=== PATIENT | female | born 1945 | race Caucasian/White ===

== ENCOUNTER 2018-03-30 03:17 | Inpatient (IN) ==
[2018-03-30] MEDS ORDERED: *HR* FentaNYL (PF) 100 MCG/2 ML VIAL IVP PRN (06:41)
[2018-03-30] MEDS ORDERED: 0.9 % Sodium Chloride 1,000 ML IVC SCH ×2 (06:45→08:45)
[2018-03-30 07:27] LABS: Basophils % 0.2 %; Eosinophils % 0.2 %; Hematocrit 30.7 % (35.3-44.9); Hemoglobin 9.6 g/dL (11.5-15.4); Immature Granulocytes % 0.5 % (0-4); Lymphocytes # 1.1 K/mcL (0.6-4.6); Lymphocytes % 10.4 %; Mean Corpuscular HGB Conc 31.3 g/dL (31.6-35.5); Mean Corpuscular Hemoglobin 30.6 pg (28.0-33.3); Mean Corpuscular Volume 97.8 fL (83.0-100.0); Mean Platelet Volume 8.8 fL (9.4-12.4); Monocytes # 0.6 K/mcL (0.0-1.3); Monocytes % 6.3 %; Neutrophils # 8.4 K/mcL (1.6-8.9); Platelet Count 192 K/mcL (140-400); Red Blood Count 3.14 M/mcL (3.82-4.97); Red Cell Distribution Width 20.1 % (11.5-14.5); Segmented Neutrophils % 82.4 %
[2018-03-30 07:36] LABS: INR 1.7; Prothrombin Time 19.6 Seconds (9.4-12.1)
[2018-03-30 07:38] LABS: Activated Partial Thrombo Time 33.5 Seconds (26.0-36.0)
[2018-03-30] MEDS ORDERED: OXYCODONE Oral CONC 10 MG/0.5 ML ORAL.SYG SL PRN (07:39)
[2018-03-30] MEDS ORDERED: Ketorolac 15 MG/ML VIAL IVP PRN (07:39)
[2018-03-30] MEDS ORDERED: Naloxone 0.4 MG/ML INJ IVP PRN (07:39)
[2018-03-30 07:47] LABS: Alanine Aminotransferase 10 Units/L (7-52); Albumin 3.4 g/dL (3.5-5.7); Alkaline Phosphatase 75 Units/L (34-104); Aspartate Amino Transferase 15 Units/L (13-39); BUN/Creatinine Ratio 44 (6-26); Bilirubin,Total 0.4 mg/dL (0.3-1.0); Blood Urea Nitrogen 48 mg/dL (8-23); Carbon Dioxide 27 mEq/L (23-29); Chloride 101 mEq/L (98-107); Globulin 3.4 g/dL (2.4-3.5); Glucose 145 mg/dL (70-105); Osmolality,Calculated 299 (280-300); Potassium 4.1 mEq/L (3.5-5.1); Sodium 137 mEq/L (136-145); Total Protein 6.8 g/dL (6.4-8.9); eGFR For Non-African Americans 50 (> 60)
--- NOTE | 2018-03-30 08:23 | Internal Med History&Physical ---
Date of Encounter: 03/30/18 Time of Encounter: 08:20 Internal Medicine - H&P: HPI Chief complaint: Fall with right hip pain Admitted From: Emergency Dept ([facility]) History of present illness: Ms. Bermudez is a 72 year old female patient with history of coronary artery disease status post coronary artery bypass grafting, stents, hypertension, anxiety, depression, recent DVT presented to the ER with complaints of right hip pain after she sustained a fall while she was sitting on side of the bed. She reports that she may have gotten up to use the restroom when she sat on side of bed and slid down and could not stop herself. She then developed pain in her right hip. She was taken to the ER and was found to have right proximal femur neck fracture and transferred here for orthopedic evaluation. Patient reports severe pain in the right hip region. She also complains of exertional dyspnea with minimal exertion. She is also having bilateral lower extremity swelling which is worse and has noticed erythema worsening on her left lower extremity. She denies any fevers or chills. No cough or wheezing. She has been residing at a retirement facility since her coronary artery bypass surgery earlier this year. She currently denies any chest pain or palpitations. She was also recently diagnosed with a DVT in her left leg and has been placed on Coumadin. Past Med Surg Social Fam HX - Past Medical History Attestation: Yes The following information was validated with the patient. Source: patient, old records reviewed Medical history: arthritis, COPD, DVT, GERD, hyperlipidemia, myocardial infarction Psychiatric history: anxiety, depression - Past Surgical History Surgical History: angioplasty/stent, appendectomy, hysterectomy, knee replacement Additional surgical history: CLUB FEET SX. STOMACH SX - Social History Smoking Status: Former smoker Smokeless Tobacco Status: No Alcohol use: none Drug use: none - Family History Mother Living Status: Hx Family Cardiac Disorders: Yes Father Living Status: Hx Family Cardiac Disorders: Yes Hx Family Endocrine Disorder: No Internal Medicine - H&P: Meds Acetaminophen [Tylenol] 500 mg PO Q6HR PRN 03/12/15 [History] Allopurinol [Zyloprim] 200 mg PO QAM 03/12/15 [History] Aspirin 81 mg PO QAM 03/12/15 [History] Calcium Carbonate 2.5 tab PO QAM 03/12/15 [History] Cholecalciferol (Vitamin D3) [Vitamin D3] 800 unit PO QAM 03/12/15 [History] Citalopram [CeleXA] 20 mg PO QAM 03/12/15 [History] Clopidogrel [Plavix] 75 mg PO DAILY 03/12/15 [History] Clotrimazole 1% CRM [Lotrimin] 1 appl TP BID 03/12/15 [History] Docusate Sodium [Doc-Q-Lace] 100 mg PO TID 03/12/15 [History] Fentanyl [Duragesic] 12 mcg TD Q72H 03/12/15 [History] Fluticasone Propionate Nasal [Flonase] 1 spray NS DAILY 03/12/15 [History] Folic Acid 1 mg PO QAM 03/12/15 [History] Furosemide [Lasix] 20 mg PO QAM 03/12/15 [History] Isosorbide MONOnitrate [Isosorbide Mononitrate ER] 30 mg PO QAM 03/12/15 [ History] Melatonin 3 mg PO HS 03/12/15 [History] Methotrexate Sodium [Methotrexate] 8 tab PO QWEEK 03/12/15 [History] Metolazone [Zaroxolyn] 5 mg PO QAM 03/12/15 [History] Nitroglycerin [Nitrostat] 0.4 mg SL Q3-5MIN PRN 03/12/15 [History] Nystatin POWDER [Nystop] 1 appl TP BID 03/12/15 [History] Oxybutynin [Ditropan] 5 mg PO HS 03/12/15 [History] Oxycodone HCl [Roxicodone] 5 mg PO Q6H PRN 03/12/15 [History] Potassium Chloride 20 meq PO QAM 03/12/15 [History] Pravastatin Sodium [Pravachol] 40 mg PO QPM 03/12/15 [History] Ropinerole [Requip] 2 mg PO HS 03/12/15 [History] raNITIdine HCl [Ranitidine HCl] 150 mg PO BID 03/12/15 [History] Alendronate Sodium 70 mg PO QWEEK 05/14/15 [History] Metoprolol [Lopressor] 100 mg PO QAM 05/14/15 [History] Acetaminophen [Tylenol] 500 mg PO Q6HR #60 tablet 05/16/15 [Rx] Ascorbic Acid [Vitamin C] 500 mg PO BID #60 tablet 05/16/15 [Rx] Docusate [Colace] 100 mg PO DAILY #60 capsule 05/16/15 [Rx] Enoxaparin [Lovenox] 40 mg SQ 0600 #29 syringe 05/16/15 [Rx] Ferrous Sulfate 325 mg PO BIDWM #60 tablet 05/16/15 [Rx] OxyCODONE Immed Rel [Roxicodone 5 MG] 5 - 10 mg PO Q4HR PRN #90 tablet 05/16/15 [Rx] 3 Allergy/AdvReac Type Severity Reaction Status Date / Time lorazepam [From Ativan] AdvReac See Verified 05/14/15 07:06 Comments NSAIDS (Non-Steroidal AdvReac Gastrointestinal Verified 05/14/15 07:06 Anti-Inflamma Upset All Systems PM: A 10-system review of systems was performed and is negative for pertinent findings except as documented above in the HPI. - Constitutional Constitutional: no chills, no fever(s), no night sweats - EENT Eyes: no change in vision, no discharge, no pain, no photophobia Ears: no ear discharge, no ear pain, no tinnitus Nose, mouth and throat: no dysphagia, no nasal discharge, no neck pain, no sore throat - Cardiovascular Cardiovascular ROS IM: dyspnea, dyspnea on exertion, edema, no chest pain, no diaphoresis, no lightheadedness, no palpitations, no syncope - Respiratory Respiratory: no cough, no dyspnea, no wheezing, no excessive phlegm production - Gastrointestinal Gastrointestinal: no abdominal pain, no diarrhea, no hematemesis, no hematochezia, no melena, no nausea, no vomiting - Genitourinary Genitourinary: no change in urinary stream, no dysuria, no flank pain, no hematuria - Musculoskeletal Musculoskeletal ROS IM: other (Right knee pain), no numbness, no tingling - Integumentary Integumentary IM: erythema - Neurological Neurological ROS: no confusion, no convulsions, no focal weakness, no numbness, no tingling, no tremor(s) - Hematologic/Lymphatic Hematologic/Lymphatic: no easy bruising - Constitutional Vitals: Temp Pulse Resp BP Pulse Ox 98.0 F 92 18 92/60 95 03/30/18 06:36 03/30/18 06:36 03/30/18 06:36 03/30/18 06:36 03/30/18 06:36 General appearance: Present: cooperative, A&O X 3, obese, answers questions appropriately Exam: Moderate distress - Neck Neck exam general surgery: Present: supple, trachea midline. Absent: lymphadenopathy - Respiratory Respiratory exam: Present: decreased breath sounds, CTAB. Absent: accessory muscle use, rales, rhonchi, wheezes - Cardiovascular Cardiovascular exam: Present: RRR, +S1, +S2. Absent: diastolic murmur, gallop, rubs, systolic murmur - GI/Abdominal GI/Abdominal exam: Present: normal bowel sounds, soft, no peritoneal signs. Absent: distended, tenderness - Extremities Exam Extremities exam: Present: pedal edema (Bilateral pitting pedal edema), tenderness (Right hip), warm, radial pulses palpable and symmetrical. Absent: calf tenderness, cyanotic - Neurological Exam Neurological exam: Present: alert, oriented X3, no focal deficits. Absent: facial droop, speech deficit - Skin Skin exam: Present: dry, erythema (Erythema with warmth and tenderness over the anterior part of the left lower leg), intact Internal Med - H&P Results - Labs CBC & Chem 7: 03/30/18 07:09 03/30/18 07:09 Labs: Short CBC 03/30/18 Range/Units 07:09 WBC 10.2 (4.3-11.1) K/mcL Hgb 9.6 L (11.5-15.4) g/dL Hct 30.7 L (35.3-44.9) % Plt Count 192 (140-400) K/mcL Neutrophils # 8.4 (1.6-8.9) K/mcL BMP 03/30/18 07:09 Sodium 137 Potassium 4.1 Chloride 101 Carbon Dioxide 27 BUN 48 H Creatinine 1.08 Glucose 145 H Calcium 9.0 Liver Function 03/30/18 Range/Units 07:09 Total Bilirubin 0.4 (0.3-1.0) mg/dL AST 15 (13-39) Units/L ALT 10 (7-52) Units/L Alkaline Phosphatase 75 (34-104) Units/L Albumin 3.4 L (3.5-5.7) g/dL - Assessment and plan (1) Closed right femoral fracture Current Visit: Yes Status: Acute Assessment and plan: Patient with closed right femur neck fracture. Orthopedics consultation. Pain control. We will follow the recommendations. Physical therapy after surgery. Qualifiers: Encounter type: initial encounter Femur location: neck Qualified Code(s) : S72.001A - Fracture of unspecified part of neck of right femur, initial encounter for closed fracture (2) Essential hypertension Current Visit: Yes Status: Chronic Assessment and plan: Monitor blood pressure. Continue home medications. (3) DVT (deep venous thrombosis) Current Visit: Yes Status: Chronic Assessment and plan: Patient with reported history of DVT in the left lower extremity. On Coumadin. INR is subtherapeutic. Will place patient on IV heparin and hold Coumadin in anticipation for surgery. Qualifiers: DVT location: lower extremity Affected thrombotic vein of extremity: unspecified vein of extremity Chronicity: chronic Laterality: left Qualified Code(s): I82.502 - Chronic embolism and thrombosis of unspecified deep veins of left lower extremity (4) Cellulitis of left leg Current Visit: Yes Status: Acute Assessment and plan: Patient has cellulitis involving 10 x 10 cm area on the anterior lower espinal of the left lower extremity. We will place her on vancomycin as she is a senior living resident. (5) Anemia Current Visit: Yes Status: Chronic Assessment and plan: Patient with history of chronic anemia. Hemoglobin 9.6 here. Appears to be at her baseline. We will monitor. We will also check iron, folic acid and B12 levels Qualifiers: Anemia type: other cause Other causes of anemia: other cause, not classified Qualified Code(s): D64.89 - Other specified anemias (6) Coronary artery disease Current Visit: Yes Status: Chronic Assessment and plan: Patient with history of coronary artery disease status post CABG done earlier this year. Currently not having chest pain. However she does report exertional dyspnea. Will consult cardiology and also get 2-D echocardiogram. Qualifiers: Coronary Disease-Associated Artery/Lesion type: unspecified vessel or lesion type [place] vs. transplanted heart: [place] heart Associated angina: without angina Qualified Code(s): I25.10 - Atherosclerotic heart disease of [place] coronary artery without angina pectoris (7) Congestive heart failure (CHF) Current Visit: Yes Status: Suspected Assessment and plan: Patient reports exertional dyspnea and pedal edema. Did have coronary artery bypass grafting done earlier this year. May have underlying CHF. Will get 2-D echocardiogram. Her blood pressure is soft at this time. Will avoid IV Lasix for now. Once her blood pressure improves, we can give IV Lasix and monitor her urine output closely. Follow cardiology recommendations. Qualifiers: Heart failure type: combined systolic and diastolic Heart failure chronicity: acute on chronic Qualified Code(s): I50.43 - Acute on chronic combined systolic (congestive) and diastolic (congestive) heart failure - Time Spent With Patient Total time spent is greater than 50% in coordination of care (as documented) at patient's floor/unit and/or counseling patient:
[2018-03-30] MEDS ORDERED: *HR* Heparin 5,000 UNIT/ML VIAL IVP ONE (08:39)
[2018-03-30] MEDS ORDERED: *HR* Heparin 5,000 UNIT/ML VIAL IVP PRN ×2 (08:39)
[2018-03-30] MEDS: Heparin 25,000 UNIT/500 ML D5W 25,000 UNIT/500 ML BAG IVC SCH (09:56)
[2018-03-30] MEDS ORDERED: 0.9 % Sodium Chloride 250 ML IVC SCH (10:15)
--- NOTE | 2018-03-30 11:03 | Cardiology Consult Note ---
<DomínguezHollis S - Last Filed: 03/30/18 10:58> Date of Encounter: 03/30/18 Time of Encounter: 10:45 Assessment and Plan (1) Pre-operative cardiovascular examination Current Visit: Yes Status: Acute Pt has an extensive hx of cardiac dz including CAD, HTN, recent double bypass, OH x 3 (1998,1999,2000) and stents x 3 According to the revised cardiac risk index calculator, the pt is a class III risk with 2 points significant for hx of ischemic heart dz and hx of CHF. According to this risk calculation, the pt has a 6.6% risk of major cardiac event Last ECHO was done 05/2015 -LVEF 70% -normal LV size with hyperdynamic systolic fxn -mild diastolic dysfxn of the LV -moderately enlarged LA size, normla RA size -RV borderline dilated with hyperfynamic fxn -no pHTN -RVSP was 32mmHg LOIS done at [facility] in September showed -LVEF 55% -no MR, trace TR -LV improved wall motion -mid and apical anteroir wall improved to hypokinetic from akinetic -anterpseptal from hypokinetic to normal -inferoseptal mildly hypokinetic EKG in the ER showed sinus rhythm, LAD, old anterior Q waves Plan: -the benefits outweigh the risks of the fixation of the right femur -based on cardiac risk assessment, the pt is a candidate for intervention -benefits and risks explained to the pt -continue cardiac diet until midnight before surgery -ECHO pending (2) Closed right femoral fracture Current Visit: Yes Status: Acute Pt has right proximal femur neck fracture -cardiac risk assessment as per above -continue to control pain as per primary with [place] -continue heparin drip Qualifiers: Encounter type: initial encounter Femur location: neck Qualified Code(s) : S72.001A - Fracture of unspecified part of neck of right femur, initial encounter for closed fracture (3) Coronary artery disease Current Visit: No Status: Chronic Hx of CAD -s/p CABG earlier this year -no active chest pain -(+) for exertional dyspnea Plan: -continue Pravachol 40mg PO at night, Lopressor 100mg PO, Isosorbid Mononitrate 30mg, Lasix 20mg, ASA 81mg Qualifiers: Coronary Disease-Associated Artery/Lesion type: unspecified vessel or lesion type [place] vs. transplanted heart: [place] heart Associated angina: without angina Qualified Code(s): I25.10 - Atherosclerotic heart disease of [place] coronary artery without angina pectoris (4) Essential hypertension Current Visit: No Status: Chronic BP 92/60 -adequate control Plan: -continue home meds -Lopressor 100mg PO, Isosorbid Mononitrate 30mg, Lasix 20mg (5) DVT (deep venous thrombosis) Current Visit: No Status: Chronic Pt recently tx for DVT in the LLE -she is on Coumadin -PT 19.6, INR 1.7 (subtheraputic) Plan: -coumadin held -continue heparin drip -check PT/INR in the morning as per primary Qualifiers: DVT location: lower extremity Affected thrombotic vein of extremity: unspecified vein of extremity Chronicity: chronic Laterality: left Qualified Code(s): I82.502 - Chronic embolism and thrombosis of unspecified deep veins of left lower extremity Discussion w patient/family: The assessment and plan as outlined above was discussed with the patient and/or family members who expressed understanding and agreement. All questions were answered. Thank you for involving us in the care of your patient. Please call with any questions. History of Present Illness Consult date: 03/30/18 Requesting physician: Alonso Glaser Consult reason: Preop clearance for right femur fx Chief complaint: "i fell" History of present illness: Ms. Bermudez is a 72 year old female with PMH of CAD, HTN, anxiety, and is s/ p CABG at [facility] in september. She is consulted for pre-op clearance for right femur fx. She states that she fell last night trying to get out of bed. She was sitting on the side trying to go to the bathroom and doesn't remember much else. She states that she has excruciating hip pain since the fall and was taken to the ER. In the ER she was found to have a right proximal femur fracture. She has B/ L LE swelling and erythema. The pt also has exertional SOB, which worsens when she tries to walk too much. She has an extensive cardiac hx including 3 OH (1998, 1999, 2000) and has had stents placed with each OH. The pt is not a smoker, has been quit since her first heart attack in 1998. She had CABG at [facility] (double bypass) earlier this year in September and has been in a long term since. The pt was recently admitted for a DVT in the left leg and has been on Coumadin since. Currently the pt denies any chest pain, palpitations, SOB, abd pain, N/V/D. She does have pain in the right hip and does endorse having some anxiety. Fluids - 0.9% NS 75cc/hr Electrolytes - all WNL Nutriton - cardiac diet DVT prophylaxis - on heparin drip GI prophylaxis - not indicated Past Med Surg Social Fam HX - Past Medical History Medical history: arthritis, COPD, DVT, GERD, hyperlipidemia, myocardial infarction Psychiatric history: anxiety, depression - Past Surgical History Surgical History: angioplasty/stent, appendectomy, hysterectomy, knee replacement Additional surgical history: CLUB FEET SX. STOMACH SX - Social History Smoking Status: Former smoker Smokeless Tobacco Status: No Alcohol use: none Drug use: none - Family History Mother Living Status: Hx Family Cardiac Disorders: Yes Father Living Status: Hx Family Cardiac Disorders: Yes Hx Family Endocrine Disorder: No Medications and Allergies Alendronate Sodium [Fosamax] 70 mg PO VERDE 03/30/18 [History] Allopurinol [Zyloprim 100 MG] 100 mg PO BID 03/30/18 [History] Aspirin [Lo-Dose Aspirin EC] 81 mg PO DAILY 03/30/18 [History] Atorvastatin [Lipitor] 40 mg PO HS 03/30/18 [History] Calcium Carbonate/Vitamin D3 [[place] Calcium-Vit D Tab] 1 tab PO TID 03/30 [History] Citalopram Hydrobromide [Citalopram HBr] 20 mg PO DAILY 03/30/18 [History] Clopidogrel [Plavix] 75 mg PO DAILY 03/30/18 [History] Ergocalciferol (VITAMIN D2) [Vitamin D] 400 unit PO DAILY 03/30/18 [History] FentaNYL PATCH [Duragesic] 25 mcg TD Q72H 03/30/18 [History] Folic Acid 1 mg PO DAILY 03/30/18 [History] Furosemide [Lasix] 40 mg PO BID 03/30/18 [History] Lidocaine Patch [Lidoderm 5% patch] 1 appl TP DAILY 03/30/18 [History] Mag Hydrox/Aluminum Hyd/Simeth [Cvs Antacid Plus Anti-Gas Liq] 30 ml PO AD PRN 03/30/18 [History] Magnesium Oxide [Magnesium] 400 mg PO BID 03/30/18 [History] Methotrexate [Otrexup] 15 mg PO TH 03/30/18 [History] Metoprolol [Lopressor] 25 mg PO BID 03/30/18 [History] Multivitamin [One Daily Multivitamin] 1 tab PO DAILY 03/30/18 [History] Nitroglycerin [Nitrostat] 0.4 mg SL Q5M PRN MDD [id number] 03/30/18 [History] OxyCODONE/APAP 5/325 [Percocet 5/325 MG] 1 tab PO Q4HR PRN 03/30/18 [History] Oxybutynin [Ditropan] 5 mg PO HS 03/30/18 [History] Potassium Chloride [Klor-Con 10] 10 meq PO BID 03/30/18 [History] Ropinirole HCl [Requip] 2 mg PO HS 03/30/18 [History] Warfarin [Coumadin] 5 mg PO 1800 03/30/18 [History] Zolpidem [Ambien] 5 mg PO HS 03/30/18 [History] raNITIdine HCl [Zantac] 150 mg PO BID 03/30/18 [History] 3 Allergy/AdvReac Type Severity Reaction Status Date / Time lorazepam [From Ativan] AdvReac See Verified 05/14/15 07:06 Comments NSAIDS (Non-Steroidal AdvReac Gastrointestinal Verified 05/14/15 07:06 Anti-Inflamma Upset All Systems Review: The remainder of the systems were reviewed and are negative - Constitutional Constitutional: frequent falls, no chills, no fatigue - Cardiovascular Cardiovascular: dyspnea on exertion, leg edema, no chest pain at rest, no chest pain with exertion, no dyspnea at rest, no palpitations, no paroxysmal nocturnal dyspnea - Respiratory Respiratory: no cough, no dyspnea - Gastrointestinal Gastrointestinal: no abdominal pain, no diarrhea - Musculoskeletal Musculoskeletal: arthralgias - Neurological Neurological: no dizziness, no numbness, no tingling - Psychiatric Psychiatric: anxiety Physical Examination Vital Signs, Last 4 Hours Pulse Ox 03/30/18 08:36 95 General: Conversant HEENT: Atraumatic, Normocephaly Cardiac: Other (systolic murmur over the LUSB, regular rhythm, tacycardia most likely 2/2 pain) Lungs: No Wheeze, Rales, Rhonchi Neuro: Alert and responsive, No focal deficits noted Abdomen: Soft Skin: No rashes noted on visualized skin Extremities: Other (minimal B/L edema, erythema over B/L shins) Results 03/30/18 07:09 03/30/18 07:09 Lab Results 03/30/18 03/30/18 03/30/18 07:09 07:09 07:09 WBC 10.2 Hgb 9.6 L Hct 30.7 L Plt Count 192 INR 1.7 APTT 33.5 Sodium 137 Potassium 4.1 Chloride 101 Carbon Dioxide 27 BUN 48 H Creatinine 1.08 Glucose 145 H Calcium 9.0 Total Bilirubin 0.4 AST 15 ALT 10 Alkaline Phosphatase 75 Consult Discharge Plan - Plan Referrals: Santos Robbins Jr, PAC [Primary Care Provider] - <Yandy Pizano - Last Filed: 03/30/18 18:54> Date of Encounter: 03/30/18 - Attending Attestation I examined this patient and my medical decision-making was reviewed with the Resident Physician. I agree with the documented findings, disposition and treatment plan. Ms. Bermudez is a 72 year old female presenting with acute right hip fracture due to what appears to be a mechanical fall. Patient reports falling out of her bed which she has done before. She denies history of syncope. We've been asked to evaluate the patient preoperatively. Known history of CAD and prior OH with bypass earlier this year follows with Dr. Tolliver in [place]. At the bedside the patient is alert, conversant and oriented x3. Vital signs stable. No concerning cardiac exam findings. Does have sternal wound. No acute ECG findings. Echo with normal LV systolic function. No prior history of significant valve dysfunction. Impression/Plan: Known history of CAD and recent bypass earlier this year. Denies cardiac symptoms prior to her mechanical fall out of bed. No active cardiac conditions to treat preoperatively. ECG without concerning findings. Cardiac testing is not warranted at this time and would ultimately delay her necessary surgery that if not done could lead to immobility and deterioration. Recommend proceeding with surgery with known CAD and knowledge of risk that does not appear to be high at this time. Of note, please consider Wound Care consult for sternal wound. Patient would like to follow up with her Jack Winder, Dr. Tolliver in [place]. Will sign off. Please call with questions. Assessment and Plan Discussion w patient/family: The assessment and plan as outlined above was discussed with the patient and/or family members who expressed understanding and agreement. All questions were answered. Thank you for involving us in the care of your patient. Please call with any questions. History of Present Illness History of present illness: Ms. Bermudez is a 72 year old female All Systems Review: The remainder of the systems were reviewed and are negative Physical Examination Vital Signs, Last 4 Hours Temp Pulse Resp BP Pulse Ox 03/30/18 16:29 85 104/67 03/30/18 15:06 98.7 F 70 19 90/52 98 Results 03/30/18 07:09 03/30/18 07:09 Lab Results 03/30/18 03/30/18 03/30/18 07:09 07:09 07:09 WBC 10.2 Hgb 9.6 L Hct 30.7 L Plt Count 192 INR 1.7 APTT 33.5 Sodium 137 Potassium 4.1 Chloride 101 Carbon Dioxide 27 BUN 48 H Creatinine 1.08 Glucose 145 H Calcium 9.0 Total Bilirubin 0.4 AST 15 ALT 10 Alkaline Phosphatase 75
[2018-03-30] MEDS ORDERED: Perflutren Lipid Microsphere 1.3 ML in 0.9 % Sodium Chloride 8.7 ML IVP ONE (13:11)
[2018-03-30] MEDS: Acetaminophen 325 MG TABLET PO PRN (13:35)
--- NOTE | 2018-03-30 21:56 | Orthopedic Consult Note ---
Date of Encounter: 03/30/18 Time of Encounter: 21:36 History of Present Illness Chief complaint: Right thigh pain HPI: Ms. Bermudez is a 72 year old female who sustained an injury to her right thigh and hip area when she had an unwitnessed fall at a nursing facility where she is a resident. This happened in the late evening of 2217. She was seen at [facility] and reportedly had a right femur fracture. She was transferred to [facility] for further evaluation and management of the fracture. The patient arrived approximately 0630 hrs. this morning. I attempted to see the patient at that time though no information was available. I started seeing the patient at approximately 7:30 PM tonight, no imaging studies were available and new x-rays had to be ordered to verify the fracture. He was initially reported that the patient had a femoral neck fracture, this was incorrect as the patient in fact has a periprosthetic fracture of nearly the midshaft of her femur. Patient has a very significant current medical history. The patient underwent cardiac bypass surgery in September of this year [facility]. She reportedly was being cleared by her coding and reimbursement specialist to resume care with her regular coding and reimbursement specialist when she was noted to have some swelling in the left leg. She had a Doppler done at [facility] on March 07 of this year (report is being faxed to [place] at this time) reportedly revealed the presence of a venous thrombosis in the left lower extremity. She was started on Lovenox and Coumadin and ultimately was maintained on Coumadin daily. The patient's case is further complicated by the revision type prosthesis in her right leg. This stem extends up to the mid thigh region. I have reviewed the patient's completed history and physical form as well as the cardiology consultation and the completed medical record. Pertinent orthopedic examination this time revealed a 72-year-old woman in moderate distress. The right thigh was in a knee immobilizer which was removed. There was marked fullness in the mid thigh suspicious for a femur fracture. The patient has a well-healed midline incision over the right knee. The patient also has some cellulitic changes in the right lower leg. This is associated with swelling and changes in the right foot. The patient does have a history of having had clubfoot surgery and the right total knee arthroplasty as previously mentioned. I reviewed x-rays of the right knee from , these revealed the presence of a cemented revision type total knee arthroplasty with a large femoral post. There is also significant calcification in the arterial system. I obtained x-rays of the right hip/femur. This revealed the presence of a oblique spiral type fracture of the right femur. The fracture ends just above the level of the femoral stem of the knee component. Laboratory data includes a hemoglobin of 9.6 with a platelet count of 19.2. The patient's pro time was 19.6 with an INR of 1.7. Be UN was 48 with a creatinine of 1.08. GFR was approximately 50. Left sugars were approximately 140. Impression: Periprosthetic fracture mid shaft right femur Recommendation: The patient is going to require surgical intervention in regards to this fracture. This removed require an extensile exposure with a combination plate utilizing screw fixation proximal and cable fixation distally due to the presence of her knee prosthesis. The patient is at high risk from a cardiac point of view as per the cardiology consultation and recommendations. I discussed the patient's case with the hospitalist in regards to [place] concerns for continued bleeding in the fracture hematoma due to the heparin use. We discussed the risks and benefits of stopping the heparin or continuing to heparin in regards to continued hemorrhage versus treatment of her left lower extremity DVT. We will obtain the venous Doppler studies from [facility] and define the level of the clot. A more proximal clot would be much more concerning and require a shorter interval before stopping the heparin prior to surgery. We will repeat labs including coags and hemoglobin in a.m. Anticipate surgery tomorrow. Had a long discussion with the patient in regards to all these findings and she signed informed consent for the surgery after we discussed the potential risks and complications including but not limited to bleeding infection blood clots nerve injury stiffness malunion nonunion and her high risk for surgery from both a cardiac an and anesthesia point of view. Thank you very much for allowing me to be involved in the care for Mrs. Bermudez. This is certainly a very complex case there will require critical care. Sincerely, Nikhil Rivas,DO Past Med Surg Social Fam HX - Past Medical History Medical history: arthritis, COPD, DVT, GERD, hyperlipidemia, myocardial infarction Psychiatric history: anxiety, depression - Past Surgical History Surgical History: angioplasty/stent, appendectomy, hysterectomy, knee replacement Additional surgical history: CLUB FEET SX. STOMACH SX - Social History Smoking Status: Former smoker Smokeless Tobacco Status: No Alcohol use: none Drug use: none - Family History Mother Living Status: Hx Family Cardiac Disorders: Yes Father Living Status: Hx Family Cardiac Disorders: Yes Hx Family Endocrine Disorder: No Medications and Allergies Alendronate Sodium [Fosamax] 70 mg PO VERDE 03/30/18 [History] Allopurinol [Zyloprim 100 MG] 100 mg PO BID 03/30/18 [History] Aspirin [Lo-Dose Aspirin EC] 81 mg PO DAILY 03/30/18 [History] Atorvastatin [Lipitor] 40 mg PO HS 03/30/18 [History] Calcium Carbonate/Vitamin D3 [Oyster Shell Calcium-Vit D Tab] 1 tab PO TID 03/30 [History] Citalopram Hydrobromide [Citalopram HBr] 20 mg PO DAILY 03/30/18 [History] Clopidogrel [Plavix] 75 mg PO DAILY 03/30/18 [History] Ergocalciferol (VITAMIN D2) [Vitamin D] 400 unit PO DAILY 03/30/18 [History] FentaNYL PATCH [Duragesic] 25 mcg TD Q72H 03/30/18 [History] Folic Acid 1 mg PO DAILY 03/30/18 [History] Furosemide [Lasix] 40 mg PO BID 03/30/18 [History] Lidocaine Patch [Lidoderm 5% patch] 1 appl TP DAILY 03/30/18 [History] Mag Hydrox/Aluminum Hyd/Simeth [Cvs Antacid Plus Anti-Gas Liq] 30 ml PO AD PRN 03/30/18 [History] Magnesium Oxide [Magnesium] 400 mg PO BID 03/30/18 [History] Methotrexate [Otrexup] 15 mg PO TH 03/30/18 [History] Metoprolol [Lopressor] 25 mg PO BID 03/30/18 [History] Multivitamin [One Daily Multivitamin] 1 tab PO DAILY 03/30/18 [History] Nitroglycerin [Nitrostat] 0.4 mg SL Q5M PRN MDD [id number] 03/30/18 [History] OxyCODONE/APAP 5/325 [Percocet 5/325 MG] 1 tab PO Q4HR PRN 03/30/18 [History] Oxybutynin [Ditropan] 5 mg PO HS 03/30/18 [History] Potassium Chloride [Klor-Con 10] 10 meq PO BID 03/30/18 [History] Ropinirole HCl [Requip] 2 mg PO HS 03/30/18 [History] Warfarin [Coumadin] 5 mg PO 1800 03/30/18 [History] Zolpidem [Ambien] 5 mg PO HS 03/30/18 [History] raNITIdine HCl [Zantac] 150 mg PO BID 03/30/18 [History] 3 Allergy/AdvReac Type Severity Reaction Status Date / Time lorazepam [From Ativan] AdvReac See Verified 05/14/15 07:06 Comments NSAIDS (Non-Steroidal AdvReac Gastrointestinal Verified 05/14/15 07:06 Anti-Inflamma Upset All Systems Reviewed: The remainder of the systems were reviewed and are negative Physical Exam - Constitutional Vitals: Temp Pulse Resp BP Pulse Ox 98.7 F 83 20 135/68 98 03/30/18 19:13 03/30/18 19:13 03/30/18 19:13 03/30/18 19:13 03/30/18 19:40 Results - Labs Result Diagrams: 03/30/18 07:09 03/30/18 07:09 Labs: Abnormal lab results RBC 3.14 M/mcL (3.82-4.97) L 03/30/18 07:09 Hgb 9.6 g/dL (11.5-15.4) L 03/30/18 07:09 Hct 30.7 % (35.3-44.9) L 03/30/18 07:09 MCHC 31.3 g/dL (31.6-35.5) L 03/30/18 07:09 RDW 20.1 % (11.5-14.5) H 03/30/18 07:09 MPV 8.8 fL (9.4-12.4) L 03/30/18 07:09 PT 19.6 Seconds (9.4-12.1) H 03/30/18 07:09 BUN 48 mg/dL (8-23) H 03/30/18 07:09 Est GFR (Non-Af Amer) 50 (> 60) L 03/30/18 07:09 BUN/Creatinine Ratio 44 (6-26) H 03/30/18 07:09 Glucose 145 mg/dL (70-105) H 03/30/18 07:09 POC Glucose 141 mg/dL (70-99) H 03/30/18 08:25 Albumin 3.4 g/dL (3.5-5.7) L 03/30/18 07:09 Albumin/Globulin Ratio 1.0 (1.1-2.2) L 03/30/18 07:09 H & H 03/30/18 Range/Units 07:09 Hgb 9.6 L (11.5-15.4) g/dL Hct 30.7 L (35.3-44.9) % All other labs normal. - Diagnostic results Hip AP/Lateral x-ray: image reviewed Hip CT: report reviewed Consult Discharge Plan - Plan Referrals: Santos Robbins Jr, PAC [Primary Care Provider] -
[2018-03-30] MEDS: *HR* HYDROcodone/Acet 5/325 mg TABLET PO PRN (22:55)
[2018-03-31] MEDS: *HR* FentaNYL (PF) 100 MCG/2 ML VIAL IVP PRN ×5 (00:07→13:50)
[2018-03-31 01:58] LABS: Basophils % 0.2 %; Eosinophils # 0.3 K/mcL (0.0-0.6); Eosinophils % 5.1 %; Hemoglobin 8.1 g/dL (11.5-15.4); Immature Granulocytes % 0.5 % (0-4); Lymphocytes # 1.6 K/mcL (0.6-4.6); Lymphocytes % 27.7 %; Mean Corpuscular HGB Conc 31.2 g/dL (31.6-35.5); Mean Corpuscular Hemoglobin 30.7 pg (28.0-33.3); Mean Corpuscular Volume 98.5 fL (83.0-100.0); Mean Platelet Volume 9.4 fL (9.4-12.4); Monocytes # 0.6 K/mcL (0.0-1.3); Monocytes % 10.5 %; Neutrophils # 3.3 K/mcL (1.6-8.9); Platelet Count 168 K/mcL (140-400); Red Blood Count 2.64 M/mcL (3.82-4.97); Red Cell Distribution Width 20.4 % (11.5-14.5)
[2018-03-31] MEDS: Acetaminophen 325 MG TABLET PO PRN ×2 (02:04→08:49)
[2018-03-31 02:06] LABS: INR 2.2; Prothrombin Time 24.5 Seconds (9.4-12.1)
[2018-03-31 02:17] LABS: Calcium 8.6 mg/dL (8.6-10.3); Potassium 4.3 mEq/L (3.5-5.1)
[2018-03-31] MEDS: *HR* HYDROcodone/Acet 5/325 mg TABLET PO PRN (05:27)
[2018-03-31] MEDS ORDERED: 0.9 % Sodium Chloride 1,000 ML IVC SCH (07:00)
--- NOTE | 2018-03-31 09:27 | Internal Med Progress Note ---
Hospitalist Progress Note - Encounter Date of Encounter: 03/31/18 Time of Encounter: 09:25 - Subjective Interval History: No acute events overnight. She is anxious. She states she is no longer short of breath. She states she was short of breath from anxiety. She denies CP, SOB , N/V, diaphoresis, palpitations. Hip pain is currently 7/10 and pain medication helping. - Exam Vitals: Temp Pulse Resp BP Pulse Ox 98.0 F 78 18 102/65 100 03/31/18 07:11 03/31/18 07:11 03/31/18 07:11 03/31/18 07:11 03/31/18 07:11 Exam: Gen: NAD, AAO x3 CVS: RRR Lungs: limited exam, patient unable to sit up. Upper lobes are clear to auscultation with no wheezing, rales, or rhonchi. Abd: Soft, NT/ND Ext: 2+ bipedal, non-pitting edema. Lower extremities with faint erythema bilaterally at level of shins, and area is non-tender. - Assessment and Plan (1) Closed right femoral fracture Current Visit: Yes Status: Acute Assessment and Plan: Patient with closed right femur neck fracture. Plan is for surgery today. Cardiology cleared patient for Surgery. Patient is aware of risk with her history of DVT and holding coumadin for surgery and benefits of surgery outweigh the risks. She would like to proceed. Heparin drip held prior to surgery and then resumed post-op. (2) Anemia Current Visit: Yes Status: Chronic Assessment and Plan: Patient with history of chronic anemia. Hemoglobin 9.6 on admission now 8.1 today. Patient has CAD with history of CABG and recent stent. Goal hemoglobin >8.0. Most likely she will need transfusion of PRBC post-op. Follow-up B12, Folate, iron studies (3) Coronary artery disease Current Visit: No Status: Chronic Assessment and Plan: Patient with history of coronary artery disease status post CABG done earlier this year. Currently not having chest pain. She reported exertional dyspnea on admission and now states that was anxiety-related and she does not have any SOB at this moment. Cardiology was consulted and gave clearance for surgery. She has hemoglobin 8.1 and she may need transfusion post op given history, prefer to have hemoglobin > 8.0. (4) Essential hypertension Current Visit: No Status: Chronic Assessment and Plan: Monitor blood pressure. Continue home medications. (5) DVT (deep venous thrombosis) Current Visit: No Status: Chronic Assessment and Plan: Patient with reported history of DVT in the left lower extremity on coumadin. Coumadin being held. INR this am is 2.2 (6) Congestive heart failure (CHF) Current Visit: No Status: Chronic Assessment and Plan: Patient reports exertional dyspnea but states is from anxiety. She does have pedal edema bilaterally. Did have coronary artery bypass grafting done earlier this year. May have underlying CHF. Her blood pressure is soft at this time. Will avoid IV Lasix for now. Once her blood pressure improves, we can give IV Lasix and monitor her urine output closely. Follow cardiology recommendations. (7) Erythema of lower extremity Current Visit: Yes Status: Acute Assessment and Plan: Thought to be cellulitis. However, this could be venous stasis changes. Patient states this erythema of both extremities get more red and then get faint without antibiotics. Erythema at this point appears to be equal on both sides. On admission however, erythema was noted to be more prominent on left lower extremity. She is afebrile, no leukocytosis. The extremities are non- tender. Will monitor off of antibiotics for now since this does not appear to be infection. If she does develop signs of infection, will start emperic antbiotic therapy. (8) DVT prophylaxis Current Visit: Yes Status: Acute Assessment and Plan: On coumadin at home for DVT. Heparin drip here will be held for surgery and then resumed. - Time Spent with Patient Total time spent is greater than 50% in coordination of care (as documented) at patient's floor/unit and/or counseling patient: Internal Medicine: Result - Labs CBC & Chem 7: 03/31/18 01:08 03/31/18 01:08 Labs: Short CBC 03/31/18 Range/Units 01:08 WBC 5.9 (4.3-11.1) K/mcL Hgb 8.1 L D (11.5-15.4) g/dL Hct 26.0 L (35.3-44.9) % Plt Count 168 (140-400) K/mcL Neutrophils # 3.3 (1.6-8.9) K/mcL BMP 03/31/18 01:08 Sodium 137 Potassium 4.3 Chloride 103 Carbon Dioxide 28 BUN 42 H Creatinine 1.15 Glucose 127 H Calcium 8.6 - ABG Interpretation ABG results: PT/INR, D-dimer PT 24.5 Seconds (9.4-12.1) H 03/31/18 01:08 - Impressions Impressions Echocardiogram 03/30/18 07:39 Impressions: Technically sub-optimal due to poor echocardiographic windows due to patient's limited body positions. Normal left ventricular size and systolic and diastolic function. LVEF 60%. RV Not well visualized, size and function appear normal Normal left and right atrial size. No significant valvular dysfunction. Low CVP, no pulmonary hypertension. Left Ventricular Wall Motion: Rest Echo Findings All wall segments showed normal motion. Findings: Study Quality * Technically sub-optimal due to poor echocardiographic windows due to patient's limited body positions. ECG Findings * Normal sinus rhythm. Left Ventricle * LVEF 60%. * Normal LV chamber size, wall thickness. * Normal left ventricular diastolic function. Left Atrium * Normal left atrial size. Right Ventricle * Not well visulized, size and function appear normal Interatrial Septum * Interatrial septum not well evaluated. Aortic Valve * Aortic valve not well visualized. * Mildly sclerotic aortic valve leaflets. Mitral Valve * No mitral regurgitation. Tricuspid Valve * Mild tricuspid regurgitation. * Estimated RVSP is 25 mmHg. * No pulmonary hypertension. Pulmonic Valve * Pulmonic valve is not well visualized. Aorta * Normally sized aortic root. Pericardium * The pericardium appears normal. IVC * Normal IVC dimensions and inspiratory collapse. * CVP 5 Hip X-Ray 03/30/18 20:15 IMPRESSION: Angulated mid femoral fracture just above the tip of a knee arthroplasty device. D/ / Satnam Knox MD / Satnam Knox MD Interpreting Provider: Satnam Knox MD Consult Discharge Plan - Plan Referrals: aSntos Robbins Jr, PAC [Primary Care Provider] - (1) Closed right femoral fracture Qualifiers: Encounter type: initial encounter Femur location: neck Qualified Code(s): S72.001A - Fracture of unspecified part of neck of right femur, initial encounter for closed fracture (2) Anemia Qualifiers: Anemia type: other cause Other causes of anemia: other cause, not classified Qualified Code(s): D64.89 - Other specified anemias (3) Coronary artery disease Qualifiers: Coronary Disease-Associated Artery/Lesion type: unspecified vessel or lesion type [place] vs. transplanted heart: [place] heart Associated angina: without angina Qualified Code(s): I25.10 - Atherosclerotic heart disease of [place] coronary artery without angina pectoris (5) DVT (deep venous thrombosis) Qualifiers: DVT location: lower extremity Affected thrombotic vein of extremity: unspecified vein of extremity Chronicity: chronic Laterality: left Qualified Code(s): I82.502 - Chronic embolism and thrombosis of unspecified deep veins of left lower extremity (6) Congestive heart failure (CHF) Qualifiers: Heart failure type: combined systolic and diastolic Heart failure chronicity : acute on chronic Qualified Code(s): I50.43 - Acute on chronic combined systolic (congestive) and diastolic (congestive) heart failure
[2018-03-31] MEDS: Heparin 25,000 UNIT/500 ML D5W 25,000 UNIT/500 ML BAG IVC SCH (11:13)
[2018-03-31] MEDS ORDERED: *HR* FentaNYL (PF) 100 MCG/2 ML VIAL IVP PRN (17:18)
--- NOTE | 2018-03-31 17:51 | Anesthesia Evaluation PreOp ---
Date of Encounter: 03/31/18 Time of Encounter: 18:49 - Past History Planned Operation: ORIF RIGHT FEMUR Cardiac History: CHF, HTN, Hyperlipidemia, Cardiac Surgery (09/2017 CABG), Other (RECENT RLE DVT ON COUMADIN. PLACED ON HEPARIN GTT ON ADMISSION.) Pulmonary History: Denies Any Significant HX DIRECTOR OF SPORTS PERFORMANCE History: Denies Any Significant HX Other Medical History: Bleeding (ACUTE ON CHRONIC ANEMIA), GERD, Other ( ARTHRITIS) Anesthesia History: Past Anesthesia, Problems (VOCAL CORD SWELLING POST CABG, RESIDUAL MILD HOARSENESS) Alcohol Use: none Drug use: none Medications and Allergies Alendronate Sodium [Fosamax] 70 mg PO VERDE 03/30/18 [History] Allopurinol [Zyloprim 100 MG] 100 mg PO BID 03/30/18 [History] Aspirin [Lo-Dose Aspirin EC] 81 mg PO DAILY 03/30/18 [History] Atorvastatin [Lipitor] 40 mg PO HS 03/30/18 [History] Calcium Carbonate/Vitamin D3 [Oyster Shell Calcium-Vit D Tab] 1 tab PO TID 03/30 [History] Citalopram Hydrobromide [Citalopram HBr] 20 mg PO DAILY 03/30/18 [History] Clopidogrel [Plavix] 75 mg PO DAILY 03/30/18 [History] Ergocalciferol (VITAMIN D2) [Vitamin D] 400 unit PO DAILY 03/30/18 [History] FentaNYL PATCH [Duragesic] 25 mcg TD Q72H 03/30/18 [History] Folic Acid 1 mg PO DAILY 03/30/18 [History] Furosemide [Lasix] 40 mg PO BID 03/30/18 [History] Lidocaine Patch [Lidoderm 5% patch] 1 appl TP DAILY 03/30/18 [History] Mag Hydrox/Aluminum Hyd/Simeth [Cvs Antacid Plus Anti-Gas Liq] 30 ml PO AD PRN 03/30/18 [History] Magnesium Oxide [Magnesium] 400 mg PO BID 03/30/18 [History] Methotrexate [Otrexup] 15 mg PO TH 03/30/18 [History] Metoprolol [Lopressor] 25 mg PO BID 03/30/18 [History] Multivitamin [One Daily Multivitamin] 1 tab PO DAILY 03/30/18 [History] Nitroglycerin [Nitrostat] 0.4 mg SL Q5M PRN MDD [id number] 08/23/18 [History] OxyCODONE/APAP 5/325 [Percocet 5/325 MG] 1 tab PO Q4HR PRN 03/30/18 [History] Oxybutynin [Ditropan] 5 mg PO HS 03/30/18 [History] Potassium Chloride [Klor-Con 10] 10 meq PO BID 03/30/18 [History] Ropinirole HCl [Requip] 2 mg PO HS 03/30/18 [History] Warfarin [Coumadin] 5 mg PO 1800 03/30/18 [History] Zolpidem [Ambien] 5 mg PO HS 03/30/18 [History] raNITIdine HCl [Zantac] 150 mg PO BID 03/30/18 [History] 3 Allergy/AdvReac Type Severity Reaction Status Date / Time lorazepam [From Ativan] AdvReac See Verified 05/14/15 07:06 Comments NSAIDS (Non-Steroidal AdvReac Gastrointestinal Verified 05/14/15 07:06 Anti-Inflamma Upset - Meds/Allergy Pre-op Review Medications Reviewed: Yes Allergies Reviewed: Yes Beta Blockers on Current Med List: Yes If Beta Blockers taken, Date/Time (Last Dose taken): 1551 Anesthesia Results - Labs 03/31/18 18:04 03/31/18 01:08 Laboratory Last Values Plt Count 168 K/mcL (140-400) 03/31/18 01:08 PT 24.5 Seconds (9.4-12.1) H 03/31/18 01:08 INR 2.2 03/31/18 01:08 APTT 33.5 Seconds (26.0-36.0) 03/30/18 07:09 Heparin Anti-Xa, Unfract 0.60 IU/mL (0.30-0.70) 03/30/18 23:01 Est GFR ( Amer) 56 (> 60) L 03/31/18 01:08 Est GFR (Non-Af Amer) 46 (> 60) L 03/31/18 01:08 BUN/Creatinine Ratio 37 (6-26) H 03/31/18 01:08 Calculated Osmolality 296 (280-300) 03/31/18 01:08 Calcium 8.6 mg/dL (8.6-10.3) 03/31/18 01:08 Total Bilirubin 0.4 mg/dL (0.3-1.0) 03/30/18 07:09 AST 15 Units/L (13-39) 03/30/18 07:09 ALT 10 Units/L (7-52) 03/30/18 07:09 Alkaline Phosphatase 75 Units/L (34-104) 03/30/18 07:09 Serum Total Protein 6.8 g/dL (6.4-8.9) 03/30/18 07:09 Albumin 3.4 g/dL (3.5-5.7) L 03/30/18 07:09 Globulin 3.4 g/dL (2.4-3.5) 03/30/18 07:09 Albumin/Globulin Ratio 1.0 (1.1-2.2) L 03/30/18 07:09 - Imaging Additional studies: TTE 03/31/2018: Technically sub-optimal due to poor echocardiographic windows due to patient's limited body positions. Normal left ventricular size and systolic and diastolic function. LVEF 60%. RV Not well visualized, size and function appear normal Normal left and right atrial size. No significant valvular dysfunction. Low CVP, no pulmonary hypertension. Anesthesia Exam Vital Signs/O2 Sat, Most Current Temp Pulse Resp BP Pulse Ox 98.5 F 70 18 99/50 100 03/31/18 12:16 03/31/18 12:16 03/31/18 12:16 03/31/18 12:16 03/31/18 12:16 Height: 1.52 Weight: 85 KG NPO (# of Hours): 8 - HEENT Pupil (Motor): Pupils equal Mallampati: II Teeth: Edentulous Oral Opening: Greater than 3 - DIRECTOR OF SPORTS PERFORMANCE LOC: Oriented (AWAKE, ALERT) - Cardiac Rhythm: Regular - Pulmonary Breath Sounds: bilateral Clear Respiratory Effort: Symmetrical Anesthesia Assess/Plan ASA Score: 4 Modified Alexandro Scale for Level of Consciousness: Cooperative, oriented, and tranquil Anesthetic Plan: General Autologous Blood: Yes Monitoring Plan: Standard Monitors Recovery Plan: PACU Anes Supervising Prov Stmt: HEPARIN GTT STOPPED AT 1500 STAT H+H ORDERED STAT X-MATCH FOR 2 PRBC
[2018-03-31] MEDS ORDERED: *HR* Propofol 200 MG/20 ML VIAL IVP ONE (18:07)
[2018-03-31] MEDS ORDERED: Lidocaine -MPF 2% 2 ML VIAL ONE ×2 (18:08→18:52)
[2018-03-31 18:17] LABS: Hematocrit 25.7 % (35.3-44.9)
[2018-03-31] MEDS ORDERED: *HR* Succinylcholine 200 MG/10 ML VIAL IVP ONE (18:36)
--- NOTE | 2018-03-31 19:00 | Electrocardiograph Report ---
[address] [address] Test Date: 2018-03-30 Pat Name: Nuria Bermudez Department: 114 Room: [facility] Gender: F Life Skills Instructor: : 1945 Requested By: Senthil Villalba Order Number: [id number] Reading MD: Rico Garcia Measurements Intervals [place] Rate: 84 P: 17 MD: 155 QRS: -39 QRSD: 101 T: 11 QT: 365 QTc: 406 Interpretive Statements SINUS RHYTHM MARKED LEFT AXIS DEVIATION Low QRS voltage in precordial leads Poor R-wave progression Electronically Signed On 03-31-2018 18:58:44 EDT by Rico Garcia
[2018-03-31] MEDS ORDERED: Acetaminophen IV 1,000 MG/100 ML INFUS..BTL ONE (20:05)
[2018-03-31] MEDS ORDERED: *HR* PHENYLEPHRINE 1,000 MCG/10 ML SYRINGE IVP ONE (20:59)
[2018-03-31] MEDS ORDERED: *HR* FentaNYL (PF) 100 MCG/2 ML VIAL ONE (21:29)
[2018-03-31] MEDS ORDERED: *HR* Magnesium Sulfate 1 GM/2 ML VIAL ONE (21:44)
[2018-03-31] MEDS ORDERED: KETAMINE HCL 50 MG/ML SYRINGE IV ONE (21:54)
[2018-03-31] MEDS ORDERED: *HR* HYDROmorphone (PF) 1 MG/ML SYRINGE ONE (21:55)
[2018-03-31] MEDS ORDERED: Dexamethasone 4 MG/ML VIAL ONE (22:17)
[2018-03-31] MEDS ORDERED: Ondansetron 4 MG/2 ML VIAL ONE (22:17)
--- NOTE | 2018-04-01 00:12 | Operative Note ---
Date of procedure: 03/31/18 Pre-op diagnosis: Displaced periprosthetic fracture right femur Post-op diagnosis: same Procedure: 1. Open reduction internal fixation right periprosthetic femur fracture 2. Fluoroscopic guidance for ORIF right femur fracture Implants: Synthes 16 hole curved broad 4.5 mm LCP with screws and 2 1.7 mm cables, 20,000 units of thrombin spray Complications: None Anesthesia: GETA Surgeon: Nikhil Rivas Was there an project assistant present: No Estimated blood loss (cc): 500 Specimen: None Condition: stable Disposition: PACU Procedure in Detail: Gross findings: Preoperative x-rays revealed a displaced fracture of the right mid shaft above the level of a stem in the femoral component of a total knee arthroplasty. 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 The fracture was a long spiral. Minor comminution was noted. Intraoperative findings revealed tremendous amount of hemorrhage into the thigh muscle. When the lateral fascia was opened the muscle protruded significantly. The fracture was noted to be a long spiral fracture is identified via x-ray and on surgical treatment was able to be reduced into anatomic position and then stabilized with a long lateral placed curved plate. Screws were placed proximal and to some extent distal. The distal most portion of the plate was secured to the femur with 2 cerclage cables. Excellent approximation of the fracture and stable fracture construct was noted both clinically and with multiplane are fluoroscopy. The fascia was not closed though the soft tissue and skin were able to be closed without complication. Procedure: Patient was taken the operating room and while in the hospital bed was administered a general anesthesia. Once adequate level anesthesia had been obtained the patient was transferred to the fracture table. All pressure points were well-padded. The right lower extremity was placed in longitudinal traction and left lower extremity was positioned out of harm's way and the well leg harkins. At this time fluoroscopy was introduced and utilized to guide the preliminary reduction which was predominantly based upon traction and minimal rotation. Once fracture was lined up better the right thigh and hip and knee area were then prepped and draped in normal standard fashion. Incision was made over the right thigh laterally. Dissection was carried through the subcutaneous tissues. Hemostasis was maintained electrocautery as necessary. At this time the fascia was split length the incision. Muscle protruded tremendously through the opening. At this time the distal portion of the vastus lateralis was bluntly dissected off the posterior septum. It was carried proximally and the lateral thigh muscle was retracted anteriorly exposing the fracture. Fracture site was cleaned of clot and debris. At this time the fracture was reduced utilizing direct manipulation and then stabilization with multiple bone-holding clamps. Alignment was verified with fluoroscopy. At this time the appropriate plate length was selected by patient in the plate on the side of the femur. 16 hole plate was selected to allow for placement of multiple fixation devices both proximal and distal. The plate was positioned and held in place with bone-holding clamps. Several screws were placed. Ultimately all nonlocking screws were utilized. The screws were placed and verified to be well positioned with fluoroscopy. The majority of the screw holes proximally were filled with 4.5 mm cortical screws. Laterally screws were placed just above the stem. This is followed by placing 2 cables about the distal portion of the femur around the area of the femoral stem. The cables were tightened and secured. Final fluoroscopic views are taken verifying excellent position of the fracture and the implants. Wounds now irrigated. The wound had been sprayed with 20,000 units of thrombin during the surgery. Limited suture of the fascia korina was performed distally. Decision was made to not attempt any further closure due to the massive amount of edema in the muscle. The subcutaneous tissue was then closed with multiple 0 undyed Vicryl placed in the deep subtendinous tissue followed by immediate septated tissue approximation with multiple inverted 2-0 undyed Vicryl followed by skin approximation was stainless steel clips. Sterile dressings consisting of bacitracin Adaptic ABDs and Rigoberto wraps and now proximally tape were applied and secured. Patient was then transferred from the operative table hospital bed where she was then awakened from anesthesia, extubated and then transported to the postanesthesia care unit in stable and satisfactory condition. All sponge needle and instrument counts are correct. No specimens are sent for pathology.
[2018-04-01] MEDS ORDERED: *HR* Heparin 5,000 UNIT/ML VIAL IVP PRN ×2 (00:40)
[2018-04-01] MEDS ORDERED: Naloxone 0.4 MG/ML INJ IVP PRN (00:40)
--- NOTE | 2018-04-01 00:41 | Anesthesia Evaluation Post Op ---
Date of Encounter: 04/01/18 Time of Encounter: 00:40 - Vital Signs Vital Signs: Vital Signs/O2 Sat/Glucose, Most Current Temp Pulse Resp BP Pulse Ox 04/01/18 00:20 97.6 F 71 14 124/56 97 04/01/18 00:10 97.6 F 73 11 122/65 97 04/01/18 00:01 77 20 124/67 97 03/31/18 23:50 79 12 115/56 97 03/31/18 23:40 97.1 F L 85 20 113/64 98 - Lungs Lungs: Clear Ascult./Percussion - Airway Airway: Non-obstructed - Cardiovascular Regular Rate, Baseline Rhythm - Mental Status Mental Status: Alert & Oriented, Answers Appropriately - Pain Pain Scale: 2 Pain Scale used: Numeric (1 - 10) - Nausea Vomiting Nausea Vomiting: Not Present - Hydration Hydration: Ice chips, Mireles catheter - Discharge PostOp Status: Transfer Patient to floor Anes Supervising Prov Stmt: PT seen/evalutaed, VSS And has met criteria for discharge to floor. Ute Mcguire MD
[2018-04-01 01:10] LABS: Basophils % 0.1 %; Eosinophils # 0.1 K/mcL (0.0-0.6); Eosinophils % 0.5 %; Hematocrit 31.3 % (35.3-44.9); Immature Granulocytes % 0.6 % (0-4); Lymphocytes # 0.8 K/mcL (0.6-4.6); Lymphocytes % 5.4 %; Mean Corpuscular HGB Conc 31.9 g/dL (31.6-35.5); Mean Corpuscular Volume 96.9 fL (83.0-100.0); Mean Platelet Volume 9.3 fL (9.4-12.4); Monocytes # 0.7 K/mcL (0.0-1.3); Neutrophils # 12.6 K/mcL (1.6-8.9); Platelet Count 194 K/mcL (140-400); Red Blood Count 3.23 M/mcL (3.82-4.97); Red Cell Distribution Width 18.8 % (11.5-14.5); Segmented Neutrophils % 88.4 %
[2018-04-01 01:27] LABS: BUN/Creatinine Ratio 27 (6-26); Blood Urea Nitrogen 28 mg/dL (8-23); Calcium 9.2 mg/dL (8.6-10.3); Carbon Dioxide 26 mEq/L (23-29); Chloride 104 mEq/L (98-107); Glucose 170 mg/dL (70-105); Osmolality,Calculated 289 (280-300); Potassium 4.5 mEq/L (3.5-5.1); Sodium 135 mEq/L (136-145); eGFR For Non-African Americans 52 (> 60)
[2018-04-01] MEDS: Heparin 25,000 UNIT/500 ML D5W 25,000 UNIT/500 ML BAG IVC SCH (01:44)
[2018-04-01 09:02] LABS: % Iron Saturation 7 % (15-50); Iron 19 mcg/dL (50-170); Transferrin 202 mg/dL (203-362)
[2018-04-01] MEDS: Acetaminophen 325 MG TABLET PO PRN ×2 (09:11→16:51)
[2018-04-01 09:20] LABS: Ferritin 62 ng/mL (10-120)
[2018-04-01 09:26] LABS: Folate 19.4 ng/mL (3.0-16.0)
--- NOTE | 2018-04-01 12:41 | Internal Med Progress Note ---
Hospitalist Progress Note - Encounter Date of Encounter: 04/01/18 Time of Encounter: 09:16 - Subjective Interval History: Patient seen and examined this morning. No acute events overnight. Denies any shortness of breath. Denies CP, N/V, diaphoresis, palpitations. Hip pain is controlled. - Exam Vitals: Temp Pulse Resp BP Pulse Ox 99.0 F 80 16 102/55 98 04/01/18 12:02 04/01/18 12:02 04/01/18 12:02 04/01/18 12:02 04/01/18 12:02 Exam: Gen: NAD, AAO x3 CVS: RRR, Lungs: CTA.no wheezing, rales, or rhonchi. Abd: Soft, NT/ND. Ext: 1+ bipedal, non-pitting edema. Lower extremities with faint erythema bilaterally at level of shins, and area is non-tender. Rt leg covered with bandage. - Assessment and Plan (1) Closed right femoral fracture Current Visit: Yes Status: Acute (2) Anemia Current Visit: Yes Status: Chronic (3) Coronary artery disease Current Visit: No Status: Chronic (4) Essential hypertension Current Visit: No Status: Chronic (5) DVT (deep venous thrombosis) Current Visit: No Status: Chronic (6) Congestive heart failure (CHF) Current Visit: No Status: Chronic (7) DVT prophylaxis Current Visit: Yes Status: Acute (8) Erythema of lower extremity Current Visit: Yes Status: Acute - Summary of Assessment and Plan Summary of Assessment and Plan: Displaced periprosthetic fracture right femur - s/p day 1 ORIF. - Pain controlled with acetaminophen, fentanyl patch and Hydrocodone/ Acetaminophen prn. Monitor for sedation. - PT/OT. DVT - Patient with reported history of DVT in the LLE. - DVT positive on Doppler on 03/31 in Rt distal iliac, Rt superfial femoral, left distal get and left common femoral, left greater saphenous - Coumadin was held for surgery. We will resume Coumadin. INR yesterday 2.2 Anemia - Patient with history of chronic anemia. - s/p 2 PRBC with good response. Hb 10 today. Goal hemoglobin >8.0. - B12 and folate normal. Iron studies shows iron deficiency. Will start Iron supplementation. Leukocytosis - Afebrile. Non-toxic - Likely reactive. Will monitor. Received preopt antibiotics. Coronary artery disease - CAD with recent double bypass, [place] x 3 and stents x 3. - Currently symptom-free. . - Given history of CAD hemoglobin > 8.0. Congestive heart failure (CHF) - Patient with pedal edema bilaterally. Did have coronary artery bypass grafting done earlier this year. May have underlying CHF. - Last ECHO [id number] with EF of 70. LOIS with EF of 55 in 09/2017. f/u ECHO result - BP on lower end. Will avoid IV Lasix for now. Follow cardiology recommendations. Essential hypertension - BP on lower end. - Metoprolol on hold.. Start per cardio. Erythema of lower extremity -Thought to be cellulitis. However, this could be venous stasis changes. Patient states this erythema of both extremities get more red and then get faint without antibiotics. Erythema at this point appears to be equal on both sides. On admission however, erythema was noted to be more prominent on left lower extremity. She is afebrile, no leukocytosis. The extremities are non- tender. Will monitor off of antibiotics for now since this does not appear to be infection. If she does develop signs of infection, will start emperic antbiotic therapy. DVT prophylaxis - On coumadin at home for DVT. Currently on Heparin drip. Diet: Cardiac Activity: As tolerated per PT Would be discharged to [place] when ready. - Time Spent with Patient Total time spent is greater than 50% in coordination of care (as documented) at patient's floor/unit and/or counseling patient: Internal Medicine: Result - Labs CBC & Chem 7: 04/01/18 00:53 04/01/18 00:53 Labs: Short CBC 03/31/18 04/01/18 Range/Units 18:04 00:53 WBC 14.2 H D (4.3-11.1) K/mcL Hgb 8.0 L 10.0 L D (11.5-15.4) g/dL Hct 25.7 L 31.3 L (35.3-44.9) % Plt Count 194 (140-400) K/mcL Neutrophils # 12.6 H (1.6-8.9) K/mcL BMP 04/01/18 00:53 Sodium 135 L Potassium 4.5 Chloride 104 Carbon Dioxide 26 BUN 28 H Creatinine 1.04 Glucose 170 H Calcium 9.2 - ABG Interpretation ABG results: PT/INR, D-dimer PT 24.5 Seconds (9.4-12.1) H 03/31/18 01:08 - Impressions Impressions Fluoroscopy 03/31/18 20:55 IMPRESSION: Intraprocedural fluoroscopic spot images as above. See separate procedure report for more information. D/ / Elias Brown / Elias Brown Interpreting Provider: Elias Brown - VTE Documentation of Mechanical Device: Intermittent pneumatic compression device Consult Discharge Plan - Plan Referrals: Santos Robbins Jr, PAC [Primary Care Provider] - (1) Closed right femoral fracture Qualifiers: Encounter type: initial encounter Femur location: neck Qualified Code(s): S72.001A - Fracture of unspecified part of neck of right femur, initial encounter for closed fracture (2) Anemia Qualifiers: Anemia type: other cause Other causes of anemia: other cause, not classified Qualified Code(s): D64.89 - Other specified anemias (3) Coronary artery disease Qualifiers: Coronary Disease-Associated Artery/Lesion type: unspecified vessel or lesion type [place] vs. transplanted heart: [place] heart Associated angina: without angina Qualified Code(s): I25.10 - Atherosclerotic heart disease of [place] coronary artery without angina pectoris (5) DVT (deep venous thrombosis) Qualifiers: DVT location: lower extremity Affected thrombotic vein of extremity: unspecified vein of extremity Chronicity: chronic Laterality: left Qualified Code(s): I82.502 - Chronic embolism and thrombosis of unspecified deep veins of left lower extremity (6) Congestive heart failure (CHF) Qualifiers: Heart failure type: combined systolic and diastolic Heart failure chronicity : acute on chronic Qualified Code(s): I50.43 - Acute on chronic combined systolic (congestive) and diastolic (congestive) heart failure
[2018-04-01] MEDS: *HR* HYDROcodone/Acet 5/325 mg TABLET PO PRN ×2 (13:33→22:21)
[2018-04-01 13:56] LABS: INR 1.8; Prothrombin Time 19.8 Seconds (9.4-12.1)
--- NOTE | 2018-04-01 14:41 | Orthopedics Progress Note ---
Date of Encounter: 04/01/18 Time of Encounter: 14:38 Subjective Principal diagnosis: Periprosthetic fracture right femur Interval history: 04/01/2018. Patient is postop day #1 from ORIF of a midshaft periprosthetic fracture of the right femur. Patient is doing remarkably well. Pain is minimal and well controlled. Vital signs are stable. Patient is afebrile. Dressings are clean dry and intact. Hemoglobin is 10.0. Patient had a hemoglobin of 8 prior to surgery and did receive 2 units of pack red blood cells intraoperatively. White blood cell count is elevated at 14.2. Platelet count is normal at 194. Pro time is 19.8. INR 1.8 kidney function is improved from preop. Impression: POD #1 ORIF periprosthetic fracture right femur Recommendation: Orthopedic status is excellent. Discussed with the patient that she can ambulate with full on limited motion of her hip knee and ankle. Her only limitation is to be strictly nonweightbearing on the right lower extremity. Patient can resume home medications including Coumadin at the discretion of the internal medicine physicians. We will probably perform dressing change tomorrow. Discussed with the patient that I did not closer fascia in the lateral thigh through the tremendous amount of swelling in the muscle. Objective Vital signs: Vital Signs Temp Pulse Resp BP Pulse Ox 04/01/18 13:34 112/51 04/01/18 12:02 99.0 F 80 16 102/55 98 04/01/18 09:21 94 04/01/18 07:07 97.9 F 64 16 103/59 94 04/01/18 03:40 98.4 F 65 17 92/54 95 04/01/18 02:40 98.4 F 64 19 99/56 96 04/01/18 01:40 98.1 F 66 16 116/54 96 04/01/18 01:10 98.0 F 67 15 96/62 96 04/01/18 00:40 98.0 F 65 14 115/62 95 04/01/18 00:20 97.6 F 71 14 124/56 97 04/01/18 00:10 97.6 F 73 11 122/65 97 04/01/18 00:01 77 20 124/67 97 03/31/18 23:50 79 12 115/56 97 03/31/18 23:40 97.1 F L 85 20 113/64 98 Intake and Output 03/31/18 04/01/18 04/01/18 23:59 07:59 15:59 Intake Total 360 / 360 Output Total 500 / 500 550 / 550 Balance -500 / -500 -550 / -550 360 / 360 Intake: IV Fluids 360 / 360 Heparin 25,000 UNIT/500 ML D5W 260 / 260 25,000 unit In 500 ml @ 12 UNIT /KG/HR 20.472 mls/hr IVC .Q24H GIOVANNY Rx#:[id number] Ancef 2,000 MG In 0.9 % Sodium 100 / 100 Chloride 100 ML @ 200 mls/hr IVPB Q8HR GIOVANNY Rx#:[id number] Output: Estimated Blood Loss 500 / 500 Urine Amount (Catheter) 200 / 200 Catheter 350 / 350 Other: Blood Glucose* 99 - Labs CBC & BMP: 04/01/18 00:53 04/01/18 00:53 Labs: Abnormal lab results WBC 14.2 K/mcL (4.3-11.1) H D 04/01/18 00:53 RBC 3.23 M/mcL (3.82-4.97) L 04/01/18 00:53 Hgb 10.0 g/dL (11.5-15.4) L D 04/01/18 00:53 Hct 31.3 % (35.3-44.9) L 04/01/18 00:53 RDW 18.8 % (11.5-14.5) H 04/01/18 00:53 MPV 9.3 fL (9.4-12.4) L 04/01/18 00:53 Neutrophils # 12.6 K/mcL (1.6-8.9) H 04/01/18 00:53 PT 19.8 Seconds (9.4-12.1) H 04/01/18 13:36 Heparin Anti-Xa, Unfract 0.19 IU/mL (0.30-0.70) L 04/01/18 13:36 Sodium 135 mEq/L (136-145) L 04/01/18 00:53 BUN 28 mg/dL (8-23) H 04/01/18 00:53 Est GFR (Non-Af Amer) 52 (> 60) L 04/01/18 00:53 BUN/Creatinine Ratio 27 (6-26) H 04/01/18 00:53 Glucose 170 mg/dL (70-105) H 04/01/18 00:53 Iron 19 mcg/dL (50-170) L 04/01/18 08:12 % Saturation 7 % (15-50) L 04/01/18 08:12 Transferrin 202 mg/dL (203-362) L 04/01/18 08:12 Albumin 3.4 g/dL (3.5-5.7) L 03/30/18 07:09 Albumin/Globulin Ratio 1.0 (1.1-2.2) L 03/30/18 07:09 Folate 19.4 ng/mL (3.0-16.0) H 04/01/18 08:12 - VTE Documentation of Mechanical Device: Intermittent pneumatic compression device Consult Discharge Plan - Plan Referrals: Santos Robbins Jr, PAC [Primary Care Provider] -
[2018-04-01] MEDS: Furosemide 40 MG TABLET PO SCH (16:51)
[2018-04-01] MEDS ORDERED: *HR* Warfarin 5 MG TABLET PO ONE (18:00)
[2018-04-01] MEDS ORDERED: Warfarin perPT PO PRN (18:00)
[2018-04-01] MEDS: *HR* FentaNYL (PF) 100 MCG/2 ML VIAL IVP PRN (21:21)
[2018-04-01] MEDS: Magnesium Oxide 400 MG TABLET PO SCH (21:24)
[2018-04-01] MEDS: Famotidine 20 MG TABLET PO SCH (21:24)
[2018-04-01] MEDS: rOPINIRole 1 MG TABLET PO SCH (21:24)
[2018-04-02 02:09] LABS: Heparin anti-factor XA UFH 0.48 IU/mL (0.30-0.70); INR 1.7; Prothrombin Time 19.3 Seconds (9.4-12.1)
[2018-04-02] MEDS: *HR* FentaNYL (PF) 100 MCG/2 ML VIAL IVP PRN ×3 (02:11→09:55)
[2018-04-02] MEDS: Heparin 25,000 UNIT/500 ML D5W 25,000 UNIT/500 ML BAG IVC SCH (03:05)
[2018-04-02] MEDS: *HR* HYDROcodone/Acet 5/325 mg TABLET PO PRN ×3 (04:41→20:18)
[2018-04-02] MEDS: Cholecalciferol (D-3) 1,000 UNIT TABLET PO SCH (07:48)
[2018-04-02] MEDS: Famotidine 20 MG TABLET PO SCH ×2 (07:48→20:50)
[2018-04-02] MEDS: Folic Acid 1 MG TABLET PO SCH (07:48)
[2018-04-02] MEDS: Aspirin Enteric Coated 81 MG Tablet PO SCH (07:48)
[2018-04-02] MEDS: Furosemide 40 MG TABLET PO SCH ×2 (07:48→16:27)
[2018-04-02] MEDS: Magnesium Oxide 400 MG TABLET PO SCH ×2 (07:48→20:51)
[2018-04-02] MEDS: Multivit/Ca/Min/Fe/FA 1 TAB TABLET PO SCH (07:48)
[2018-04-02] MEDS: Acetaminophen 325 MG TABLET PO SCH ×2 (11:10→18:14)
--- NOTE | 2018-04-02 12:58 | Internal Med Progress Note ---
Hospitalist Progress Note - Encounter Date of Encounter: 04/02/18 Time of Encounter: 07:50 - Subjective Interval History: Patient seen and examined this morning. No acute events overnight. Denies any shortness of breath. Denies CP, N/V, diaphoresis, palpitations. Some pain overnight. - Exam Vitals: Temp Pulse Resp BP Pulse Ox 98.1 F 63 16 95/53 97 04/02/18 11:43 04/02/18 11:43 04/02/18 11:43 04/02/18 11:43 04/02/18 11:43 Exam: Gen: NAD, AAO x3 CVS: RRR, S1, S2 normal Lungs: CTA.no wheezing, rales, or rhonchi. Abd: Soft, NT/ND. Ext: 1+ bipedal, non-pitting edema. Lower extremities with faint erythema bilaterally at level of shins, and area is non-tender. Rt leg covered with zaid wrap Skin: wound on center of chest with dressing. - Assessment and Plan (1) Closed right femoral fracture Current Visit: Yes Status: Acute (2) Anemia Current Visit: Yes Status: Chronic (3) Coronary artery disease Current Visit: No Status: Chronic (4) Essential hypertension Current Visit: No Status: Chronic (5) DVT (deep venous thrombosis) Current Visit: No Status: Chronic (6) Congestive heart failure (CHF) Current Visit: No Status: Chronic (7) DVT prophylaxis Current Visit: Yes Status: Acute (8) Erythema of lower extremity Current Visit: Yes Status: Acute - Summary of Assessment and Plan Summary of Assessment and Plan: Displaced periprosthetic fracture right femur - s/p day 1 ORIF. - Pain controlled with acetaminophen, fentanyl patch and Hydrocodone/ Acetaminophen prn. Monitor for sedation. - c/w PT/OT. DVT - Patient with reported history of DVT in the LLE. - DVT positive on Doppler on 03/31 in Rt distal iliac, Rt superfial femoral, left distal get and left common femoral, left greater saphenous - Coumadin was held for surgery. Coumadin resumed.. INR yesterday 2.2 - Will need to bridge with lovenox on Discharge. Will stop heparin and start lovenox at 6 pm today. Discussed with nurse. Post surgical CABG wound - Has been present and is progressing towards healing - c/w wound dressing. Anemia - Patient with history of chronic anemia. - s/p 2 PRBC with good response. Hb 10 today. Goal hemoglobin >8.0. - B12 and folate normal. Iron studies shows iron deficiency. Will start Iron supplementation. Leukocytosis - Afebrile. Non-toxic - Likely reactive. Will monitor. Received preopt antibiotics. Coronary artery disease - CAD with recent double bypass, [place] x 3 and stents x 3. - Currently symptom-free. . - Given history of CAD hemoglobin > 8.0. Congestive heart failure (CHF) - Patient with pedal edema bilaterally. Did have coronary artery bypass grafting done earlier this year. May have underlying CHF. - Last ECHO [id number] with EF of 70. LOIS with EF of 55 in 09/2017. f/u ECHO result - BP on lower end. Will avoid IV Lasix for now. Essential hypertension - BP on lower end. - Metoprolol on hold. Start per cardio. Erythema of Lt lower extremity - Related to trauma per patient - Less likely infectious cause. - Monitor for now. DVT prophylaxis - On coumadin at home for DVT. Currently on Heparin drip. Being bridge. Diet: Cardiac Activity: As tolerated per PT Would be discharged to [place] when placement available. Likely tommorrow - Time Spent with Patient Total time spent is greater than 50% in coordination of care (as documented) at patient's floor/unit and/or counseling patient: Internal Medicine: Result - Labs CBC & Chem 7: 04/01/18 00:53 04/01/18 00:53 - ABG Interpretation ABG results: PT/INR, D-dimer PT 19.3 Seconds (9.4-12.1) H 04/02/18 01:27 - VTE Documentation of Mechanical Device: Intermittent pneumatic compression device Consult Discharge Plan - Plan Referrals: Santos Robbins Jr, PAC [Primary Care Provider] - (1) Closed right femoral fracture Qualifiers: Encounter type: initial encounter Femur location: neck Qualified Code(s): S72.001A - Fracture of unspecified part of neck of right femur, initial encounter for closed fracture (2) Anemia Qualifiers: Anemia type: other cause Other causes of anemia: other cause, not classified Qualified Code(s): D64.89 - Other specified anemias (3) Coronary artery disease Qualifiers: Coronary Disease-Associated Artery/Lesion type: unspecified vessel or lesion type [place] vs. transplanted heart: [place] heart Associated angina: without angina Qualified Code(s): I25.10 - Atherosclerotic heart disease of [place] coronary artery without angina pectoris (5) DVT (deep venous thrombosis) Qualifiers: DVT location: lower extremity Affected thrombotic vein of extremity: unspecified vein of extremity Chronicity: chronic Laterality: left Qualified Code(s): I82.502 - Chronic embolism and thrombosis of unspecified deep veins of left lower extremity (6) Congestive heart failure (CHF) Qualifiers: Heart failure type: combined systolic and diastolic Heart failure chronicity : acute on chronic Qualified Code(s): I50.43 - Acute on chronic combined systolic (congestive) and diastolic (congestive) heart failure
--- NOTE | 2018-04-02 14:36 | Orthopedics Progress Note ---
Date of Encounter: 04/02/18 Time of Encounter: 14:33 Subjective Principal diagnosis: Periprosthetic fracture right femur Interval history: 04/01/2018. Patient is postop day #1 from ORIF of a midshaft periprosthetic fracture of the right femur. Patient is doing remarkably well. Pain is minimal and well controlled. Vital signs are stable. Patient is afebrile. Dressings are clean dry and intact. Hemoglobin is 10.0. Patient had a hemoglobin of 8 prior to surgery and did receive 2 units of pack red blood cells intraoperatively. White blood cell count is elevated at 14.2. Platelet count is normal at 194. Pro time is 19.8. INR 1.8 kidney function is improved from preop. Impression: POD #1 ORIF periprosthetic fracture right femur Recommendation: Orthopedic status is excellent. Discussed with the patient that she can ambulate with full on limited motion of her hip knee and ankle. Her only limitation is to be strictly nonweightbearing on the right lower extremity. Patient can resume home medications including Coumadin at the discretion of the internal medicine physicians. We will probably perform dressing change tomorrow. Discussed with the patient that I did not closer fascia in the lateral thigh through the tremendous amount of swelling in the muscle. 04/02/2018. Patient POD #2 ORIF right periprosthetic femur fracture. Having pain as anticipated. Vital signs reveal blood pressure of about 90/50. She is afebrile. Dressings were taken down. Incision is clean dry and intact. Hemoglobin not obtained today. Impression: POD #2 ORIF periprosthetic right femur fracture Recommendation: Orthopedic status remains stable. Patient can be ambulatory with nonweightbearing on the right lower extremity. Pain management as able, caution with somewhat low blood pressure. To be bridged with Lovenox until her pro time and INR are therapeutic in regards to her DVT treatment. Anticipate patient need for rehabilitation stay. Objective Vital signs: Vital Signs Temp Pulse Resp BP Pulse Ox 04/02/18 14:32 78 91/51 04/02/18 11:43 98.1 F 63 16 95/53 97 04/02/18 11:11 97.9 F 75 17 85/55 95 04/02/18 09:49 113/52 04/02/18 09:19 93/58 04/02/18 07:54 100 04/02/18 07:04 98.2 F 64 16 80/40 100 04/02/18 04:27 97.7 F 68 14 93/63 99 04/01/18 23:23 98.4 F 77 16 96/61 100 04/01/18 18:40 98.1 F 82 16 99/55 100 04/01/18 15:59 98.2 F 78 16 103/56 100 Intake and Output 04/01/18 04/02/18 04/02/18 23:59 07:59 15:59 Intake Total 340 / 340 100 / 100 120 / 120 Output Total 150 / 150 1350 / 1350 200 / 200 Balance 190 / 190 -1250 / -1250 -80 / -80 Intake: IV Fluids 240 / 240 100 / 100 Heparin 25,000 UNIT/500 ML D5W 140 / 140 100 / 100 25,000 unit In 500 ml @ 12 UNIT /KG/HR 20.472 mls/hr IVC .Q24H [facility] Rx#:[id number] Ancef 2,000 MG In 0.9 % Sodium 100 / 100 Chloride 100 ML @ 200 mls/hr IVPB Q8HR [facility] Rx#:[id number] Oral 100 / 100 120 / 120 Output: Urine 150 / 150 1350 / 1350 200 / 200 Other: Meal Breakfast Percent of Meal Consumed 75% - Labs CBC & BMP: 04/01/18 00:53 04/01/18 00:53 Labs: Abnormal lab results WBC 14.2 K/mcL (4.3-11.1) H D 04/01/18 00:53 RBC 3.23 M/mcL (3.82-4.97) L 04/01/18 00:53 Hgb 10.0 g/dL (11.5-15.4) L D 04/01/18 00:53 Hct 31.3 % (35.3-44.9) L 04/01/18 00:53 RDW 18.8 % (11.5-14.5) H 04/01/18 00:53 MPV 9.3 fL (9.4-12.4) L 04/01/18 00:53 Neutrophils # 12.6 K/mcL (1.6-8.9) H 04/01/18 00:53 PT 19.3 Seconds (9.4-12.1) H 04/02/18 01:27 Sodium 135 mEq/L (136-145) L 04/01/18 00:53 BUN 28 mg/dL (8-23) H 04/01/18 00:53 Est GFR (Non-Af Amer) 52 (> 60) L 04/01/18 00:53 BUN/Creatinine Ratio 27 (6-26) H 04/01/18 00:53 Glucose 170 mg/dL (70-105) H 04/01/18 00:53 Iron 19 mcg/dL (50-170) L 04/01/18 08:12 % Saturation 7 % (15-50) L 04/01/18 08:12 Transferrin 202 mg/dL (203-362) L 04/01/18 08:12 Albumin 3.4 g/dL (3.5-5.7) L 03/30/18 07:09 Albumin/Globulin Ratio 1.0 (1.1-2.2) L 03/30/18 07:09 Folate 19.4 ng/mL (3.0-16.0) H 04/01/18 08:12 - VTE Documentation of Mechanical Device: Intermittent pneumatic compression device Consult Discharge Plan - Plan Referrals: Santos Robbins Jr, PAC [Primary Care Provider] -
[2018-04-02] MEDS ORDERED: (Alendronate Sodium [Fosamax] 70 MG) PO SCH (16:10)
[2018-04-02] MEDS ORDERED: *HR* Warfarin 5 MG TABLET PO ONE (18:00)
[2018-04-02] MEDS: *HR* Enoxaparin 100 MG/ML SYRINGE SQ SCH (18:15)
[2018-04-02] MEDS: rOPINIRole 1 MG TABLET PO SCH (20:50)
[2018-04-03 01:36] LABS: Nucleated Red Blood Cells 0.2 /100 WBC (0); Red Cell Distribution Width 18.4 % (11.5-14.5)
[2018-04-03 01:37] LABS: Basophils % 0.2 %; Eosinophils # 0.2 K/mcL (0.0-0.6); Eosinophils % 1.1 %; Hematocrit 16.8 % (35.3-44.9); Immature Granulocytes % 1.2 % (0-4); Lymphocytes % 19.5 %; Mean Corpuscular HGB Conc 32.1 g/dL (31.6-35.5); Mean Corpuscular Volume 93.3 fL (83.0-100.0); Mean Platelet Volume 9.5 fL (9.4-12.4); Monocytes # 1.9 K/mcL (0.0-1.3); Monocytes % 12.1 %; Neutrophils # 10.2 K/mcL (1.6-8.9); Platelet Count 286 K/mcL (140-400); Segmented Neutrophils % 65.9 %
[2018-04-03 01:40] LABS: Hemoglobin 5.4 g/dL (11.5-15.4)
[2018-04-03 01:43] LABS: Heparin anti-factor XA UFH 0.74 IU/mL (0.30-0.70)
[2018-04-03 01:44] LABS: INR 2.4; Prothrombin Time 27.2 Seconds (9.4-12.1)
[2018-04-03 01:55] LABS: Calcium 9.2 mg/dL (8.6-10.3); Potassium 3.9 mEq/L (3.5-5.1)
[2018-04-03] MEDS ORDERED: 0.9 % Sodium Chloride 250 ML ONE ×2 (02:16→07:00)
--- NOTE | 2018-04-03 02:18 | Event Note ---
Date of Encounter: 04/03/18 Time of Encounter: 02:00 Called by patient's nurse regarding critical lab value result hemoglobin of 5.4. Assess patient at bedside. States that she has some pain in her right leg, status post right femur fracture repair. Wound is intact, no signs of bleeding, but bruising noted on inner thigh. She has already been transfused 2 units of blood previously. No hemoglobin checked yesterday. Ordered stat 2 units PRBCs. Blood pressure 80s/50s with good oxygen saturation. Patient awake alert and oriented. Will monitor closely.
[2018-04-03] MEDS: Acetaminophen 325 MG TABLET PO SCH ×5 (02:41→23:37)
[2018-04-03] MEDS: *HR* Enoxaparin 100 MG/ML SYRINGE SQ SCH (06:10)
[2018-04-03] MEDS: *HR* HYDROcodone/Acet 5/325 mg TABLET PO PRN ×3 (07:21→21:09)
[2018-04-03] MEDS ORDERED: Furosemide 20 MG/2 ML VIAL IVP ONE ×2 (08:57→13:30)
[2018-04-03] MEDS: Furosemide 40 MG TABLET PO SCH (09:45)
[2018-04-03] MEDS: Aspirin Enteric Coated 81 MG Tablet PO SCH (09:45)
[2018-04-03] MEDS: Multivit/Ca/Min/Fe/FA 1 TAB TABLET PO SCH (09:55)
[2018-04-03] MEDS: Folic Acid 1 MG TABLET PO SCH (09:55)
[2018-04-03] MEDS: Famotidine 20 MG TABLET PO SCH ×2 (09:55→21:10)
[2018-04-03] MEDS: Magnesium Oxide 400 MG TABLET PO SCH ×2 (09:56→21:10)
[2018-04-03] MEDS: Cholecalciferol (D-3) 1,000 UNIT TABLET PO SCH (09:56)
--- NOTE | 2018-04-03 09:58 | Pulmonology Consult Note ---
<DenizivetteVincenzo beltran M - Last Filed: 04/03/18 13:55> Date of Encounter: 04/03/18 Medications and Allergies Alendronate Sodium [Fosamax] 70 mg PO VERDE 03/30/18 [History] Allopurinol [Zyloprim 100 MG] 100 mg PO BID 03/30/18 [History] Aspirin [Lo-Dose Aspirin EC] 81 mg PO DAILY 03/30/18 [History] Atorvastatin [Lipitor] 40 mg PO HS 03/30/18 [History] Calcium Carbonate/Vitamin D3 [Oyster Shell Calcium-Vit D Tab] 1 tab PO TID 03/30 [History] Citalopram Hydrobromide [Citalopram HBr] 20 mg PO DAILY 03/30/18 [History] Clopidogrel [Plavix] 75 mg PO DAILY 03/30/18 [History] Ergocalciferol (VITAMIN D2) [Vitamin D] 400 unit PO DAILY 03/30/18 [History] FentaNYL PATCH [Duragesic] 25 mcg TD Q72H 03/30/18 [History] Folic Acid 1 mg PO DAILY 03/30/18 [History] Furosemide [Lasix] 40 mg PO BID 03/30/18 [History] Lidocaine Patch [Lidoderm 5% patch] 1 appl TP DAILY 03/30/18 [History] Mag Hydrox/Aluminum Hyd/Simeth [Cvs Antacid Plus Anti-Gas Liq] 30 ml PO AD PRN 03/30/18 [History] Magnesium Oxide [Magnesium] 400 mg PO BID 03/30/18 [History] Methotrexate [Otrexup] 15 mg PO TH 03/30/18 [History] Metoprolol [Lopressor] 25 mg PO BID 03/30/18 [History] Multivitamin [One Daily Multivitamin] 1 tab PO DAILY 03/30/18 [History] Nitroglycerin [Nitrostat] 0.4 mg SL Q5M PRN MDD [id number] 03/30/18 [History] OxyCODONE/APAP 5/325 [Percocet 5/325 MG] 1 tab PO Q4HR PRN 03/30/18 [History] Oxybutynin [Ditropan] 5 mg PO HS 03/30/18 [History] Potassium Chloride [Klor-Con 10] 10 meq PO BID 03/30/18 [History] Ropinirole HCl [Requip] 2 mg PO HS 03/30/18 [History] Warfarin [Coumadin] 5 mg PO 1800 03/30/18 [History] Zolpidem [Ambien] 5 mg PO HS 03/30/18 [History] raNITIdine HCl [Zantac] 150 mg PO BID 03/30/18 [History] 3 Allergy/AdvReac Type Severity Reaction Status Date / Time lorazepam [From Ativan] AdvReac See Verified 05/14/15 07:06 Comments NSAIDS (Non-Steroidal AdvReac Gastrointestinal Verified 05/14/15 07:06 Anti-Inflamma Upset All Systems: The remainder of the systems were reviewed and are negative Physical Examination Vital Signs: Vital Signs, Last 4 Hours Temp Pulse Resp BP Pulse Ox 04/03/18 11:15 98.1 F 83 17 128/65 97 Results - Laboratory Findings CBC and BMP: 04/03/18 01:19 04/03/18 01:19 PT/INR, D-dimer PT 27.2 Seconds (9.4-12.1) H 04/03/18 01:19 Abnormal lab findings: Abnormal lab results WBC 15.5 K/mcL (4.3-11.1) H 04/03/18 01:19 RBC 1.80 M/mcL (3.82-4.97) L 04/03/18 01:19 Hgb 5.4 g/dL (11.5-15.4) L* D 04/03/18 01:19 Hct 16.8 % (35.3-44.9) L 04/03/18 01:19 RDW 18.4 % (11.5-14.5) H 04/03/18 01:19 Neutrophils # 10.2 K/mcL (1.6-8.9) H 04/03/18 01:19 Monocytes # 1.9 K/mcL (0.0-1.3) H 04/03/18 01:19 Nucleated RBCs/100 WBC 0.2 /100 WBC (0) H 04/03/18 01:19 PT 27.2 Seconds (9.4-12.1) H 04/03/18 01:19 Heparin Anti-Xa, Unfract 0.74 IU/mL (0.30-0.70) H 04/03/18 01:19 Sodium 133 mEq/L (136-145) L 04/03/18 01:19 BUN 30 mg/dL (8-23) H 04/03/18 01:19 Creatinine 1.25 mg/dL (0.60-1.20) H 04/03/18 01:19 Est GFR ( Amer) 51 (> 60) L 04/03/18 01:19 Est GFR (Non-Af Amer) 42 (> 60) L 04/03/18 01:19 Glucose 139 mg/dL (70-105) H 04/03/18 01:19 Iron 19 mcg/dL (50-170) L 04/01/18 08:12 % Saturation 7 % (15-50) L 04/01/18 08:12 Transferrin 202 mg/dL (203-362) L 04/01/18 08:12 Albumin 3.4 g/dL (3.5-5.7) L 03/30/18 07:09 Albumin/Globulin Ratio 1.0 (1.1-2.2) L 03/30/18 07:09 Folate 19.4 ng/mL (3.0-16.0) H 04/01/18 08:12 - Clinical Findings Intake & Output: Intake & Output 04/02/18 04/03/18 04/03/18 23:59 07:59 15:59 Intake Total 492.9 / 492.9 400 / 400 450 / 450 Output Total 400 / 400 Balance 492.9 / 492.9 400 / 400 50 / 50 Weight 88 kg Consult Discharge Plan - Plan Referrals: Santos Robbins Jr, PAC [Primary Care Provider] - - Attending Attestation I examined this patient and my medical decision-making was reviewed with the Resident Physician. I agree with the documented findings, disposition and treatment plan as described except to the extent set forth below. Patient seen and examined. Labs, radiology, chart personally reviewed. Agree with resident's history and physical, assessment, plan with following comments: MANAGER LOCAL: Patient follows commands, Pulmonary: Acceptable oxygenation and ventilation Cardiovascular: stable. At this time patient is hemodynamically stable after blood transfusion for acute blood loss anemia secondary to right femoral fracture and patient seen by orthopedic. and no need to transfer patient to ICU , however if her condition deteriorated then we can certainly look into this again. Thank you for the consultation and please do not hesitate to call should you have any questions. <Santos Macario - Last Filed: 04/03/18 18:05> Date of Encounter: 04/03/18 Time of Encounter: 09:58 Assessment and Plan (1) Hypotension due to blood loss Current Visit: Yes Status: Acute Patient with acute episode of hypotension due to blood loss in the right thigh status closed right femur fracture and recent right femur ORIF 03/31/18 Appreciate critical care consult. Patient's blood pressure has improved after fluid resuscitation and PRBCs. Will hold off on transfer to ICU at this time, however please re-consult if her condition continues to decline despite current therapy. (2) Acute blood loss anemia Current Visit: Yes Status: Acute Patient's postoperative course was complicated by an acute drop in blood pressure and hemoglobin of 5.4 today, which was down from 10.0 two days ago. Patient noted to have evidence of bleeding within right hip according to operative report. Received 2 units PRBCs on 03/31/18. Currently receiving 3 units packed red blood cells and 2 units of FFP. Continue serial H&H and transfuse prn hemoglobin less than 7 (3) Closed right femoral fracture Current Visit: Yes Status: Acute Patient had a right hip ORIF on 03/31/18 Patient's postoperative course was complicated by an acute drop in blood pressure and hemoglobin of 5.4 today, which was down from 10.0 two days ago. Ortho following Qualifiers: Encounter type: initial encounter Femur location: neck Qualified Code(s) : S72.001A - Fracture of unspecified part of neck of right femur, initial encounter for closed fracture (4) DVT (deep venous thrombosis) Current Visit: No Status: Acute Lower extremity duplex revealed acute DVT bilaterally, results are consistent with previous results in February 2018 status post CABG surgery. On admission, INR was subtherapeutic on Coumadin. INR was 2.4 this morning. She was transitioned to Lovenox bridging to warfarin after recent right hip surgery 3 days ago Vascular surgery placed IVC filter on 04/03/18 Qualifiers: DVT location: lower extremity Affected thrombotic vein of extremity: unspecified vein of extremity Chronicity: acute Laterality: bilateral Qualified Code(s): I82.403 - Acute embolism and thrombosis of unspecified deep veins of lower extremity, bilateral (5) DVT prophylaxis Current Visit: Yes Status: Acute IVC filter placed 04/03/18 History of Present Illness Consult date: 04/03/18 Requesting physician: Justin Kulkarni Reason for consult: other (Hypotension, acute blood loss anemia) Chief complaint: Hip Pain History of present illness: Mrs. 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 Patient's postoperative course was complicated by an acute drop in blood pressure and hemoglobin of 5.4 today, which was down from 10.0 two days ago. Critical care was consulted for hypotension and acute plus loss anemia. Patient reports significant pain in her right hip with increased swelling and warmth. She denies hemoptysis, hematemesis, melena, hematochezia, hematuria, or any history of abnormal bleeding on Coumadin in the past. On admission, her INR was subtherapeutic and she was started on heparin. Patient did receive 2 units of packed red blood cells during right hip surgery and 3 additional units of PRBCs and 2 units of FFP were ordered today in the setting of significant anemia and hypotension. Past Med Surg Social Fam HX - Past Medical History Medical history: arthritis, COPD, DVT, GERD, hyperlipidemia, myocardial infarction Psychiatric history: anxiety, depression - Past Surgical History Surgical History: angioplasty/stent, appendectomy, hysterectomy, knee replacement Additional surgical history: CLUB FEET SX. STOMACH SX - Social History Smoking Status: Former smoker Smokeless Tobacco Status: No Alcohol use: none Drug use: none - Family History Mother Living Status: Hx Family Cardiac Disorders: Yes Father Living Status: Hx Family Cardiac Disorders: Yes Hx Family Endocrine Disorder: No All Systems: The remainder of the systems were reviewed and are negative - Constitutional Constitutional: anorexia, fatigue, frequent falls, weakness, no chills, no fever (s) - EENT Nose, mouth and throat: no nasal congestion, no sore throat - Cardiovascular Cardiovascular: edema, no chest pain, no palpitations - Respiratory Respiratory: no cough, no chest congestion - Gastrointestinal Gastrointestinal: no abdominal pain, no diarrhea, no hematemesis, no hematochezia, no melena, no nausea, no vomiting - Genitourinary Genitourinary: no dysuria, no flank pain, no urinary frequency - Musculoskeletal Musculoskeletal: joint pain, weakness, arthralgias, joint swelling, limited range of motion, myalgias, radiating pain into limb - Integumentary Integumentary: erythema - Neurological Neurological: frequent falls, weakness, no numbness, no tingling - Psychiatric Psychiatric: anxiety, no depression - Endocrine Endocrine: no palpitations, no polydipsia, no polyphagia - Hematologic/Lymphatic Hematologic/Lymphatic: easy bleeding, easy bruising Physical Examination Vital Signs: Vital Signs, Last 4 Hours Temp Pulse Resp BP Pulse Ox 04/03/18 07:28 97.9 F 87 15 107/70 100 04/03/18 07:08 98.0 F 81 18 101/41 96 04/03/18 07:00 98.0 F 86 18 101/46 99 General appearance: appears uncomfortable, other (Pleasant, conversant, obese) Eyes: nonicteric ENT: oropharynx moist, oropharynx pale Neck: supple, no lymphadenopathy Effort: normal Inspection: normal Auscultation: bilateral: clear Cardiovascular: regular rate and rhythm, other (edema right leg) Gastrointestinal: normoactive bowel sounds, soft, non-tender Integumentary: erythema (Surgical incision intact right hip, ecchymosis noted, positive tenderness to palpation, right thigh increased in size compared to left ) Extremities: pulses normal, edema Musculoskeletal: joint tenderness (Right hip) normal mental status, CN II-XII normal mood appropriate, affect normal Results - Laboratory Findings CBC and BMP: 04/03/18 12:15 04/03/18 01:19 PT/INR, D-dimer PT 27.2 Seconds (9.4-12.1) H 04/03/18 01:19 Abnormal lab findings: Abnormal lab results WBC 15.5 K/mcL (4.3-11.1) H 04/03/18 01:19 RBC 1.80 M/mcL (3.82-4.97) L 04/03/18 01:19 Hgb 5.4 g/dL (11.5-15.4) L* D 04/03/18 01:19 Hct 16.8 % (35.3-44.9) L 04/03/18 01:19 RDW 18.4 % (11.5-14.5) H 04/03/18 01:19 Neutrophils # 10.2 K/mcL (1.6-8.9) H 04/03/18 01:19 Monocytes # 1.9 K/mcL (0.0-1.3) H 04/03/18 01:19 Nucleated RBCs/100 WBC 0.2 /100 WBC (0) H 04/03/18 01:19 PT 27.2 Seconds (9.4-12.1) H 04/03/18 01:19 Heparin Anti-Xa, Unfract 0.74 IU/mL (0.30-0.70) H 04/03/18 01:19 Sodium 133 mEq/L (136-145) L 04/03/18 01:19 BUN 30 mg/dL (8-23) H 04/03/18 01:19 Creatinine 1.25 mg/dL (0.60-1.20) H 04/03/18 01:19 Est GFR ( Amer) 51 (> 60) L 04/03/18 01:19 Est GFR (Non-Af Amer) 42 (> 60) L 04/03/18 01:19 Glucose 139 mg/dL (70-105) H 04/03/18 01:19 Iron 19 mcg/dL (50-170) L 04/01/18 08:12 % Saturation 7 % (15-50) L 04/01/18 08:12 Transferrin 202 mg/dL (203-362) L 04/01/18 08:12 Albumin 3.4 g/dL (3.5-5.7) L 03/30/18 07:09 Albumin/Globulin Ratio 1.0 (1.1-2.2) L 03/30/18 07:09 Folate 19.4 ng/mL (3.0-16.0) H 04/01/18 08:12 - Clinical Findings Intake & Output: Intake & Output 04/02/18 04/03/18 04/03/18 23:59 07:59 15:59 Intake Total 492.9 / 492.9 400 / 400 Balance 492.9 / 492.9 400 / 400 Weight 88 kg
--- NOTE | 2018-04-03 11:18 | Oncology Inp Consult Note ---
<Camilo Sky - Last Filed: 04/03/18 16:40> Date of Encounter: 04/03/18 Time of Encounter: 11:13 Assessment and Plan (1) Anemia Status: Acute Assessment and plan: Acute on chronic anemia multifactorial nature with the patient appearing to have a anemia of chronic disease with an acute drop her hemoglobin likely related to acute blood loss in the setting of recent right hip surgery and on anticoagulation. Patient was on chronic anticoagulation with Coumadin as an outpatient which was held prior to surgery and restarted last night. INR was 2.4 this morning. Patient was noted to have acute drop in her hemoglobin down to 5.4 with source of bleeding likely the right hip, as patient is having pain, swelling, ecchymosis, and warmth to the right hip. No other sources of bleeding identified. Patient did have some hypotension that responded well to fluids. Agree with blood transfusions to keep a goal hemoglobin greater than 5.4. Continue iron supplementation. Qualifiers: Anemia type: other cause Other causes of anemia: other cause, not classified Qualified Code(s): D64.89 - Other specified anemias (2) DVT (deep venous thrombosis) Status: Acute Assessment and plan: Bilateral lower extremity duplex reveals acute DVT bilaterally. Patient reports that she was diagnosed with a blood clot in February. Had been on warfarin as an outpatient. INR was subtherapeutic on admission. Warfarin was held and the patient was placed on heparin in preparation for surgery. Postoperatively she was transitioned to Lovenox bridging to warfarin. Patient did receive a dose of warfarin last night. INR was 2.4 this morning. Patient noted to have evidence of bleeding within that recently surgically repaired right hip. Currently receiving 2 units packed red blood cells as well as 2 units of FFP. Vascular surgery has been consulted by the primary team for evaluation of filter given her current bleeding on anticoagulation with known acute clot. Qualifiers: DVT location: lower extremity Affected thrombotic vein of extremity: unspecified vein of extremity Chronicity: acute Laterality: left Qualified Code(s): I82.402 - Acute embolism and thrombosis of unspecified deep veins of left lower extremity - Data of Consult Patient: new to practice Consult date: 04/03/18 Requesting Physician: Justin Kulkarni MD Primary Care Provider: CODY Rodas - Consult Narrative Reason for consult: Anemia History of present illness: Ms. Bermudez is a 72 year old female with history of coronary artery disease, DVT, chronic anemia who presented from [facility] after a fall. Patient reports that she was extremely tired to [facility] and went to bed and the next thing she knew she woke up on the floor after falling out of bed. She reported severe right hip pain. She was transported to the hospital and found to have a right femur fracture. This was surgically repaired on the night of March 31. Patient's postoperative course had been uncomplicated until early this morning when the patient was noted to have a drop in blood pressure and a CBC revealed a hemoglobin of 5.4, which was down from 10.0 approximately 48 hours prior. Today the patient reports significant pain in the area of her right hip with increased swelling and warmth. She denies any other pain or source of bleeding including denying hemoptysis, hematemesis, melena, hematochezia, hematuria. Patient reports that she underwent coronary artery bypass grafting at [facility] in September 2017 and has been in an extended care facility since the surgery. She reports that in February 2018 she was diagnosed with a lower extremity blood clot and started on Coumadin at this time. She denies any history of abnormal bleeding on Coumadin. Upon admission to the hospital for this hospitalization the patient was found to be subtherapeutic on her INR and was started on heparin in the Coumadin was held in preparation for surgery. Estimated blood loss during surgery was noted to be 500 mL. Patient did receive 2 units of packed red blood cells during surgery. Per the intraoperative report, there is noted to be a large amount of hemorrhage into the thigh muscle. Past Med Surg Social Fam HX - Past Medical History Medical history: arthritis, COPD, DVT, GERD, hyperlipidemia, myocardial infarction Psychiatric history: anxiety, depression - Past Surgical History Surgical History: angioplasty/stent, appendectomy, hysterectomy, knee replacement Additional surgical history: CLUB FEET SX. STOMACH SX - Social History Smoking Status: Former smoker Smokeless Tobacco Status: No Alcohol use: none Drug use: none - Family History Mother Living Status: Hx Family Cardiac Disorders: Yes Father Living Status: Hx Family Cardiac Disorders: Yes Hx Family Endocrine Disorder: No Medications and Allergies Alendronate Sodium [Fosamax] 70 mg PO VERDE 03/30/18 [History] Allopurinol [Zyloprim 100 MG] 100 mg PO BID 03/30/18 [History] Aspirin [Lo-Dose Aspirin EC] 81 mg PO DAILY 03/30/18 [History] Atorvastatin [Lipitor] 40 mg PO HS 03/30/18 [History] Calcium Carbonate/Vitamin D3 [Oyster Shell Calcium-Vit D Tab] 1 tab PO TID 03/30 [History] Citalopram Hydrobromide [Citalopram HBr] 20 mg PO DAILY 03/30/18 [History] Clopidogrel [Plavix] 75 mg PO DAILY 03/30/18 [History] Ergocalciferol (VITAMIN D2) [Vitamin D] 400 unit PO DAILY 03/30/18 [History] FentaNYL PATCH [Duragesic] 25 mcg TD Q72H 03/30/18 [History] Folic Acid 1 mg PO DAILY 03/30/18 [History] Furosemide [Lasix] 40 mg PO BID 03/30/18 [History] Lidocaine Patch [Lidoderm 5% patch] 1 appl TP DAILY 03/30/18 [History] Mag Hydrox/Aluminum Hyd/Simeth [Cvs Antacid Plus Anti-Gas Liq] 30 ml PO AD PRN 03/30/18 [History] Magnesium Oxide [Magnesium] 400 mg PO BID 03/30/18 [History] Methotrexate [Otrexup] 15 mg PO TH 03/30/18 [History] Metoprolol [Lopressor] 25 mg PO BID 03/30/18 [History] Multivitamin [One Daily Multivitamin] 1 tab PO DAILY 03/30/18 [History] Nitroglycerin [Nitrostat] 0.4 mg SL Q5M PRN MDD [id number] 03/30/18 [History] OxyCODONE/APAP 5/325 [Percocet 5/325 MG] 1 tab PO Q4HR PRN 03/30/18 [History] Oxybutynin [Ditropan] 5 mg PO HS 03/30/18 [History] Potassium Chloride [Klor-Con 10] 10 meq PO BID 03/30/18 [History] Ropinirole HCl [Requip] 2 mg PO HS 03/30/18 [History] Warfarin [Coumadin] 5 mg PO 1800 03/30/18 [History] Zolpidem [Ambien] 5 mg PO HS 03/30/18 [History] raNITIdine HCl [Zantac] 150 mg PO BID 08/23/18 [History] 3 Allergy/AdvReac Type Severity Reaction Status Date / Time lorazepam [From Ativan] AdvReac See Verified 05/14/15 07:06 Comments NSAIDS (Non-Steroidal AdvReac Gastrointestinal Verified 05/14/15 07:06 Anti-Inflamma Upset Constitutional: Absent: chills, fever(s) Eyes: Absent: change in vision Nose, mouth and throat: Absent: epistaxis, sore throat Cardiovascular: Absent: chest pain, dyspnea, edema, irregular heart rhythm, leg edema Respiratory: Absent: cough, dyspnea, hemoptysis Gastrointestinal: Absent: abdominal pain, change in bowel habits, coffee ground emesis, hematemesis, hematochezia, melena Genitourinary: Absent: hematuria Musculoskeletal: Present: abnormal gait, radiating pain into limb Integumentary: Present: bleeding lesions Neurological: Absent: confusion, numbness, tingling Hematologic/Lymphatic: Present: easy bruising, lymphadenopathy. Absent: easy bleeding Oncology - Exam - Constitutional Vitals: Temp Pulse Resp BP Pulse Ox 97.9 F 87 15 107/70 100 04/03/18 07:28 04/03/18 07:28 04/03/18 07:28 04/03/18 07:28 04/03/18 07:28 General appearance: no acute distress Exam: Patient would fall asleep during the interview but was easily arousable. - Head Head exam: Present: atraumatic, normal inspection - Eye Eye exam: Present: PERRL. Absent: scleral icterus - ENT ENT exam: Present: mucous membranes dry - Respiratory Respiratory exam: Present: CTAB. Absent: rales, rhonchi, wheezes - Cardiovascular Cardiovascular exam: Present: RRR. Absent: diastolic murmur, systolic murmur, tachycardia - GI/Abdominal GI/Abdominal exam: Present: hypoactive bowel sounds, soft. Absent: tenderness - Extremities Exam Additional comments: Surgical scar to right lateral hip with josé present. Dry blood surrounding the incision. Significant swelling, ecchymosis, warmth and tenderness around the incision site - Neurological Exam Neurological exam: Present: alert, oriented X3, no focal deficits Oncology - Results Labs: 3 04/03/18 04/03/18 04/03/18 01:19 01:19 01:19 WBC 15.5 H RBC 1.80 L Hgb 5.4 L* D Hct 16.8 L MCV 93.3 MCH 30.0 MCHC 32.1 RDW 18.4 H Plt Count 286 MPV 9.5 Immature Gran % 1.2 Seg Neutrophils % 65.9 Lymphocytes % 19.5 Monocytes % 12.1 Eosinophils % 1.1 Basophils % 0.2 Neutrophils # 10.2 H Lymphocytes # 3.0 Monocytes # 1.9 H Eosinophils # 0.2 Basophils # 0.0 Nucleated RBCs/100 WBC 0.2 H PT 27.2 H INR 2.4 APTT Heparin Anti-Xa, Unfract 0.74 H Sodium 133 L Potassium 3.9 Chloride 99 Carbon Dioxide 28 BUN 30 H Creatinine 1.25 H Est GFR ( Amer) 51 L Est GFR (Non-Af Amer) 42 L BUN/Creatinine Ratio 24 Glucose 139 H POC Glucose Calculated Osmolality 284 Calcium 9.2 Iron % Saturation Transferrin Ferritin Total Bilirubin AST ALT Alkaline Phosphatase Serum Total Protein Albumin Globulin Albumin/Globulin Ratio Vitamin B12 Folate Blood Type Antibody Screen Crossmatch 3 04/02/18 04/01/18 04/01/18 01:27 20:42 13:36 WBC RBC Hgb Hct MCV MCH MCHC RDW Plt Count MPV Immature Gran % Seg Neutrophils % Lymphocytes % Monocytes % Eosinophils % Basophils % Neutrophils # Lymphocytes # Monocytes # Eosinophils # Basophils # Nucleated RBCs/100 WBC PT 19.3 H 19.8 H INR 1.7 1.8 APTT Heparin Anti-Xa, Unfract 0.48 0.34 Sodium Potassium Chloride Carbon Dioxide BUN Creatinine Est GFR ( Amer) Est GFR (Non-Af Amer) BUN/Creatinine Ratio Glucose POC Glucose Calculated Osmolality Calcium Iron % Saturation Transferrin Ferritin Total Bilirubin AST ALT Alkaline Phosphatase Serum Total Protein Albumin Globulin Albumin/Globulin Ratio Vitamin B12 Folate Blood Type Antibody Screen Crossmatch 3 04/01/18 04/01/18 04/01/18 13:36 08:12 08:12 WBC RBC Hgb Hct MCV MCH MCHC RDW Plt Count MPV Immature Gran % Seg Neutrophils % Lymphocytes % Monocytes % Eosinophils % Basophils % Neutrophils # Lymphocytes # Monocytes # Eosinophils # Basophils # Nucleated RBCs/100 WBC PT INR APTT Heparin Anti-Xa, Unfract 0.19 L 0.40 Sodium Potassium Chloride Carbon Dioxide BUN Creatinine Est GFR ( Amer) Est GFR (Non-Af Amer) BUN/Creatinine Ratio Glucose POC Glucose Calculated Osmolality Calcium Iron 19 L % Saturation 7 L Transferrin 202 L Ferritin 62 Total Bilirubin AST ALT Alkaline Phosphatase Serum Total Protein Albumin Globulin Albumin/Globulin Ratio Vitamin B12 Folate Blood Type Antibody Screen Crossmatch 3 04/01/18 04/01/18 04/01/18 08:12 00:53 00:53 WBC 14.2 H D RBC 3.23 L Hgb 10.0 L D Hct 31.3 L MCV 96.9 MCH 31.0 MCHC 31.9 RDW 18.8 H Plt Count 194 MPV 9.3 L Immature Gran % 0.6 Seg Neutrophils % 88.4 Lymphocytes % 5.4 Monocytes % 5.0 Eosinophils % 0.5 Basophils % 0.1 Neutrophils # 12.6 H Lymphocytes # 0.8 Monocytes # 0.7 Eosinophils # 0.1 Basophils # 0.0 Nucleated RBCs/100 WBC PT INR APTT Heparin Anti-Xa, Unfract Sodium 135 L Potassium 4.5 Chloride 104 Carbon Dioxide 26 BUN 28 H Creatinine 1.04 Est GFR ( Amer) > 60 Est GFR (Non-Af Amer) 52 L BUN/Creatinine Ratio 27 H Glucose 170 H POC Glucose Calculated Osmolality 289 Calcium 9.2 Iron % Saturation Transferrin Ferritin Total Bilirubin AST ALT Alkaline Phosphatase Serum Total Protein Albumin Globulin Albumin/Globulin Ratio Vitamin B12 291 Folate 19.4 H Blood Type Antibody Screen Crossmatch 3 04/01/18 03/31/18 03/31/18 00:53 18:04 18:04 WBC RBC Hgb 8.0 L Hct 25.7 L MCV MCH MCHC RDW Plt Count MPV Immature Gran % Seg Neutrophils % Lymphocytes % Monocytes % Eosinophils % Basophils % Neutrophils # Lymphocytes # Monocytes # Eosinophils # Basophils # Nucleated RBCs/100 WBC PT INR APTT Heparin Anti-Xa, Unfract 0.02 L Sodium Potassium Chloride Carbon Dioxide BUN Creatinine Est GFR ( Amer) Est GFR (Non-Af Amer) BUN/Creatinine Ratio Glucose POC Glucose Calculated Osmolality Calcium Iron % Saturation Transferrin Ferritin Total Bilirubin AST ALT Alkaline Phosphatase Serum Total Protein Albumin Globulin Albumin/Globulin Ratio Vitamin B12 Folate Blood Type A POSITIVE Antibody Screen NEGATIVE Crossmatch See Detail 3 03/31/18 03/31/18 03/31/18 17:54 12:14 01:08 WBC RBC Hgb Hct MCV MCH MCHC RDW Plt Count MPV Immature Gran % Seg Neutrophils % Lymphocytes % Monocytes % Eosinophils % Basophils % Neutrophils # Lymphocytes # Monocytes # Eosinophils # Basophils # Nucleated RBCs/100 WBC PT 24.5 H INR 2.2 APTT Heparin Anti-Xa, Unfract Sodium Potassium Chloride Carbon Dioxide BUN Creatinine Est GFR ( Amer) Est GFR (Non-Af Amer) BUN/Creatinine Ratio Glucose POC Glucose 99 110 H Calculated Osmolality Calcium Iron % Saturation Transferrin Ferritin Total Bilirubin AST ALT Alkaline Phosphatase Serum Total Protein Albumin Globulin Albumin/Globulin Ratio Vitamin B12 Folate Blood Type Antibody Screen Crossmatch 3 03/31/18 03/31/18 03/30/18 01:08 01:08 23:01 WBC 5.9 RBC 2.64 L Hgb 8.1 L D Hct 26.0 L MCV 98.5 MCH 30.7 MCHC 31.2 L RDW 20.4 H Plt Count 168 MPV 9.4 Immature Gran % 0.5 Seg Neutrophils % 56.0 Lymphocytes % 27.7 Monocytes % 10.5 Eosinophils % 5.1 Basophils % 0.2 Neutrophils # 3.3 Lymphocytes # 1.6 Monocytes # 0.6 Eosinophils # 0.3 Basophils # 0.0 Nucleated RBCs/100 WBC PT INR APTT Heparin Anti-Xa, Unfract 0.60 Sodium 137 Potassium 4.3 Chloride 103 Carbon Dioxide 28 BUN 42 H Creatinine 1.15 Est GFR ( Amer) 56 L Est GFR (Non-Af Amer) 46 L BUN/Creatinine Ratio 37 H Glucose 127 H POC Glucose Calculated Osmolality 296 Calcium 8.6 Iron % Saturation Transferrin Ferritin Total Bilirubin AST ALT Alkaline Phosphatase Serum Total Protein Albumin Globulin Albumin/Globulin Ratio Vitamin B12 Folate Blood Type Antibody Screen Crossmatch 3 03/30/18 03/30/18 03/30/18 17:08 09:00 08:25 WBC RBC Hgb Hct MCV MCH MCHC RDW Plt Count MPV Immature Gran % Seg Neutrophils % Lymphocytes % Monocytes % Eosinophils % Basophils % Neutrophils # Lymphocytes # Monocytes # Eosinophils # Basophils # Nucleated RBCs/100 WBC PT INR APTT Heparin Anti-Xa, Unfract 0.68 0.02 L Sodium Potassium Chloride Carbon Dioxide BUN Creatinine Est GFR ( Amer) Est GFR (Non-Af Amer) BUN/Creatinine Ratio Glucose POC Glucose 141 H Calculated Osmolality Calcium Iron % Saturation Transferrin Ferritin Total Bilirubin AST ALT Alkaline Phosphatase Serum Total Protein Albumin Globulin Albumin/Globulin Ratio Vitamin B12 Folate Blood Type Antibody Screen Crossmatch 3 03/30/18 03/30/18 03/30/18 07:09 07:09 07:09 WBC 10.2 RBC 3.14 L Hgb 9.6 L Hct 30.7 L MCV 97.8 MCH 30.6 MCHC 31.3 L RDW 20.1 H Plt Count 192 MPV 8.8 L Immature Gran % 0.5 Seg Neutrophils % 82.4 Lymphocytes % 10.4 Monocytes % 6.3 Eosinophils % 0.2 Basophils % 0.2 Neutrophils # 8.4 Lymphocytes # 1.1 Monocytes # 0.6 Eosinophils # 0.0 Basophils # 0.0 Nucleated RBCs/100 WBC PT 19.6 H INR 1.7 APTT 33.5 Heparin Anti-Xa, Unfract Sodium 137 Potassium 4.1 Chloride 101 Carbon Dioxide 27 BUN 48 H Creatinine 1.08 Est GFR ( Amer) > 60 Est GFR (Non-Af Amer) 50 L BUN/Creatinine Ratio 44 H Glucose 145 H POC Glucose Calculated Osmolality 299 Calcium 9.0 Iron % Saturation Transferrin Ferritin Total Bilirubin 0.4 AST 15 ALT 10 Alkaline Phosphatase 75 Serum Total Protein 6.8 Albumin 3.4 L Globulin 3.4 Albumin/Globulin Ratio 1.0 L Vitamin B12 Folate Blood Type Antibody Screen Crossmatch Consult Discharge Plan - Plan Referrals: Santos Robbins Jr, PAC [Primary Care Provider] - <Sabine Cuadra - Last Filed: 04/04/18 17:06> Date of Encounter: 04/04/18 - Data of Consult Requesting Physician: Abby Garcia Primary Care Provider: Santos Robbins PAC - Consult Narrative History of present illness: Medical history, hospitalization records lab data reviewed. Anemia acute in onset likely secondary to blood loss and coagulopathy secondary to medications. She is status post multiple PRBCs and FFP transfusion. Pain in the right hip , swelling noted. She is status post IVC filter due to acute bilateral extensive DVT of recent onset. Bleeding site to be determined. Continue supportive transfusions. Plan of care discussed with patient. I examined this patient and my medical decision-making was reviewed with Dr. Camilo Sky, resident physician. I agree with the documented findings, disposition and treatment plan as described except to the extent set forth below. Oncology - Exam - Constitutional Vitals: Temp Pulse Resp BP Pulse Ox 98.6 F 96 20 144/80 96 04/04/18 13:48 04/04/18 14:36 04/04/18 14:36 04/04/18 14:36 04/04/18 14:36 Oncology - Results Labs: 3 04/04/18 04/04/18 04/04/18 15:10 01:45 01:45 WBC RBC Hgb 7.6 L D Hct 22.9 L MCV MCH MCHC RDW Plt Count MPV Immature Gran % Seg Neutrophils % Lymphocytes % Monocytes % Eosinophils % Basophils % Neutrophils # Lymphocytes # Monocytes # Eosinophils # Basophils # Nucleated RBCs/100 WBC PT INR APTT Heparin Anti-Xa, Unfract Sodium 135 L Potassium 3.8 Chloride 102 Carbon Dioxide 29 BUN 29 H Creatinine 1.01 Est GFR ( Amer) > 60 Est GFR (Non-Af Amer) 54 L BUN/Creatinine Ratio 29 H Glucose 152 H POC Glucose Calculated Osmolality 289 Calcium 9.3 Iron % Saturation Transferrin Ferritin Total Bilirubin AST ALT Alkaline Phosphatase Serum Total Protein Albumin Globulin Albumin/Globulin Ratio Vitamin B12 Folate Blood Type A POSITIVE Antibody Screen NEGATIVE Crossmatch See Detail 3 04/04/18 04/04/18 04/03/18 01:45 01:45 12:15 WBC 11.4 H RBC 1.83 L Hgb 5.3 L* D 7.5 L D Hct 15.7 L 22.1 L MCV 85.8 D MCH 29.0 MCHC 33.8 RDW 17.9 H Plt Count 248 MPV 9.4 Immature Gran % 0.8 Seg Neutrophils % 71.2 Lymphocytes % 13.4 Monocytes % 13.9 Eosinophils % 0.5 Basophils % 0.2 Neutrophils # 8.1 Lymphocytes # 1.5 Monocytes # 1.6 H Eosinophils # 0.1 Basophils # 0.0 Nucleated RBCs/100 WBC 0.4 H PT 21.6 H INR 1.9 APTT Heparin Anti-Xa, Unfract Sodium Potassium Chloride Carbon Dioxide BUN Creatinine Est GFR ( Amer) Est GFR (Non-Af Amer) BUN/Creatinine Ratio Glucose POC Glucose Calculated Osmolality Calcium Iron % Saturation Transferrin Ferritin Total Bilirubin AST ALT Alkaline Phosphatase Serum Total Protein Albumin Globulin Albumin/Globulin Ratio Vitamin B12 Folate Blood Type Antibody Screen Crossmatch 3 04/03/18 04/03/18 04/03/18 01:19 01:19 01:19 WBC 15.5 H RBC 1.80 L Hgb 5.4 L* D Hct 16.8 L MCV 93.3 MCH 30.0 MCHC 32.1 RDW 18.4 H Plt Count 286 MPV 9.5 Immature Gran % 1.2 Seg Neutrophils % 65.9 Lymphocytes % 19.5 Monocytes % 12.1 Eosinophils % 1.1 Basophils % 0.2 Neutrophils # 10.2 H Lymphocytes # 3.0 Monocytes # 1.9 H Eosinophils # 0.2 Basophils # 0.0 Nucleated RBCs/100 WBC 0.2 H PT 27.2 H INR 2.4 APTT Heparin Anti-Xa, Unfract 0.74 H Sodium 133 L Potassium 3.9 Chloride 99 Carbon Dioxide 28 BUN 30 H Creatinine 1.25 H Est GFR ( Amer) 51 L Est GFR (Non-Af Amer) 42 L BUN/Creatinine Ratio 24 Glucose 139 H POC Glucose Calculated Osmolality 284 Calcium 9.2 Iron % Saturation Transferrin Ferritin Total Bilirubin AST ALT Alkaline Phosphatase Serum Total Protein Albumin Globulin Albumin/Globulin Ratio Vitamin B12 Folate Blood Type Antibody Screen Crossmatch 3 04/02/18 04/01/18 04/01/18 01:27 20:42 13:36 WBC RBC Hgb Hct MCV MCH MCHC RDW Plt Count MPV Immature Gran % Seg Neutrophils % Lymphocytes % Monocytes % Eosinophils % Basophils % Neutrophils # Lymphocytes # Monocytes # Eosinophils # Basophils # Nucleated RBCs/100 WBC PT 19.3 H 19.8 H INR 1.7 1.8 APTT Heparin Anti-Xa, Unfract 0.48 0.34 Sodium Potassium Chloride Carbon Dioxide BUN Creatinine Est GFR ( Amer) Est GFR (Non-Af Amer) BUN/Creatinine Ratio Glucose POC Glucose Calculated Osmolality Calcium Iron % Saturation Transferrin Ferritin Total Bilirubin AST ALT Alkaline Phosphatase Serum Total Protein Albumin Globulin Albumin/Globulin Ratio Vitamin B12 Folate Blood Type Antibody Screen Crossmatch 3 04/01/18 04/01/18 04/01/18 13:36 08:12 08:12 WBC RBC Hgb Hct MCV MCH MCHC RDW Plt Count MPV Immature Gran % Seg Neutrophils % Lymphocytes % Monocytes % Eosinophils % Basophils % Neutrophils # Lymphocytes # Monocytes # Eosinophils # Basophils # Nucleated RBCs/100 WBC PT INR APTT Heparin Anti-Xa, Unfract 0.19 L 0.40 Sodium Potassium Chloride Carbon Dioxide BUN Creatinine Est GFR ( Amer) Est GFR (Non-Af Amer) BUN/Creatinine Ratio Glucose POC Glucose Calculated Osmolality Calcium Iron 19 L % Saturation 7 L Transferrin 202 L Ferritin 62 Total Bilirubin AST ALT Alkaline Phosphatase Serum Total Protein Albumin Globulin Albumin/Globulin Ratio Vitamin B12 Folate Blood Type Antibody Screen Crossmatch 3 04/01/18 04/01/18 04/01/18 08:12 00:53 00:53 WBC 14.2 H D RBC 3.23 L Hgb 10.0 L D Hct 31.3 L MCV 96.9 MCH 31.0 MCHC 31.9 RDW 18.8 H Plt Count 194 MPV 9.3 L Immature Gran % 0.6 Seg Neutrophils % 88.4 Lymphocytes % 5.4 Monocytes % 5.0 Eosinophils % 0.5 Basophils % 0.1 Neutrophils # 12.6 H Lymphocytes # 0.8 Monocytes # 0.7 Eosinophils # 0.1 Basophils # 0.0 Nucleated RBCs/100 WBC PT INR APTT Heparin Anti-Xa, Unfract Sodium 135 L Potassium 4.5 Chloride 104 Carbon Dioxide 26 BUN 28 H Creatinine 1.04 Est GFR ( Amer) > 60 Est GFR (Non-Af Amer) 52 L BUN/Creatinine Ratio 27 H Glucose 170 H POC Glucose Calculated Osmolality 289 Calcium 9.2 Iron % Saturation Transferrin Ferritin Total Bilirubin AST ALT Alkaline Phosphatase Serum Total Protein Albumin Globulin Albumin/Globulin Ratio Vitamin B12 291 Folate 19.4 H Blood Type Antibody Screen Crossmatch 3 04/01/18 03/31/18 03/31/18 00:53 18:04 18:04 WBC RBC Hgb 8.0 L Hct 25.7 L MCV MCH MCHC RDW Plt Count MPV Immature Gran % Seg Neutrophils % Lymphocytes % Monocytes % Eosinophils % Basophils % Neutrophils # Lymphocytes # Monocytes # Eosinophils # Basophils # Nucleated RBCs/100 WBC PT INR APTT Heparin Anti-Xa, Unfract 0.02 L Sodium Potassium Chloride Carbon Dioxide BUN Creatinine Est GFR ( Amer) Est GFR (Non-Af Amer) BUN/Creatinine Ratio Glucose POC Glucose Calculated Osmolality Calcium Iron % Saturation Transferrin Ferritin Total Bilirubin AST ALT Alkaline Phosphatase Serum Total Protein Albumin Globulin Albumin/Globulin Ratio Vitamin B12 Folate Blood Type A POSITIVE Antibody Screen NEGATIVE Crossmatch See Detail 3 03/31/18 03/31/18 03/31/18 17:54 12:14 01:08 WBC RBC Hgb Hct MCV MCH MCHC RDW Plt Count MPV Immature Gran % Seg Neutrophils % Lymphocytes % Monocytes % Eosinophils % Basophils % Neutrophils # Lymphocytes # Monocytes # Eosinophils # Basophils # Nucleated RBCs/100 WBC PT 24.5 H INR 2.2 APTT Heparin Anti-Xa, Unfract Sodium Potassium Chloride Carbon Dioxide BUN Creatinine Est GFR ( Amer) Est GFR (Non-Af Amer) BUN/Creatinine Ratio Glucose POC Glucose 99 110 H Calculated Osmolality Calcium Iron % Saturation Transferrin Ferritin Total Bilirubin AST ALT Alkaline Phosphatase Serum Total Protein Albumin Globulin Albumin/Globulin Ratio Vitamin B12 Folate Blood Type Antibody Screen Crossmatch 3 03/31/18 03/31/18 03/30/18 01:08 01:08 23:01 WBC 5.9 RBC 2.64 L Hgb 8.1 L D Hct 26.0 L MCV 98.5 MCH 30.7 MCHC 31.2 L RDW 20.4 H Plt Count 168 MPV 9.4 Immature Gran % 0.5 Seg Neutrophils % 56.0 Lymphocytes % 27.7 Monocytes % 10.5 Eosinophils % 5.1 Basophils % 0.2 Neutrophils # 3.3 Lymphocytes # 1.6 Monocytes # 0.6 Eosinophils # 0.3 Basophils # 0.0 Nucleated RBCs/100 WBC PT INR APTT Heparin Anti-Xa, Unfract 0.60 Sodium 137 Potassium 4.3 Chloride 103 Carbon Dioxide 28 BUN 42 H Creatinine 1.15 Est GFR ( Amer) 56 L Est GFR (Non-Af Amer) 46 L BUN/Creatinine Ratio 37 H Glucose 127 H POC Glucose Calculated Osmolality 296 Calcium 8.6 Iron % Saturation Transferrin Ferritin Total Bilirubin AST ALT Alkaline Phosphatase Serum Total Protein Albumin Globulin Albumin/Globulin Ratio Vitamin B12 Folate Blood Type Antibody Screen Crossmatch 3 03/30/18 03/30/18 03/30/18 17:08 09:00 08:25 WBC RBC Hgb Hct MCV MCH MCHC RDW Plt Count MPV Immature Gran % Seg Neutrophils % Lymphocytes % Monocytes % Eosinophils % Basophils % Neutrophils # Lymphocytes # Monocytes # Eosinophils # Basophils # Nucleated RBCs/100 WBC PT INR APTT Heparin Anti-Xa, Unfract 0.68 0.02 L Sodium Potassium Chloride Carbon Dioxide BUN Creatinine Est GFR ( Amer) Est GFR (Non-Af Amer) BUN/Creatinine Ratio Glucose POC Glucose 141 H Calculated Osmolality Calcium Iron % Saturation Transferrin Ferritin Total Bilirubin AST ALT Alkaline Phosphatase Serum Total Protein Albumin Globulin Albumin/Globulin Ratio Vitamin B12 Folate Blood Type Antibody Screen Crossmatch 3 03/30/18 03/30/18 03/30/18 07:09 07:09 07:09 WBC 10.2 RBC 3.14 L Hgb 9.6 L Hct 30.7 L MCV 97.8 MCH 30.6 MCHC 31.3 L RDW 20.1 H Plt Count 192 MPV 8.8 L Immature Gran % 0.5 Seg Neutrophils % 82.4 Lymphocytes % 10.4 Monocytes % 6.3 Eosinophils % 0.2 Basophils % 0.2 Neutrophils # 8.4 Lymphocytes # 1.1 Monocytes # 0.6 Eosinophils # 0.0 Basophils # 0.0 Nucleated RBCs/100 WBC PT 19.6 H INR 1.7 APTT 33.5 Heparin Anti-Xa, Unfract Sodium 137 Potassium 4.1 Chloride 101 Carbon Dioxide 27 BUN 48 H Creatinine 1.08 Est GFR ( Amer) > 60 Est GFR (Non-Af Amer) 50 L BUN/Creatinine Ratio 44 H Glucose 145 H POC Glucose Calculated Osmolality 299 Calcium 9.0 Iron % Saturation Transferrin Ferritin Total Bilirubin 0.4 AST 15 ALT 10 Alkaline Phosphatase 75 Serum Total Protein 6.8 Albumin 3.4 L Globulin 3.4 Albumin/Globulin Ratio 1.0 L Vitamin B12 Folate Blood Type Antibody Screen Crossmatch
--- NOTE | 2018-04-03 12:45 | Vascular/Endovasc Consult Note ---
Date of Encounter: 04/03/18 Time of Encounter: 12:10 Assessment and Plan (1) DVT (deep venous thrombosis) Current Visit: No Status: Acute The pathophysiology and natural history of venous thromboembolism was discussed with the patient and all questions were answered. The patient has bilateral distal iliac and superficial femoral deep venous thrombosis. She also has left lower extremity superficial thrombophlebitis. She was anticoagulated but due to acute anemia and developed a hematoma she was no longer be a candidate for anticoagulation. Given these findings, an inferior vena cava filters recommended to reduce her risk of pulmonary embolus. The risks, benefits and alternatives were discussed and all questions were answered. She is present percent was to proceed. Qualifiers: DVT location: lower extremity Affected thrombotic vein of extremity: unspecified vein of extremity Chronicity: acute Laterality: left Qualified Code(s): I82.402 - Acute embolism and thrombosis of unspecified deep veins of left lower extremity (2) Essential hypertension Current Visit: No Status: Chronic (3) Coronary artery disease Current Visit: No Status: Chronic Qualifiers: Coronary Disease-Associated Artery/Lesion type: unspecified vessel or lesion type [place] vs. transplanted heart: [place] heart Associated angina: without angina Qualified Code(s): I25.10 - Atherosclerotic heart disease of [place] coronary artery without angina pectoris (4) Closed right femoral fracture Current Visit: Yes Status: Acute Qualifiers: Encounter type: initial encounter Femur location: neck Qualified Code(s) : S72.001A - Fracture of unspecified part of neck of right femur, initial encounter for closed fracture - History of Present Illness Consult date: 04/03/18 Requesting physician: Justin Kulkarni Consult reason: Deep vein thrombosis with acute anemia Chief complaint: Leg pain and swelling History of present illness: Ms. Bermudez is a 72 year old female with a history of hyperlipidemia, COPD, coronary artery disease who sustained a right hip fracture after a fall. The patient required a right hip pinning. She developed a deep vein thrombosis and was anticoagulated initially with heparin, then Lovenox and Lasix Coumadin. The patient developed a right thigh hematoma. Due to her bleeding her anticoagulation has been stopped. Vascular surgery was counseled for further evaluation possible inferior vena cava filter placement. At the time of her exam the patient is alert and comfortable. She denies any chest pain or shortness breath. Past Med Surg Social Fam HX - Past Medical History Medical history: arthritis, COPD, DVT, GERD, hyperlipidemia, myocardial infarction Psychiatric history: anxiety, depression - Past Surgical History Surgical History: angioplasty/stent, appendectomy, hysterectomy, knee replacement Additional surgical history: CLUB FEET SX. STOMACH SX - Social History Smoking Status: Former smoker Smokeless Tobacco Status: No Alcohol use: none Drug use: none - Family History Mother Living Status: Hx Family Cardiac Disorders: Yes Father Living Status: Hx Family Cardiac Disorders: Yes Hx Family Endocrine Disorder: No Medications and Allergies Alendronate Sodium [Fosamax] 70 mg PO VERDE 03/30/18 [History] Allopurinol [Zyloprim 100 MG] 100 mg PO BID 03/30/18 [History] Aspirin [Lo-Dose Aspirin EC] 81 mg PO DAILY 03/30/18 [History] Atorvastatin [Lipitor] 40 mg PO HS 03/30/18 [History] Calcium Carbonate/Vitamin D3 [Oyster Shell Calcium-Vit D Tab] 1 tab PO TID 03/30 [History] Citalopram Hydrobromide [Citalopram HBr] 20 mg PO DAILY 03/30/18 [History] Clopidogrel [Plavix] 75 mg PO DAILY 03/30/18 [History] Ergocalciferol (VITAMIN D2) [Vitamin D] 400 unit PO DAILY 03/30/18 [History] FentaNYL PATCH [Duragesic] 25 mcg TD Q72H 03/30/18 [History] Folic Acid 1 mg PO DAILY 03/30/18 [History] Furosemide [Lasix] 40 mg PO BID 03/30/18 [History] Lidocaine Patch [Lidoderm 5% patch] 1 appl TP DAILY 03/30/18 [History] Mag Hydrox/Aluminum Hyd/Simeth [Cvs Antacid Plus Anti-Gas Liq] 30 ml PO AD PRN 03/30/18 [History] Magnesium Oxide [Magnesium] 400 mg PO BID 03/30/18 [History] Methotrexate [Otrexup] 15 mg PO TH 03/30/18 [History] Metoprolol [Lopressor] 25 mg PO BID 03/30/18 [History] Multivitamin [One Daily Multivitamin] 1 tab PO DAILY 03/30/18 [History] Nitroglycerin [Nitrostat] 0.4 mg SL Q5M PRN MDD [id number] 03/30/18 [History] OxyCODONE/APAP 5/325 [Percocet 5/325 MG] 1 tab PO Q4HR PRN 03/30/18 [History] Oxybutynin [Ditropan] 5 mg PO HS 03/30/18 [History] Potassium Chloride [Klor-Con 10] 10 meq PO BID 03/30/18 [History] Ropinirole HCl [Requip] 2 mg PO HS 03/30/18 [History] Warfarin [Coumadin] 5 mg PO 1800 03/30/18 [History] Zolpidem [Ambien] 5 mg PO HS 03/30/18 [History] raNITIdine HCl [Zantac] 150 mg PO BID 03/30/18 [History] 3 Allergy/AdvReac Type Severity Reaction Status Date / Time lorazepam [From Ativan] AdvReac See Verified 05/14/15 07:06 Comments NSAIDS (Non-Steroidal AdvReac Gastrointestinal Verified 05/14/15 07:06 Anti-Inflamma Upset All Systems Review: The remainder of the systems were reviewed and are negative Exam Vital Signs, Last 4 Hours Temp Pulse Resp BP Pulse Ox 04/03/18 11:15 98.1 F 83 17 128/65 97 General: Present: Conversant, No Apparent Distress HEENT: Present: Pupils equal Neck: Absent: JVD, Lymphadenopathy Cardiac: Present: Reg Rate and Rhythm Lungs: Present: Normal Breath Sounds Neuro: Present: Alert and responsive, Motor nerves grossly intact, Sensory nerves grossly intact Abdomen: Present: Soft, Non-tender. Absent: Masses Vascular: Present: Normal capillary refill, Edema (Bilateral lower extremity edema noted). Absent: Clubbing, Cyanosis Skin: Present: No rashes noted on visualized skin Musculoskeletal: Present: No Chest Wall Tenderness Consult Discharge Plan - Plan Referrals: Santos Robbins Jr, PAC [Primary Care Provider] -
--- NOTE | 2018-04-03 12:54 | Internal Med Progress Note ---
Hospitalist Progress Note - Encounter Date of Encounter: 04/03/18 Time of Encounter: 07:55 - Subjective Interval History: Patient seen and examined this morning. Had drop in Hb overnight with Hypotension. Patient feels cold and is drowsy and in pain. Denies chest pain. Started on 2 PRBC transfusion. - Exam Vitals: Temp Pulse Resp BP Pulse Ox 98.1 F 83 17 128/65 97 04/03/18 11:15 04/03/18 11:15 04/03/18 11:15 04/03/18 11:15 04/03/18 11:15 Exam: Gen: NAD, AAO x3, In distress due to pain CVS: RRR, S1, S2 normal Lungs: CTA.no wheezing, rales, or rhonchi. Abd: Soft, NT/ND. Ext: 1+ bipedal, non-pitting edema. Rigoberto wrap removed. Swelling of Rt thigh with some bruising. Very tender. Skin: wound on center of chest with dressing. central scar noted. - Assessment and Plan (1) Closed right femoral fracture Current Visit: Yes Status: Acute (2) Anemia Current Visit: Yes Status: Acute (3) Coronary artery disease Current Visit: No Status: Chronic (4) Essential hypertension Current Visit: No Status: Chronic (5) DVT (deep venous thrombosis) Current Visit: No Status: Acute (6) Congestive heart failure (CHF) Current Visit: No Status: Chronic (7) DVT prophylaxis Current Visit: Yes Status: Acute (8) Erythema of lower extremity Current Visit: Yes Status: Acute - Summary of Assessment and Plan Summary of Assessment and Plan: Displaced periprosthetic fracture right femur - s/p day 3 ORIF. - In pain. Could not get pain medication overnight due to low BP. c/w acetaminophen. Opiates as tolerated with holding parameters. - Possible bleeding at the surgical site. - Orthopedic following and aware of bleeding. Low risk of compartment as fascia was left open. DVT - Patient with reported history of DVT in the LLE. - DVT positive on Doppler on 03/31 in Rt distal iliac, Rt superfial femoral, left distal get and left common femoral, left greater saphenous - Was being bridged with lovenox and coumadin. Dropped Hb to 5.4 from 10, with hypotension and altered mental status. Now stopped given the bleed. Vascular consulted for IVC filter. - Hematology also consulted due need to reverse anticoagulation given bleeding. Will give FFP per hematology. Anemia and hypotensioin - Patient with history of chronic anemia. - s/p 2 PRBC with good response during surgery during surgery. As mentioned above event now Hb of 5.4 from 10. Acute bleed likely at surgical site. Another 2 PRBC being transfused. Will repeat H&H and transfuse to keep Hb>8. One dose of lasix after Transfusion due to h/o CHF. - ICU has been consulted given acute bleed, hypotension and h/o CAD. Post surgical CABG wound - Has been present and is progressing towards healing - c/w wound dressing. Leukocytosis - Afebrile. Non-toxic - Likely reactive. Will monitor. Received preopt antibiotics. Coronary artery disease - CAD with recent double bypass, MS x 3 and stents x 3. - Currently symptom-free. . - Given history of CAD hemoglobin > 8.0. Congestive heart failure (CHF) - Patient with pedal edema bilaterally. Did have coronary artery bypass grafting done earlier this year. May have underlying CHF. - Last ECHO 138333 with EF of 70. LOIS with EF of 55 in 09/2017. f/u ECHO result - BP on lower end. Essential hypertension - BP on lower end. - Metoprolol on hold. Erythema of Lt lower extremity - Related to trauma per patient - Less likely infectious cause. - Monitor for now. DVT prophylaxis - High risk of bleeding. AC on hold - Time Spent with Patient Total time spent is greater than 50% in coordination of care (as documented) at patient's floor/unit and/or counseling patient: Internal Medicine: Result - Labs CBC & Chem 7: 04/03/18 12:15 04/03/18 01:19 Labs: Short CBC 04/03/18 Range/Units 01:19 WBC 15.5 H (4.3-11.1) K/mcL Hgb 5.4 L* D (11.5-15.4) g/dL Hct 16.8 L (35.3-44.9) % Plt Count 286 (140-400) K/mcL Neutrophils # 10.2 H (1.6-8.9) K/mcL BMP 04/03/18 01:19 Sodium 133 L Potassium 3.9 Chloride 99 Carbon Dioxide 28 BUN 30 H Creatinine 1.25 H Glucose 139 H Calcium 9.2 - ABG Interpretation ABG results: PT/INR, D-dimer PT 27.2 Seconds (9.4-12.1) H 04/03/18 01:19 - VTE Documentation of Mechanical Device: Venous foot pump, device Consult Discharge Plan - Plan Referrals: Santos Robbins Jr, PAC [Primary Care Provider] - (1) Closed right femoral fracture Qualifiers: Encounter type: initial encounter Femur location: neck Qualified Code(s): S72.001A - Fracture of unspecified part of neck of right femur, initial encounter for closed fracture (2) Anemia Qualifiers: Anemia type: other cause Other causes of anemia: other cause, not classified Qualified Code(s): D64.89 - Other specified anemias (3) Coronary artery disease Qualifiers: Coronary Disease-Associated Artery/Lesion type: unspecified vessel or lesion type [place] vs. transplanted heart: [place] heart Associated angina: without angina Qualified Code(s): I25.10 - Atherosclerotic heart disease of [place] coronary artery without angina pectoris (5) DVT (deep venous thrombosis) Qualifiers: DVT location: lower extremity Affected thrombotic vein of extremity: unspecified vein of extremity Chronicity: acute Laterality: left Qualified Code(s): I82.402 - Acute embolism and thrombosis of unspecified deep veins of left lower extremity (6) Congestive heart failure (CHF) Qualifiers: Heart failure type: combined systolic and diastolic Heart failure chronicity : acute on chronic Qualified Code(s): I50.43 - Acute on chronic combined systolic (congestive) and diastolic (congestive) heart failure
[2018-04-03] MEDS: 0.9 % Sodium Chloride 250 ML IVC SCH ×2 (13:31→18:10)
[2018-04-03 14:05] LABS: Hematocrit 22.1 % (35.3-44.9)
[2018-04-03 14:08] LABS: Hemoglobin 7.5 g/dL (11.5-15.4)
[2018-04-03] MEDS ORDERED: *HR* Heparin 10,000 UNIT/10 ML VIAL ONE (15:19)
[2018-04-03] MEDS ORDERED: Heparin 1,000 UNITS/500 mL 500 ML ONE (15:19)
[2018-04-03] MEDS ORDERED: 0.9 % Sodium Chloride 1,000 ML ONE (15:20)
[2018-04-03] MEDS ORDERED: ISOVUE-370 200 ML INFUS..BTL IV ONE (15:20)
[2018-04-03] MEDS ORDERED: Isovue-300 200 mL Infus..BTL IV ONE (15:22)
[2018-04-03] MEDS ORDERED: 0.9 % Sodium Chloride 500 ML ONE (15:50)
--- NOTE | 2018-04-03 15:53 | Pre-Sedation Evaluation ---
Pre-sedation evaluation - Pre-sedation checklist Date of procedure: 04/03/18 Procedure: IVC filter placement Recent Vitals: Last Vital Signs Temp 98.1 F 04/03/18 11:15 Pulse 83 04/03/18 11:15 Resp 17 04/03/18 11:15 BP 128/65 04/03/18 11:15 Pulse Ox 97 04/03/18 11:15 H&P (including ROS) documented in medical record: Yes Previous reaction to sedatives/anesthetics: No Dietary Status: No solid food in preceding 4 hrs and no liquid in preceding 2 hrs Dentition: dentures removed ASA Classification *see protocol: CLASS III-Severe systemic disease Plan of Care: Pt appropriate candidate for procedure/moderate/conscious sedation , Risks/benefits of procedure/sedation discussed w/ patient/family Cardiac Registry (Cardio Only) - Functional Capacity - Clincal Frailty Scale
[2018-04-03] MEDS ORDERED: *HR* FentaNYL (PF) 100 MCG/2 ML VIAL ONE (15:55)
[2018-04-03] MEDS ORDERED: *HR* Midazolam HCl 2 MG/2 ML VIAL ONE (16:14)
--- NOTE | 2018-04-03 16:29 | Procedure Note ---
Date of procedure: 04/03/18 Pre-op diagnosis: DVT/complication from anticoagulation Post-op diagnosis: same Procedure: Inferior venacavogram Placement of IVC filter Anesthesia: MAC Surgeon: Fernando Flood Was there an corporate administrative assistant present: No Estimated blood loss (cc): 0 Specimen: 0 Condition: stable Disposition: floor
--- NOTE | 2018-04-03 16:43 | Invasive Diagnostic Lab Proc ---
Name: Nuria Bermudez Date of Study: 04/03/2018 Date: 1945 Ht: 152.0 in Medical Record#: [id number] Age: 72 Wt: 88 lb Gender: Female BSA: 1.84 Order #: [id number] BMI: 38.09 Physicians Performing MD: Fernando Flood MD, FACS Referring MD: Dr Robbins Referring MD: Nikhil Rivas DO Staff Name Position Time In Billie Silva RT Monitor Franny Ngo RN Government Documents Librarian Billie Silva RT Scrub Indications DVT, Bilateral Complication of Anticoagulation Therapy Procedures Performed IVC FILTER PLACEMENT Pre-Procedure Checklist Informed consent is complete signed and on chart. H&P is on chart. ID band is on and ID verified with patient. Patient NPO for procedure The procedure was described for the patient and questions were answered. Blood Pressure: 125/85 ECG is on chart. Rhythm: NSR Plan of Care Patient will tolerate the procedure without complications. Adequate level of comfort will be maintained. Hemodynamics will remain stable Patient will recover from procedure without complications. Respiratory function will be maintained. Cardiac rhythm will remain stable. Patient temperature will be maintained. Patient and/or family have verbalized understanding of the procedure. Patient Education Chief Complaint/Reason for Test: IVC filter Developmental Category: Geriatric (65+ years) Learning Barriers: None Education Needs: Procedure Education Method: Verbal Information Taught: IVC filter Educational Evaluation: Able to repeat information Intravenous Access Time IV Size Location DC'd Fluid/Drip Rate Units RN 20g 1 1/4" Patent On Arrival Lt Arm 0.9NaCl 25 ml/hr 20g 1 1/4" Patent On Arrival Rt Arm Allergies NSAIDS (Non-Steroidal Anti-Inflamma lorazepam Vital Signs Time BP Systolic BP Diastolic HR O2 Sats ASA 03:53 PM 125 85 101 99 04:00 PM 04:00 PM 03:50 PM 125 85 103 97 03:56 PM 136 83 98 98 04:01 PM 139 72 96 100 04:06 PM 113 75 99 100 04:10 PM 126 84 100 100 04:16 PM 136 77 97 100 04:21 PM 137 77 98 99 04:26 PM 121 78 98 99 04:15 PM Procedure Medications Time Medication Dose Units Method Route 03:57 PM Fentanyl 25 mcg Intravenous 03:58 PM Oxygen 2 L/min nasal cannula 04:06 PM Lidocaine 2% 10 ml Subcutaneous 04:11 PM Fentanyl 25 mcg Intravenous 04:15 PM Versed 0.5 mg Intravenous 04:19 PM Fentanyl 50 mcg Intravenous ASA Classification: CLASS III- Severe systemic disease (i.e. prior AMI, diabetes with vascular complications, morbid obesity) Izabel Score Preprocedure Postprocedure Activity 2- Moves 4 extremities sustained head lift Activity 2- Moves 4 extremities sustained head lift Circulation 2- SBP +/= 20 points of pre-anesthetic level Circulation 2- SBP +/= 20 points of pre-anesthetic level Consciousness 2- Awake and alert oriented x 3 Consciousness 2- Awake and alert oriented x 3 O2 Saturation 2- Able to maintain O2 satruation of 92% on room air O2 Saturation 2- Able to maintain O2 satruation of 92% on room air Respiratory 2- Able to deep breathe and cough well Respiratory 2- Able to deep breathe and cough well Total Score 10 Total Score 10 Contrast: Isovue 300- 150ml Contrast Amount: 12 ml Fluoro Dose: 173 mGy Procedure Log Time Note Entered By 03:54 PM Pt arrived to research laboratory technician 1 at 15:54 [facility] 03:54 PM Diana Adam RT (R) Position: Monitor [facility]: [facility]:54 [facility] Franny Ngo RN Position: Government Documents Librarian [facility]: 15:54 [facility] Billie Silva Position: Scrub Time in: 15:54 [facility] 03:54 PM [email or web address] PM Hair removed from procedure site in holding area using clippers. Bilateral groin prepped with Chloraprep by Diana Adam RT (R), then patient was draped. Skin intact. [facility] 03:54 PM Physician arrived 15:54 [facility] PM Meet and greet completed [facility] 03[facility]55 PM Sign in performed according to hospital policy. [facility] 03:55 PM Procedure start 15:55 [email or web address] 03:55 PM ASA Class CLASS III- Severe systemic disease (i.e. prior AMI, diabetes with vascular complications, morbid obesity) [email or web address] 03:57 PM 15:57 Fentanyl 25 mcg Intravenous Given by Franny Ngo RN [email or web address] 03:58 PM 15:58 Oxygen at 2 L/min per nasal cannula by Franny Ngo [email or web address] 03:59 PM Time out perfomed [email or web address] 03:59 PM Time: 15:59 Is patient comfortable and pain free?: Yes [email or web address] 04:00 PM Time: 16:00LOC: 4 = Oriented but drowsy [email or web address] 04:01 PM Ultrasound, Sonosite, utilized to obtain vascular access [email or web address] 04:06 PM Smart Needle utilized for vascular access at this time [email or web address] 04:06 PM 16:06 10 ml Lidocaine 2% to right groin Subcutaneous Given By Fernando Flood MD, FACS [email or web address] 04:08 PM Unsuccessful access attempt # 1 into the right Femoral artery. Manual pressure applied to achieve hemostasis.. [email or web address] 04:10 PM Patient Charges- [employer] IVC Filter SN/LOT# [id number] ,Tray Pack and Pulse Oximetry. [email or web address] 04:11 PM Access obtained in the rt femoral vein by percutaneous puncture. 8 Fr. 10 cm [place] [place] sheath placed in right femoral vein [email or web address] 04:11 PM 16:11 Fentanyl 25 mcg Intravenous Given by Franny Ngo RN [email or web address] 04:13 PM Access obtain and IVC Filter sheath inserted Rt Femoral vein. [email or web address] 04:13 PM Inferiorvenacavagram performed 5 mls contrast. [email or web address] 04:15 PM Time: 16:00LOC: 4 = Oriented but drowsy [email or web address] 04:15 PM Time: 15:59 Is patient comfortable and pain free?: Yes [email or web address] 04:15 PM 16:15 Versed 0.5 mg Intravenous Given by Franny Ngo RN [email or web address] 04:15 PM 4 mls contrast injected into IVC. [email or web address] 04:17 PM IVC Filter inserted into the inferior vena cava [email or web address] 04:18 PM IVC Filter deployed into the inferior vena cava [email or web address] 04:18 PM Inferiorvenacavagram performed 4 mls contrast [email or web address] 04:19 PM 16:19 Fentanyl 50 mcg Intravenous Given by Murray Kulkarni MD [email or web address] 04:22 PM Procedure completed at 16:22 [email or web address] 04:23 PM Sign Out completed: Radiation Dose 172.84 mGy Fluoro Time: 1.7 minutes. Isovue 300- 150ml contrast 12 ml given by Fernando Flood MD, FACS. Complications: None. Confirmed administered medications:Yes [email or web address] 04:23 PM Isovue 300- 150ml,1 bottle(s) used. [email or web address] 04:23 PM Arterial sheath pulled using manual compression and V+Pad for 8 minutes by Billie Silva RT [email or web address] 04:23 PM Estimated Blood Loss: minimal [email or web address] 04:23 PM Post EKG: NSR [email or web address] 04:24 PM Information taught: IVC filter [email or web address] 04:24 PM Education needs: Procedure and Plan of Care [email or web address] 04:24 PM Learning barriers: None [email or web address] 04:24 PM Education methods: Verbal [email or web address] 04:24 PM Education evaluation: Able to repeat information [email or web address] 04:24 PM Patient pain level 0/10 [email or web address] 04:24 PM Delay to floor: No [email or web address] 04:24 PM Pt taken to [facility] Room# 31 [email or web address] 04:24 PM Family placed in Not available. [email or web address] 04:24 PM Complications: None [email or web address] 04:24 PM Fluoro Time: 1.7 minutes [email or web address] 04:24 PM Isovue 300- 150ml contrast 12 ml given by Fernando Flood MD, FACS [email or web address] 04:25 PM Radiation Dose 172.84 mGy [email or web address] 03:40 PM PVIStat 03:50 PM Vitals capture started with the following parameters, Patient=Adult, Interval=5 min, Initial Paznevsx=910 mmHg, Deflation Rate=3 mmHg, Cuff placed on Right Arm 03:50 PM KB=633 bpm, KUHI=358/85 mmhg, SpO2=97.0 %, Resp=21 B/min, Comment=NSR 03:56 PM HR=98 bpm, PPZQ=248/83 mmhg, SpO2=98.0 %, Resp=12 B/min, Comment=NSR 04:01 PM HR=96 bpm, HNUP=963/72 mmhg, UcU2=660.0 %, Resp=19 B/min, Comment=NSR 04:06 PM HR=99 bpm, AKSO=479/75 mmhg, JnX3=778.0 %, Resp=14 B/min, Comment=NSR 04:10 PM AR=812 bpm, DPPN=288/84 mmhg, BtR5=795.0 %, Resp=14 B/min, Comment=NSR 04:13 PM Recorded ECG: BG=812 Condition=Condition 1 04:16 PM HR=97 bpm, UZCE=549/77 mmhg, QkB2=814.0 %, Resp=17 B/min, Comment=NSR 04:21 PM HR=98 bpm, DQQD=804/77 mmhg, SpO2=99.0 %, Resp=25 B/min, Comment=NSR 04:26 PM HR=98 bpm, UYHZ=528/78 mmhg, SpO2=99.0 %, Resp=14 B/min, Comment=NSR 04:30 PM Time: 16:15 Is patient comfortable and pain free?: Yes [email or web address] 04:30 PM Time: 16:15LOC: 4 = Oriented but drowsy [email or web address] 04:33 PM Report given to Deepa BAR. Pt taken to [facility], Room # 31 16:33 [email or web address] 04:33 PM Patient out of room 16:33 [email or web address] Post Procedure Information Rhythm: NSR Post procedure instructions given Report Given To: Martha Singh Time Site Pre Procedure Post Procedure Note Bilateral radial 2+ 2+ 04/03/2018 4:26:00 PM Bilateral DP & PT 1+ 1+ Updated by Diana Adam RT(R) on 04/03/2018 4:33:57 PM electronically signed on 04/03/2018 4:34:31 PM with status of Final
--- NOTE | 2018-04-03 19:31 | Orthopedics Progress Note ---
Date of Encounter: 04/03/18 Time of Encounter: 19:28 Subjective Principal diagnosis: Periprosthetic fracture right femur Interval history: 04/01/2018. Patient is postop day #1 from ORIF of a midshaft periprosthetic fracture of the right femur. Patient is doing remarkably well. Pain is minimal and well controlled. Vital signs are stable. Patient is afebrile. Dressings are clean dry and intact. Hemoglobin is 10.0. Patient had a hemoglobin of 8 prior to surgery and did receive 2 units of pack red blood cells intraoperatively. White blood cell count is elevated at 14.2. Platelet count is normal at 194. Pro time is 19.8. INR 1.8 kidney function is improved from preop. Impression: POD #1 ORIF periprosthetic fracture right femur Recommendation: Orthopedic status is excellent. Discussed with the patient that she can ambulate with full on limited motion of her hip knee and ankle. Her only limitation is to be strictly nonweightbearing on the right lower extremity. Patient can resume home medications including Coumadin at the discretion of the internal medicine physicians. We will probably perform dressing change tomorrow. Discussed with the patient that I did not closer fascia in the lateral thigh through the tremendous amount of swelling in the muscle. 04/02/2018. Patient POD #2 ORIF right periprosthetic femur fracture. Having pain as anticipated. Vital signs reveal blood pressure of about 90/50. She is afebrile. Dressings were taken down. Incision is clean dry and intact. Hemoglobin not obtained today. Impression: POD #2 ORIF periprosthetic right femur fracture Recommendation: Orthopedic status remains stable. Patient can be ambulatory with nonweightbearing on the right lower extremity. Pain management as able, caution with somewhat low blood pressure. To be bridged with Lovenox until her pro time and INR are therapeutic in regards to her DVT treatment. Anticipate patient need for rehabilitation stay. 04/03/2018. Patient POD #3 ORIF right periprosthetic femur fracture. Patient is sleepy from sedation for placement of an IVC filter. Vital signs are stable. Patient is afebrile. Dressings are clean and dry. Thigh is somewhat edematous. As previously noted the patient did not have fascial closure and would anticipate her having prominence or fullness along the lateral side of the thigh underneath her incision. Hemoglobin had dropped to 7.5. Platelet count remained stable at 286. Impression: POD #3 ORIF periprosthetic fracture right femur Plan: Orthopedic status remains stable. Patient can ambulate with nonweightbearing on the right lower extremity. Local wound care for her extensile right lateral thigh incision. manager environmental services for discharge planning , anticipate short-term rehabilitation stay. Objective Vital signs: Vital Signs Temp Pulse Resp BP Pulse Ox 04/03/18 18:47 97.9 F 88 18 132/79 96 04/03/18 18:32 97.9 F 82 18 132/71 97 04/03/18 18:20 97.9 F 93 18 121/79 95 04/03/18 17:50 98.1 F 101 20 125/84 96 04/03/18 17:20 98.4 F 91 18 123/80 98 04/03/18 17:05 98.3 F 93 18 128/78 96 04/03/18 16:50 98.3 F 91 96 113/76 04/03/18 11:15 98.1 F 83 17 128/65 97 04/03/18 10:25 97.9 F 100 18 132/71 96 04/03/18 07:28 97.9 F 87 15 107/70 100 04/03/18 07:15 98.2 F 82 17 112/62 96 04/03/18 07:08 98.0 F 81 18 101/41 96 04/03/18 07:00 98.0 F 86 18 101/46 99 04/03/18 05:56 98.2 F 80 16 102/65 04/03/18 04:27 97.9 F 83 16 106/67 99 04/03/18 02:47 97.9 F 86 16 82/52 96 04/03/18 02:32 98.2 F 84 16 102/52 96 04/03/18 02:29 98.2 F 101 16 90/56 96 04/02/18 23:28 98.1 F 76 14 82/63 94 Intake and Output 04/03/18 04/03/18 04/03/18 07:59 15:59 23:59 Intake Total 400 / 400 450 / 450 0 / 0 Output Total 875 / 875 Balance 400 / 400 -425 / -425 0 / 0 Intake: Oral 50 / 50 100 / 100 Blood Product 350 / 350 350 / 350 0 / 0 Plasma Unit [id number] 0 / 0 Rbcs Leuko Poor As-1 Unit 350 / 350 [id number] Rbcs Leuko Poor As-1 Unit 0 / 0 350 / 350 [id number] Output: Urine 875 / 875 Other: # Bowel Movements 0 - Labs CBC & BMP: 04/03/18 12:15 04/03/18 01:19 Labs: Abnormal lab results WBC 15.5 K/mcL (4.3-11.1) H 04/03/18 01:19 RBC 1.80 M/mcL (3.82-4.97) L 04/03/18 01:19 Hgb 7.5 g/dL (11.5-15.4) L D 04/03/18 12:15 Hct 22.1 % (35.3-44.9) L 04/03/18 12:15 RDW 18.4 % (11.5-14.5) H 04/03/18 01:19 Neutrophils # 10.2 K/mcL (1.6-8.9) H 04/03/18 01:19 Monocytes # 1.9 K/mcL (0.0-1.3) H 04/03/18 01:19 Nucleated RBCs/100 WBC 0.2 /100 WBC (0) H 04/03/18 01:19 PT 27.2 Seconds (9.4-12.1) H 04/03/18 01:19 Heparin Anti-Xa, Unfract 0.74 IU/mL (0.30-0.70) H 04/03/18 01:19 Sodium 133 mEq/L (136-145) L 04/03/18 01:19 BUN 30 mg/dL (8-23) H 04/03/18 01:19 Creatinine 1.25 mg/dL (0.60-1.20) H 04/03/18 01:19 Est GFR ( Amer) 51 (> 60) L 04/03/18 01:19 Est GFR (Non-Af Amer) 42 (> 60) L 04/03/18 01:19 Glucose 139 mg/dL (70-105) H 04/03/18 01:19 Iron 19 mcg/dL (50-170) L 04/01/18 08:12 % Saturation 7 % (15-50) L 04/01/18 08:12 Transferrin 202 mg/dL (203-362) L 04/01/18 08:12 Albumin 3.4 g/dL (3.5-5.7) L 03/30/18 07:09 Albumin/Globulin Ratio 1.0 (1.1-2.2) L 03/30/18 07:09 Folate 19.4 ng/mL (3.0-16.0) H 04/01/18 08:12 - VTE Documentation of Mechanical Device: Venous foot pump, device Consult Discharge Plan - Plan Referrals: Santos Robbins Jr, PAC [Primary Care Provider] -
[2018-04-03] MEDS: rOPINIRole 1 MG TABLET PO SCH (21:09)
[2018-04-04] MEDS ORDERED: Furosemide 20 MG/2 ML VIAL IVP STA (01:13)
[2018-04-04 02:18] LABS: Eosinophils % 0.5 %; Red Cell Distribution Width 17.9 % (11.5-14.5); Segmented Neutrophils % 71.2 %
[2018-04-04 02:20] LABS: Basophils % 0.2 %; Eosinophils # 0.1 K/mcL (0.0-0.6); Hematocrit 15.7 % (35.3-44.9); Immature Granulocytes % 0.8 % (0-4); Lymphocytes # 1.5 K/mcL (0.6-4.6); Lymphocytes % 13.4 %; Mean Corpuscular HGB Conc 33.8 g/dL (31.6-35.5); Mean Corpuscular Volume 85.8 fL (83.0-100.0); Mean Platelet Volume 9.4 fL (9.4-12.4); Monocytes # 1.6 K/mcL (0.0-1.3); Monocytes % 13.9 %; Neutrophils # 8.1 K/mcL (1.6-8.9); Nucleated Red Blood Cells 0.4 /100 WBC (0); Platelet Count 248 K/mcL (140-400); Red Blood Count 1.83 M/mcL (3.82-4.97)
[2018-04-04 02:29] LABS: INR 1.9; Prothrombin Time 21.6 Seconds (9.4-12.1)
[2018-04-04 02:35] LABS: BUN/Creatinine Ratio 29 (6-26); Blood Urea Nitrogen 29 mg/dL (8-23); Calcium 9.3 mg/dL (8.6-10.3); Carbon Dioxide 29 mEq/L (23-29); Chloride 102 mEq/L (98-107); Glucose 152 mg/dL (70-105); Osmolality,Calculated 289 (280-300); Potassium 3.8 mEq/L (3.5-5.1); Sodium 135 mEq/L (136-145); eGFR For Non-African Americans 54 (> 60)
[2018-04-04 02:42] LABS: Hemoglobin 5.3 g/dL (11.5-15.4)
[2018-04-04] MEDS: 0.9 % Sodium Chloride 250 ML IVC SCH ×2 (04:28→17:05)
[2018-04-04] MEDS: Acetaminophen 325 MG TABLET PO SCH ×4 (06:07→23:46)
[2018-04-04] MEDS: Cholecalciferol (D-3) 1,000 UNIT TABLET PO SCH (07:48)
[2018-04-04] MEDS: *HR* HYDROcodone/Acet 5/325 mg TABLET PO PRN ×2 (07:48→18:37)
[2018-04-04] MEDS: Famotidine 20 MG TABLET PO SCH ×2 (07:48→21:02)
[2018-04-04] MEDS: Multivit/Ca/Min/Fe/FA 1 TAB TABLET PO SCH (07:49)
[2018-04-04] MEDS: Folic Acid 1 MG TABLET PO SCH (07:49)
[2018-04-04] MEDS: Magnesium Oxide 400 MG TABLET PO SCH ×2 (07:49→21:02)
--- NOTE | 2018-04-04 09:42 | Pulmonology Progress Note ---
<Santos Macario - Last Filed: 04/04/18 10:49> Date of Encounter: 04/04/18 Time of Encounter: 09:38 Assessment and Plan (1) Acute blood loss anemia Current Visit: Yes Status: Acute CTA of abd/plv/right thigh ordered to ongoing r/o arterial hemorrhage into thigh given increased thigh edema, HGB 5.3 despite 5 units PRBCs and 2 units platelets. 2 additional units of PRBCs were ordered, continue serial H&H q6h Consider IR consult for possible intervention, patient made nothing by mouth this morning after eating breakfast (2) Hypotension due to blood loss Current Visit: Yes Status: Acute Patient with acute episode of hypotension yesterday due to blood loss in the right thigh s/p closed right femur fracture and recent right femur ORIF 03/31/18. Patient's blood pressure has improved after fluid resuscitation and PRBCs. Patient was moved ICU this morning secondary to another drop in hemoglobin to 5.3 early this morning despite 5 units PRBCs and 2 units FFP. Two additional units of PRBCs were ordered. Patient remains hemodynamically stable at this time with most recent blood pressure was 126/80. (3) Closed right femoral fracture Current Visit: Yes Status: Acute Patient had a right hip ORIF on 03/31/18 Patient's postoperative course was complicated by an acute drop in blood pressure and hemoglobin of 5.3 today, which was down from 10.0 on 04/01/18. Ortho following Qualifiers: Encounter type: initial encounter Femur location: neck Qualified Code(s) : S72.001A - Fracture of unspecified part of neck of right femur, initial encounter for closed fracture (4) DVT (deep venous thrombosis) Current Visit: No Status: Acute Lower extremity duplex revealed acute DVT bilaterally, results are consistent with previous results in February 2018 status post CABG surgery. On admission, INR was subtherapeutic on Coumadin. INR was 2.4 this morning. She was transitioned to Lovenox bridging to warfarin after recent right hip surgery 3 days ago. Anticoagulation has been held due to ongoing bleeding. Vascular surgery placed IVC filter on 04/03/18 Qualifiers: DVT location: lower extremity Affected thrombotic vein of extremity: unspecified vein of extremity Chronicity: acute Laterality: bilateral Qualified Code(s): I82.403 - Acute embolism and thrombosis of unspecified deep veins of lower extremity, bilateral (5) DVT prophylaxis Current Visit: Yes Status: Acute IVC filter placed 04/03/18 Subjective Principal diagnosis: Periprosthetic fracture right femur Interval history: Patient seen and examined resting comfortably in bed. Patient had IVC filter placed yesterday. Patient was moved ICU this morning secondary to another drop in hemoglobin to 5.3 early this morning despite 5 units PRBCs and 2 units FFP. Two additional units of PRBCs were ordered. Patient remains hemodynamically stable at this time with most recent blood pressure was 126/80. Patient reports eating breakfast this morning. Objective PUL Vital signs: Last Vital Signs Temp 97.6 F 04/04/18 07:43 Pulse 96 04/04/18 07:43 Resp 21 04/04/18 07:43 BP 126/80 04/04/18 07:43 Pulse Ox 96 04/04/18 07:43 General appearance: no acute distress (Pleasant, conversant) Eyes: nonicteric ENT: oropharynx moist Effort: normal Auscultation: bilateral: clear Cardiovascular: regular rate and rhythm (Tachycardic) Gastrointestinal: normoactive bowel sounds, soft, non-tender Integumentary: erythema (Patient with erythema over right hip region, surgical incision intact, moderate amount ecchymosis overlying lateral thigh extending to the labia majora) Extremities: edema, other (Decreased distal pulses on right lower extremity compared to left) Musculoskeletal: other (Right thigh significantly tender to palpation, edema has worsened since yesterday, positive Doppler pedal pulses) normal mental status, non-focal exam affect normal, anxious Results - Laboratory Findings CBC and BMP: 04/04/18 01:45 04/04/18 01:45 PT/INR, D-dimer PT 21.6 Seconds (9.4-12.1) H 04/04/18 01:45 Abnormal lab findings: Abnormal lab results WBC 11.4 K/mcL (4.3-11.1) H 04/04/18 01:45 RBC 1.83 M/mcL (3.82-4.97) L 04/04/18 01:45 Hgb 5.3 g/dL (11.5-15.4) L* D 04/04/18 01:45 Hct 15.7 % (35.3-44.9) L 04/04/18 01:45 RDW 17.9 % (11.5-14.5) H 04/04/18 01:45 Monocytes # 1.6 K/mcL (0.0-1.3) H 04/04/18 01:45 Nucleated RBCs/100 WBC 0.4 /100 WBC (0) H 04/04/18 01:45 PT 21.6 Seconds (9.4-12.1) H 04/04/18 01:45 Heparin Anti-Xa, Unfract 0.74 IU/mL (0.30-0.70) H 04/03/18 01:19 Sodium 135 mEq/L (136-145) L 04/04/18 01:45 BUN 29 mg/dL (8-23) H 04/04/18 01:45 Est GFR (Non-Af Amer) 54 (> 60) L 04/04/18 01:45 BUN/Creatinine Ratio 29 (6-26) H 04/04/18 01:45 Glucose 152 mg/dL (70-105) H 04/04/18 01:45 Iron 19 mcg/dL (50-170) L 04/01/18 08:12 % Saturation 7 % (15-50) L 04/01/18 08:12 Transferrin 202 mg/dL (203-362) L 04/01/18 08:12 Albumin 3.4 g/dL (3.5-5.7) L 03/30/18 07:09 Albumin/Globulin Ratio 1.0 (1.1-2.2) L 03/30/18 07:09 Folate 19.4 ng/mL (3.0-16.0) H 04/01/18 08:12 - Clinical Findings Intake & Output: Intake & Output 04/03/18 04/04/18 04/04/18 23:59 07:59 15:59 Intake Total 300 / 300 600 / 600 Output Total 800 / 800 Balance 300 / 300 -200 / -200 - VTE Documentation of Mechanical Device: Venous foot pump, device Consult Discharge Plan - Plan Referrals: Santos Robbins Jr, PAC [Primary Care Provider] - <Vincenzo Mcdonald - Last Filed: 04/04/18 15:47> Date of Encounter: 04/04/18 Objective PUL Vital signs: Last Vital Signs Temp 98.6 F 04/04/18 13:48 Pulse 96 04/04/18 14:36 Resp 20 04/04/18 14:36 BP 144/80 04/04/18 14:36 Pulse Ox 96 04/04/18 14:36 Results - Laboratory Findings CBC and BMP: 04/04/18 15:10 04/04/18 01:45 PT/INR, D-dimer PT 21.6 Seconds (9.4-12.1) H 04/04/18 01:45 Abnormal lab findings: Abnormal lab results WBC 11.4 K/mcL (4.3-11.1) H 04/04/18 01:45 RBC 1.83 M/mcL (3.82-4.97) L 04/04/18 01:45 Hgb 7.6 g/dL (11.5-15.4) L D 04/04/18 15:10 Hct 22.9 % (35.3-44.9) L 04/04/18 15:10 RDW 17.9 % (11.5-14.5) H 04/04/18 01:45 Monocytes # 1.6 K/mcL (0.0-1.3) H 04/04/18 01:45 Nucleated RBCs/100 WBC 0.4 /100 WBC (0) H 04/04/18 01:45 PT 21.6 Seconds (9.4-12.1) H 04/04/18 01:45 Heparin Anti-Xa, Unfract 0.74 IU/mL (0.30-0.70) H 04/03/18 01:19 Sodium 135 mEq/L (136-145) L 04/04/18 01:45 BUN 29 mg/dL (8-23) H 04/04/18 01:45 Est GFR (Non-Af Amer) 54 (> 60) L 04/04/18 01:45 BUN/Creatinine Ratio 29 (6-26) H 04/04/18 01:45 Glucose 152 mg/dL (70-105) H 04/04/18 01:45 Iron 19 mcg/dL (50-170) L 04/01/18 08:12 % Saturation 7 % (15-50) L 04/01/18 08:12 Transferrin 202 mg/dL (203-362) L 04/01/18 08:12 Albumin 3.4 g/dL (3.5-5.7) L 03/30/18 07:09 Albumin/Globulin Ratio 1.0 (1.1-2.2) L 03/30/18 07:09 Folate 19.4 ng/mL (3.0-16.0) H 04/01/18 08:12 - Clinical Findings Intake & Output: Intake & Output 04/03/18 04/04/18 04/04/18 23:59 07:59 15:59 Intake Total 300 / 300 600 / 600 350 / 350 Output Total 800 / 800 550 / 550 Balance 300 / 300 -200 / -200 -200 / -200 Weight 84.3 kg - Attending Attestation I examined this patient and my medical decision-making was reviewed with the Resident Physician. I agree with the documented findings, disposition and treatment plan as described except to the extent set forth below. Patient seen and examined. Labs, radiology, chart personally reviewed. Agree with resident's history and physical, assessment, plan with following comments: [employer]: Patient follows commands, Pulmonary: Acceptable oxygenation and ventilation Cardiovascular: stable GI: Nutrition per dietary and GI prophylaxis per routine Heme: DVT prophylaxis per routine. Patient continued to have blood loss secondary to her injury and interventional radiologist has evaluated patient. Patient need stat H&H and most likely will need blood transfusion based on her color she is pale and they suspect she will need more blood and orthopedic surgeon is following. Renal; urine out put and renal funtion reviewed Endorcine: blood glucose is monitored Lines: all lines checked and no evidence of infections Skin: skin care to prevent pressure ulcers per nursing routine care Patient needs close monitoring and frequent H&H, however source of bleeding needs to be controlled
[2018-04-04] MEDS ORDERED: Isovue-370 500 ML INFUS..BTL IV ONE ×2 (10:44→13:07)
--- NOTE | 2018-04-04 12:35 | Internal Med Progress Note ---
Hospitalist Progress Note - Encounter Date of Encounter: 04/04/18 Time of Encounter: 12:00 - Exam Vitals: Temp Pulse Resp BP Pulse Ox 98.0 F 82 19 115/47 98 04/04/18 12:15 04/04/18 10:05 04/04/18 10:05 04/04/18 10:05 04/04/18 10:05 Exam: Gen: NAD, AAO x3, In distress due to pain CVS: RRR, S1, S2 normal Lungs: CTA.no wheezing, rales, or rhonchi. Abd: Soft, NT/ND. Ext: 1+ bipedal, non-pitting edema. Rigoberto wrap removed. Swelling of Rt thigh with some bruising. Very tender. Skin: wound on center of chest with dressing. central scar noted. - Assessment and Plan (1) Acute blood loss anemia Current Visit: Yes Status: Acute Assessment and Plan: Patient has had drops in hemoglobin intermittently post surgery and has received a total of 6 units PRBC total. Hemglobin was 5.3 this am and she had received a total of 4units PRBC prior. Currently on her 6th unit of PRBC total. Likely secondary to acute bleeding post surgery from right hip. Orthopedic surgery following. Patient has tight lower extremity, but sensation is intact. Monitor CBC. CT scan showed a large right anterior compartment hematoma. Follow ortho recs. (2) Hypotension due to blood loss Current Visit: Yes Status: Acute Assessment and Plan: Continue resuscitation with IV fluids and PRBC (3) Closed right femoral fracture Current Visit: Yes Status: Acute Assessment and Plan: Patient had a right hip ORIF on 03/31/18 Patient's postoperative course was complicated by an acute drop in blood pressure and hemoglobin of 5.3 today, which was down from 10.0 on 04/01/18. Ortho following. Transfuse PRBC (4) DVT prophylaxis Current Visit: Yes Status: Acute Assessment and Plan: Has IV C filter. Anticoagulation has been held due to active bleeding. (5) Coronary artery disease Current Visit: No Status: Chronic Assessment and Plan: Patient with history of coronary artery disease status post CABG done earlier this year. CAD with recent double bypass, DE x 3 and stents x 3. - Currently symptom-free. . - Given history of CAD hemoglobin > 8.0. (6) Essential hypertension Current Visit: No Status: Chronic Assessment and Plan: Monitor blood pressure. Continue home medications. (7) DVT (deep venous thrombosis) Current Visit: Yes Status: Acute Assessment and Plan: Lower extremity duplex revealed acute DVT bilaterally, results are consistent with previous results in February 2018 status post CABG surgery. On admission, INR was subtherapeutic on Coumadin. INR was 2.4 this morning. She was transitioned to Lovenox bridging to warfarin after recent right hip surgery 3 days ago. Anticoagulation has been held due to ongoing bleeding. Vascular surgery placed IVC filter on 04/03/18 due to active bleeding on anticoagulation. Follow up hematology recs - Time Spent with Patient Total time spent is greater than 50% in coordination of care (as documented) at patient's floor/unit and/or counseling patient: Internal Medicine: Result - Labs CBC & Chem 7: 04/04/18 01:45 04/04/18 01:45 Labs: Short CBC 04/03/18 04/04/18 Range/Units 12:15 01:45 WBC 11.4 H (4.3-11.1) K/mcL Hgb 7.5 L D 5.3 L* D (11.5-15.4) g/dL Hct 22.1 L 15.7 L (35.3-44.9) % Plt Count 248 (140-400) K/mcL Neutrophils # 8.1 (1.6-8.9) K/mcL BMP 04/04/18 01:45 Sodium 135 L Potassium 3.8 Chloride 102 Carbon Dioxide 29 BUN 29 H Creatinine 1.01 Glucose 152 H Calcium 9.3 - ABG Interpretation ABG results: PT/INR, D-dimer PT 21.6 Seconds (9.4-12.1) H 04/04/18 01:45 - VTE Documentation of Mechanical Device: Venous foot pump, device Consult Discharge Plan - Plan Referrals: Santos Robbins Jr, PAC [Primary Care Provider] - (3) Closed right femoral fracture Qualifiers: Encounter type: initial encounter Femur location: neck Qualified Code(s): S72.001A - Fracture of unspecified part of neck of right femur, initial encounter for closed fracture (5) Coronary artery disease Qualifiers: Coronary Disease-Associated Artery/Lesion type: unspecified vessel or lesion type [place] vs. transplanted heart: [place] heart Associated angina: without angina Qualified Code(s): I25.10 - Atherosclerotic heart disease of [place] coronary artery without angina pectoris (7) DVT (deep venous thrombosis) Qualifiers: DVT location: lower extremity Affected thrombotic vein of extremity: unspecified vein of extremity Chronicity: acute Laterality: bilateral Qualified Code(s): I82.403 - Acute embolism and thrombosis of unspecified deep veins of lower extremity, bilateral
[2018-04-04] MEDS ORDERED: Heparin 1,000 UNITS/500 mL 500 ML ONE (13:17)
[2018-04-04] MEDS ORDERED: 0.9 % Sodium Chloride 500 ML ONE ×3 (13:17→15:17)
--- NOTE | 2018-04-04 14:06 | Vascular/[facility] Progress Note ---
Date of Encounter: 04/04/18 Time of Encounter: 10:15 - Assessment and plan (1) DVT (deep venous thrombosis) Current Visit: Yes Status: Acute Patient is status post one day placement of IVC filter due to contraindication for continued anticoagulation therapy because of right thigh hematoma and anemia. Patient is in further medical workup for the bleeding in the intensive care unit. No complications associated with IVC filter placement. Qualifiers: DVT location: lower extremity Affected thrombotic vein of extremity: unspecified vein of extremity Chronicity: acute Laterality: bilateral Qualified Code(s): I82.403 - Acute embolism and thrombosis of unspecified deep veins of lower extremity, bilateral - Subjective Interval history: Patient has been transferred to the intensive care unit because of persistent anemia. She has received 5 units of blood thus far and is going to receive another 2 units of blood today. The patient has no complaints referable to the right groin puncture site from the IVC filter insertion from yesterday. She does complain of pain in the right thigh and the right knee which is been ongoing for a number of days. Vital Signs, Last 4 Hours Temp Pulse Resp BP Pulse Ox 04/04/18 13:48 98.6 F 98 20 116/67 97 04/04/18 13:00 93 17 127/73 96 04/04/18 12:15 98.0 F 04/04/18 12:00 93 04/04/18 11:00 92 22 116/67 95 04/04/18 10:20 98.1 F 84 18 124/60 97 04/04/18 10:05 98.6 F 82 19 115/47 98 - Physical Examination General: Present: Conversant, No Apparent Distress Vascular: Present: Other (Right groin puncture site is clean and dry. No signs of hematoma or ecchymosis. The dressing is intact. Patient has a distended right thigh which is been ongoing following her femur fracture.) - VTE Documentation of Mechanical Device: Venous foot pump, device Results 04/04/18 01:45 04/04/18 01:45 Lab Results, Last 24 hours 04/03/18 04/04/18 04/04/18 12:15 01:45 01:45 WBC 11.4 H Hgb 7.5 L D 5.3 L* D Hct 22.1 L 15.7 L Plt Count 248 INR 1.9 Sodium Potassium Chloride Carbon Dioxide BUN Creatinine Glucose Calcium 04/04/18 01:45 WBC Hgb Hct Plt Count INR Sodium 135 L Potassium 3.8 Chloride 102 Carbon Dioxide 29 BUN 29 H Creatinine 1.01 Glucose 152 H Calcium 9.3 Consult Discharge Plan - Plan Referrals: Santos Robbins Jr, PAC [Primary Care Provider] -
[2018-04-04] MEDS ORDERED: *HR* FentaNYL (PF) 100 MCG/2 ML VIAL ONE (14:21)
[2018-04-04] MEDS ORDERED: *HR* Midazolam HCl 2 MG/2 ML VIAL ONE (14:21)
[2018-04-04] MEDS ORDERED: 0.9 % Sodium Chloride 1,000 ML ONE (14:24)
[2018-04-04] MEDS ORDERED: *HR* Midazolam HCl 2 MG/2 ML VIAL IVP ONE (14:27)
[2018-04-04] MEDS ORDERED: *HR* FentaNYL (PF) 100 MCG/2 ML VIAL IVP ONE (14:28)
[2018-04-04 15:20] LABS: Hematocrit 22.9 % (35.3-44.9)
[2018-04-04 15:29] LABS: Hemoglobin 7.6 g/dL (11.5-15.4)
[2018-04-04] MEDS ORDERED: *HR* Phytonadione 5 MG TABLET PO ONE (16:58)
--- NOTE | 2018-04-04 17:17 | Orthopedics Progress Note ---
Date of Encounter: 04/04/18 Time of Encounter: 17:14 Subjective Principal diagnosis: Periprosthetic fracture right femur Interval history: 04/01/2018. Patient is postop day #1 from ORIF of a midshaft periprosthetic fracture of the right femur. Patient is doing remarkably well. Pain is minimal and well controlled. Vital signs are stable. Patient is afebrile. Dressings are clean dry and intact. Hemoglobin is 10.0. Patient had a hemoglobin of 8 prior to surgery and did receive 2 units of pack red blood cells intraoperatively. White blood cell count is elevated at 14.2. Platelet count is normal at 194. Pro time is 19.8. INR 1.8 kidney function is improved from preop. Impression: POD #1 ORIF periprosthetic fracture right femur Recommendation: Orthopedic status is excellent. Discussed with the patient that she can ambulate with full on limited motion of her hip knee and ankle. Her only limitation is to be strictly nonweightbearing on the right lower extremity. Patient can resume home medications including Coumadin at the discretion of the internal medicine physicians. We will probably perform dressing change tomorrow. Discussed with the patient that I did not closer fascia in the lateral thigh through the tremendous amount of swelling in the muscle. 04/02/2018. Patient POD #2 ORIF right periprosthetic femur fracture. Having pain as anticipated. Vital signs reveal blood pressure of about 90/50. She is afebrile. Dressings were taken down. Incision is clean dry and intact. Hemoglobin not obtained today. Impression: POD #2 ORIF periprosthetic right femur fracture Recommendation: Orthopedic status remains stable. Patient can be ambulatory with nonweightbearing on the right lower extremity. Pain management as able, caution with somewhat low blood pressure. To be bridged with Lovenox until her pro time and INR are therapeutic in regards to her DVT treatment. Anticipate patient need for rehabilitation stay. 04/03/2018. Patient POD #3 ORIF right periprosthetic femur fracture. Patient is sleepy from sedation for placement of an IVC filter. Vital signs are stable. Patient is afebrile. Dressings are clean and dry. Thigh is somewhat edematous. As previously noted the patient did not have fascial closure and would anticipate her having prominence or fullness along the lateral side of the thigh underneath her incision. Hemoglobin had dropped to 7.5. Platelet count remained stable at 286. Impression: POD #3 ORIF periprosthetic fracture right femur Plan: Orthopedic status remains stable. Patient can ambulate with nonweightbearing on the right lower extremity. Local wound care for her extensile right lateral thigh incision. ancillary services manager therapy for discharge planning , anticipate short-term rehabilitation stay. 04/04/2018. Patient POD number for ORIF right periprosthetic femur fracture. Patient complains of anticipated right thigh pain. Vital signs are stable. Patient is afebrile. Thigh is increased in size. Distal neurosensory exam remains intact. Calf is soft. Posterior thigh is soft. Hemoglobin was 5 after multiple units of pack red blood cells. Patient continues to be coagulopathic with a ProTime of 21.6 though the INR is 1.9. Impression: POD number for ORIF right periprosthetic femur fracture Recommendation: Would recommend treating the coagulopathy as the patient now has a IVC filter. Discussed with ICU staff. Orthopedic status remains stable. Would prefer to not open the wound to evacuate a hematoma, this should resolve spontaneously in time. Ambulate when appropriate with medical service. Objective Vital signs: Vital Signs Temp Pulse Resp BP Pulse Ox 04/04/18 14:36 96 20 144/80 96 04/04/18 14:30 96 22 137/77 95 04/04/18 13:48 98.6 F 98 20 116/67 97 04/04/18 13:00 93 17 127/73 96 04/04/18 12:15 98.0 F 04/04/18 12:00 93 04/04/18 11:00 92 22 116/67 95 04/04/18 10:20 98.1 F 84 18 124/60 97 04/04/18 10:05 98.6 F 82 19 115/47 98 04/04/18 09:00 98.6 F 85 19 119/38 98 04/04/18 07:43 97.6 F 96 21 126/80 96 04/04/18 07:22 97.9 F 102 20 128/71 94 04/04/18 04:53 97.8 F 95 16 93/64 96 04/04/18 04:38 97.8 F 106 16 111/72 98 04/04/18 01:07 97.9 F 106 16 106/77 04/03/18 22:02 98 F 104 16 120/64 95 04/03/18 21:47 97.9 F 106 14 127/83 97 04/03/18 21:25 97.7 F 101 16 04/03/18 20:20 98.5 F 94 15 142/87 95 04/03/18 19:20 98 F 93 16 129/66 96 04/03/18 18:47 97.9 F 88 18 132/79 96 04/03/18 18:32 97.9 F 82 18 132/71 97 04/03/18 18:20 97.9 F 93 18 121/79 95 04/03/18 17:50 98.1 F 101 20 125/84 96 04/03/18 17:20 98.4 F 91 18 123/80 98 Intake and Output 04/04/18 04/04/18 04/04/18 07:59 15:59 23:59 Intake Total 600 / 600 350 / 350 Output Total 800 / 800 550 / 550 350 / 350 Balance -200 / -200 -200 / -200 -350 / -350 Intake: IV Fluids 0 / 0 0.9 % Sodium Chloride 250 ML @ 0 / 0 25 mls/hr IVC .Q10H [facility] Rx#: [id number] Blood Product 600 / 600 350 / 350 Plasma Unit [id number] 300 / 300 Rbcs Leuko Poor As-1 Unit 350 / 350 [id number] Rbcs Leuko Poor As-1 Unit 300 / 300 [id number] Output: Urine 800 / 800 300 / 300 350 / 350 Catheter 250 / 250 Other: Weight 84.3 kg Patient Weight 04/04/18 23:59 Weight 84.3 kg - Labs CBC & BMP: 04/04/18 15:10 04/04/18 01:45 Labs: Abnormal lab results WBC 11.4 K/mcL (4.3-11.1) H 04/04/18 01:45 RBC 1.83 M/mcL (3.82-4.97) L 04/04/18 01:45 Hgb 7.6 g/dL (11.5-15.4) L D 04/04/18 15:10 Hct 22.9 % (35.3-44.9) L 04/04/18 15:10 RDW 17.9 % (11.5-14.5) H 04/04/18 01:45 Monocytes # 1.6 K/mcL (0.0-1.3) H 04/04/18 01:45 Nucleated RBCs/100 WBC 0.4 /100 WBC (0) H 04/04/18 01:45 PT 21.6 Seconds (9.4-12.1) H 04/04/18 01:45 Heparin Anti-Xa, Unfract 0.74 IU/mL (0.30-0.70) H 04/03/18 01:19 Sodium 135 mEq/L (136-145) L 04/04/18 01:45 BUN 29 mg/dL (8-23) H 04/04/18 01:45 Est GFR (Non-Af Amer) 54 (> 60) L 04/04/18 01:45 BUN/Creatinine Ratio 29 (6-26) H 04/04/18 01:45 Glucose 152 mg/dL (70-105) H 04/04/18 01:45 Iron 19 mcg/dL (50-170) L 04/01/18 08:12 % Saturation 7 % (15-50) L 04/01/18 08:12 Transferrin 202 mg/dL (203-362) L 04/01/18 08:12 Albumin 3.4 g/dL (3.5-5.7) L 03/30/18 07:09 Albumin/Globulin Ratio 1.0 (1.1-2.2) L 03/30/18 07:09 Folate 19.4 ng/mL (3.0-16.0) H 04/01/18 08:12 - VTE Documentation of Mechanical Device: Venous foot pump, device Consult Discharge Plan - Plan Referrals: Santos Robbins Jr, PAC [Primary Care Provider] -
[2018-04-04 17:35] LABS: INR 1.9; Prothrombin Time 21.9 Seconds (9.4-12.1)
[2018-04-04] MEDS: *HR* FentaNYL PATCH 25 MCG PATCH TD SCH (20:59)
[2018-04-04] MEDS: rOPINIRole 1 MG TABLET PO SCH (21:02)
[2018-04-04] MEDS: Furosemide 20 MG/2 ML VIAL IVP PRN (21:31)
[2018-04-04 22:08] LABS: Prothrombin Time 22.2 Seconds (9.4-12.1)
[2018-04-05] MEDS: Furosemide 20 MG/2 ML VIAL IVP PRN ×2 (00:29→04:43)
[2018-04-05] MEDS: *HR* HYDROcodone/Acet 5/325 mg TABLET PO PRN ×4 (01:14→20:39)
[2018-04-05] MEDS: 0.9 % Sodium Chloride 250 ML IVC SCH ×2 (01:16→11:46)
[2018-04-05] MEDS: Acetaminophen 325 MG TABLET PO SCH ×3 (04:42→18:07)
[2018-04-05 06:24] LABS: Basophils % 0.3 %; Eosinophils # 0.2 K/mcL (0.0-0.6); Hematocrit 26.3 % (35.3-44.9); Lymphocytes # 1.2 K/mcL (0.6-4.6); Lymphocytes % 12.3 %; Mean Corpuscular HGB Conc 34.2 g/dL (31.6-35.5); Mean Corpuscular Hemoglobin 29.1 pg (28.0-33.3); Mean Corpuscular Volume 85.1 fL (83.0-100.0); Mean Platelet Volume 9.3 fL (9.4-12.4); Monocytes # 1.4 K/mcL (0.0-1.3); Monocytes % 14.4 %; Neutrophils # 6.6 K/mcL (1.6-8.9); Platelet Count 196 K/mcL (140-400); Red Blood Count 3.09 M/mcL (3.82-4.97); Red Cell Distribution Width 15.5 % (11.5-14.5)
[2018-04-05 06:33] LABS: INR 1.5; Prothrombin Time 16.8 Seconds (9.4-12.1)
[2018-04-05 06:50] LABS: BUN/Creatinine Ratio 25 (6-26); Blood Urea Nitrogen 24 mg/dL (8-23); Carbon Dioxide 32 mEq/L (23-29); Chloride 100 mEq/L (98-107); Glucose 105 mg/dL (70-105); Osmolality,Calculated 288 (280-300); Potassium 3.8 mEq/L (3.5-5.1); Sodium 137 mEq/L (136-145); eGFR For Non-African Americans 57 (> 60)
[2018-04-05] MEDS: Magnesium Oxide 400 MG TABLET PO SCH ×2 (08:09→20:40)
[2018-04-05] MEDS: Folic Acid 1 MG TABLET PO SCH (08:11)
[2018-04-05] MEDS: Cholecalciferol (D-3) 1,000 UNIT TABLET PO SCH (08:11)
[2018-04-05] MEDS: Multivit/Ca/Min/Fe/FA 1 TAB TABLET PO SCH (08:11)
[2018-04-05] MEDS: Famotidine 20 MG TABLET PO SCH ×2 (08:13→20:39)
[2018-04-05 08:42] LABS: Hematocrit 30.4 % (35.3-44.9); Hemoglobin 10.4 g/dL (11.5-15.4)
--- NOTE | 2018-04-05 09:17 | Pulmonology Progress Note ---
<Santos Macario - Last Filed: 04/05/18 16:30> Date of Encounter: 04/05/18 Time of Encounter: 09:17 Assessment and Plan (1) Acute blood loss anemia Current Visit: Yes Status: Acute Patient had an angiogram yesterday showing no active extravasation into her right thigh. Patient remains hemodynamically stable and her repeat hemoglobin increased to 10.4 after a total of 9 units PRBCs and 4 units FFP. Case discussed with interventional radiologist today, who does not recommend any further procedures at this time. Ortho following, no indication to evacuate hematoma at this point. Patient reports improved right thigh pain after taking Tylenol this morning. She is awaiting transfer to . Case discussed with Dr. Garcia prior to transfer out of ICU. (2) Hypotension due to blood loss Current Visit: Yes Status: Resolved Patient with acute episode of hypotension due to blood loss in the right thigh s /p closed right femur fracture and recent right femur ORIF 03/31/18. Patient's blood pressure has improved after fluid resuscitation and PRBCs. Patient was monitored ordered in ICU secondary to a drop in hemoglobin to 5.3 despite 5 units PRBCs and 2 units FFP. Patient remains hemodynamically stable at this time and stable to be transferred to [facility]. Continue close monitoring and serial H&H (3) Closed right femoral fracture Current Visit: Yes Status: Acute Patient had a right hip ORIF on 03/31/18 Patient's postoperative course was complicated by an acute drop in blood pressure and hemoglobin down to 5.3, which was 10.0 on 04/01/18. Ortho following, no indication to evacuate hematoma at this point Qualifiers: Encounter type: initial encounter Femur location: neck Qualified Code(s) : S72.001A - Fracture of unspecified part of neck of right femur, initial encounter for closed fracture (4) DVT (deep venous thrombosis) Current Visit: Yes Status: Acute Lower extremity duplex revealed acute DVT bilaterally, results are consistent with previous results in February 2018 status post CABG surgery. On admission, INR was subtherapeutic on Coumadin. INR was 1.5 this morning. She was transitioned to Lovenox bridging to warfarin after recent right hip surgery. Anticoagulation has been held due to ongoing bleeding. Vascular surgery placed IVC filter on 04/03/18 Qualifiers: DVT location: lower extremity Affected thrombotic vein of extremity: unspecified vein of extremity Chronicity: acute Laterality: bilateral Qualified Code(s): I82.403 - Acute embolism and thrombosis of unspecified deep veins of lower extremity, bilateral (5) DVT prophylaxis Current Visit: Yes Status: Acute IVC filter placed 04/03/18 Subjective Principal diagnosis: Periprosthetic fracture right femur Interval history: Patient seen and examined resting comfortably in bed. Patient had an angiogram yesterday showing no active extravasation into her right thigh. Patient remains hemodynamically stable and her repeat hemoglobin increased to 10.4 after a total of 9 units PRBCs and 4 units FFP. Patient was given Lasix overnight due to significant amount of intravascular volume given throughout the day. Case discussed with interventional radiologist today, who does not recommend any further procedures at this time. Patient reports improved right thigh pain after taking Tylenol this morning. She is awaiting transfer to . Objective PUL Vital signs: Last Vital Signs Temp 98.3 F 04/05/18 08:55 Pulse 77 04/05/18 08:00 Resp 20 04/05/18 08:00 BP 126/62 04/05/18 08:00 Pulse Ox 96 04/05/18 08:00 General appearance: no acute distress (Pleasant, conversant) Eyes: nonicteric ENT: oropharynx moist Neck: supple Effort: normal Auscultation: bilateral: clear Cardiovascular: regular rate and rhythm (no M/R/G) Gastrointestinal: normoactive bowel sounds, soft, non-tender Integumentary: erythema (Patient with erythema over right hip region, surgical incision intact, moderate amount ecchymosis overlying lateral thigh extending to the labia majora, sheath in place LLQ) Extremities: edema (Decreased distal pulses on right lower extremity compared to left) Musculoskeletal: joint tenderness (Right thigh significantly tender to palpation , positive Doppler pedal pulses) normal mental status, non-focal exam mood appropriate, affect normal Results - Laboratory Findings CBC and BMP: 04/05/18 15:18 04/05/18 04:00 PT/INR, D-dimer PT 16.8 Seconds (9.4-12.1) H 04/05/18 04:00 Abnormal lab findings: Abnormal lab results RBC 3.09 M/mcL (3.82-4.97) L 04/05/18 04:00 Hgb 10.4 g/dL (11.5-15.4) L 04/05/18 08:43 Hct 30.4 % (35.3-44.9) L 04/05/18 08:43 RDW 15.5 % (11.5-14.5) H 04/05/18 04:00 MPV 9.3 fL (9.4-12.4) L 04/05/18 04:00 Monocytes # 1.4 K/mcL (0.0-1.3) H 04/05/18 04:00 Nucleated RBCs/100 WBC 1.0 /100 WBC (0) H 04/05/18 04:00 PT 16.8 Seconds (9.4-12.1) H 04/05/18 04:00 Heparin Anti-Xa, Unfract 0.74 IU/mL (0.30-0.70) H 04/03/18 01:19 Carbon Dioxide 32 mEq/L (23-29) H 04/05/18 04:00 BUN 24 mg/dL (8-23) H 04/05/18 04:00 Est GFR (Non-Af Amer) 57 (> 60) L 04/05/18 04:00 POC Glucose 173 mg/dL (70-99) H 04/04/18 09:21 Iron 19 mcg/dL (50-170) L 04/01/18 08:12 % Saturation 7 % (15-50) L 04/01/18 08:12 Transferrin 202 mg/dL (203-362) L 04/01/18 08:12 Albumin 3.4 g/dL (3.5-5.7) L 03/30/18 07:09 Albumin/Globulin Ratio 1.0 (1.1-2.2) L 03/30/18 07:09 Folate 19.4 ng/mL (3.0-16.0) H 04/01/18 08:12 - Clinical Findings Intake & Output: Intake & Output 04/04/18 04/05/18 04/05/18 23:59 07:59 15:59 Intake Total 320 / 320 1563 / 1563 Output Total 650 / 650 1800 / 1800 900 / 900 Balance -330 / -330 -237 / -237 -900 / -900 Weight 85.5 kg - VTE Documentation of Mechanical Device: Venous foot pump, device Consult Discharge Plan - Plan Referrals: Santos Robbins Jr, PAC [Primary Care Provider] - <Saadlla,Haval M - Last Filed: 04/05/18 17:30> Date of Encounter: 04/05/18 Objective PUL Vital signs: Last Vital Signs Temp 98.3 F 04/05/18 08:55 Pulse 77 04/05/18 08:00 Resp 20 04/05/18 08:00 BP 126/62 04/05/18 08:00 Pulse Ox 96 04/05/18 08:00 Results - Laboratory Findings CBC and BMP: 04/05/18 15:18 04/05/18 04:00 PT/INR, D-dimer PT 16.8 Seconds (9.4-12.1) H 04/05/18 04:00 Abnormal lab findings: Abnormal lab results RBC 3.09 M/mcL (3.82-4.97) L 04/05/18 04:00 Hgb 10.4 g/dL (11.5-15.4) L 04/05/18 08:43 Hct 30.4 % (35.3-44.9) L 04/05/18 08:43 RDW 15.5 % (11.5-14.5) H 04/05/18 04:00 MPV 9.3 fL (9.4-12.4) L 04/05/18 04:00 Monocytes # 1.4 K/mcL (0.0-1.3) H 04/05/18 04:00 Nucleated RBCs/100 WBC 1.0 /100 WBC (0) H 04/05/18 04:00 PT 16.8 Seconds (9.4-12.1) H 04/05/18 04:00 Heparin Anti-Xa, Unfract 0.74 IU/mL (0.30-0.70) H 04/03/18 01:19 Carbon Dioxide 32 mEq/L (23-29) H 04/05/18 04:00 BUN 24 mg/dL (8-23) H 04/05/18 04:00 Est GFR (Non-Af Amer) 57 (> 60) L 04/05/18 04:00 POC Glucose 173 mg/dL (70-99) H 04/04/18 09:21 Iron 19 mcg/dL (50-170) L 04/01/18 08:12 % Saturation 7 % (15-50) L 04/01/18 08:12 Transferrin 202 mg/dL (203-362) L 04/01/18 08:12 Albumin 3.4 g/dL (3.5-5.7) L 03/30/18 07:09 Albumin/Globulin Ratio 1.0 (1.1-2.2) L 03/30/18 07:09 Folate 19.4 ng/mL (3.0-16.0) H 04/01/18 08:12 - Clinical Findings Intake & Output: Intake & Output 04/04/18 04/05/18 04/05/18 23:59 07:59 15:59 Intake Total 320 / 320 1563 / 1563 Output Total 650 / 650 1800 / 1800 900 / 900 Balance -330 / -330 -237 / -237 -900 / -900 Weight 85.5 kg - Attending Attestation I examined this patient and my medical decision-making was reviewed with the Resident Physician. I agree with the documented findings, disposition and treatment plan as described except to the extent set forth below. Patient seen and examined. Labs, radiology, chart personally reviewed. Agree with resident's history and physical, assessment, plan with following comments: ELECTRICIAN MAINTENANCE: Patient follows commands, Pulmonary: Acceptable oxygenation and ventilation Cardiovascular: stable GI: Nutrition per dietary and GI prophylaxis per routine Heme: DVT prophylaxis per routine. The coagulopathy is better and H&H is stable. I patient was transferred to [facility]. Please call for any questions.
--- NOTE | 2018-04-05 09:21 | Internal Med Progress Note ---
Hospitalist Progress Note - Encounter Date of Encounter: 04/05/18 Time of Encounter: 09:20 - Subjective Interval History: Transferred to the ICU in last 24hrs - Exam Vitals: Temp Pulse Resp BP Pulse Ox 98.3 F 77 20 126/62 96 04/05/18 08:55 04/05/18 08:00 04/05/18 08:00 04/05/18 08:00 04/05/18 08:00 Exam: Gen: NAD, AAO x3, In distress due to pain CVS: RRR, S1, S2 normal Lungs: CTA.no wheezing, rales, or rhonchi. Abd: Soft, NT/ND. Ext: 1+ bipedal, non-pitting edema. Rigoberto wrap removed. Swelling of Rt thigh with some bruising. Very tender. Skin: wound on center of chest with dressing. central scar noted. - Assessment and Plan (1) Acute blood loss anemia Current Visit: Yes Status: Acute Assessment and Plan: Patient has had drops in hemoglobin intermittently post surgery and has received a total of 9 units PRBC total and 4 units FFP. Hemglobin improved to 10.4 this am and she had received a total of 9 units of PRBC total. Likely secondary to acute bleeding post surgery from right hip. Orthopedic surgery following. Patient has edematous lower extremity, and sensation is intact. Monitor CBC. CT scan showed a large right anterior compartment hematoma. Ortho says no indication to evacuate hematoma at this point. INR improved to 1.5 (2) Hematoma following procedure Current Visit: Yes Status: Acute Assessment and Plan: see #1. Orthopedic surgery following (3) Hypotension due to blood loss Current Visit: Yes Status: Acute Assessment and Plan: Continue resuscitation with IV fluids and PRBC (4) Closed right femoral fracture Current Visit: Yes Status: Acute Assessment and Plan: Patient had a right hip ORIF on 03/31/18 Patient's postoperative course was complicated by an acute drop in blood pressure and hemoglobin of 5.3 today, which was down from 10.0 on 04/01/18. Ortho following. Transfuse PRBC 04/05. Hemoglobin is up to 10.4. Stable per orthopedic surgery (5) DVT prophylaxis Current Visit: Yes Status: Acute Assessment and Plan: Has IV C filter. Anticoagulation has been held due to active bleeding. (6) Coronary artery disease Current Visit: No Status: Chronic Assessment and Plan: Patient with history of coronary artery disease status post CABG done earlier this year. CAD with recent double bypass, [place] x 3 and stents x 3. - Currently symptom-free. . - Given history of CAD hemoglobin > 8.0. (7) Essential hypertension Current Visit: No Status: Chronic Assessment and Plan: Monitor blood pressure. Continue home medications. (8) DVT (deep venous thrombosis) Current Visit: Yes Status: Acute Assessment and Plan: Lower extremity duplex revealed acute DVT bilaterally, results are consistent with previous results in February 2018 status post CABG surgery. On admission, INR was subtherapeutic on Coumadin. She was transitioned to Lovenox bridging to warfarin after recent right hip surgery 3 days ago. Anticoagulation has been held due to ongoing bleeding. Vascular surgery placed IVC filter on 04/03/18 due to active bleeding on anticoagulation. Follow up hematology recs. INR was 1.5 today - Time Spent with Patient Total time spent is greater than 50% in coordination of care (as documented) at patient's floor/unit and/or counseling patient: Internal Medicine: Result - Labs CBC & Chem 7: 04/05/18 08:43 04/05/18 04:00 Labs: Short CBC 04/04/18 04/05/18 04/05/18 Range/Units 15:10 04:00 08:43 WBC 9.5 (4.3-11.1) K/mcL Hgb 7.6 L D 9.0 L 10.4 L (11.5-15.4) g/dL Hct 22.9 L 26.3 L 30.4 L (35.3-44.9) % Plt Count 196 (140-400) K/mcL Neutrophils # 6.6 (1.6-8.9) K/mcL BMP 04/05/18 04:00 Sodium 137 Potassium 3.8 Chloride 100 Carbon Dioxide 32 H BUN 24 H Creatinine 0.96 Glucose 105 Calcium 9.0 - ABG Interpretation ABG results: PT/INR, D-dimer PT 16.8 Seconds (9.4-12.1) H 04/05/18 04:00 - Impressions Impressions Aorta w/Runoff CTA 04/04/18 10:44 IMPRESSION: 1. Large intramuscular hematoma in the anterior compartment of the right thigh, measuring approximately 14 x 10 x 19 cm. It may contain a small focus of arterial extravasation centrally (axial image 251), although lack of comparison noncontrast imaging limits evaluation. Scattered associated foci of soft tissue air are presumed postoperative in etiology. 2. Extensive soft tissue fat stranding and dermal thickening in the right lower extremity, which is most likely related to soft tissue edema. A component of ecchymosis or cellulitis cannot be excluded. 3. Postoperative change of internal fixation in the right femur, with the fracture fragments in anatomic alignment. 4. Severe diffuse atherosclerosis, including coronary atherosclerosis. Two vessel runoff to the right foot via the anterior tibial and peroneal arteries. Three-vessel runoff to the left foot. 5. There is a 3.1 cm infrarenal abdominal aortic aneurysm. Follow-up per guidelines below. 6. 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 7. Suprarenal IVC filter in place. RECOMMENDATIONS: Managing Abdominal Aortic Aneurysms 3.0-3.4 cm: Every 3 years. Reference: J Vasc Surg. 2009 May;50(4 Suppl):S2-49 D/ / 04/04/2018 13:09:57 Phillip Weiss MD / bcarter Interpreting Provider: Phillip Weiss MD Lower Extremity CTA 04/04/18 13:07 IMPRESSION: Findings within a large right thigh anterior compartment hematoma are consistent with a small amount of active extravasation. D/ / 04/04/2018 15:17:18 Phillip Weiss MD / [email or web address] Interpreting Provider: Phillip Weiss MD - VTE Documentation of Mechanical Device: Venous foot pump, device Consult Discharge Plan - Plan Referrals: Santos Robbins Jr, PAC [Primary Care Provider] - (4) Closed right femoral fracture Qualifiers: Encounter type: initial encounter Femur location: neck Qualified Code(s): S72.001A - Fracture of unspecified part of neck of right femur, initial encounter for closed fracture (6) Coronary artery disease Qualifiers: Coronary Disease-Associated Artery/Lesion type: unspecified vessel or lesion type [place] vs. transplanted heart: [place] heart Associated angina: without angina Qualified Code(s): I25.10 - Atherosclerotic heart disease of [place] coronary artery without angina pectoris (8) DVT (deep venous thrombosis) Qualifiers: DVT location: lower extremity Affected thrombotic vein of extremity: unspecified vein of extremity Chronicity: acute Laterality: bilateral Qualified Code(s): I82.403 - Acute embolism and thrombosis of unspecified deep veins of lower extremity, bilateral
--- NOTE | 2018-04-05 14:10 | Oncology Inp Progress Note ---
<ShravanCamilo thorne - Last Filed: 04/05/18 18:12> Date of Encounter: 04/05/18 Time of Encounter: 14:06 (1) Anemia Current Visit: Yes Status: Acute Assessment and plan: Likely multifactorial with acute on chronic anemia with anemia of chronic disease along with acute blood loss anemia. Patient appears to be bleeding in the right hip. CT revealed a large hematoma. Patient underwent angiography yesterday and attempt to embolize the source of bleeding however no source was found. Patient has been transfused a total of 9 units during her hospitalization. Hemoglobin appears to be stabilized and up physical exam reveals no change from yesterday. Appears that the acute bleeding has stopped. Qualifiers: Anemia type: other cause Other causes of anemia: other cause, not classified Qualified Code(s): D64.89 - Other specified anemias (2) DVT (deep venous thrombosis) Current Visit: Yes Status: Acute Assessment and plan: Bilateral lower extremity duplex reveals acute DVT bilaterally. Patient was previously being treated as an outpatient on Coumadin. This is been held and patient is currently not on any anticoagulation. Patient had IVC filter placed 2 days ago. Will closely monitor over the next few days and consider possibly challenging patient with heparin Qualifiers: DVT location: lower extremity Affected thrombotic vein of extremity: unspecified vein of extremity Chronicity: acute Laterality: bilateral Qualified Code(s): I82.403 - Acute embolism and thrombosis of unspecified deep veins of lower extremity, bilateral Oncology: Subj Interval history: Patient seen and examined at bedside. Patient states that she feels okay today. She does report some mild pain in her right hip but otherwise evidence of active bleeding including hemoptysis, hematemesis, melena, hematochezia, hematuria. - Constitutional Vitals: Vital Signs Temp Pulse Resp BP Pulse Ox 04/05/18 12:00 74 04/05/18 08:55 98.3 F 04/05/18 08:00 77 20 126/62 96 04/05/18 07:56 80 20 118/65 96 04/05/18 06:00 74 22 93/47 96 04/05/18 05:00 82 22 111/60 93 04/05/18 04:45 99.0 F 80 22 110/57 96 04/05/18 04:00 97.6 F 79 23 116/61 94 04/05/18 03:14 98.6 F 80 20 124/73 95 04/05/18 03:00 98.6 F 82 22 107/48 96 04/05/18 02:59 98.6 F 78 22 107/48 94 04/05/18 02:50 79 20 117/58 96 04/05/18 02:49 98.6 F 80 22 117/58 94 04/05/18 02:00 86 26 114/53 94 04/05/18 01:55 98.2 F 83 22 123/71 96 04/05/18 01:50 98.2 F 84 18 123/71 22 04/05/18 01:00 98.1 F 80 20 114/75 95 04/05/18 00:59 98.1 F 80 18 114/75 95 04/05/18 00:45 98.1 F 83 18 111/60 96 04/05/18 00:44 98.1 F 84 18 111/60 97 04/05/18 00:15 98.1 F 82 26 117/64 95 04/05/18 00:05 98.1 F 04/05/18 00:00 98.1 F 85 24 119/71 96 04/04/18 23:00 82 16 120/75 97 04/04/18 22:15 98.2 F 79 20 90/62 96 04/04/18 22:02 98.7 F 85 22 102/59 96 04/04/18 22:00 98.7 F 85 24 102/59 95 04/04/18 21:30 98.7 F 86 24 101/51 96 04/04/18 20:27 99 F 04/04/18 20:00 98.7 F 86 26 119/45 98 04/04/18 19:00 98.1 F 92 16 114/34 98 04/04/18 18:45 98.0 F 99 14 114/65 98 04/04/18 17:00 93 16 114/65 92 04/04/18 16:00 92 04/04/18 15:00 98 18 124/68 93 04/04/18 14:36 96 20 144/80 96 04/04/18 14:30 96 22 137/77 95 Intake and Output 04/04/18 04/05/18 04/05/18 23:59 07:59 15:59 Intake Total 320 / 320 1563 / 1563 Output Total 650 / 650 1800 / 1800 900 / 900 Balance -330 / -330 -237 / -237 -900 / -900 Intake: Blood Product 320 / 320 1563 / 1563 Plasma Unit [id number] 325 / 325 Plasma Unit [id number] 615 / 615 Rbcs Leuko Poor As-1 Unit 0 / 0 308 / 308 [id number] Rbcs Leuko Poor As-1 Unit 320 / 320 [id number] Rbcs Leuko Poor As-1 Unit 315 / 315 [id number] Output: Urine 350 / 350 Catheter 300 / 300 1800 / 1800 900 / 900 Other: Weight 85.5 kg Patient Weight 04/05/18 23:59 Weight 85.5 kg - Respiratory Respiratory exam: Present: CTAB. Absent: rales, rhonchi - Cardiovascular Cardiovascular exam: Present: RRR - Extremities Exam Additional comments: Swelling, ecchymosis, warmth to the right lateral leg. Dressing in place. Essentially unchanged from yesterday. - Neurological Exam Neurological exam: Present: alert, oriented X3 Oncology: Obj Data - Labs CBC & Chem 7: 04/05/18 15:18 04/05/18 04:00 Labs: Laboratory Results - last 24 hr 04/04/18 04/04/18 04/04/18 01:45 09:21 15:10 WBC RBC Hgb 7.6 L D Hct 22.9 L MCV MCH MCHC RDW Plt Count MPV Immature Gran % Seg Neutrophils % Lymphocytes % Monocytes % Eosinophils % Basophils % Neutrophils # Lymphocytes # Monocytes # Eosinophils # Basophils # Nucleated RBCs/100 WBC PT INR Sodium Potassium Chloride Carbon Dioxide BUN Creatinine Est GFR ( Amer) Est GFR (Non-Af Amer) BUN/Creatinine Ratio Glucose POC Glucose 173 H Calculated Osmolality Calcium Blood Type A POSITIVE Antibody Screen NEGATIVE Crossmatch See Detail 04/04/18 04/04/18 04/05/18 16:20 21:40 04:00 WBC RBC Hgb Hct MCV MCH MCHC RDW Plt Count MPV Immature Gran % Seg Neutrophils % Lymphocytes % Monocytes % Eosinophils % Basophils % Neutrophils # Lymphocytes # Monocytes # Eosinophils # Basophils # Nucleated RBCs/100 WBC PT 21.9 H 22.2 H 16.8 H INR 1.9 2.0 1.5 Sodium Potassium Chloride Carbon Dioxide BUN Creatinine Est GFR ( Amer) Est GFR (Non-Af Amer) BUN/Creatinine Ratio Glucose POC Glucose Calculated Osmolality Calcium Blood Type Antibody Screen Crossmatch 04/05/18 04/05/18 04/05/18 04:00 04:00 08:43 WBC 9.5 RBC 3.09 L Hgb 9.0 L 10.4 L Hct 26.3 L 30.4 L MCV 85.1 MCH 29.1 MCHC 34.2 RDW 15.5 H Plt Count 196 MPV 9.3 L Immature Gran % 1.0 Seg Neutrophils % 70.0 Lymphocytes % 12.3 Monocytes % 14.4 Eosinophils % 2.0 Basophils % 0.3 Neutrophils # 6.6 Lymphocytes # 1.2 Monocytes # 1.4 H Eosinophils # 0.2 Basophils # 0.0 Nucleated RBCs/100 WBC 1.0 H PT INR Sodium 137 Potassium 3.8 Chloride 100 Carbon Dioxide 32 H BUN 24 H Creatinine 0.96 Est GFR ( Amer) > 60 Est GFR (Non-Af Amer) 57 L BUN/Creatinine Ratio 25 Glucose 105 POC Glucose Calculated Osmolality 288 Calcium 9.0 Blood Type Antibody Screen Crossmatch - Impressions Impressions Lower Extremity CTA 04/04/18 13:07 IMPRESSION: Findings within a large right thigh anterior compartment hematoma are consistent with a small amount of active extravasation. D/ / 04/04/2018 15:17:18 Phillip Weiss MD / [email or web address] Interpreting Provider: Phillip Weiss MD - ABG Interpretation ABG results: PT/INR, D-dimer PT 16.8 Seconds (9.4-12.1) H 04/05/18 04:00 Consult Discharge Plan - Plan Referrals: Santos Robbins Jr, PAC [Primary Care Provider] - <Edin Denton - Last Filed: 04/05/18 22:37> Date of Encounter: 04/05/18 - Constitutional Vitals: Vital Signs Temp Pulse Resp BP Pulse Ox 04/05/18 20:15 98.1 F 87 19 111/62 97 04/05/18 16:00 82 04/05/18 15:31 98.4 F 76 18 126/72 97 04/05/18 14:15 98.2 F 74 18 117/68 96 04/05/18 12:00 74 04/05/18 08:55 98.3 F 04/05/18 08:00 77 20 126/62 96 04/05/18 07:56 80 20 118/65 96 04/05/18 06:00 74 22 93/47 96 04/05/18 05:00 82 22 111/60 93 04/05/18 04:45 99.0 F 80 22 110/57 96 04/05/18 04:00 97.6 F 79 23 116/61 94 04/05/18 03:14 98.6 F 80 20 124/73 95 04/05/18 03:00 98.6 F 82 22 107/48 96 04/05/18 02:59 98.6 F 78 22 107/48 94 04/05/18 02:50 79 20 117/58 96 04/05/18 02:49 98.6 F 80 22 117/58 94 04/05/18 02:00 86 26 114/53 94 04/05/18 01:55 98.2 F 83 22 123/71 96 04/05/18 01:50 98.2 F 84 18 123/71 22 04/05/18 01:00 98.1 F 80 20 114/75 95 04/05/18 00:59 98.1 F 80 18 114/75 95 04/05/18 00:45 98.1 F 83 18 111/60 96 04/05/18 00:44 98.1 F 84 18 111/60 97 04/05/18 00:15 98.1 F 82 26 117/64 95 04/05/18 00:05 98.1 F 04/05/18 00:00 98.1 F 85 24 119/71 96 04/04/18 23:00 82 16 120/75 97 Intake and Output 04/05/18 04/05/18 04/06/18 08:59 16:59 00:59 Intake Total 1255 / 1255 240 / 240 Output Total 1900 / 1900 700 / 700 Balance -645 / -645 -460 / -460 Intake: Oral 240 / 240 Blood Product 1255 / 1255 Plasma Unit [id number] 325 / 325 Plasma Unit [id number] 615 / 615 Rbcs Leuko Poor As-1 Unit 315 / 315 [id number] Output: Catheter 1900 / 1900 700 / 700 Other: Weight 85.5 kg Patient Weight 04/06/18 00:59 Weight 85.5 kg Oncology: Obj Data - Labs CBC & Chem 7: 04/05/18 15:18 04/05/18 04:00 Labs: Laboratory Results - last 24 hr 04/04/18 04/04/18 04/05/18 01:45 09:21 04:00 WBC RBC Hgb Hct MCV MCH MCHC RDW Plt Count MPV Immature Gran % Seg Neutrophils % Lymphocytes % Monocytes % Eosinophils % Basophils % Neutrophils # Lymphocytes # Monocytes # Eosinophils # Basophils # Nucleated RBCs/100 WBC PT 16.8 H INR 1.5 Sodium Potassium Chloride Carbon Dioxide BUN Creatinine Est GFR ( Amer) Est GFR (Non-Af Amer) BUN/Creatinine Ratio Glucose POC Glucose 173 H Calculated Osmolality Calcium Blood Type A POSITIVE Antibody Screen NEGATIVE Crossmatch See Detail 04/05/18 04/05/18 04/05/18 04:00 04:00 08:43 WBC 9.5 RBC 3.09 L Hgb 9.0 L 10.4 L Hct 26.3 L 30.4 L MCV 85.1 MCH 29.1 MCHC 34.2 RDW 15.5 H Plt Count 196 MPV 9.3 L Immature Gran % 1.0 Seg Neutrophils % 70.0 Lymphocytes % 12.3 Monocytes % 14.4 Eosinophils % 2.0 Basophils % 0.3 Neutrophils # 6.6 Lymphocytes # 1.2 Monocytes # 1.4 H Eosinophils # 0.2 Basophils # 0.0 Nucleated RBCs/100 WBC 1.0 H PT INR Sodium 137 Potassium 3.8 Chloride 100 Carbon Dioxide 32 H BUN 24 H Creatinine 0.96 Est GFR ( Amer) > 60 Est GFR (Non-Af Amer) 57 L BUN/Creatinine Ratio 25 Glucose 105 POC Glucose Calculated Osmolality 288 Calcium 9.0 Blood Type Antibody Screen Crossmatch 04/05/18 15:18 WBC RBC Hgb 10.4 L Hct 29.0 L MCV MCH MCHC RDW Plt Count MPV Immature Gran % Seg Neutrophils % Lymphocytes % Monocytes % Eosinophils % Basophils % Neutrophils # Lymphocytes # Monocytes # Eosinophils # Basophils # Nucleated RBCs/100 WBC PT INR Sodium Potassium Chloride Carbon Dioxide BUN Creatinine Est GFR ( Amer) Est GFR (Non-Af Amer) BUN/Creatinine Ratio Glucose POC Glucose Calculated Osmolality Calcium Blood Type Antibody Screen Crossmatch - ABG Interpretation ABG results: PT/INR, D-dimer PT 16.8 Seconds (9.4-12.1) H 04/05/18 04:00 Inpatient Charges Provider: Dr. Rohan Denton Follow Up: [id number] - Attending Attestation I examined this patient and my medical decision-making was reviewed with the resident. I agree with the documented findings, disposition and treatment plan as described except to the extent set forth below. She has acute blood loss anemia secondary to right hematoma. H/H stable. Continue to hold heparin for bilateral LE DVT for now. Would like to consider rechallenge in next few days- possibly Tuesday or Tuesday. IVC filter in place. Continue with daily CBC.
[2018-04-05] MEDS: Furosemide 20 MG/2 ML VIAL IVP SCH ×2 (14:39→18:08)
[2018-04-05 15:33] LABS: Hemoglobin 10.4 g/dL (11.5-15.4)
[2018-04-05] MEDS ORDERED: *HR* Atropine Sulfate 1 MG/10 ML SYRINGE ONE (15:38)
[2018-04-05] MEDS: *HR* OxyCODONE Immed Rel 5 MG TABLET PO PRN (18:40)
--- NOTE | 2018-04-05 19:01 | Orthopedics Progress Note ---
Date of Encounter: 04/05/18 Time of Encounter: 18:58 Subjective Principal diagnosis: Periprosthetic fracture right femur Interval history: 04/01/2018. Patient is postop day #1 from ORIF of a midshaft periprosthetic fracture of the right femur. Patient is doing remarkably well. Pain is minimal and well controlled. Vital signs are stable. Patient is afebrile. Dressings are clean dry and intact. Hemoglobin is 10.0. Patient had a hemoglobin of 8 prior to surgery and did receive 2 units of pack red blood cells intraoperatively. White blood cell count is elevated at 14.2. Platelet count is normal at 194. Pro time is 19.8. INR 1.8 kidney function is improved from preop. Impression: POD #1 ORIF periprosthetic fracture right femur Recommendation: Orthopedic status is excellent. Discussed with the patient that she can ambulate with full on limited motion of her hip knee and ankle. Her only limitation is to be strictly nonweightbearing on the right lower extremity. Patient can resume home medications including Coumadin at the discretion of the internal medicine physicians. We will probably perform dressing change tomorrow. Discussed with the patient that I did not closer fascia in the lateral thigh through the tremendous amount of swelling in the muscle. 04/02/2018. Patient POD #2 ORIF right periprosthetic femur fracture. Having pain as anticipated. Vital signs reveal blood pressure of about 90/50. She is afebrile. Dressings were taken down. Incision is clean dry and intact. Hemoglobin not obtained today. Impression: POD #2 ORIF periprosthetic right femur fracture Recommendation: Orthopedic status remains stable. Patient can be ambulatory with nonweightbearing on the right lower extremity. Pain management as able, caution with somewhat low blood pressure. To be bridged with Lovenox until her pro time and INR are therapeutic in regards to her DVT treatment. Anticipate patient need for rehabilitation stay. 04/03/2018. Patient POD #3 ORIF right periprosthetic femur fracture. Patient is sleepy from sedation for placement of an IVC filter. Vital signs are stable. Patient is afebrile. Dressings are clean and dry. Thigh is somewhat edematous. As previously noted the patient did not have fascial closure and would anticipate her having prominence or fullness along the lateral side of the thigh underneath her incision. Hemoglobin had dropped to 7.5. Platelet count remained stable at 286. Impression: POD #3 ORIF periprosthetic fracture right femur Plan: Orthopedic status remains stable. Patient can ambulate with nonweightbearing on the right lower extremity. Local wound care for her extensile right lateral thigh incision. medical services assistant for discharge planning , anticipate short-term rehabilitation stay. 04/04/2018. Patient POD #4 ORIF right periprosthetic femur fracture. Patient complains of anticipated right thigh pain. Vital signs are stable. Patient is afebrile. Thigh is increased in size. Distal neurosensory exam remains intact. Calf is soft. Posterior thigh is soft. Hemoglobin was 5 after multiple units of pack red blood cells. Patient continues to be coagulopathic with a ProTime of 21.6 though the INR is 1.9. Impression: POD number for ORIF right periprosthetic femur fracture Recommendation: Would recommend treating the coagulopathy as the patient now has a IVC filter. Discussed with ICU staff. Orthopedic status remains stable. Would prefer to not open the wound to evacuate a hematoma, this should resolve spontaneously in time. Ambulate when appropriate with medical service. 04/05/2018. Patient now postop day #5 ORIF periprosthetic fracture right femur. Patient is having right thigh pain. Vital signs are stable. Patient is afebrile. The right thigh shows fullness in the anterior and lateral aspect. Incision is intact. She is draining serous fluid. Patient's entire lower extremity is edematous. Left sides likewise shows some edema in the soft tissues. Hemoglobin is now stable at 10.4. Impression: POD #5 ORIF right periprosthetic femur fracture, hemoglobin currently stable. Recommendation: Patient had much more extensive bleeding after her surgery as well as the anticoagulation. Patient is a complex case that required treatment for an acute fracture with index anticipated extensive blood loss as well as chronic anticoagulation for bilateral lower extremity DVT. Patient ultimately had a IVC filter placed anticoagulants. The patient continued to have persistent bleeding due to persistent elevation of her bleeding times. These have more normalized since reversal agents were given. At this time I do not anticipate any additional further bleeding. Done anticipate any need for further surgical intervention. As previously noted the lateral thigh fascia was not closed so the risk of a compartment syndrome is nearly nil. Objective Vital signs: Vital Signs Temp Pulse Resp BP Pulse Ox 04/05/18 16:00 82 04/05/18 15:31 98.4 F 76 18 126/72 97 04/05/18 14:15 98.2 F 74 18 117/68 96 04/05/18 12:00 74 04/05/18 08:55 98.3 F 04/05/18 08:00 77 20 126/62 96 04/05/18 07:56 80 20 118/65 96 04/05/18 06:00 74 22 93/47 96 04/05/18 05:00 82 22 111/60 93 04/05/18 04:45 99.0 F 80 22 110/57 96 04/05/18 04:00 97.6 F 79 23 116/61 94 04/05/18 03:14 98.6 F 80 20 124/73 95 04/05/18 03:00 98.6 F 82 22 107/48 96 04/05/18 02:59 98.6 F 78 22 107/48 94 04/05/18 02:50 79 20 117/58 96 04/05/18 02:49 98.6 F 80 22 117/58 94 04/05/18 02:00 86 26 114/53 94 04/05/18 01:55 98.2 F 83 22 123/71 96 04/05/18 01:50 98.2 F 84 18 123/71 22 04/05/18 01:00 98.1 F 80 20 114/75 95 04/05/18 00:59 98.1 F 80 18 114/75 95 04/05/18 00:45 98.1 F 83 18 111/60 96 04/05/18 00:44 98.1 F 84 18 111/60 97 04/05/18 00:15 98.1 F 82 26 117/64 95 04/05/18 00:05 98.1 F 04/05/18 00:00 98.1 F 85 24 119/71 96 04/04/18 23:00 82 16 120/75 97 04/04/18 22:15 98.2 F 79 20 90/62 96 04/04/18 22:02 98.7 F 85 22 102/59 96 04/04/18 22:00 98.7 F 85 24 102/59 95 04/04/18 21:30 98.7 F 86 24 101/51 96 04/04/18 20:27 99 F 04/04/18 20:00 98.7 F 86 26 119/45 98 04/04/18 19:00 98.1 F 92 16 114/34 98 Intake and Output 04/05/18 04/05/18 04/05/18 07:59 15:59 23:59 Intake Total 1563 / 1563 Output Total 1800 / 1800 900 / 900 Balance -237 / -237 -900 / -900 Intake: Blood Product 1563 / 1563 Plasma Unit [id number] 325 / 325 Plasma Unit [id number] 615 / 615 Rbcs Leuko Poor As-1 Unit 308 / 308 [id number] Rbcs Leuko Poor As-1 Unit 315 / 315 [id number] Output: Catheter 1800 / 1800 900 / 900 Other: Weight 85.5 kg Patient Weight 04/05/18 23:59 Weight 85.5 kg - Labs CBC & BMP: 04/05/18 15:18 04/05/18 04:00 Labs: Abnormal lab results RBC 3.09 M/mcL (3.82-4.97) L 04/05/18 04:00 Hgb 10.4 g/dL (11.5-15.4) L 04/05/18 15:18 Hct 29.0 % (35.3-44.9) L 04/05/18 15:18 RDW 15.5 % (11.5-14.5) H 04/05/18 04:00 MPV 9.3 fL (9.4-12.4) L 04/05/18 04:00 Monocytes # 1.4 K/mcL (0.0-1.3) H 04/05/18 04:00 Nucleated RBCs/100 WBC 1.0 /100 WBC (0) H 04/05/18 04:00 PT 16.8 Seconds (9.4-12.1) H 04/05/18 04:00 Heparin Anti-Xa, Unfract 0.74 IU/mL (0.30-0.70) H 04/03/18 01:19 Carbon Dioxide 32 mEq/L (23-29) H 04/05/18 04:00 BUN 24 mg/dL (8-23) H 04/05/18 04:00 Est GFR (Non-Af Amer) 57 (> 60) L 04/05/18 04:00 POC Glucose 173 mg/dL (70-99) H 04/04/18 09:21 Iron 19 mcg/dL (50-170) L 04/01/18 08:12 % Saturation 7 % (15-50) L 04/01/18 08:12 Transferrin 202 mg/dL (203-362) L 04/01/18 08:12 Albumin 3.4 g/dL (3.5-5.7) L 03/30/18 07:09 Albumin/Globulin Ratio 1.0 (1.1-2.2) L 03/30/18 07:09 Folate 19.4 ng/mL (3.0-16.0) H 04/01/18 08:12 - VTE Documentation of Mechanical Device: Venous foot pump, device Consult Discharge Plan - Plan Referrals: Santos Robbins Jr, PAC [Primary Care Provider] -
[2018-04-05] MEDS: rOPINIRole 1 MG TABLET PO SCH (20:40)
[2018-04-06] MEDS: 0.9 % Sodium Chloride 250 ML IVC SCH ×2 (00:44→10:42)
[2018-04-06] MEDS: *HR* OxyCODONE Immed Rel 5 MG TABLET PO PRN ×3 (00:44→20:19)
[2018-04-06] MEDS: Acetaminophen 325 MG TABLET PO SCH ×5 (00:44→23:40)
[2018-04-06] MEDS: *HR* HYDROcodone/Acet 5/325 mg TABLET PO PRN ×2 (03:37→08:56)
[2018-04-06 04:42] LABS: Hemoglobin 10.1 g/dL (11.5-15.4); Mean Corpuscular HGB Conc 33.7 g/dL (31.6-35.5); Mean Corpuscular Hemoglobin 30.3 pg (28.0-33.3); Mean Corpuscular Volume 90.1 fL (83.0-100.0); Mean Platelet Volume 9.4 fL (9.4-12.4); Platelet Count 249 K/mcL (140-400); Red Blood Count 3.33 M/mcL (3.82-4.97); Red Cell Distribution Width 15.4 % (11.5-14.5)
[2018-04-06 04:45] LABS: INR 1.2; Prothrombin Time 13.4 Seconds (9.4-12.1)
[2018-04-06 05:02] LABS: BUN/Creatinine Ratio 27 (6-26); Blood Urea Nitrogen 26 mg/dL (8-23); Carbon Dioxide 32 mEq/L (23-29); Chloride 99 mEq/L (98-107); Glucose 83 mg/dL (70-105); Osmolality,Calculated 286 (280-300); Potassium 3.7 mEq/L (3.5-5.1); Sodium 136 mEq/L (136-145); eGFR For Non-African Americans 58 (> 60)
[2018-04-06] MEDS: Famotidine 20 MG TABLET PO SCH ×2 (08:58→20:19)
[2018-04-06] MEDS: Magnesium Oxide 400 MG TABLET PO SCH ×2 (08:59→20:19)
[2018-04-06] MEDS: Cholecalciferol (D-3) 1,000 UNIT TABLET PO SCH (08:59)
[2018-04-06] MEDS: Multivit/Ca/Min/Fe/FA 1 TAB TABLET PO SCH (09:00)
[2018-04-06] MEDS: Folic Acid 1 MG TABLET PO SCH (09:00)
[2018-04-06] MEDS: Furosemide 20 MG/2 ML VIAL IVP SCH ×2 (09:02→18:08)
--- NOTE | 2018-04-06 09:30 | Oncology Inp Progress Note ---
<AsyaCamilo Boo - Last Filed: 04/06/18 17:21> Date of Encounter: 04/06/18 Time of Encounter: 09:28 (1) Anemia Current Visit: Yes Status: Acute Assessment and plan: Likely multifactorial with acute on chronic anemia with anemia of chronic disease along with acute blood loss anemia. Patient appears to be bleeding in the right hip. CT revealed a large hematoma. Patient underwent angiography 2 days ago and attempt to embolize the source of bleeding however no source was found. Patient has been transfused a total of 9 units during her hospitalization. Hemoglobin stable today, appears that bleeding has stopped. Qualifiers: Anemia type: other cause Other causes of anemia: other cause, not classified Qualified Code(s): D64.89 - Other specified anemias (2) DVT (deep venous thrombosis) Current Visit: Yes Status: Acute Assessment and plan: Bilateral lower extremity duplex reveals acute DVT bilaterally. Patient was previously being treated as an outpatient on Coumadin. This is been held and patient is currently not on any anticoagulation. Patient had IVC filter placed 04/03. Will closely monitor over the next few days and consider possibly challenging patient with heparin, as long-term the patient would benefit greatly from completing a course of anticoagulation. Qualifiers: DVT location: lower extremity Affected thrombotic vein of extremity: unspecified vein of extremity Chronicity: acute Laterality: bilateral Qualified Code(s): I82.403 - Acute embolism and thrombosis of unspecified deep veins of lower extremity, bilateral Oncology: Subj Interval history: Patient seen and examined at bedside. Patient states that she feels okay this morning, she reports continued pain in her right hip. She denies any source of bleeding including hematemesis, hematochezia, melena, hematuria. - Constitutional Vitals: Vital Signs Temp Pulse Resp BP Pulse Ox 04/06/18 07:02 98.3 F 77 18 122/59 96 04/06/18 04:20 98.2 F 78 19 111/58 95 04/06/18 00:04 98.0 F 79 17 89/55 92 04/05/18 20:30 85 04/05/18 20:15 98.1 F 87 19 111/62 97 04/05/18 16:00 82 04/05/18 15:31 98.4 F 76 18 126/72 97 04/05/18 14:15 98.2 F 74 18 117/68 96 04/05/18 12:00 74 Intake and Output 04/05/18 04/06/18 04/06/18 23:59 07:59 15:59 Intake Total 240 / 240 0 / 0 Output Total 700 / 700 1000 / 1000 Balance -460 / -460 -1000 / -1000 0 / 0 Intake: Oral 240 / 240 0 / 0 Output: Catheter 700 / 700 1000 / 1000 Other: Meal Breakfast Percent of Meal Consumed 0% Weight 86.9 kg Patient Weight 04/06/18 23:59 Weight 86.9 kg General appearance: no acute distress - Respiratory Respiratory exam: Present: CTAB. Absent: rales, wheezes - Cardiovascular Cardiovascular exam: Present: RRR. Absent: diastolic murmur, systolic murmur - GI/Abdominal GI/Abdominal exam: Present: hypoactive bowel sounds, soft. Absent: tenderness - Extremities Exam Additional comments: Right lateral leg has dressing applied which is clean and dry. Swelling, ecchymosis, warmth noted, unchanged from yesterday. - Neurological Exam Neurological exam: Present: alert, oriented X3 Oncology: Obj Data - Labs CBC & Chem 7: 04/06/18 04:15 04/06/18 04:15 Labs: Laboratory Results - last 24 hr 04/05/18 04/06/18 04/06/18 15:18 04:15 04:15 WBC 10.1 RBC 3.33 L Hgb 10.4 L 10.1 L Hct 29.0 L 30.0 L MCV 90.1 MCH 30.3 MCHC 33.7 RDW 15.4 H Plt Count 249 MPV 9.4 PT 13.4 H INR 1.2 Sodium Potassium Chloride Carbon Dioxide BUN Creatinine Est GFR ( Amer) Est GFR (Non-Af Amer) BUN/Creatinine Ratio Glucose Calculated Osmolality Calcium 04/06/18 04:15 WBC RBC Hgb Hct MCV MCH MCHC RDW Plt Count MPV PT INR Sodium 136 Potassium 3.7 Chloride 99 Carbon Dioxide 32 H BUN 26 H Creatinine 0.95 Est GFR ( Amer) > 60 Est GFR (Non-Af Amer) 58 L BUN/Creatinine Ratio 27 H Glucose 83 Calculated Osmolality 286 Calcium 9.0 - ABG Interpretation ABG results: PT/INR, D-dimer PT 13.4 Seconds (9.4-12.1) H 04/06/18 04:15 Consult Discharge Plan - Plan Referrals: Santos Robbins Jr, PAC [Primary Care Provider] - <Edin Denton - Last Filed: 04/06/18 19:05> Date of Encounter: 04/06/18 - Constitutional Vitals: Vital Signs Temp Pulse Resp BP Pulse Ox 04/06/18 18:19 85 18 104/59 96 04/06/18 16:06 98.2 F 82 16 105/64 94 04/06/18 15:09 88 18 107/64 93 04/06/18 14:45 18 107/62 94 04/06/18 14:30 93 18 105/65 94 04/06/18 14:20 92 04/06/18 14:06 91 20 112/56 95 04/06/18 10:43 86 04/06/18 10:27 82 18 92 04/06/18 10:24 98.1 F 85 18 115/44 93 04/06/18 07:02 98.3 F 77 18 122/59 96 04/06/18 04:20 98.2 F 78 19 111/58 95 04/06/18 00:04 98.0 F 79 17 89/55 92 04/05/18 20:30 85 04/05/18 20:15 98.1 F 87 19 111/62 97 Intake and Output 04/06/18 04/06/18 04/07/18 08:59 16:59 00:59 Intake Total 0 / 0 610 / 610 Output Total 1000 / 1000 250 / 250 Balance -1000 / -1000 360 / 360 Intake: IV Fluids 250 / 250 0.9 % Sodium Chloride 250 ML @ 250 / 250 25 mls/hr IVC .Q10H [facility] Rx#: [id number] Oral 0 / 0 360 / 360 Output: Catheter 1000 / 1000 250 / 250 Other: Meal Breakfast Lunch Percent of Meal Consumed 0% 50% Weight 86.9 kg 60 kg Patient Weight 04/07/18 00:59 Weight 60 kg Oncology: Obj Data - Labs CBC & Chem 7: 04/06/18 04:15 04/06/18 04:15 Labs: Laboratory Results - last 24 hr 04/06/18 04/06/18 04/06/18 04:15 04:15 04:15 WBC 10.1 RBC 3.33 L Hgb 10.1 L Hct 30.0 L MCV 90.1 MCH 30.3 MCHC 33.7 RDW 15.4 H Plt Count 249 MPV 9.4 PT 13.4 H INR 1.2 Sodium 136 Potassium 3.7 Chloride 99 Carbon Dioxide 32 H BUN 26 H Creatinine 0.95 Est GFR ( Amer) > 60 Est GFR (Non-Af Amer) 58 L BUN/Creatinine Ratio 27 H Glucose 83 Calculated Osmolality 286 Calcium 9.0 - ABG Interpretation ABG results: PT/INR, D-dimer PT 13.4 Seconds (9.4-12.1) H 04/06/18 04:15 Inpatient Charges Provider: Dr. Rohan Denton Follow Up: [id number] - Attending Attestation I examined this patient and my medical decision-making was reviewed with the resident. I agree with the documented findings, disposition and treatment plan as described except to the extent set forth below. She is recovering from her right hip replacement surgery with associated hemorrhage. Hemoglobin has been stable for 48 hours. We will continue to monitor her for the time being. We will consider re-challenging her anticoagulation on Tuesday or Tuesday this coming week. Continue to monitor daily CBC.
--- NOTE | 2018-04-06 10:24 | Internal Med Progress Note ---
Hospitalist Progress Note - Encounter Date of Encounter: 04/06/18 Time of Encounter: 10:20 - Subjective Interval History: No acute events overnight. Transferred out of the ICU - Exam Vitals: Temp Pulse Resp BP Pulse Ox 98.3 F 77 18 122/59 96 04/06/18 07:02 04/06/18 07:02 04/06/18 07:02 04/06/18 07:02 04/06/18 07:02 Exam: Gen: NAD, AAO x3, In distress due to pain CVS: RRR, S1, S2 normal Lungs: CTA.no wheezing, rales, or rhonchi. Abd: Soft, NT/ND. Ext: 1+ bipedal, non-pitting edema. Rigoberto wrap removed. Swelling of Rt thigh with some bruising. Very tender. Skin: wound on center of chest with dressing. central scar noted. - Assessment and Plan (1) Closed right femoral fracture Current Visit: Yes Status: Acute Assessment and Plan: Patient had a right hip ORIF on 03/31/18 Patient's postoperative course was complicated by an acute drop in blood pressure and hemoglobin of 5.3 today, which was down from 10.0 on 04/01/18. Ortho following. Transfuse PRBC 04/06. Hemoglobin is stable at 10.1. 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 On admission, INR was subtherapeutic on Coumadin. She was transitioned to Lovenox bridging to warfarin after recent right hip surgery 3 days ago. Anticoagulation has been held due to ongoing bleeding. Vascular surgery placed IVC filter on 04/03/18 due to active bleeding on anticoagulation. Follow up hematology recs. 04/06 INR is 1.2 today and hematology following regaridng possible resumption of anticoagulation (3) DVT prophylaxis Current Visit: Yes Status: Acute Assessment and Plan: Has IVC filter. Anticoagulation has been held due to active bleeding. (4) Acute blood loss anemia Current Visit: Yes Status: Acute Assessment and Plan: Patient has had drops in hemoglobin intermittently post surgery and has received a total of 9 units PRBC total and 4 units FFP. Hemglobin improved to 10.4 this am and she had received a total of 9 units of PRBC total. Likely secondary to acute bleeding post surgery from right hip. Orthopedic surgery following. Patient has edematous lower extremity, and sensation is intact. Monitor CBC. CT scan showed a large right anterior compartment hematoma. Ortho says no indication to evacuate hematoma at this point. 04/06 Hemoglobin stable today at 10.1. Hematology following (5) Hypotension due to blood loss Current Visit: Yes Status: Resolved Assessment and Plan: Continue resuscitation with IV fluids and PRBC - Time Spent with Patient Total time spent is greater than 50% in coordination of care (as documented) at patient's floor/unit and/or counseling patient: Internal Medicine: Result - Labs CBC & Chem 7: 04/06/18 04:15 04/06/18 04:15 Labs: Short CBC 04/05/18 04/06/18 Range/Units 15: 04:15 WBC 10.1 (4.3-11.1) K/mcL Hgb 10.4 L 10.1 L (11.5-15.4) g/dL Hct 29.0 L 30.0 L (35.3-44.9) % Plt Count 249 (140-400) K/mcL BMP 04/06/18 04:15 Sodium 136 Potassium 3.7 Chloride 99 Carbon Dioxide 32 H BUN 26 H Creatinine 0.95 Glucose 83 Calcium 9.0 - ABG Interpretation ABG results: PT/INR, D-dimer PT 13.4 Seconds (9.4-12.1) H 04/06/18 04:15 - VTE Documentation of Mechanical Device: Venous foot pump, device Consult Discharge Plan - Plan Referrals: Santos Robbins Jr, PAC [Primary Care Provider] - (1) Closed right femoral fracture Qualifiers: Encounter type: initial encounter Femur location: neck Qualified Code(s): S72.001A - Fracture of unspecified part of neck of right femur, initial encounter for closed fracture (2) DVT (deep venous thrombosis) Qualifiers: DVT location: lower extremity Affected thrombotic vein of extremity: unspecified vein of extremity Chronicity: acute Laterality: bilateral Qualified Code(s): I82.403 - Acute embolism and thrombosis of unspecified deep veins of lower extremity, bilateral
[2018-04-06] MEDS: *HR* Methotrexate 2.5 MG TABLET PO SCH (10:36)
--- NOTE | 2018-04-06 15:38 | Orthopedics Progress Note ---
Date of Encounter: 04/06/18 Time of Encounter: 15:34 Subjective Principal diagnosis: Periprosthetic fracture right femur Interval history: 04/01/2018. Patient is postop day #1 from ORIF of a midshaft periprosthetic fracture of the right femur. Patient is doing remarkably well. Pain is minimal and well controlled. Vital signs are stable. Patient is afebrile. Dressings are clean dry and intact. Hemoglobin is 10.0. Patient had a hemoglobin of 8 prior to surgery and did receive 2 units of pack red blood cells intraoperatively. White blood cell count is elevated at 14.2. Platelet count is normal at 194. Pro time is 19.8. INR 1.8 kidney function is improved from preop. Impression: POD #1 ORIF periprosthetic fracture right femur Recommendation: Orthopedic status is excellent. Discussed with the patient that she can ambulate with full on limited motion of her hip knee and ankle. Her only limitation is to be strictly nonweightbearing on the right lower extremity. Patient can resume home medications including Coumadin at the discretion of the internal medicine physicians. We will probably perform dressing change tomorrow. Discussed with the patient that I did not closer fascia in the lateral thigh through the tremendous amount of swelling in the muscle. 04/02/2018. Patient POD #2 ORIF right periprosthetic femur fracture. Having pain as anticipated. Vital signs reveal blood pressure of about 90/50. She is afebrile. Dressings were taken down. Incision is clean dry and intact. Hemoglobin not obtained today. Impression: POD #2 ORIF periprosthetic right femur fracture Recommendation: Orthopedic status remains stable. Patient can be ambulatory with nonweightbearing on the right lower extremity. Pain management as able, caution with somewhat low blood pressure. To be bridged with Lovenox until her pro time and INR are therapeutic in regards to her DVT treatment. Anticipate patient need for rehabilitation stay. 04/03/2018. Patient POD #3 ORIF right periprosthetic femur fracture. Patient is sleepy from sedation for placement of an IVC filter. Vital signs are stable. Patient is afebrile. Dressings are clean and dry. Thigh is somewhat edematous. As previously noted the patient did not have fascial closure and would anticipate her having prominence or fullness along the lateral side of the thigh underneath her incision. Hemoglobin had dropped to 7.5. Platelet count remained stable at 286. Impression: POD #3 ORIF periprosthetic fracture right femur Plan: Orthopedic status remains stable. Patient can ambulate with nonweightbearing on the right lower extremity. Local wound care for her extensile right lateral thigh incision. senior administrative services officer for discharge planning , anticipate short-term rehabilitation stay. 04/04/2018. Patient POD #4 ORIF right periprosthetic femur fracture. Patient complains of anticipated right thigh pain. Vital signs are stable. Patient is afebrile. Thigh is increased in size. Distal neurosensory exam remains intact. Calf is soft. Posterior thigh is soft. Hemoglobin was 5 after multiple units of pack red blood cells. Patient continues to be coagulopathic with a ProTime of 21.6 though the INR is 1.9. Impression: POD number for ORIF right periprosthetic femur fracture Recommendation: Would recommend treating the coagulopathy as the patient now has a IVC filter. Discussed with ICU staff. Orthopedic status remains stable. Would prefer to not open the wound to evacuate a hematoma, this should resolve spontaneously in time. Ambulate when appropriate with medical service. 04/05/2018. Patient now postop day #5 ORIF periprosthetic fracture right femur. Patient is having right thigh pain. Vital signs are stable. Patient is afebrile. The right thigh shows fullness in the anterior and lateral aspect. Incision is intact. She is draining serous fluid. Patient's entire lower extremity is edematous. Left sides likewise shows some edema in the soft tissues. Hemoglobin is now stable at 10.4. Impression: POD #5 ORIF right periprosthetic femur fracture, hemoglobin currently stable. Recommendation: Patient had much more extensive bleeding after her surgery as well as the anticoagulation. Patient is a complex case that required treatment for an acute fracture with index anticipated extensive blood loss as well as chronic anticoagulation for bilateral lower extremity DVT. Patient ultimately had a IVC filter placed anticoagulants. The patient continued to have persistent bleeding due to persistent elevation of her bleeding times. These have more normalized since reversal agents were given. At this time I do not anticipate any additional further bleeding. Done anticipate any need for further surgical intervention. As previously noted the lateral thigh fascia was not closed so the risk of a compartment syndrome is nearly nil. 04/06/2018. Patient is postop day #6 ORIF of a right periprosthetic femur fracture. Bilateral lower extremity DVT. Patient is doing quite well overall. Having anticipated pain though this is improving. Vital signs are stable. Patient is afebrile. Thigh remained soft though quite edematous. Incision is intact. Draining some serous fluid. Hemoglobin is stable at 10.1. Platelet count is normal. Impression POD #6 ORIF periprosthetic fracture right femur. Recommendations: As noted the patient had extensive hemorrhage postop from a major fracture as well as the anticoagulants. Off the anticoagulants her hemoglobin has remained stable. She is protected with an IVC. Per hematology, a course of treatment with anticoagulations would be best for the patient. I would recommend that we wait at least 48 hours with a stable hemoglobin before attempting anticoagulation. Orthopedic status is stable. Can mobilize when okayed with medical service. Objective Vital signs: Vital Signs Temp Pulse Resp BP Pulse Ox 04/06/18 15:09 88 18 107/64 93 04/06/18 14:45 18 107/62 94 04/06/18 14:30 93 18 105/65 94 04/06/18 14:20 92 04/06/18 14:06 91 20 112/56 95 04/06/18 10:43 86 04/06/18 10:27 82 18 92 04/06/18 10:24 98.1 F 85 18 115/44 93 04/06/18 07:02 98.3 F 77 18 122/59 96 04/06/18 04:20 98.2 F 78 19 111/58 95 04/06/18 00:04 98.0 F 79 17 89/55 92 04/05/18 20:30 85 04/05/18 20:15 98.1 F 87 19 111/62 97 04/05/18 16:00 82 Intake and Output 04/05/18 04/06/18 04/06/18 23:59 07:59 15:59 Intake Total 240 / 240 610 / 610 Output Total 700 / 700 1000 / 1000 250 / 250 Balance -460 / -460 -1000 / -1000 360 / 360 Intake: IV Fluids 250 / 250 0.9 % Sodium Chloride 250 ML @ 250 / 250 25 mls/hr IVC .Q10H [facility] Rx#: [id number] Oral 240 / 240 360 / 360 Output: Catheter 700 / 700 1000 / 1000 250 / 250 Other: Meal Lunch Percent of Meal Consumed 50% Weight 86.9 kg 60 kg Patient Weight 04/06/18 23:59 Weight 60 kg - Labs CBC & BMP: 04/06/18 04:15 04/06/18 04:15 Labs: Abnormal lab results RBC 3.33 M/mcL (3.82-4.97) L 04/06/18 04:15 Hgb 10.1 g/dL (11.5-15.4) L 04/06/18 04:15 Hct 30.0 % (35.3-44.9) L 04/06/18 04:15 RDW 15.4 % (11.5-14.5) H 04/06/18 04:15 Monocytes # 1.4 K/mcL (0.0-1.3) H 04/05/18 04:00 Nucleated RBCs/100 WBC 1.0 /100 WBC (0) H 04/05/18 04:00 PT 13.4 Seconds (9.4-12.1) H 04/06/18 04:15 Heparin Anti-Xa, Unfract 0.74 IU/mL (0.30-0.70) H 04/03/18 01:19 Carbon Dioxide 32 mEq/L (23-29) H 04/06/18 04:15 BUN 26 mg/dL (8-23) H 04/06/18 04:15 Est GFR (Non-Af Amer) 58 (> 60) L 04/06/18 04:15 BUN/Creatinine Ratio 27 (6-26) H 04/06/18 04:15 POC Glucose 173 mg/dL (70-99) H 04/04/18 09:21 Iron 19 mcg/dL (50-170) L 04/01/18 08:12 % Saturation 7 % (15-50) L 04/01/18 08:12 Transferrin 202 mg/dL (203-362) L 04/01/18 08:12 Albumin 3.4 g/dL (3.5-5.7) L 03/30/18 07:09 Albumin/Globulin Ratio 1.0 (1.1-2.2) L 03/30/18 07:09 Folate 19.4 ng/mL (3.0-16.0) H 04/01/18 08:12 - VTE Documentation of Mechanical Device: Venous foot pump, device Consult Discharge Plan - Plan Referrals: Santos Robbins Jr, PAC [Primary Care Provider] -
[2018-04-06] MEDS: rOPINIRole 1 MG TABLET PO SCH (20:18)
[2018-04-07] MEDS: *HR* OxyCODONE Immed Rel 5 MG TABLET PO PRN ×4 (03:03→21:30)
[2018-04-07] MEDS: Acetaminophen 325 MG TABLET PO SCH ×3 (05:03→18:51)
[2018-04-07] MEDS: Folic Acid 1 MG TABLET PO SCH (09:11)
[2018-04-07] MEDS: Multivit/Ca/Min/Fe/FA 1 TAB TABLET PO SCH (09:11)
[2018-04-07] MEDS: Furosemide 20 MG/2 ML VIAL IVP SCH ×2 (09:12→15:39)
[2018-04-07] MEDS: Cholecalciferol (D-3) 1,000 UNIT TABLET PO SCH (09:12)
[2018-04-07] MEDS: Magnesium Oxide 400 MG TABLET PO SCH ×2 (09:12→21:28)
[2018-04-07] MEDS: Famotidine 20 MG TABLET PO SCH ×2 (09:12→21:28)
--- NOTE | 2018-04-07 10:32 | Oncology Inp Progress Note ---
<VashtiCamilo jacobson - Last Filed: 04/07/18 17:41> Date of Encounter: 04/07/18 Time of Encounter: 10:29 (1) Anemia Current Visit: Yes Status: Acute Assessment and plan: Likely multifactorial with acute on chronic anemia with anemia of chronic disease along with acute blood loss anemia. Patient appears to be bleeding in the right hip. CT revealed a large hematoma. Patient underwent angiography earlier in hospitalization and attempt to embolize the source of bleeding however no source was found. Patient has been transfused a total of 9 units during her hospitalization. Hemoglobin stable today, appears that bleeding has stopped. Qualifiers: Anemia type: other cause Other causes of anemia: other cause, not classified Qualified Code(s): D64.89 - Other specified anemias (2) DVT (deep venous thrombosis) Current Visit: Yes Status: Acute Assessment and plan: Bilateral lower extremity duplex reveals acute DVT bilaterally. Patient was previously being treated as an outpatient on Coumadin. This is been held and patient is currently not on any anticoagulation. Patient had IVC filter placed 04/03. Appreciate orthopedic recommendations, we will likely monitor the patient over the weekend and plan to rechallenge her with heparin on Tuesday or Tuesday in an attempt to restart her long-term anticoagulation Qualifiers: DVT location: lower extremity Affected thrombotic vein of extremity: unspecified vein of extremity Chronicity: acute Laterality: bilateral Qualified Code(s): I82.403 - Acute embolism and thrombosis of unspecified deep veins of lower extremity, bilateral Oncology: Subj Interval history: Seen and examined at bedside. Patient states that she feels okay today. She reports pain in her right hip that is tracking down to her right knee. She reports pain medication helps with this pain. She denies any evidence of active bleeding. - Constitutional Vitals: Vital Signs Temp Pulse Resp BP Pulse Ox 04/07/18 06:55 97.9 F 83 18 104/70 93 04/07/18 03:13 98.0 F 85 18 121/62 96 04/07/18 00:43 87 04/06/18 23:38 98.0 F 86 18 113/74 96 04/06/18 22:22 98.5 F 04/06/18 20:27 79 04/06/18 19:47 98.5 F 80 17 100/61 96 04/06/18 18:19 85 18 104/59 96 04/06/18 16:06 98.2 F 82 16 105/64 94 04/06/18 15:09 88 18 107/64 93 04/06/18 14:45 18 107/62 94 04/06/18 14:30 93 18 105/65 94 04/06/18 14:20 92 04/06/18 14:06 91 20 112/56 95 04/06/18 10:43 86 Intake and Output 04/06/18 04/07/18 04/07/18 23:59 07:59 15:59 Intake Total 240 / 240 Output Total 650 / 650 250 / 250 Balance -650 / -650 -250 / -250 240 / 240 Intake: Oral 240 / 240 Output: Catheter 650 / 650 250 / 250 Other: Meal Breakfast Percent of Meal Consumed 45% Weight 62.2 kg Patient Weight 04/07/18 23:59 Weight 62.2 kg General appearance: no acute distress - Respiratory Respiratory exam: Present: CTAB. Absent: rales, wheezes - Cardiovascular Cardiovascular exam: Present: RRR. Absent: diastolic murmur, systolic murmur - GI/Abdominal GI/Abdominal exam: Present: soft. Absent: tenderness - Extremities Exam Additional comments: Dressing applied to right hip, dressing clean dry and intact. Swelling noted to the right hip and upper leg, stable from previous exams - Neurological Exam Neurological exam: Present: alert, oriented X3 Oncology: Obj Data - Labs CBC & Chem 7: 04/07/18 10:43 04/06/18 04:15 - ABG Interpretation ABG results: PT/INR, D-dimer PT 13.4 Seconds (9.4-12.1) H 04/06/18 04:15 Consult Discharge Plan - Plan Referrals: Santos Robbins Jr, PAC [Primary Care Provider] - <Edin Denton - Last Filed: 04/07/18 22:03> Date of Encounter: 04/07/18 - Constitutional Vitals: Vital Signs Temp Pulse Resp BP Pulse Ox 04/07/18 19:35 98.3 F 93 18 120/59 97 04/07/18 15:46 97.9 F 85 18 118/76 98 04/07/18 11:54 98.0 F 86 18 108/63 98 04/07/18 06:55 97.9 F 83 18 104/70 93 04/07/18 03:13 98.0 F 85 18 121/62 96 04/07/18 00:43 87 04/06/18 23:38 98.0 F 86 18 113/74 96 04/06/18 22:22 98.5 F Intake and Output 04/07/18 04/07/18 04/08/18 08:59 16:59 00:59 Intake Total 240 / 240 240 / 240 Output Total 250 / 250 1200 / 1200 400 / 400 Balance -250 / -250 -960 / -960 -160 / -160 Intake: Oral 240 / 240 240 / 240 Output: Catheter 250 / 250 1200 / 1200 400 / 400 Other: Meal Breakfast Dinner Percent of Meal Consumed 45% 0% Weight 62.2 kg Patient Weight 04/08/18 00:59 Weight 62.2 kg Oncology: Obj Data - Labs CBC & Chem 7: 04/07/18 10:43 04/06/18 04:15 Labs: Laboratory Results - last 24 hr 04/07/18 04/07/18 10:43 10:43 WBC 9.6 RBC 3.26 L Hgb 9.6 L Hct 29.6 L MCV 90.8 MCH 29.4 MCHC 32.4 RDW 15.6 H Plt Count 313 MPV 9.3 L Immature Gran % 0.5 Seg Neutrophils % 72.0 Lymphocytes % 13.3 Monocytes % 9.7 Eosinophils % 4.3 Basophils % 0.2 Neutrophils # 6.9 Lymphocytes # 1.3 Monocytes # 0.9 Eosinophils # 0.4 Basophils # 0.0 PT 12.7 H INR 1.1 - Impressions Impressions Fluoroscopy 03/31/18 20:55 IMPRESSION: Intraprocedural fluoroscopic spot images as above. See separate procedure report for more information. D/ / Elias Brown / Elias Brown Interpreting Provider: Elias Brown Abdomen Arteriogram 04/04/18 00:00 IMPRESSION: Successful ultrasound guided non-tunneled catheter placement. D/ / Sg [place] MD / Sg Colorado MD Interpreting Provider: Sg Colorado MD Guidance Ultrasound 04/04/18 00:00 IMPRESSION: Successful ultrasound guided non-tunneled catheter placement. D/ / Sg Colorado MD / Sg Colorado MD Interpreting Provider: Sg Colorado MD - ABG Interpretation ABG results: PT/INR, D-dimer PT 12.7 Seconds (9.4-12.1) H 04/07/18 10:43 Inpatient Charges Provider: Dr. Rohan Denton Follow Up: [id number] - Attending Attestation I examined this patient and my medical decision-making was reviewed with the resident. I agree with the documented findings, disposition and treatment plan as described except to the extent set forth below. She remains very uncomfortable and is having a difficult time controlling her pain. The pain medicine is effective it makes her sleepy. Hemoglobin remains stable. We will continue to watch this peripherally over the course the weekend. On Tuesday, we will plan to reinitiate heparin drip for her bilateral DVT.
--- NOTE | 2018-04-07 10:36 | Internal Med Progress Note ---
Hospitalist Progress Note - Encounter Date of Encounter: 04/07/18 Time of Encounter: 10:30 - Subjective Interval History: No acute events overnight. - Exam Vitals: Temp Pulse Resp BP Pulse Ox 97.9 F 83 18 104/70 93 04/07/18 06:55 04/07/18 06:55 04/07/18 06:55 04/07/18 06:55 04/07/18 06:55 Exam: Gen: NAD, AAO x3, In distress due to pain CVS: RRR, S1, S2 normal Lungs: CTA.no wheezing, rales, or rhonchi. Abd: Soft, NT/ND. Ext: 1+ bipedal, non-pitting edema. Rigoberto wrap removed. Swelling of Rt thigh with some bruising. Very tender. Skin: wound on center of chest with dressing. central scar noted. - Assessment and Plan (1) Closed right femoral fracture Current Visit: Yes Status: Acute Assessment and Plan: Patient had a right hip ORIF on 03/31/18 Patient's postoperative course was complicated by an acute drop in blood pressure and hemoglobin of 5.3 today, which was down from 10.0 on 04/01/18. Ortho following. Transfuse PRBC 04/07. Stable per orthopedic surgery. Will encourage ambulation (2) DVT (deep venous thrombosis) Current Visit: Yes Status: Acute Assessment and Plan: Lower extremity duplex revealed acute DVT bilaterally, results are consistent with previous results in February 2018 status post CABG surgery. On admission, INR was subtherapeutic on Coumadin. She was transitioned to Lovenox bridging to warfarin after recent right hip surgery 3 days ago. Anticoagulation has been held due to ongoing bleeding. Vascular surgery placed IVC filter on 04/03/18 due to active bleeding on anticoagulation. Follow up hematology recs. 04/07Hematology plan to resume anticoagulation. Resume as tolerated (3) DVT prophylaxis Current Visit: Yes Status: Acute Assessment and Plan: Has IVC filter. Anticoagulation has been held due to active bleeding. (4) Acute blood loss anemia Current Visit: Yes Status: Acute Assessment and Plan: Patient has had drops in hemoglobin intermittently post surgery and has received a total of 9 units PRBC total and 4 units FFP. Hemglobin improved to 10.4 this am and she had received a total of 9 units of PRBC total. Likely secondary to acute bleeding post surgery from right hip. Orthopedic surgery following. Patient has edematous lower extremity, and sensation is intact. Monitor CBC. CT scan showed a large right anterior compartment hematoma. Ortho says no indication to evacuate hematoma at this point. 04/07 Hemoglobin stable. Hematology following (5) Hypotension due to blood loss Current Visit: Yes Status: Resolved Assessment and Plan: Continue resuscitation with IV fluids and PRBC - Time Spent with Patient Total time spent is greater than 50% in coordination of care (as documented) at patient's floor/unit and/or counseling patient: Internal Medicine: Result - Labs CBC & Chem 7: 04/07/18 10:43 04/06/18 04:15 - ABG Interpretation ABG results: PT/INR, D-dimer PT 13.4 Seconds (9.4-12.1) H 04/06/18 04:15 - VTE Documentation of Mechanical Device: Venous foot pump, device Consult Discharge Plan - Plan Referrals: Santos Robbins Jr, PAC [Primary Care Provider] - (1) Closed right femoral fracture Qualifiers: Encounter type: initial encounter Femur location: neck Qualified Code(s): S72.001A - Fracture of unspecified part of neck of right femur, initial encounter for closed fracture (2) DVT (deep venous thrombosis) Qualifiers: DVT location: lower extremity Affected thrombotic vein of extremity: unspecified vein of extremity Chronicity: acute Laterality: bilateral Qualified Code(s): I82.403 - Acute embolism and thrombosis of unspecified deep veins of lower extremity, bilateral
[2018-04-07 10:57] LABS: Basophils % 0.2 %; Eosinophils # 0.4 K/mcL (0.0-0.6); Eosinophils % 4.3 %; Hematocrit 29.6 % (35.3-44.9); Hemoglobin 9.6 g/dL (11.5-15.4); Immature Granulocytes % 0.5 % (0-4); Lymphocytes # 1.3 K/mcL (0.6-4.6); Lymphocytes % 13.3 %; Mean Corpuscular HGB Conc 32.4 g/dL (31.6-35.5); Mean Corpuscular Hemoglobin 29.4 pg (28.0-33.3); Mean Corpuscular Volume 90.8 fL (83.0-100.0); Mean Platelet Volume 9.3 fL (9.4-12.4); Monocytes # 0.9 K/mcL (0.0-1.3); Monocytes % 9.7 %; Neutrophils # 6.9 K/mcL (1.6-8.9); Platelet Count 313 K/mcL (140-400); Red Blood Count 3.26 M/mcL (3.82-4.97); Red Cell Distribution Width 15.6 % (11.5-14.5)
[2018-04-07 11:06] LABS: INR 1.1; Prothrombin Time 12.7 Seconds (9.4-12.1)
[2018-04-07] MEDS: *HR* FentaNYL PATCH 25 MCG PATCH TD SCH (18:57)
[2018-04-07] MEDS: rOPINIRole 1 MG TABLET PO SCH (21:29)
[2018-04-08] MEDS: Acetaminophen 325 MG TABLET PO SCH ×5 (00:29→22:58)
[2018-04-08] MEDS: *HR* HYDROcodone/Acet 5/325 mg TABLET PO PRN ×4 (01:17→21:29)
[2018-04-08] MEDS: *HR* OxyCODONE Immed Rel 5 MG TABLET PO PRN ×3 (05:17→19:00)
[2018-04-08 06:05] LABS: Basophils % 0.2 %; Eosinophils # 0.4 K/mcL (0.0-0.6); Eosinophils % 4.7 %; Hematocrit 30.3 % (35.3-44.9); Hemoglobin 9.8 g/dL (11.5-15.4); Immature Granulocytes % 0.5 % (0-4); Lymphocytes # 1.2 K/mcL (0.6-4.6); Mean Corpuscular HGB Conc 32.3 g/dL (31.6-35.5); Mean Corpuscular Hemoglobin 30.1 pg (28.0-33.3); Mean Corpuscular Volume 92.9 fL (83.0-100.0); Mean Platelet Volume 8.8 fL (9.4-12.4); Monocytes # 0.5 K/mcL (0.0-1.3); Monocytes % 6.2 %; Neutrophils # 5.9 K/mcL (1.6-8.9); Platelet Count 304 K/mcL (140-400); Red Blood Count 3.26 M/mcL (3.82-4.97); Red Cell Distribution Width 15.5 % (11.5-14.5); Segmented Neutrophils % 73.4 %
[2018-04-08 06:11] LABS: INR 1.1; Prothrombin Time 12.8 Seconds (9.4-12.1)
--- NOTE | 2018-04-08 08:04 | Internal Med Progress Note ---
Hospitalist Progress Note - Encounter Date of Encounter: 04/08/18 Time of Encounter: 08:00 - Subjective Interval History: No acute events overnight. - Exam Vitals: Temp Pulse Resp BP Pulse Ox 98.1 F 90 18 116/53 97 04/08/18 06:32 04/08/18 06:32 04/08/18 06:32 04/08/18 06:32 04/08/18 06:32 Exam: Gen: NAD, AAO x3, In distress due to pain CVS: RRR, S1, S2 normal Lungs: CTA.no wheezing, rales, or rhonchi. Abd: Soft, NT/ND. Ext: 1+ bipedal, non-pitting edema. Rigoberto wrap removed. Swelling of Rt thigh with some bruising. Skin: wound on center of chest with dressing. central scar noted. - Assessment and Plan (1) Closed right femoral fracture Current Visit: Yes Status: Acute Assessment and Plan: Patient had a right hip ORIF on 03/31/18 Patient's postoperative course was complicated by an acute drop in blood pressure and hemoglobin of 5.3, which was down from 10.0 on 04/01/18. Ortho following. Has been transfused PRBC 04/08. Stable per orthopedic surgery. Will encourage ambulation (2) DVT (deep venous thrombosis) Current Visit: Yes Status: Acute Assessment and Plan: Lower extremity duplex revealed acute DVT bilaterally, results are consistent with previous results in February 2018 status post CABG surgery. On admission, INR was subtherapeutic on Coumadin. She was transitioned to Lovenox bridging to warfarin after recent right hip surgery 3 days ago. Anticoagulation has been held due to ongoing bleeding. Vascular surgery placed IVC filter on 04/03/18 due to active bleeding on anticoagulation. Follow up hematology recs. 04/08 Hematology plan to resume anticoagulation gently and monitor for bleeding. Resume as tolerated (3) DVT prophylaxis Current Visit: Yes Status: Acute Assessment and Plan: Has IVC filter. Anticoagulation has been held due to active bleeding. (4) Acute blood loss anemia Current Visit: Yes Status: Acute Assessment and Plan: Patient has had drops in hemoglobin intermittently post surgery and has received a total of 9 units PRBC total and 4 units FFP. Hemglobin improved to 10.4 and she had received a total of 9 units of PRBC total. Likely secondary to acute bleeding post surgery from right hip. Orthopedic surgery following. Patient has edematous lower extremity, and sensation is intact. Monitor CBC. CT scan showed a large right anterior compartment hematoma. Ortho says no indication to evacuate hematoma at this point. 04/08 Hemoglobin stable. Hematology following (5) Hypotension due to blood loss Current Visit: Yes Status: Resolved Assessment and Plan: Continue resuscitation with IV fluids and PRBC - Time Spent with Patient Total time spent is greater than 50% in coordination of care (as documented) at patient's floor/unit and/or counseling patient: Internal Medicine: Result - Labs CBC & Chem 7: 04/08/18 05:38 04/06/18 04:15 Labs: Short CBC 04/07/18 04/08/18 Range/Units 10:43 05:38 WBC 9.6 8.1 (4.3-11.1) K/mcL Hgb 9.6 L 9.8 L (11.5-15.4) g/dL Hct 29.6 L 30.3 L (35.3-44.9) % Plt Count 313 304 (140-400) K/mcL Neutrophils # 6.9 5.9 (1.6-8.9) K/mcL - ABG Interpretation ABG results: PT/INR, D-dimer PT 12.8 Seconds (9.4-12.1) H 04/08/18 05:38 - Impressions Impressions Fluoroscopy 03/31/18 20:55 IMPRESSION: Intraprocedural fluoroscopic spot images as above. See separate procedure report for more information. D/ / Elias Brown / Elias Brown Interpreting Provider: Elias Brown Abdomen Arteriogram 04/04/18 00:00 IMPRESSION: Successful ultrasound guided non-tunneled catheter placement. D/ / Sg [place] MD / Sg Colorado MD Interpreting Provider: Sg Colorado MD Guidance Ultrasound 04/04/18 00:00 IMPRESSION: Successful ultrasound guided non-tunneled catheter placement. D/ / Sg Colorado MD / Sg [place] MD Interpreting Provider: Sg Colorado MD Aorta w/Runoff CTA 04/04/18 10:44 IMPRESSION: 1. Large intramuscular hematoma in the anterior compartment of the right thigh, measuring approximately 14 x 10 x 19 cm. It may contain a small focus of arterial extravasation centrally (axial image 251), although lack of comparison noncontrast imaging limits evaluation. Scattered associated foci of soft tissue air are presumed postoperative in etiology. 2. Extensive soft tissue fat stranding and dermal thickening in the right lower extremity, which is most likely related to soft tissue edema. A component of ecchymosis or cellulitis cannot be excluded. 3. Postoperative change of internal fixation in the right femur, with the fracture fragments in anatomic alignment. 4. Severe diffuse atherosclerosis, including coronary atherosclerosis. Two vessel runoff to the right foot via the anterior tibial and peroneal arteries. Three-vessel runoff to the left foot. 5. There is a 3.1 cm infrarenal abdominal aortic aneurysm. Follow-up per guidelines below. 6. 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 7. Suprarenal IVC filter in place. Critical results were called by Dr. Phillip Weiss MD to Santos Macario on 04/04/2018 at 12:48 p.m. RECOMMENDATIONS: Managing Abdominal Aortic Aneurysms 3.0-3.4 cm: Every 3 years. Reference: J Vasc Surg. 2009 May;50(4 Suppl):S2-49 D/ / 04/04/2018 13:09:57 Phillip Weiss MD / [email or web address] Interpreting Provider: Phillip Weiss MD Lower Extremity CTA 04/04/18 13:07 IMPRESSION: Findings within a large right thigh anterior compartment hematoma are highly suggestive of a small amount of active extravasation. D/ / 04/04/2018 15:17:18 Phillip Weiss MD / [email or web address] Interpreting Provider: Phillip Weiss MD - VTE Documentation of Mechanical Device: Venous foot pump, device Consult Discharge Plan - Plan Referrals: Santos Robbins Jr, PAC [Primary Care Provider] - (1) Closed right femoral fracture Qualifiers: Encounter type: initial encounter Femur location: neck Qualified Code(s): S72.001A - Fracture of unspecified part of neck of right femur, initial encounter for closed fracture (2) DVT (deep venous thrombosis) Qualifiers: DVT location: lower extremity Affected thrombotic vein of extremity: unspecified vein of extremity Chronicity: acute Laterality: bilateral Qualified Code(s): I82.403 - Acute embolism and thrombosis of unspecified deep veins of lower extremity, bilateral
[2018-04-08] MEDS: Cholecalciferol (D-3) 1,000 UNIT TABLET PO SCH (08:55)
[2018-04-08] MEDS: Magnesium Oxide 400 MG TABLET PO SCH ×2 (08:55→20:08)
[2018-04-08] MEDS: Multivit/Ca/Min/Fe/FA 1 TAB TABLET PO SCH (08:56)
[2018-04-08] MEDS: Furosemide 20 MG/2 ML VIAL IVP SCH ×2 (08:56→15:24)
[2018-04-08] MEDS: Famotidine 20 MG TABLET PO SCH ×2 (08:56→20:08)
[2018-04-08] MEDS: Folic Acid 1 MG TABLET PO SCH (08:56)
--- NOTE | 2018-04-08 12:56 | Orthopedics Progress Note ---
Date of Encounter: 04/08/18 Time of Encounter: 12:50 Subjective Principal diagnosis: Periprosthetic fracture right femur Interval history: 04/01/2018. Patient is postop day #1 from ORIF of a midshaft periprosthetic fracture of the right femur. Patient is doing remarkably well. Pain is minimal and well controlled. Vital signs are stable. Patient is afebrile. Dressings are clean dry and intact. Hemoglobin is 10.0. Patient had a hemoglobin of 8 prior to surgery and did receive 2 units of pack red blood cells intraoperatively. White blood cell count is elevated at 14.2. Platelet count is normal at 194. Pro time is 19.8. INR 1.8 kidney function is improved from preop. Impression: POD #1 ORIF periprosthetic fracture right femur Recommendation: Orthopedic status is excellent. Discussed with the patient that she can ambulate with full on limited motion of her hip knee and ankle. Her only limitation is to be strictly nonweightbearing on the right lower extremity. Patient can resume home medications including Coumadin at the discretion of the internal medicine physicians. We will probably perform dressing change tomorrow. Discussed with the patient that I did not closer fascia in the lateral thigh through the tremendous amount of swelling in the muscle. 04/02/2018. Patient POD #2 ORIF right periprosthetic femur fracture. Having pain as anticipated. Vital signs reveal blood pressure of about 90/50. She is afebrile. Dressings were taken down. Incision is clean dry and intact. Hemoglobin not obtained today. Impression: POD #2 ORIF periprosthetic right femur fracture Recommendation: Orthopedic status remains stable. Patient can be ambulatory with nonweightbearing on the right lower extremity. Pain management as able, caution with somewhat low blood pressure. To be bridged with Lovenox until her pro time and INR are therapeutic in regards to her DVT treatment. Anticipate patient need for rehabilitation stay. 04/03/2018. Patient POD #3 ORIF right periprosthetic femur fracture. Patient is sleepy from sedation for placement of an IVC filter. Vital signs are stable. Patient is afebrile. Dressings are clean and dry. Thigh is somewhat edematous. As previously noted the patient did not have fascial closure and would anticipate her having prominence or fullness along the lateral side of the thigh underneath her incision. Hemoglobin had dropped to 7.5. Platelet count remained stable at 286. Impression: POD #3 ORIF periprosthetic fracture right femur Plan: Orthopedic status remains stable. Patient can ambulate with nonweightbearing on the right lower extremity. Local wound care for her extensile right lateral thigh incision. marketing services rep for discharge planning , anticipate short-term rehabilitation stay. 04/04/2018. Patient POD #4 ORIF right periprosthetic femur fracture. Patient complains of anticipated right thigh pain. Vital signs are stable. Patient is afebrile. Thigh is increased in size. Distal neurosensory exam remains intact. Calf is soft. Posterior thigh is soft. Hemoglobin was 5 after multiple units of pack red blood cells. Patient continues to be coagulopathic with a ProTime of 21.6 though the INR is 1.9. Impression: POD number for ORIF right periprosthetic femur fracture Recommendation: Would recommend treating the coagulopathy as the patient now has a IVC filter. Discussed with ICU staff. Orthopedic status remains stable. Would prefer to not open the wound to evacuate a hematoma, this should resolve spontaneously in time. Ambulate when appropriate with medical service. 04/05/2018. Patient now postop day #5 ORIF periprosthetic fracture right femur. Patient is having right thigh pain. Vital signs are stable. Patient is afebrile. The right thigh shows fullness in the anterior and lateral aspect. Incision is intact. She is draining serous fluid. Patient's entire lower extremity is edematous. Left sides likewise shows some edema in the soft tissues. Hemoglobin is now stable at 10.4. Impression: POD #5 ORIF right periprosthetic femur fracture, hemoglobin currently stable. Recommendation: Patient had much more extensive bleeding after her surgery as well as the anticoagulation. Patient is a complex case that required treatment for an acute fracture with index anticipated extensive blood loss as well as chronic anticoagulation for bilateral lower extremity DVT. Patient ultimately had a IVC filter placed anticoagulants. The patient continued to have persistent bleeding due to persistent elevation of her bleeding times. These have more normalized since reversal agents were given. At this time I do not anticipate any additional further bleeding. Done anticipate any need for further surgical intervention. As previously noted the lateral thigh fascia was not closed so the risk of a compartment syndrome is nearly nil. 04/06/2018. Patient is postop day #6 ORIF of a right periprosthetic femur fracture. Bilateral lower extremity DVT. Patient is doing quite well overall. Having anticipated pain though this is improving. Vital signs are stable. Patient is afebrile. Thigh remained soft though quite edematous. Incision is intact. Draining some serous fluid. Hemoglobin is stable at 10.1. Platelet count is normal. Impression POD #6 ORIF periprosthetic fracture right femur. Recommendations: As noted the patient had extensive hemorrhage postop from a major fracture as well as the anticoagulants. Off the anticoagulants her hemoglobin has remained stable. She is protected with an IVC. Per hematology, a course of treatment with anticoagulations would be best for the patient. I would recommend that we wait at least 48 hours with a stable hemoglobin before attempting anticoagulation. Orthopedic status is stable. Can mobilize when okayed with medical service. 04/08/18. Patient postop day #8 ORIF right periprosthetic femur fracture. Patient doing quite well. Pain is improving daily. Patient states she has been out of bed to chair, no real ambulation thus far. Vital signs are stable. Patient is afebrile. Thigh is soft. Incision shows only minor serosanguineous spotting. Hemoglobin is 9.8. White blood cell count is normal. Platelets normal at 304. Pro time minimally elevated at 12.8. With a INR of 1.1. Impression: POD #8 ORIF periprosthetic fracture right femur, orthopedic status stable with stable hemoglobin and coagulation profile. Recommendation: With a stable hemoglobin and clinical exam I think the patient can be started on gentle, progressive anticoagulation. We will need to increase her ambulation with therapy. I discussed with the patient that my only limitation is that she maintain nonweightbearing on the right lower extremity. She may have some increased drainage with range of motion exercises. I suspect her thigh resolution will take some time but should resolve. We will check on patient intermittently or as needed. Objective Vital signs: Vital Signs Temp Pulse Resp BP Pulse Ox 04/08/18 11:22 98.2 F 83 18 102/69 97 04/08/18 06:32 98.1 F 90 18 116/53 97 04/08/18 03:46 83 04/08/18 03:34 98.7 F 85 19 122/67 95 04/08/18 00:29 86 20 93 04/07/18 23:49 98.6 F 86 20 107/60 92 04/07/18 20:30 18 97 04/07/18 19:35 98.3 F 93 18 120/59 97 04/07/18 19:00 91 18 97 04/07/18 15:46 97.9 F 85 18 118/76 98 Intake and Output 04/07/18 04/08/18 04/08/18 23:59 07:59 15:59 Intake Total 240 / 240 240 / 240 Output Total 400 / 400 1120 / 1120 Balance -160 / -160 -1120 / -1120 240 / 240 Intake: Oral 240 / 240 240 / 240 Output: Catheter 400 / 400 1120 / 1120 Other: Meal Dinner Breakfast Percent of Meal Consumed 0% 50% Stool Size Small Stool Consistency formed Stool Color Brown # Bowel Movements 1 Weight 82 kg Patient Weight 04/08/18 23:59 Weight 82 kg - Labs CBC & BMP: 04/08/18 05:38 04/06/18 04:15 Labs: Abnormal lab results RBC 3.26 M/mcL (3.82-4.97) L 04/08/18 05:38 Hgb 9.8 g/dL (11.5-15.4) L 04/08/18 05:38 Hct 30.3 % (35.3-44.9) L 04/08/18 05:38 RDW 15.5 % (11.5-14.5) H 04/08/18 05:38 MPV 8.8 fL (9.4-12.4) L 04/08/18 05:38 Nucleated RBCs/100 WBC 1.0 /100 WBC (0) H 04/05/18 04:00 PT 12.8 Seconds (9.4-12.1) H 04/08/18 05:38 Heparin Anti-Xa, Unfract 0.74 IU/mL (0.30-0.70) H 04/03/18 01:19 Carbon Dioxide 32 mEq/L (23-29) H 04/06/18 04:15 BUN 26 mg/dL (8-23) H 04/06/18 04:15 Est GFR (Non-Af Amer) 58 (> 60) L 04/06/18 04:15 BUN/Creatinine Ratio 27 (6-26) H 04/06/18 04:15 POC Glucose 173 mg/dL (70-99) H 04/04/18 09:21 Iron 19 mcg/dL (50-170) L 04/01/18 08:12 % Saturation 7 % (15-50) L 04/01/18 08:12 Transferrin 202 mg/dL (203-362) L 04/01/18 08:12 Albumin 3.4 g/dL (3.5-5.7) L 03/30/18 07:09 Albumin/Globulin Ratio 1.0 (1.1-2.2) L 03/30/18 07:09 Folate 19.4 ng/mL (3.0-16.0) H 04/01/18 08:12 - VTE Documentation of Mechanical Device: Venous foot pump, device Consult Discharge Plan - Plan Referrals: Santos Robbins Jr, PAC [Primary Care Provider] -
[2018-04-08] MEDS: rOPINIRole 1 MG TABLET PO SCH (20:07)
[2018-04-09] MEDS: *HR* OxyCODONE Immed Rel 5 MG TABLET PO PRN ×3 (04:05→19:24)
[2018-04-09] MEDS: Acetaminophen 325 MG TABLET PO SCH ×4 (06:14→23:50)
[2018-04-09 06:55] LABS: Basophils % 0.3 %; Eosinophils # 0.3 K/mcL (0.0-0.6); Eosinophils % 3.8 %; Hematocrit 28.1 % (35.3-44.9); Hemoglobin 8.9 g/dL (11.5-15.4); Immature Granulocytes % 0.7 % (0-4); Lymphocytes % 14.2 %; Mean Corpuscular HGB Conc 31.7 g/dL (31.6-35.5); Mean Corpuscular Volume 91.5 fL (83.0-100.0); Mean Platelet Volume 9.2 fL (9.4-12.4); Monocytes # 0.3 K/mcL (0.0-1.3); Monocytes % 3.5 %; Neutrophils # 5.6 K/mcL (1.6-8.9); Platelet Count 331 K/mcL (140-400); Red Blood Count 3.07 M/mcL (3.82-4.97); Red Cell Distribution Width 15.4 % (11.5-14.5); Segmented Neutrophils % 77.5 %
[2018-04-09 07:03] LABS: INR 1.1; Prothrombin Time 12.4 Seconds (9.4-12.1)
[2018-04-09] MEDS: Cholecalciferol (D-3) 1,000 UNIT TABLET PO SCH (07:50)
[2018-04-09] MEDS: Folic Acid 1 MG TABLET PO SCH (07:50)
[2018-04-09] MEDS: Multivit/Ca/Min/Fe/FA 1 TAB TABLET PO SCH (07:50)
[2018-04-09] MEDS: Famotidine 20 MG TABLET PO SCH ×2 (07:50→20:46)
[2018-04-09] MEDS: Magnesium Oxide 400 MG TABLET PO SCH ×2 (07:50→20:46)
[2018-04-09] MEDS: *HR* HYDROcodone/Acet 5/325 mg TABLET PO PRN ×3 (07:50→23:50)
--- NOTE | 2018-04-09 07:50 | Internal Med Progress Note ---
Hospitalist Progress Note - Encounter Date of Encounter: 04/09/18 Time of Encounter: 07:45 - Subjective Interval History: No acute events overnight. - Exam Vitals: Temp Pulse Resp BP Pulse Ox 98.5 F 75 18 113/63 98 04/09/18 07:23 04/09/18 07:23 04/09/18 07:23 04/09/18 07:23 04/09/18 07:23 Exam: Gen: NAD, AAO x3, In distress due to pain CVS: RRR, S1, S2 normal Lungs: CTA.no wheezing, rales, or rhonchi. Abd: Soft, NT/ND. Ext: 1+ bipedal, non-pitting edema. Rigoberto wrap removed. Swelling of Rt thigh with some bruising. Skin: wound on center of chest with dressing. central scar noted. - Assessment and Plan (1) Closed right femoral fracture Current Visit: Yes Status: Acute Assessment and Plan: Patient had a right hip ORIF on 03/31/18 Patient's postoperative course was complicated by an acute drop in blood pressure and hemoglobin of 5.3, which was down from 10.0 on 04/01/18. Ortho following. Has been transfused PRBC ad hemoglobin is now stable 04/09. Stable per orthopedic surgery. Will encourage ambulation (2) DVT (deep venous thrombosis) Current Visit: Yes Status: Acute Assessment and Plan: Lower extremity duplex revealed acute DVT bilaterally, results are consistent with previous results in February 2018 status post CABG surgery. On admission, INR was subtherapeutic on Coumadin. She was transitioned to Lovenox bridging to warfarin after recent right hip surgery 3 days ago. Anticoagulation has been held due to ongoing bleeding. Vascular surgery placed IVC filter on 04/03/18 due to active bleeding on anticoagulation. Follow up hematology recs. 04/09 Hematology plan to resume anticoagulation gently and monitor for bleeding. Resume as tolerated (3) DVT prophylaxis Current Visit: Yes Status: Acute Assessment and Plan: Has IVC filter. Anticoagulation has been held due to active bleeding. (4) Acute blood loss anemia Current Visit: Yes Status: Acute Assessment and Plan: Patient has had drops in hemoglobin intermittently post surgery and has received a total of 9 units PRBC total and 4 units FFP. Hemglobin improved to 10.4 and she received a total of 9 units of PRBC total. Likely secondary to acute bleeding post surgery from right hip. Orthopedic surgery following. Patient has edematous lower extremity, and sensation is intact. Monitor CBC. CT scan showed a large right anterior compartment hematoma. Ortho says no indication to evacuate hematoma at this point. 04/09 Hemoglobin stable. Hematology following (5) Hypotension due to blood loss Current Visit: Yes Status: Resolved Assessment and Plan: Continue resuscitation with IV fluids and PRBC - Time Spent with Patient Total time spent is greater than 50% in coordination of care (as documented) at patient's floor/unit and/or counseling patient: Internal Medicine: Result - Labs CBC & Chem 7: 04/09/18 06:22 04/06/18 04:15 Labs: Short CBC 04/09/18 Range/Units 06:22 WBC 7.2 (4.3-11.1) K/mcL Hgb 8.9 L (11.5-15.4) g/dL Hct 28.1 L (35.3-44.9) % Plt Count 331 (140-400) K/mcL Neutrophils # 5.6 (1.6-8.9) K/mcL - ABG Interpretation ABG results: PT/INR, D-dimer PT 12.4 Seconds (9.4-12.1) H 04/09/18 06:22 - VTE Documentation of Mechanical Device: Venous foot pump, device Consult Discharge Plan - Plan Referrals: Santos Robbins Jr, PAC [Primary Care Provider] - (1) Closed right femoral fracture Qualifiers: Encounter type: initial encounter Femur location: neck Qualified Code(s): S72.001A - Fracture of unspecified part of neck of right femur, initial encounter for closed fracture (2) DVT (deep venous thrombosis) Qualifiers: DVT location: lower extremity Affected thrombotic vein of extremity: unspecified vein of extremity Chronicity: acute Laterality: bilateral Qualified Code(s): I82.403 - Acute embolism and thrombosis of unspecified deep veins of lower extremity, bilateral
[2018-04-09] MEDS: Furosemide 20 MG/2 ML VIAL IVP SCH ×2 (07:51→17:10)
[2018-04-09 09:27] LABS: Calcium 8.9 mg/dL (8.6-10.3); Potassium 3.8 mEq/L (3.5-5.1)
--- NOTE | 2018-04-09 11:21 | Oncology Inp Progress Note ---
Date of Encounter: 04/09/18 Time of Encounter: 11:30 (1) Acute blood loss anemia Current Visit: Yes Status: Acute Assessment and plan: Hemoglobin remained stable. Small decrease today, but clinically she has no evidence of worsening bleeding and she is feeling better. Continue to monitor with CBC twice daily now that we are restarting anticoagulation (2) DVT (deep venous thrombosis) Current Visit: Yes Status: Acute Assessment and plan: Patient has had no evidence of bleeding for the past 4 days. I recommend restarting heparin drip without bolus. Monitor CBC every 12 hours. If H&H stable tomorrow would restart Coumadin. Qualifiers: DVT location: lower extremity Affected thrombotic vein of extremity: unspecified vein of extremity Chronicity: acute Laterality: bilateral Qualified Code(s): I82.403 - Acute embolism and thrombosis of unspecified deep veins of lower extremity, bilateral Oncology: Subj Interval history: Has had a better 24 hours. Her right thigh pain is improving. She is now expressed pain about her buttock from laying in bed. She is hopeful to get up to the chair today with the aid of physical therapy and nursing. Appetite is okay. She is just frustrated by remaining in the hospital. No fever, chill or symptom of infection. No other bleeding symptom of epistaxis, hemoptysis, hematemesis, melena or hematochezia. Orthopedics has evaluated the patient. I think be reasonable to proceed with anticoagulation. - Constitutional Vitals: Vital Signs Temp Pulse Resp BP Pulse Ox 04/09/18 10:49 98.7 F 84 18 119/75 99 04/09/18 09:10 80 04/09/18 07:23 98.5 F 75 18 113/63 98 04/09/18 04:12 98.3 F 77 18 110/69 97 04/09/18 04:07 60 04/09/18 00:35 98.3 F 84 18 110/87 98 04/08/18 23:44 98.3 F 86 18 110/87 98 04/08/18 21:34 98.2 F 86 18 105/61 98 04/08/18 19:39 98.2 F 86 18 105/61 98 04/08/18 16:11 98.2 F 88 18 94/63 96 04/08/18 11:22 98.2 F 83 18 102/69 97 Intake and Output 04/09/18 04/09/18 04/09/18 00:59 08:59 16:59 Intake Total 360 / 360 0 / 0 480 / 480 Output Total 500 / 500 500 / 500 950 / 950 Balance -140 / -140 -500 / -500 -470 / -470 Intake: Oral 360 / 360 0 / 0 480 / 480 Output: Catheter 500 / 500 500 / 500 950 / 950 Other: Meal Dinner Breakfast Percent of Meal Consumed 40% 50% General appearance: cooperative, no acute distress - Head Head exam: Present: atraumatic, normal inspection, normocephalic - Eye Eye exam: Present: normal appearance, conjuntiva pink, sclera anicteric - ENT ENT exam: Present: mucous membranes moist, normal oropharynx - Neck Neck exam: Present: normal inspection, tenderness - Respiratory Respiratory exam: Present: CTAB - Cardiovascular Cardiovascular exam: Present: RRR - GI/Abdominal GI/Abdominal exam: Present: normal bowel sounds, soft - Extremities Exam Extremities exam: Present: calf tenderness, joint swelling, pedal edema, tenderness - Expanded Lower Extremity Exam Upper Leg exam: Present: ecchymosis, swelling, tenderness (On right) Oncology: Obj Data - Labs CBC & Chem 7: 04/09/18 06:22 04/09/18 06:22 Labs: Laboratory Results - last 24 hr 04/09/18 04/09/18 04/09/18 06:22 06:22 06:22 WBC 7.2 RBC 3.07 L Hgb 8.9 L Hct 28.1 L MCV 91.5 MCH 29.0 MCHC 31.7 RDW 15.4 H Plt Count 331 MPV 9.2 L Immature Gran % 0.7 Seg Neutrophils % 77.5 Lymphocytes % 14.2 Monocytes % 3.5 Eosinophils % 3.8 Basophils % 0.3 Neutrophils # 5.6 Lymphocytes # 1.0 Monocytes # 0.3 Eosinophils # 0.3 Basophils # 0.0 PT 12.4 H INR 1.1 Sodium 133 L Potassium 3.8 Chloride 95 L Carbon Dioxide 32 H BUN 37 H Creatinine 1.20 Est GFR ( Amer) 54 L Est GFR (Non-Af Amer) 44 L BUN/Creatinine Ratio 31 H Glucose 110 H Calculated Osmolality 285 Calcium 8.9 - ABG Interpretation ABG results: PT/INR, D-dimer PT 12.4 Seconds (9.4-12.1) H 04/09/18 06:22 Consult Discharge Plan - Plan Referrals: Santos Robbins Jr, PAC [Primary Care Provider] - Inpatient Charges Provider: Dr. Rohan Denton Follow Up: [id number]
[2018-04-09] MEDS ORDERED: *HR* Heparin 5,000 UNIT/ML VIAL IVP PRN ×2 (11:27)
[2018-04-09 12:01] LABS: Basophils % 0.1 %; Eosinophils # 0.3 K/mcL (0.0-0.6); Eosinophils % 3.7 %; Hematocrit 30.4 % (35.3-44.9); Hemoglobin 9.8 g/dL (11.5-15.4); Immature Granulocytes % 0.4 % (0-4); Mean Corpuscular HGB Conc 32.2 g/dL (31.6-35.5); Mean Corpuscular Hemoglobin 29.8 pg (28.0-33.3); Mean Corpuscular Volume 92.4 fL (83.0-100.0); Mean Platelet Volume 8.7 fL (9.4-12.4); Monocytes # 0.3 K/mcL (0.0-1.3); Monocytes % 3.3 %; Platelet Count 340 K/mcL (140-400); Red Blood Count 3.29 M/mcL (3.82-4.97); Red Cell Distribution Width 14.9 % (11.5-14.5); Segmented Neutrophils % 79.5 %
[2018-04-09 12:08] LABS: Heparin anti-factor XA UFH 0.02 IU/mL (0.30-0.70); INR 1.1; Prothrombin Time 12.4 Seconds (9.4-12.1)
[2018-04-09] MEDS: Heparin 25,000 UNIT/500 ML D5W 25,000 UNIT/500 ML BAG IVC SCH (12:11)
[2018-04-09 12:59] LABS: Platelet Estimate Normal (Normal); Toxic Granulation Present (Not Present)
[2018-04-09 18:42] LABS: Basophils % 0.2 %; Eosinophils # 0.2 K/mcL (0.0-0.6); Eosinophils % 2.7 %; Hematocrit 31.5 % (35.3-44.9); Hemoglobin 10.2 g/dL (11.5-15.4); Immature Granulocytes % 0.4 % (0-4); Lymphocytes # 1.1 K/mcL (0.6-4.6); Lymphocytes % 13.5 %; Mean Corpuscular HGB Conc 32.4 g/dL (31.6-35.5); Mean Corpuscular Hemoglobin 29.7 pg (28.0-33.3); Mean Corpuscular Volume 91.8 fL (83.0-100.0); Monocytes # 0.3 K/mcL (0.0-1.3); Monocytes % 3.1 %; Neutrophils # 6.8 K/mcL (1.6-8.9); Platelet Count 379 K/mcL (140-400); Red Blood Count 3.43 M/mcL (3.82-4.97); Segmented Neutrophils % 80.1 %
[2018-04-09] MEDS: rOPINIRole 1 MG TABLET PO SCH (20:45)
[2018-04-10 02:03] LABS: Basophils % 0.1 %; Eosinophils # 0.4 K/mcL (0.0-0.6); Eosinophils % 4.1 %; Hematocrit 30.9 % (35.3-44.9); Hemoglobin 9.9 g/dL (11.5-15.4); Immature Granulocytes % 0.7 % (0-4); Lymphocytes # 1.4 K/mcL (0.6-4.6); Lymphocytes % 15.8 %; Mean Corpuscular Hemoglobin 29.6 pg (28.0-33.3); Mean Corpuscular Volume 92.2 fL (83.0-100.0); Mean Platelet Volume 8.9 fL (9.4-12.4); Monocytes # 0.4 K/mcL (0.0-1.3); Monocytes % 4.3 %; Neutrophils # 6.4 K/mcL (1.6-8.9); Platelet Count 375 K/mcL (140-400); Red Blood Count 3.35 M/mcL (3.82-4.97)
[2018-04-10 02:25] LABS: Calcium 8.8 mg/dL (8.6-10.3); Potassium 3.8 mEq/L (3.5-5.1)
[2018-04-10 02:53] LABS: Heparin anti-factor XA UFH 0.37 IU/mL (0.30-0.70)
[2018-04-10 02:54] LABS: INR 1.1; Prothrombin Time 12.6 Seconds (9.4-12.1)
[2018-04-10] MEDS: *HR* OxyCODONE Immed Rel 5 MG TABLET PO PRN ×3 (05:32→21:19)
[2018-04-10] MEDS: Acetaminophen 325 MG TABLET PO SCH ×3 (05:48→16:56)
--- NOTE | 2018-04-10 08:19 | Internal Med Progress Note ---
Hospitalist Progress Note - Encounter Date of Encounter: 04/10/18 Time of Encounter: 08:15 - Subjective Interval History: No acute events overnight. - Exam Vitals: Temp Pulse Resp BP Pulse Ox 98.2 F 86 18 119/73 96 04/10/18 07:57 04/10/18 07:57 04/10/18 07:57 04/10/18 07:57 04/10/18 07:57 Exam: Gen: NAD, AAO x3, In distress due to pain CVS: RRR, S1, S2 normal Lungs: CTA.no wheezing, rales, or rhonchi. Abd: Soft, NT/ND. Ext: 1+ bipedal, non-pitting edema. Rigoberto wrap removed. Swelling of Rt thigh with some bruising. Skin: wound on center of chest with dressing. central scar noted. - Assessment and Plan (1) Closed right femoral fracture Current Visit: Yes Status: Acute Assessment and Plan: Patient had a right hip ORIF on 03/31/18 Patient's postoperative course was complicated by an acute drop in blood pressure and hemoglobin of 5.3, which was down from 10.0 on 04/01/18. Ortho following. Has been transfused PRBC and hemoglobin is now stable 04/10. Stable per orthopedic surgery. Will encourage ambulation (2) Acute blood loss anemia Current Visit: Yes Status: Acute Assessment and Plan: Patient has had drops in hemoglobin intermittently post surgery and has received a total of 9 units PRBC total and 4 units FFP. Hemglobin improved to 10.4 and she received a total of 9 units of PRBC total. Likely secondary to acute bleeding post surgery from right hip. Orthopedic surgery following. Patient has edematous lower extremity, and sensation is intact. Monitor CBC. CT scan showed a large right anterior compartment hematoma. Ortho says no indication to evacuate hematoma at this point. Hematoma has since improved. 04/10 Hemoglobin stable. Hematology have resumed anticoagulation for bilateral DVT in past 24hrs. Monitor CBC (3) DVT (deep venous thrombosis) Current Visit: Yes Status: Acute Assessment and Plan: Lower extremity duplex revealed acute DVT bilaterally, results are consistent with previous results in February 2018 status post CABG surgery. On admission, INR was subtherapeutic on Coumadin. She was transitioned to Lovenox bridging to warfarin after recent right hip surgery. She had active bleeding post resuming anticoagulation and anticoagulation had to be held Vascular surgery placed IVC filter on 04/03/18 due to active bleeding on anticoagulation. Follow up hematology recs. 04/10 Hemoglobin has been stable and heparin drip was started by hematology on 04/09 to resume anticoagulation for bilateral DVT. Plan to bridge to warfarin. Monitor CBC q 12hrs (4) DVT prophylaxis Current Visit: Yes Status: Acute Assessment and Plan: Has IVC filter. Restarted heparin drip yesterday and plan to bridge to warfarin (5) Hypotension due to blood loss Current Visit: Yes Status: Resolved Assessment and Plan: Continue resuscitation with IV fluids and PRBC (6) Coronary artery disease Current Visit: No Status: Chronic Assessment and Plan: Patient with history of coronary artery disease status post CABG done earlier this year. CAD with recent double bypass, [place] x 3 and stents x 3. - Currently symptom-free. . - Given history of CAD hemoglobin > 8.0. - Continue aspirin, plavix and beta blockers (7) Essential hypertension Current Visit: No Status: Chronic Assessment and Plan: Monitor blood pressure. Continue beta blockers. - Time Spent with Patient Total time spent is greater than 50% in coordination of care (as documented) at patient's floor/unit and/or counseling patient: Internal Medicine: Result - Labs CBC & Chem 7: 04/10/18 11:41 04/10/18 01:47 Labs: Short CBC 04/09/18 04/09/18 04/10/18 Range/Units 11:44 18:32 01:47 WBC 7.5 8.5 8.6 (4.3-11.1) K/mcL Hgb 9.8 L 10.2 L 9.9 L (11.5-15.4) g/dL Hct 30.4 L 31.5 L 30.9 L (35.3-44.9) % Plt Count 340 379 375 (140-400) K/mcL Neutrophils # 6.0 6.8 6.4 (1.6-8.9) K/mcL BMP 04/09/18 04/10/18 06:22 01:47 Sodium 133 L 133 L Potassium 3.8 3.8 Chloride 95 L 93 L Carbon Dioxide 32 H 32 H BUN 37 H 40 H Creatinine 1.20 1.21 H Glucose 110 H 128 H Calcium 8.9 8.8 - ABG Interpretation ABG results: PT/INR, D-dimer PT 12.6 Seconds (9.4-12.1) H 04/10/18 01:47 - VTE Documentation of Mechanical Device: Venous foot pump, device Consult Discharge Plan - Plan Referrals: Santos Robbins Jr, PAC [Primary Care Provider] - (1) Closed right femoral fracture Qualifiers: Encounter type: initial encounter Femur location: neck Qualified Code(s): S72.001A - Fracture of unspecified part of neck of right femur, initial encounter for closed fracture (3) DVT (deep venous thrombosis) Qualifiers: DVT location: lower extremity Affected thrombotic vein of extremity: unspecified vein of extremity Chronicity: acute Laterality: bilateral Qualified Code(s): I82.403 - Acute embolism and thrombosis of unspecified deep veins of lower extremity, bilateral (6) Coronary artery disease Qualifiers: Coronary Disease-Associated Artery/Lesion type: unspecified vessel or lesion type [place] vs. transplanted heart: [place] heart Associated angina: without angina Qualified Code(s): I25.10 - Atherosclerotic heart disease of [place] coronary artery without angina pectoris
[2018-04-10] MEDS: Magnesium Oxide 400 MG TABLET PO SCH ×2 (09:38→21:20)
[2018-04-10] MEDS: *HR* HYDROcodone/Acet 5/325 mg TABLET PO PRN ×2 (09:38→15:54)
[2018-04-10] MEDS: Cholecalciferol (D-3) 1,000 UNIT TABLET PO SCH (09:38)
[2018-04-10] MEDS: Famotidine 20 MG TABLET PO SCH ×2 (09:38→21:20)
[2018-04-10] MEDS: Folic Acid 1 MG TABLET PO SCH (09:38)
[2018-04-10] MEDS: Multivit/Ca/Min/Fe/FA 1 TAB TABLET PO SCH (09:39)
[2018-04-10] MEDS: Heparin 25,000 UNIT/500 ML D5W 25,000 UNIT/500 ML BAG IVC SCH (10:03)
[2018-04-10 12:11] LABS: Basophils % 0.3 %; Eosinophils # 0.2 K/mcL (0.0-0.6); Eosinophils % 2.5 %; Hematocrit 27.6 % (35.3-44.9); Hemoglobin 8.7 g/dL (11.5-15.4); Immature Granulocytes % 0.7 % (0-4); Lymphocytes % 13.1 %; Mean Corpuscular HGB Conc 31.5 g/dL (31.6-35.5); Mean Platelet Volume 8.9 fL (9.4-12.4); Monocytes # 0.3 K/mcL (0.0-1.3); Monocytes % 3.7 %; Platelet Count 357 K/mcL (140-400); Segmented Neutrophils % 79.7 %
[2018-04-10] MEDS: *HR* FentaNYL PATCH 25 MCG PATCH TD SCH (17:25)
[2018-04-10] MEDS ORDERED: *HR* Warfarin 5 MG TABLET PO ONE (18:00)
[2018-04-10 20:23] LABS: Basophils % 0.1 %; Eosinophils # 0.2 K/mcL (0.0-0.6); Eosinophils % 2.6 %; Hematocrit 30.7 % (35.3-44.9); Immature Granulocytes % 0.9 % (0-4); Lymphocytes # 1.3 K/mcL (0.6-4.6); Lymphocytes % 16.7 %; Mean Corpuscular HGB Conc 32.6 g/dL (31.6-35.5); Mean Corpuscular Volume 92.2 fL (83.0-100.0); Mean Platelet Volume 8.8 fL (9.4-12.4); Monocytes # 0.4 K/mcL (0.0-1.3); Monocytes % 5.5 %; Neutrophils # 5.6 K/mcL (1.6-8.9); Platelet Count 348 K/mcL (140-400); Red Blood Count 3.33 M/mcL (3.82-4.97); Segmented Neutrophils % 74.2 %
[2018-04-10] MEDS: rOPINIRole 1 MG TABLET PO SCH (21:19)
[2018-04-11] MEDS: Acetaminophen 325 MG TABLET PO SCH ×4 (00:30→18:05)
[2018-04-11] MEDS: *HR* HYDROcodone/Acet 5/325 mg TABLET PO PRN ×3 (00:37→18:04)
[2018-04-11 04:27] LABS: Basophils % 0.1 %; Eosinophils # 0.2 K/mcL (0.0-0.6); Hematocrit 27.5 % (35.3-44.9); Immature Granulocytes % 1.2 % (0-4); Lymphocytes # 1.6 K/mcL (0.6-4.6); Lymphocytes % 21.1 %; Mean Corpuscular HGB Conc 32.7 g/dL (31.6-35.5); Mean Corpuscular Hemoglobin 29.7 pg (28.0-33.3); Mean Corpuscular Volume 90.8 fL (83.0-100.0); Mean Platelet Volume 8.3 fL (9.4-12.4); Monocytes # 0.5 K/mcL (0.0-1.3); Monocytes % 6.9 %; Neutrophils # 5.1 K/mcL (1.6-8.9); Platelet Count 307 K/mcL (140-400); Red Blood Count 3.03 M/mcL (3.82-4.97); Red Cell Distribution Width 14.8 % (11.5-14.5); Segmented Neutrophils % 67.7 %
[2018-04-11 04:31] LABS: Heparin anti-factor XA UFH 0.44 IU/mL (0.30-0.70)
[2018-04-11 04:32] LABS: INR 1.2; Prothrombin Time 13.4 Seconds (9.4-12.1)
[2018-04-11 04:45] LABS: BUN/Creatinine Ratio 37 (6-26); Blood Urea Nitrogen 38 mg/dL (8-23); Calcium 8.8 mg/dL (8.6-10.3); Carbon Dioxide 31 mEq/L (23-29); Chloride 94 mEq/L (98-107); Glucose 120 mg/dL (70-105); Osmolality,Calculated 286 (280-300); Potassium 3.9 mEq/L (3.5-5.1); Sodium 133 mEq/L (136-145); eGFR For Non-African Americans 53 (> 60)
[2018-04-11] MEDS: Heparin 25,000 UNIT/500 ML D5W 25,000 UNIT/500 ML BAG IVC SCH (05:40)
[2018-04-11] MEDS: *HR* OxyCODONE Immed Rel 5 MG TABLET PO PRN ×3 (06:19→21:47)
[2018-04-11] MEDS: Multivit/Ca/Min/Fe/FA 1 TAB TABLET PO SCH (09:09)
[2018-04-11] MEDS: Folic Acid 1 MG TABLET PO SCH (09:10)
[2018-04-11] MEDS: Magnesium Oxide 400 MG TABLET PO SCH ×2 (09:10→21:45)
[2018-04-11] MEDS: Famotidine 20 MG TABLET PO SCH ×2 (09:10→21:46)
[2018-04-11] MEDS: Cholecalciferol (D-3) 1,000 UNIT TABLET PO SCH (09:10)
--- NOTE | 2018-04-11 10:43 | Oncology Inp Progress Note ---
<Camilo Sky - Last Filed: 04/11/18 18:12> Date of Encounter: 04/11/18 Time of Encounter: 10:33 (1) Anemia Current Visit: Yes Status: Acute Assessment and plan: Hgb slightly decreased today but overall stable. Small amount of blood present on right hip dressing but otherwise no evidence of active bleeding. Recheck CBC this afternoon pending, if decreased will stop anticoagulation. Qualifiers: Anemia type: other cause Other causes of anemia: other cause, not classified Qualified Code(s): D64.89 - Other specified anemias (2) DVT (deep venous thrombosis) Current Visit: Yes Status: Acute Assessment and plan: Bilateral lower extremity duplex reveals acute DVT bilaterally. Patient was previously being treated as an outpatient on Coumadin. After episode of acute bleeding, heparin has been restarted. Hemoglobin relatively stable, dropped to 9 today from 10 yesterday but otherwise no evidence of active bleeding. Recheck CBC this afternoon pending. Continue Coumadin with heparin bridge, Goal INR 2-3, for now however if CBC is decreased will stop heparin drip. Qualifiers: DVT location: lower extremity Affected thrombotic vein of extremity: unspecified vein of extremity Chronicity: acute Laterality: bilateral Qualified Code(s): I82.403 - Acute embolism and thrombosis of unspecified deep veins of lower extremity, bilateral Oncology: Subj Interval history: Patient seen and examined at bedside. Patient states that she feels better today. She reports that her hip pain is improved. She denies any active source of bleeding. - Constitutional Vitals: Vital Signs Temp Pulse Resp BP Pulse Ox 04/11/18 07:31 98.1 F 83 17 107/71 98 04/11/18 03:11 99.0 F 86 18 129/73 98 04/10/18 23:26 99.2 F 93 20 121/70 97 04/10/18 19:21 99.0 F 90 18 113/76 95 04/10/18 16:21 98.4 F 87 18 113/71 92 04/10/18 11:46 98.1 F 94 18 107/72 97 Intake and Output 04/10/18 04/11/18 04/11/18 23:59 07:59 15:59 Intake Total 500 / 500 Output Total 1200 / 1200 Balance -700 / -700 Intake: IV Fluids 500 / 500 Heparin 25,000 UNIT/500 ML D5W 500 / 500 25,000 unit In 500 ml @ 14 UNIT /KG/HR 22.96 mls/hr IVC . [id number] [facility] Rx#:[id number] Output: Catheter 1200 / 1200 General appearance: no acute distress, obese - Respiratory Respiratory exam: Present: CTAB. Absent: rales, rhonchi - Cardiovascular Cardiovascular exam: Present: RRR. Absent: irregular rhythm, systolic murmur - GI/Abdominal GI/Abdominal exam: Present: normal bowel sounds, soft. Absent: tenderness - Extremities Exam Extremities exam: Present: pedal edema (trace), tenderness Additional comments: mild swelling to R hip, improved. Dressing with small amount of dried blood present - Neurological Exam Neurological exam: Present: alert, oriented X3 Oncology: Obj Data - Labs CBC & Chem 7: 04/11/18 04:12 04/11/18 04:12 Labs: Laboratory Results - last 24 hr 04/10/18 04/10/18 04/11/18 11:41 19:51 04:12 WBC 7.5 7.6 7.6 RBC 3.00 L 3.33 L 3.03 L Hgb 8.7 L 10.0 L 9.0 L Hct 27.6 L 30.7 L 27.5 L MCV 92.0 92.2 90.8 MCH 29.0 30.0 29.7 MCHC 31.5 L 32.6 32.7 RDW 15.0 H 15.0 H 14.8 H Plt Count 357 348 307 MPV 8.9 L 8.8 L 8.3 L Immature Gran % 0.7 0.9 1.2 Seg Neutrophils % 79.7 74.2 67.7 Lymphocytes % 13.1 16.7 21.1 Monocytes % 3.7 5.5 6.9 Eosinophils % 2.5 2.6 3.0 Basophils % 0.3 0.1 0.1 Neutrophils # 6.0 5.6 5.1 Lymphocytes # 1.0 1.3 1.6 Monocytes # 0.3 0.4 0.5 Eosinophils # 0.2 0.2 0.2 Basophils # 0.0 0.0 0.0 PT INR Heparin Anti-Xa, Unfract Sodium Potassium Chloride Carbon Dioxide BUN Creatinine Est GFR ( Amer) Est GFR (Non-Af Amer) BUN/Creatinine Ratio Glucose Calculated Osmolality Calcium 04/11/18 04/11/18 04:12 04:12 WBC RBC Hgb Hct MCV MCH MCHC RDW Plt Count MPV Immature Gran % Seg Neutrophils % Lymphocytes % Monocytes % Eosinophils % Basophils % Neutrophils # Lymphocytes # Monocytes # Eosinophils # Basophils # PT 13.4 H INR 1.2 Heparin Anti-Xa, Unfract 0.44 Sodium 133 L Potassium 3.9 Chloride 94 L Carbon Dioxide 31 H BUN 38 H Creatinine 1.02 Est GFR ( Amer) > 60 Est GFR (Non-Af Amer) 53 L BUN/Creatinine Ratio 37 H Glucose 120 H Calculated Osmolality 286 Calcium 8.8 - ABG Interpretation ABG results: PT/INR, D-dimer PT 13.4 Seconds (9.4-12.1) H 04/11/18 04:12 Consult Discharge Plan - Plan Referrals: Santos Robbins Jr, PAC [Primary Care Provider] - (Patient is from [facility]. no PCP appointment needed) <Edin Denton - Last Filed: 04/11/18 22:08> Date of Encounter: 04/11/18 (1) Acute blood loss anemia Current Visit: Yes Status: Acute (2) DVT (deep venous thrombosis) Current Visit: Yes Status: Acute Qualifiers: DVT location: lower extremity Affected thrombotic vein of extremity: unspecified vein of extremity Chronicity: acute Laterality: bilateral Qualified Code(s): I82.403 - Acute embolism and thrombosis of unspecified deep veins of lower extremity, bilateral - Constitutional Vitals: Vital Signs Temp Pulse Resp BP Pulse Ox 04/11/18 20:06 98.0 F 91 18 110/70 98 04/11/18 15:58 98.1 F 86 16 109/80 95 04/11/18 11:44 98.2 F 81 18 132/90 94 04/11/18 07:31 98.1 F 83 17 107/71 98 04/11/18 03:11 99.0 F 86 18 129/73 98 04/10/18 23:26 99.2 F 93 20 121/70 97 Intake and Output 04/11/18 04/11/18 04/12/18 08:59 16:59 00:59 Intake Total 500 / 500 600 / 600 Output Total 1200 / 1200 350 / 350 550 / 550 Balance -700 / -700 250 / 250 -550 / -550 Intake: IV Fluids 500 / 500 Heparin 25,000 UNIT/500 ML D5W 500 / 500 25,000 unit In 500 ml @ 14 UNIT /KG/HR 22.96 mls/hr IVC . [id number] [facility] Rx#:[id number] Oral 600 / 600 Output: Catheter 1200 / 1200 350 / 350 550 / 550 Other: Meal Lunch Percent of Meal Consumed 50% Stool Size Large Stool Consistency soft formed Stool Color Brown Oncology: Obj Data - Labs CBC & Chem 7: 04/11/18 15:00 04/11/18 04:12 Labs: Laboratory Results - last 24 hr 04/11/18 04/11/18 04/11/18 04:12 04:12 04:12 WBC 7.6 RBC 3.03 L Hgb 9.0 L Hct 27.5 L MCV 90.8 MCH 29.7 MCHC 32.7 RDW 14.8 H Plt Count 307 MPV 8.3 L Immature Gran % 1.2 Seg Neutrophils % 67.7 Lymphocytes % 21.1 Monocytes % 6.9 Eosinophils % 3.0 Basophils % 0.1 Neutrophils # 5.1 Lymphocytes # 1.6 Monocytes # 0.5 Eosinophils # 0.2 Basophils # 0.0 PT 13.4 H INR 1.2 Heparin Anti-Xa, Unfract 0.44 Sodium 133 L Potassium 3.9 Chloride 94 L Carbon Dioxide 31 H BUN 38 H Creatinine 1.02 Est GFR ( Amer) > 60 Est GFR (Non-Af Amer) 53 L BUN/Creatinine Ratio 37 H Glucose 120 H Calculated Osmolality 286 Calcium 8.8 04/11/18 15:00 WBC 7.7 RBC 3.01 L Hgb 8.7 L Hct 27.7 L MCV 92.0 MCH 28.9 MCHC 31.4 L RDW 15.3 H Plt Count 330 MPV 9.2 L Immature Gran % Seg Neutrophils % Lymphocytes % Monocytes % Eosinophils % Basophils % Neutrophils # Lymphocytes # Monocytes # Eosinophils # Basophils # PT INR Heparin Anti-Xa, Unfract Sodium Potassium Chloride Carbon Dioxide BUN Creatinine Est GFR ( Amer) Est GFR (Non-Af Amer) BUN/Creatinine Ratio Glucose Calculated Osmolality Calcium - ABG Interpretation ABG results: PT/INR, D-dimer PT 13.4 Seconds (9.4-12.1) H 04/11/18 04:12 Inpatient Charges Provider: Dr. Rohan Dentno Follow Up: [id number] - Attending Attestation I examined this patient and my medical decision-making was reviewed with the resident. I agree with the documented findings, disposition and treatment plan as described except to the extent set forth below. Heparin initiated, which appears well tolerated. However, this morning, she was found to have blood about the bandage. It may be old blood/serosanguinous drainage. I did not appreciate fressh blood. H/H decreased to 9. Repeating tonight and asked nurse to contact me directly if there is active bleeding. Will reassess in AM.
[2018-04-11] MEDS: Sennosides/Docusate Sodium TABLET PO SCH ×2 (13:12→21:46)
--- NOTE | 2018-04-11 16:40 | Internal Med Progress Note ---
Hospitalist Progress Note - Encounter Date of Encounter: 04/11/18 Time of Encounter: 16:36 - Subjective Interval History: 67-year-old female admitted for right femoral fracture. Complicated with right- sided hematoma and hypotension due to acute blood loss requiring multiple blood transfusion. Patient seen and evaluated at denies lightheadedness, shortness of breath, chest pain, or dizziness. Reports right lower extremity pain at the level of the heat on the knee. But she thinks that the pain was aggravated by the physical therapy. Reports that the swelling in the right lower extremity has improved, although it is still swollen. - Exam Vitals: Temp Pulse Resp BP Pulse Ox 98.1 F 86 16 109/80 95 04/11/18 15:58 04/11/18 15:58 04/11/18 15:58 04/11/18 15:58 04/11/18 15:58 Exam: General: Alert and oriented 3. Mild distress due to right lower extremity pain Cardiovascular: Normal S1 & S2, no rubs, murmurs or gallops. No JVD. Pulse regular. Lungs: Clear to auscultation laterally, no wheezes or crackles. Abdomen: Obese, Soft, non-tender, no rigidity. NABS Extremities: Edema up to the hip area in the right lower extremity, no erythema , mild tenderness to palpation in the right lower extremity. Neurological: Normal cognition and motor skills. Rest of the physical exam is non contributory - Assessment and Plan (1) Acute blood loss anemia Current Visit: Yes Status: Acute Assessment and Plan: H&H has been stable around 10.0 and 9.0 over the past 48 hours. Plan: - Continue to monitor - Will transfuse if Hb <7 or Hct <23 or patient become hemodynamically unstable (2) Closed right femoral fracture Current Visit: Yes Status: Acute Assessment and Plan: Status post open reduction internal fixation. Plan: - Plan of care as per Ortho team. Will follow their recommendations - Continue PT/OT (3) Essential hypertension Current Visit: No Status: Chronic (4) Coronary artery disease Current Visit: No Status: Chronic Assessment and Plan: Patient with extensive history of coronary artery disease. On September underwent coronary artery bypass. Plan: - Continue dual antiplatelet therapy - On statin (5) DVT (deep venous thrombosis) Current Visit: Yes Status: Acute Assessment and Plan: Hx of recent DVT Plan: - Oncology recommended to restart warfarin if H&H is stable. - Patient is started on heparin drip and warfarin. As H&H is stable for the past 48 hours. - Follow up INR in the morning (6) Hematoma following procedure Current Visit: Yes Status: Resolved Assessment and Plan: Stable. Edema in the right lower extremity has been decreasing. Plan: - Close monitoring of H&H and vital sings for signs of hypotension, as patient has been started on heparin drip as a bridge. - Follow up CBC in the morning. DVT Prophylaxis: Patient On the dose anticoagulation due to a recent history of DVT. - Summary of Assessment and Plan Summary of Assessment and Plan: Patient high risk of bleeding, the heparin drip. As a bridge until a therapeutic INR is obtain due to patient recent Hx of DVT. Patient needs to be in the hospital for close monitoring. High risk of bleeding. - Time Spent with Patient Total time spent is greater than 50% in coordination of care (as documented) at patient's floor/unit and/or counseling patient: Greater than 35 minutes Plan of Care Discussed with: patient Internal Medicine: Result - Labs CBC & Chem 7: 04/11/18 04:12 04/11/18 04:12 Labs: Short CBC 04/10/18 04/11/18 Range/Units 19:51 04:12 WBC 7.6 7.6 (4.3-11.1) K/mcL Hgb 10.0 L 9.0 L (11.5-15.4) g/dL Hct 30.7 L 27.5 L (35.3-44.9) % Plt Count 348 307 (140-400) K/mcL Neutrophils # 5.6 5.1 (1.6-8.9) K/mcL BMP 04/11/18 04:12 Sodium 133 L Potassium 3.9 Chloride 94 L Carbon Dioxide 31 H BUN 38 H Creatinine 1.02 Glucose 120 H Calcium 8.8 - ABG Interpretation ABG results: PT/INR, D-dimer PT 13.4 Seconds (9.4-12.1) H 04/11/18 04:12 - VTE Documentation of Mechanical Device: Venous foot pump, device Consult Discharge Plan - Plan Referrals: Santos Robbins Jr, PAC [Primary Care Provider] - (Patient is from [facility]. no PCP appointment needed) (2) Closed right femoral fracture Qualifiers: Encounter type: initial encounter Femur location: neck Qualified Code(s): S72.001A - Fracture of unspecified part of neck of right femur, initial encounter for closed fracture (4) Coronary artery disease Qualifiers: Coronary Disease-Associated Artery/Lesion type: unspecified vessel or lesion type [place] vs. transplanted heart: [place] heart Associated angina: without angina Qualified Code(s): I25.10 - Atherosclerotic heart disease of [place] coronary artery without angina pectoris (5) DVT (deep venous thrombosis) Qualifiers: DVT location: lower extremity Affected thrombotic vein of extremity: unspecified vein of extremity Chronicity: acute Laterality: bilateral Qualified Code(s): I82.403 - Acute embolism and thrombosis of unspecified deep veins of lower extremity, bilateral
[2018-04-11] MEDS ORDERED: Warfarin perPT PO PRN (18:00)
[2018-04-11] MEDS ORDERED: *HR* Warfarin 2 MG TABLET PO ONE (18:00)
[2018-04-11 18:45] LABS: Hematocrit 27.7 % (35.3-44.9); Hemoglobin 8.7 g/dL (11.5-15.4); Mean Corpuscular HGB Conc 31.4 g/dL (31.6-35.5); Mean Corpuscular Hemoglobin 28.9 pg (28.0-33.3); Mean Platelet Volume 9.2 fL (9.4-12.4); Platelet Count 330 K/mcL (140-400); Red Blood Count 3.01 M/mcL (3.82-4.97); Red Cell Distribution Width 15.3 % (11.5-14.5)
[2018-04-11] MEDS: rOPINIRole 1 MG TABLET PO SCH (21:46)
[2018-04-12] MEDS: Acetaminophen 325 MG TABLET PO SCH ×4 (00:15→16:51)
[2018-04-12] MEDS: Heparin 25,000 UNIT/500 ML D5W 25,000 UNIT/500 ML BAG IVC SCH (01:30)
[2018-04-12 05:47] LABS: Heparin anti-factor XA UFH 0.48 IU/mL (0.30-0.70)
[2018-04-12 05:48] LABS: INR 1.1; Prothrombin Time 12.9 Seconds (9.4-12.1)
[2018-04-12 05:52] LABS: Basophils % 0.3 %; Eosinophils # 0.4 K/mcL (0.0-0.6); Eosinophils % 6.1 %; Hematocrit 25.5 % (35.3-44.9); Hemoglobin 8.2 g/dL (11.5-15.4); Immature Granulocytes % 1.5 % (0-4); Lymphocytes # 1.1 K/mcL (0.6-4.6); Lymphocytes % 18.8 %; Mean Corpuscular HGB Conc 32.2 g/dL (31.6-35.5); Mean Corpuscular Hemoglobin 29.4 pg (28.0-33.3); Mean Corpuscular Volume 91.4 fL (83.0-100.0); Mean Platelet Volume 9.1 fL (9.4-12.4); Monocytes # 0.6 K/mcL (0.0-1.3); Monocytes % 9.2 %; Neutrophils # 3.9 K/mcL (1.6-8.9); Platelet Count 315 K/mcL (140-400); Red Blood Count 2.79 M/mcL (3.82-4.97); Red Cell Distribution Width 15.2 % (11.5-14.5); Segmented Neutrophils % 64.1 %
[2018-04-12 06:12] LABS: BUN/Creatinine Ratio 37 (6-26); Blood Urea Nitrogen 36 mg/dL (8-23); Calcium 8.9 mg/dL (8.6-10.3); Carbon Dioxide 34 mEq/L (23-29); Chloride 95 mEq/L (98-107); Glucose 109 mg/dL (70-105); Osmolality,Calculated 287 (280-300); Potassium 3.6 mEq/L (3.5-5.1); Sodium 134 mEq/L (136-145); eGFR For Non-African Americans 56 (> 60)
[2018-04-12] MEDS: Sennosides/Docusate Sodium TABLET PO SCH ×2 (08:26→20:18)
[2018-04-12] MEDS: Cholecalciferol (D-3) 1,000 UNIT TABLET PO SCH (08:26)
[2018-04-12] MEDS: Famotidine 20 MG TABLET PO SCH ×2 (08:27→20:17)
[2018-04-12] MEDS: Magnesium Oxide 400 MG TABLET PO SCH ×2 (08:27→20:18)
[2018-04-12] MEDS: Folic Acid 1 MG TABLET PO SCH (08:27)
[2018-04-12] MEDS: Multivit/Ca/Min/Fe/FA 1 TAB TABLET PO SCH (08:27)
--- NOTE | 2018-04-12 08:39 | Oncology Inp Progress Note ---
<Camilo Sky - Last Filed: 04/12/18 17:04> Date of Encounter: 04/12/18 Time of Encounter: 08:36 (1) Anemia Current Visit: Yes Status: Acute Assessment and plan: Hgb trending down, was 9 yesterday morning, down to 8.2 this morning. Moderate amount of blood present on right hip. Given drop in hemoglobin and blood on the dressing while on anticoagulation will stop heparin drip and Coumadin and forego anticoagulation for the time being. Would recommend outpatient follow- up in 3-4 weeks at which time anticoagulation can be reevaluated. Qualifiers: Anemia type: other cause Other causes of anemia: other cause, not classified Qualified Code(s): D64.89 - Other specified anemias (2) DVT (deep venous thrombosis) Current Visit: Yes Status: Acute Assessment and plan: Bilateral lower extremity duplex reveals acute DVT bilaterally. Patient was previously being treated as an outpatient on Coumadin. After episode of acute bleeding, heparin had been restarted, however after heparin challenge patient does have evidence of bleeding. Discontinue heparin and Coumadin. Recommend outpatient follow-up for further discussions regarding anticoagulation. Patient has IVC filter in place. Qualifiers: DVT location: lower extremity Affected thrombotic vein of extremity: unspecified vein of extremity Chronicity: acute Laterality: bilateral Qualified Code(s): I82.403 - Acute embolism and thrombosis of unspecified deep veins of lower extremity, bilateral Oncology: Subj Interval history: Patient seen and examined at bedside. Patient states she feels pretty good this morning. She reports minimal pain in her right hip and knee. She denies any bleeding that she can see. - Constitutional Vitals: Vital Signs Temp Pulse Resp BP Pulse Ox 04/12/18 07:25 98.2 F 119 18 113/74 96 04/12/18 03:31 97.9 F 81 20 123/89 96 04/11/18 23:58 97.8 F 76 19 106/65 96 04/11/18 20:06 98.0 F 91 18 110/70 98 04/11/18 15:58 98.1 F 86 16 109/80 95 04/11/18 11:44 98.2 F 81 18 132/90 94 Intake and Output 04/11/18 04/12/18 04/12/18 23:59 07:59 15:59 Intake Total 500 / 500 Output Total 550 / 550 795 / 795 Balance -550 / -550 -295 / -295 Intake: IV Fluids 500 / 500 Heparin 25,000 UNIT/500 ML D5W 500 / 500 25,000 unit In 500 ml @ 14 UNIT /KG/HR 22.96 mls/hr IVC . [id number] [facility] Rx#:[id number] Output: Catheter 550 / 550 795 / 795 Urethral ([place]) 375 / 375 General appearance: no acute distress - Respiratory Respiratory exam: Present: CTAB. Absent: rales, rhonchi - Cardiovascular Cardiovascular exam: Present: RRR. Absent: systolic murmur - GI/Abdominal GI/Abdominal exam: Present: normal bowel sounds, soft. Absent: tenderness - Extremities Exam Additional comments: Mild tenderness to right lateral hip and knee. Dressing in place with moderate amount of dark red blood present on the dressing. - Neurological Exam Neurological exam: Present: alert, oriented X3 Oncology: Obj Data - Labs CBC & Chem 7: 04/12/18 15:05 04/12/18 05:26 Labs: Laboratory Results - last 24 hr 04/11/18 04/12/18 04/12/18 15:00 05:26 05:26 WBC 7.7 6.1 RBC 3.01 L 2.79 L Hgb 8.7 L 8.2 L Hct 27.7 L 25.5 L MCV 92.0 91.4 MCH 28.9 29.4 MCHC 31.4 L 32.2 RDW 15.3 H 15.2 H Plt Count 330 315 MPV 9.2 L 9.1 L Immature Gran % 1.5 Seg Neutrophils % 64.1 Lymphocytes % 18.8 Monocytes % 9.2 Eosinophils % 6.1 Basophils % 0.3 Neutrophils # 3.9 Lymphocytes # 1.1 Monocytes # 0.6 Eosinophils # 0.4 Basophils # 0.0 PT 12.9 H INR 1.1 Heparin Anti-Xa, Unfract 0.48 Sodium Potassium Chloride Carbon Dioxide BUN Creatinine Est GFR ( Amer) Est GFR (Non-Af Amer) BUN/Creatinine Ratio Glucose Calculated Osmolality Calcium 04/12/18 05:26 WBC RBC Hgb Hct MCV MCH MCHC RDW Plt Count MPV Immature Gran % Seg Neutrophils % Lymphocytes % Monocytes % Eosinophils % Basophils % Neutrophils # Lymphocytes # Monocytes # Eosinophils # Basophils # PT INR Heparin Anti-Xa, Unfract Sodium 134 L Potassium 3.6 Chloride 95 L Carbon Dioxide 34 H BUN 36 H Creatinine 0.97 Est GFR ( Amer) > 60 Est GFR (Non-Af Amer) 56 L BUN/Creatinine Ratio 37 H Glucose 109 H Calculated Osmolality 287 Calcium 8.9 - ABG Interpretation ABG results: PT/INR, D-dimer PT 12.9 Seconds (9.4-12.1) H 04/12/18 05:26 Consult Discharge Plan - Plan Referrals: Santos Robbins Jr, PAC [Primary Care Provider] - (Patient is from [facility]. no PCP appointment needed) <Edin Denton - Last Filed: 04/12/18 22:21> Date of Encounter: 04/12/18 (1) Acute blood loss anemia Current Visit: Yes Status: Acute (2) DVT (deep venous thrombosis) Current Visit: Yes Status: Acute Qualifiers: DVT location: lower extremity Affected thrombotic vein of extremity: unspecified vein of extremity Chronicity: acute Laterality: bilateral Qualified Code(s): I82.403 - Acute embolism and thrombosis of unspecified deep veins of lower extremity, bilateral - Constitutional Vitals: Vital Signs Temp Pulse Resp BP Pulse Ox 04/12/18 20:28 82 04/12/18 19:19 98.0 F 83 17 114/60 100 04/12/18 16:22 98.2 F 79 18 126/66 100 04/12/18 10:57 97.9 F 78 18 115/63 96 04/12/18 07:25 98.2 F 119 18 113/74 96 04/12/18 03:31 97.9 F 81 20 123/89 96 04/11/18 23:58 97.8 F 76 19 106/65 96 Intake and Output 04/12/18 04/12/18 04/13/18 08:59 16:59 00:59 Intake Total 500 / 500 600 / 600 240 / 240 Output Total 420 / 420 950 / 950 300 / 300 Balance 80 / 80 -350 / -350 -60 / -60 Intake: IV Fluids 500 / 500 Heparin 25,000 UNIT/500 ML D5W 500 / 500 25,000 unit In 500 ml @ 14 UNIT /KG/HR 22.96 mls/hr IVC . [id number] [facility] Rx#:[id number] Oral 600 / 600 240 / 240 Output: Catheter 420 / 420 950 / 950 300 / 300 Other: Meal Lunch Dinner Percent of Meal Consumed 25% 80% Stool Size Small Stool Consistency formed Stool Color Brown # Bowel Movements 1 Oncology: Obj Data - Labs CBC & Chem 7: 04/12/18 15:05 04/12/18 05:26 Labs: Laboratory Results - last 24 hr 04/12/18 04/12/18 04/12/18 05:26 05:26 05:26 WBC 6.1 RBC 2.79 L Hgb 8.2 L Hct 25.5 L MCV 91.4 MCH 29.4 MCHC 32.2 RDW 15.2 H Plt Count 315 MPV 9.1 L Immature Gran % 1.5 Seg Neutrophils % 64.1 Lymphocytes % 18.8 Monocytes % 9.2 Eosinophils % 6.1 Basophils % 0.3 Neutrophils # 3.9 Lymphocytes # 1.1 Monocytes # 0.6 Eosinophils # 0.4 Basophils # 0.0 PT 12.9 H INR 1.1 Heparin Anti-Xa, Unfract 0.48 Sodium 134 L Potassium 3.6 Chloride 95 L Carbon Dioxide 34 H BUN 36 H Creatinine 0.97 Est GFR ( Amer) > 60 Est GFR (Non-Af Amer) 56 L BUN/Creatinine Ratio 37 H Glucose 109 H Calculated Osmolality 287 Calcium 8.9 04/12/18 15:05 WBC 8.0 RBC 3.20 L Hgb 9.6 L Hct 30.0 L MCV 93.8 MCH 30.0 MCHC 32.0 RDW 15.2 H Plt Count 294 MPV 8.9 L Immature Gran % 1.3 Seg Neutrophils % 71.6 Lymphocytes % 13.8 Monocytes % 9.1 Eosinophils % 3.9 Basophils % 0.3 Neutrophils # 5.7 Lymphocytes # 1.1 Monocytes # 0.7 Eosinophils # 0.3 Basophils # 0.0 PT INR Heparin Anti-Xa, Unfract Sodium Potassium Chloride Carbon Dioxide BUN Creatinine Est GFR ( Amer) Est GFR (Non-Af Amer) BUN/Creatinine Ratio Glucose Calculated Osmolality Calcium - ABG Interpretation ABG results: PT/INR, D-dimer PT 12.9 Seconds (9.4-12.1) H 04/12/18 05:26 Inpatient Charges Provider: Dr. Rohan Denton Follow Up: [id number] - Attending Attestation I examined this patient and my medical decision-making was reviewed with the resident. I agree with the documented findings, disposition and treatment plan as described except to the extent set forth below. She has recurrent bleeding. Fresh blood on bandages and decrease in H/H. Heparin and coumadin discontinued. Heparin effect will be nil in about one hour after cessation. No need for reversal. Repeat H/H in AM and transfuse if hgb <7. Will consider reinitiation of anticoagulation in 3-4 weeks.
[2018-04-12] MEDS: *HR* OxyCODONE Immed Rel 5 MG TABLET PO PRN ×2 (13:54→21:53)
[2018-04-12 15:19] LABS: Basophils % 0.3 %; Eosinophils # 0.3 K/mcL (0.0-0.6); Eosinophils % 3.9 %; Hemoglobin 9.6 g/dL (11.5-15.4); Immature Granulocytes % 1.3 % (0-4); Lymphocytes # 1.1 K/mcL (0.6-4.6); Lymphocytes % 13.8 %; Mean Corpuscular Volume 93.8 fL (83.0-100.0); Mean Platelet Volume 8.9 fL (9.4-12.4); Monocytes # 0.7 K/mcL (0.0-1.3); Monocytes % 9.1 %; Neutrophils # 5.7 K/mcL (1.6-8.9); Platelet Count 294 K/mcL (140-400); Red Cell Distribution Width 15.2 % (11.5-14.5); Segmented Neutrophils % 71.6 %
--- NOTE | 2018-04-12 16:41 | Internal Med Progress Note ---
Hospitalist Progress Note - Encounter Date of Encounter: 04/12/18 Time of Encounter: 16:39 - Subjective Interval History: Patient evaluated at bedside, reports right lower extremity pain, 5 out of 10. Denies chest pain, shortness of breath, lightheadedness. todya afternoon while the dressing was being changed there was small amount of blood oozing through the wound. - Exam Vitals: Temp Pulse Resp BP Pulse Ox 98.2 F 79 18 126/66 100 04/12/18 16:22 04/12/18 16:22 04/12/18 16:22 04/12/18 16:22 04/12/18 16:22 Exam: General: Alert and oriented 3. Mild distress due to right lower extremity pain Cardiovascular: Normal S1 & S2, no rubs, murmurs or gallops. No JVD. Lungs: Clear to auscultation laterally, no wheezes or crackles. Abdomen: Obese, Soft, non-tender, no rigidity. NABS Extremities: Edema up to the hip area in the right lower extremity, improved when compared with yesterday, no erythema, mild tenderness to palpation in the right lower extremity. Neurological: Normal cognition, CN II-XII intact Rest of the physical exam is non contributory - Assessment and Plan (1) Acute blood loss anemia Current Visit: Yes Status: Acute Assessment and Plan: There was a drop of H&H from 8.7 and 8.2. Plan: - Continue monitoring - CBC in the morning - Discussed with oncology regarding anticoagulation, they advised against continuing anticoagulation - continue ferrous sulfate (2) Closed right femoral fracture Current Visit: Yes Status: Acute Assessment and Plan: Status post open reduction internal fixation. Plan: - Plan of care as per Ortho team. - Continue PT/OT - Pain controlled with [place] 5-325 every 6 hours and oxycodone 10 mg Q8HR by mouth daily for rescue pain - If H&H remains stable, patient is a potential transfer tomorrow to rehabilitation - On a stool softener senna/docusate (3) Essential hypertension Current Visit: No Status: Chronic Assessment and Plan: Blood pressure well controlled. Plan: - Continue with the beta alvarez, we will restart Lasix 40 mg daily (4) Coronary artery disease Current Visit: No Status: Chronic Assessment and Plan: Patient with extensive history of coronary artery disease. On September underwent coronary artery bypass. Plan: - Continue dual antiplatelet therapy and statin (5) DVT (deep venous thrombosis) Current Visit: Yes Status: Acute Assessment and Plan: Recently diagnosed with a DVT. Plan: - started on the heparin drip yesterday. But discontinued due to decrease in H& H. - Oncology recommended to discontinue the heparin drip and anticoagulation with Coumadin. - Restart Coumadin as an outpatient in 3-4 weeks. (6) Hematoma following procedure Current Visit: Yes Status: Resolved Assessment and Plan: Small oozing seen while the dressing was being changed today. Plan: - Ortho consulted for evaluation - F/U CBC STAT (7) Rheumatoid arthritis involving knee Current Visit: No Status: Acute Assessment and Plan: Plan: - continue Methotrexate - Time Spent with Patient Total time spent is greater than 50% in coordination of care (as documented) at patient's floor/unit and/or counseling patient: Greater than 35 minutes Plan of Care Discussed with: patient Internal Medicine: Result - Labs CBC & Chem 7: 04/12/18 15:05 04/12/18 05:26 Labs: Short CBC 04/11/18 04/12/18 04/12/18 Range/Units 15:00 05:26 15:05 WBC 7.7 6.1 8.0 (4.3-11.1) K/mcL Hgb 8.7 L 8.2 L 9.6 L (11.5-15.4) g/dL Hct 27.7 L 25.5 L 30.0 L (35.3-44.9) % Plt Count 330 315 294 (140-400) K/mcL Neutrophils # 3.9 5.7 (1.6-8.9) K/mcL BMP 04/12/18 05:26 Sodium 134 L Potassium 3.6 Chloride 95 L Carbon Dioxide 34 H BUN 36 H Creatinine 0.97 Glucose 109 H Calcium 8.9 - ABG Interpretation ABG results: PT/INR, D-dimer PT 12.9 Seconds (9.4-12.1) H 04/12/18 05:26 - VTE Documentation of Mechanical Device: Venous foot pump, device Consult Discharge Plan - Plan Referrals: Santos Robbins Jr, PAC [Primary Care Provider] - (Patient is from [facility]. no PCP appointment needed) (2) Closed right femoral fracture Qualifiers: Encounter type: initial encounter Femur location: neck Qualified Code(s): S72.001A - Fracture of unspecified part of neck of right femur, initial encounter for closed fracture (4) Coronary artery disease Qualifiers: Coronary Disease-Associated Artery/Lesion type: unspecified vessel or lesion type [place] vs. transplanted heart: [place] heart Associated angina: without angina Qualified Code(s): I25.10 - Atherosclerotic heart disease of [place] coronary artery without angina pectoris (5) DVT (deep venous thrombosis) Qualifiers: DVT location: lower extremity Affected thrombotic vein of extremity: unspecified vein of extremity Chronicity: acute Laterality: bilateral Qualified Code(s): I82.403 - Acute embolism and thrombosis of unspecified deep veins of lower extremity, bilateral (7) Rheumatoid arthritis involving knee Qualifiers: Rheumatoid factor presence: unspecified presence Laterality: right Qualified Code(s): M06.061 - Rheumatoid arthritis without rheumatoid factor, right knee
[2018-04-12] MEDS: rOPINIRole 1 MG TABLET PO SCH (20:17)
--- NOTE | 2018-04-12 23:27 | Orthopedics Progress Note ---
Date of Encounter: 04/12/18 Time of Encounter: 23:23 Subjective Principal diagnosis: Periprosthetic fracture right femur Interval history: 04/01/2018. Patient is postop day #1 from ORIF of a midshaft periprosthetic fracture of the right femur. Patient is doing remarkably well. Pain is minimal and well controlled. Vital signs are stable. Patient is afebrile. Dressings are clean dry and intact. Hemoglobin is 10.0. Patient had a hemoglobin of 8 prior to surgery and did receive 2 units of pack red blood cells intraoperatively. White blood cell count is elevated at 14.2. Platelet count is normal at 194. Pro time is 19.8. INR 1.8 kidney function is improved from preop. Impression: POD #1 ORIF periprosthetic fracture right femur Recommendation: Orthopedic status is excellent. Discussed with the patient that she can ambulate with full on limited motion of her hip knee and ankle. Her only limitation is to be strictly nonweightbearing on the right lower extremity. Patient can resume home medications including Coumadin at the discretion of the internal medicine physicians. We will probably perform dressing change tomorrow. Discussed with the patient that I did not closer fascia in the lateral thigh through the tremendous amount of swelling in the muscle. 04/02/2018. Patient POD #2 ORIF right periprosthetic femur fracture. Having pain as anticipated. Vital signs reveal blood pressure of about 90/50. She is afebrile. Dressings were taken down. Incision is clean dry and intact. Hemoglobin not obtained today. Impression: POD #2 ORIF periprosthetic right femur fracture Recommendation: Orthopedic status remains stable. Patient can be ambulatory with nonweightbearing on the right lower extremity. Pain management as able, caution with somewhat low blood pressure. To be bridged with Lovenox until her pro time and INR are therapeutic in regards to her DVT treatment. Anticipate patient need for rehabilitation stay. 04/03/2018. Patient POD #3 ORIF right periprosthetic femur fracture. Patient is sleepy from sedation for placement of an IVC filter. Vital signs are stable. Patient is afebrile. Dressings are clean and dry. Thigh is somewhat edematous. As previously noted the patient did not have fascial closure and would anticipate her having prominence or fullness along the lateral side of the thigh underneath her incision. Hemoglobin had dropped to 7.5. Platelet count remained stable at 286. Impression: POD #3 ORIF periprosthetic fracture right femur Plan: Orthopedic status remains stable. Patient can ambulate with nonweightbearing on the right lower extremity. Local wound care for her extensile right lateral thigh incision. legal services professional for discharge planning , anticipate short-term rehabilitation stay. 04/04/2018. Patient POD #4 ORIF right periprosthetic femur fracture. Patient complains of anticipated right thigh pain. Vital signs are stable. Patient is afebrile. Thigh is increased in size. Distal neurosensory exam remains intact. Calf is soft. Posterior thigh is soft. Hemoglobin was 5 after multiple units of pack red blood cells. Patient continues to be coagulopathic with a ProTime of 21.6 though the INR is 1.9. Impression: POD number for ORIF right periprosthetic femur fracture Recommendation: Would recommend treating the coagulopathy as the patient now has a IVC filter. Discussed with ICU staff. Orthopedic status remains stable. Would prefer to not open the wound to evacuate a hematoma, this should resolve spontaneously in time. Ambulate when appropriate with medical service. 04/05/2018. Patient now postop day #5 ORIF periprosthetic fracture right femur. Patient is having right thigh pain. Vital signs are stable. Patient is afebrile. The right thigh shows fullness in the anterior and lateral aspect. Incision is intact. She is draining serous fluid. Patient's entire lower extremity is edematous. Left sides likewise shows some edema in the soft tissues. Hemoglobin is now stable at 10.4. Impression: POD #5 ORIF right periprosthetic femur fracture, hemoglobin currently stable. Recommendation: Patient had much more extensive bleeding after her surgery as well as the anticoagulation. Patient is a complex case that required treatment for an acute fracture with index anticipated extensive blood loss as well as chronic anticoagulation for bilateral lower extremity DVT. Patient ultimately had a IVC filter placed anticoagulants. The patient continued to have persistent bleeding due to persistent elevation of her bleeding times. These have more normalized since reversal agents were given. At this time I do not anticipate any additional further bleeding. Done anticipate any need for further surgical intervention. As previously noted the lateral thigh fascia was not closed so the risk of a compartment syndrome is nearly nil. 04/06/2018. Patient is postop day #6 ORIF of a right periprosthetic femur fracture. Bilateral lower extremity DVT. Patient is doing quite well overall. Having anticipated pain though this is improving. Vital signs are stable. Patient is afebrile. Thigh remained soft though quite edematous. Incision is intact. Draining some serous fluid. Hemoglobin is stable at 10.1. Platelet count is normal. Impression POD #6 ORIF periprosthetic fracture right femur. Recommendations: As noted the patient had extensive hemorrhage postop from a major fracture as well as the anticoagulants. Off the anticoagulants her hemoglobin has remained stable. She is protected with an IVC. Per hematology, a course of treatment with anticoagulations would be best for the patient. I would recommend that we wait at least 48 hours with a stable hemoglobin before attempting anticoagulation. Orthopedic status is stable. Can mobilize when okayed with medical service. 18. Patient postop day #8 ORIF right periprosthetic femur fracture. Patient doing quite well. Pain is improving daily. Patient states she has been out of bed to chair, no real ambulation thus far. Vital signs are stable. Patient is afebrile. Thigh is soft. Incision shows only minor serosanguineous spotting. Hemoglobin is 9.8. White blood cell count is normal. Platelets normal at 304. Pro time minimally elevated at 12.8. With a INR of 1.1. Impression: POD #8 ORIF periprosthetic fracture right femur, orthopedic status stable with stable hemoglobin and coagulation profile. Recommendation: With a stable hemoglobin and clinical exam I think the patient can be started on gentle, progressive anticoagulation. We will need to increase her ambulation with therapy. I discussed with the patient that my only limitation is that she maintain nonweightbearing on the right lower extremity. She may have some increased drainage with range of motion exercises. I suspect her thigh resolution will take some time but should resolve. We will check on patient intermittently or as needed. 04/11/2018. Patient is feeling fairly well. Concerns about patient developing bright red bleeding from her incision with the onset of anticoagulants. Vital signs are stable. Patient is afebrile. Incision is intact. There is a large amount of hematoma. There is some old blood draining through the distal aspects of the wound. I see no evidence of acute bleeding. Hemoglobin is stable. Platelet count is normal. Pro- time is elevated at 12.9 with a normal INR. Impression: Status post ORIF periprosthetic right femur, hematoma right thigh secondary to anticoagulant use and femur fracture. Condition stable Recommendation: I do not see any evidence of an acute bleeding process. The patient does have a very large thigh hematoma though I would recommend that we observe this and not proceed with any formal evacuation. The patient will require wound care with dressings as needed. Needs to maintain nonweightbearing on the right lower extremity. We will need follow-up with me in about 10 days or 2 weeks. Objective Vital signs: Vital Signs Temp Pulse Resp BP Pulse Ox 04/12/18 20:28 82 04/12/18 19:19 98.0 F 83 17 114/60 100 04/12/18 16:22 98.2 F 79 18 126/66 100 04/12/18 10:57 97.9 F 78 18 115/63 96 04/12/18 07:25 98.2 F 119 18 113/74 96 04/12/18 03:31 97.9 F 81 20 123/89 96 04/11/18 23:58 97.8 F 76 19 106/65 96 Intake and Output 04/12/18 04/12/18 04/12/18 07:59 15:59 23:59 Intake Total 500 / 500 600 / 600 240 / 240 Output Total 795 / 795 950 / 950 300 / 300 Balance -295 / -295 -350 / -350 -60 / -60 Intake: IV Fluids 500 / 500 Heparin 25,000 UNIT/500 ML D5W 500 / 500 25,000 unit In 500 ml @ 14 UNIT /KG/HR 22.96 mls/hr IVC . [id number] [facility] Rx#:[id number] Oral 600 / 600 240 / 240 Output: Catheter 795 / 795 950 / 950 300 / 300 Urethral ([place]) 375 / 375 Other: Meal Lunch Dinner Percent of Meal Consumed 25% 80% Stool Size Small Small Stool Consistency formed soft formed Stool Color Brown Brown # Bowel Movements 1 1 Incision: healing, draining - Labs CBC & BMP: 04/12/18 15:05 04/12/18 05:26 Labs: Abnormal lab results RBC 3.20 M/mcL (3.82-4.97) L 04/12/18 15:05 Hgb 9.6 g/dL (11.5-15.4) L 04/12/18 15:05 Hct 30.0 % (35.3-44.9) L 04/12/18 15:05 RDW 15.2 % (11.5-14.5) H 04/12/18 15:05 MPV 8.9 fL (9.4-12.4) L 04/12/18 15:05 Nucleated RBCs/100 WBC 1.0 /100 WBC (0) H 04/05/18 04:00 Toxic Granulation Present (Not Present) A 04/09/18 11:44 PT 12.9 Seconds (9.4-12.1) H 04/12/18 05:26 Sodium 134 mEq/L (136-145) L 04/12/18 05:26 Chloride 95 mEq/L (98-107) L 04/12/18 05:26 Carbon Dioxide 34 mEq/L (23-29) H 04/12/18 05:26 BUN 36 mg/dL (8-23) H 04/12/18 05:26 Est GFR (Non-Af Amer) 56 (> 60) L 04/12/18 05:26 BUN/Creatinine Ratio 37 (6-26) H 04/12/18 05:26 Glucose 109 mg/dL (70-105) H 04/12/18 05:26 POC Glucose 173 mg/dL (70-99) H 04/04/18 09:21 Iron 19 mcg/dL (50-170) L 04/01/18 08:12 % Saturation 7 % (15-50) L 04/01/18 08:12 Transferrin 202 mg/dL (203-362) L 04/01/18 08:12 Albumin 3.4 g/dL (3.5-5.7) L 03/30/18 07:09 Albumin/Globulin Ratio 1.0 (1.1-2.2) L 03/30/18 07:09 Folate 19.4 ng/mL (3.0-16.0) H 04/01/18 08:12 - VTE Documentation of Mechanical Device: Venous foot pump, device Consult Discharge Plan - Plan Referrals: Santos Robbins Jr, PAC [Primary Care Provider] - (Patient is from [facility]. no PCP appointment needed)
[2018-04-13] MEDS: Acetaminophen 325 MG TABLET PO SCH ×4 (00:36→17:30)
[2018-04-13 05:06] LABS: Basophils % 0.2 %; Eosinophils # 0.2 K/mcL (0.0-0.6); Eosinophils % 2.8 %; Hematocrit 26.7 % (35.3-44.9); Hemoglobin 8.7 g/dL (11.5-15.4); Immature Granulocytes % 1.4 % (0-4); Lymphocytes # 1.2 K/mcL (0.6-4.6); Lymphocytes % 14.7 %; Mean Corpuscular HGB Conc 32.6 g/dL (31.6-35.5); Mean Corpuscular Hemoglobin 30.3 pg (28.0-33.3); Mean Platelet Volume 8.8 fL (9.4-12.4); Monocytes # 0.8 K/mcL (0.0-1.3); Monocytes % 9.7 %; Neutrophils # 5.9 K/mcL (1.6-8.9); Nucleated Red Blood Cells 0.2 /100 WBC (0); Platelet Count 311 K/mcL (140-400); Red Blood Count 2.87 M/mcL (3.82-4.97); Red Cell Distribution Width 15.5 % (11.5-14.5); Segmented Neutrophils % 71.2 %
[2018-04-13] MEDS: Magnesium Oxide 400 MG TABLET PO SCH (07:25)
[2018-04-13] MEDS: *HR* OxyCODONE Immed Rel 5 MG TABLET PO PRN ×2 (07:25→15:53)
[2018-04-13] MEDS: Sennosides/Docusate Sodium TABLET PO SCH (07:26)
[2018-04-13] MEDS: Famotidine 20 MG TABLET PO SCH (07:26)
[2018-04-13] MEDS: Cholecalciferol (D-3) 1,000 UNIT TABLET PO SCH (07:26)
[2018-04-13] MEDS: Folic Acid 1 MG TABLET PO SCH (07:26)
[2018-04-13] MEDS: Multivit/Ca/Min/Fe/FA 1 TAB TABLET PO SCH (07:26)
[2018-04-13 08:19] LABS: BUN/Creatinine Ratio 36 (6-26); Blood Urea Nitrogen 33 mg/dL (8-23); Calcium 9.1 mg/dL (8.6-10.3); Carbon Dioxide 32 mEq/L (23-29); Chloride 97 mEq/L (98-107); Glucose 104 mg/dL (70-105); Osmolality,Calculated 290 (280-300); Sodium 136 mEq/L (136-145); eGFR For Non-African Americans > 60 (> 60)
[2018-04-13] MEDS ORDERED: Furosemide 40 MG/4 ML VIAL IVP SCH (09:00)
--- NOTE | 2018-04-13 09:20 | Oncology Inp Progress Note ---
<Camilo Sky - Last Filed: 04/13/18 17:23> Date of Encounter: 04/13/18 Time of Encounter: 09:17 (1) Anemia Status: Acute Assessment and plan: Hgb overall stabe, 8.7 this morning. Small amount of dark blood present on right hip dressing. Would continue to hold anticoagulation until outpatient follow-up in 3-4 weeks at which time anticoagulation can be reevaluated. Qualifiers: Anemia type: other cause Other causes of anemia: other cause, not classified Qualified Code(s): D64.89 - Other specified anemias (2) DVT (deep venous thrombosis) Status: Acute Assessment and plan: Bilateral lower extremity duplex reveals acute DVT bilaterally. Patient was previously being treated as an outpatient on Coumadin. After episode of acute bleeding, heparin had been restarted, however after heparin challenge patient did have evidence of bleeding. Anticoagulation has been discontinued. Recommend outpatient follow-up for further discussions regarding anticoagulation. Patient has IVC filter in place. Qualifiers: DVT location: lower extremity Affected thrombotic vein of extremity: unspecified vein of extremity Chronicity: acute Laterality: bilateral Qualified Code(s): I82.403 - Acute embolism and thrombosis of unspecified deep veins of lower extremity, bilateral Oncology: Subj Interval history: Patient seen and examined at bedside. Patient states that she feels pretty good today. The pain in her right hip is improving. She denies any evidence of bleeding. - Constitutional Vitals: Vital Signs Temp Pulse Resp BP Pulse Ox 04/13/18 07:38 77 04/13/18 06:41 98.3 F 79 18 117/54 96 04/13/18 05:00 78 18 94 04/13/18 04:00 76 04/13/18 03:37 98.2 F 70 17 116/62 92 04/13/18 02:00 78 18 98 04/13/18 00:00 79 04/12/18 23:26 98.4 F 73 16 112/58 97 04/12/18 20:28 82 04/12/18 19:19 98.0 F 83 17 114/60 100 04/12/18 16:22 98.2 F 79 18 126/66 100 04/12/18 10:57 97.9 F 78 18 115/63 96 Intake and Output 04/12/18 04/13/18 04/13/18 23:59 07:59 15:59 Intake Total 240 / 240 Output Total 700 / 700 250 / 250 Balance -460 / -460 -250 / -250 Intake: Oral 240 / 240 Output: Catheter 700 / 700 250 / 250 Other: Meal Dinner Percent of Meal Consumed 80% Stool Size Small Stool Consistency soft formed Stool Color Brown # Bowel Movements 1 General appearance: no acute distress - Respiratory Respiratory exam: Present: CTAB. Absent: rales, rhonchi - Cardiovascular Cardiovascular exam: Present: RRR. Absent: diastolic murmur, systolic murmur - GI/Abdominal GI/Abdominal exam: Present: normal bowel sounds, soft. Absent: tenderness - Extremities Exam Additional comments: Dressing applied to right lateral hip, some dry blood noted but overall not saturated. - Neurological Exam Neurological exam: Present: alert, oriented X3 Oncology: Obj Data - Labs CBC & Chem 7: 04/13/18 04:46 04/13/18 04:46 Labs: Laboratory Results - last 24 hr 04/12/18 04/13/18 04/13/18 15:05 04:46 04:46 WBC 8.0 8.3 RBC 3.20 L 2.87 L Hgb 9.6 L 8.7 L Hct 30.0 L 26.7 L MCV 93.8 93.0 MCH 30.0 30.3 MCHC 32.0 32.6 RDW 15.2 H 15.5 H Plt Count 294 311 MPV 8.9 L 8.8 L Immature Gran % 1.3 1.4 Seg Neutrophils % 71.6 71.2 Lymphocytes % 13.8 14.7 Monocytes % 9.1 9.7 Eosinophils % 3.9 2.8 Basophils % 0.3 0.2 Neutrophils # 5.7 5.9 Lymphocytes # 1.1 1.2 Monocytes # 0.7 0.8 Eosinophils # 0.3 0.2 Basophils # 0.0 0.0 Nucleated RBCs/100 WBC 0.2 H Sodium 136 Potassium 4.0 Chloride 97 L Carbon Dioxide 32 H BUN 33 H Creatinine 0.91 Est GFR ( Amer) > 60 Est GFR (Non-Af Amer) > 60 BUN/Creatinine Ratio 36 H Glucose 104 Calculated Osmolality 290 Calcium 9.1 Magnesium 2.0 - ABG Interpretation ABG results: PT/INR, D-dimer PT 12.9 Seconds (9.4-12.1) H 04/12/18 05:26 Consult Discharge Plan - Plan Referrals: Santos Robbins Jr, PAC [Primary Care Provider] - (Patient is from [facility]. no PCP appointment needed) Prescriptions: Acetaminophen [Tylenol] 650 mg PO Q6HR 30 Days #90 tablet HYDROcodone/Acet 5/325 mg [[place] 5-325 mg] 1 tab PO Q6HR PRN 14 Days #20 tablet PRN Reason: Moderate Pain Ferrous Sulfate 325 mg PO DAILY@0800 30 Days #30 tablet Sennosides/Docusate Sodium [Senna Plus] 2 each PO BID 30 Days #60 tablet <Edin Denton S - Last Filed: 04/13/18 21:49> Date of Encounter: 04/13/18 (1) Acute blood loss anemia Status: Resolved (2) DVT (deep venous thrombosis) Status: Acute Qualifiers: DVT location: lower extremity Affected thrombotic vein of extremity: unspecified vein of extremity Chronicity: acute Laterality: bilateral Qualified Code(s): I82.403 - Acute embolism and thrombosis of unspecified deep veins of lower extremity, bilateral - Constitutional Vitals: Vital Signs Temp Pulse Resp BP Pulse Ox 04/13/18 16:08 98.3 F 80 18 113/61 94 04/13/18 11:15 98.3 F 81 17 111/79 94 04/13/18 10:00 97 04/13/18 07:38 77 04/13/18 06:41 98.3 F 79 18 117/54 96 04/13/18 05:00 78 18 94 04/13/18 04:00 76 04/13/18 03:37 98.2 F 70 17 116/62 92 04/13/18 02:00 78 18 98 04/13/18 00:00 79 04/12/18 23:26 98.4 F 73 16 112/58 97 Intake and Output 04/13/18 04/13/18 04/14/18 08:59 16:59 00:59 Intake Total 840 / 840 Output Total 250 / 250 1775 / 1775 Balance -250 / -250 -935 / -935 Intake: Oral 840 / 840 Output: Catheter 250 / 250 1775 / 1775 Other: Meal Lunch Percent of Meal Consumed 25% Stool Size Small Stool Consistency formed Stool Characteristics Normal for Patient Stool Color Black # Bowel Movements 1 Oncology: Obj Data - Labs CBC & Chem 7: 04/13/18 04:46 04/13/18 04:46 Labs: Laboratory Results - last 24 hr 04/13/18 04/13/18 04:46 04:46 WBC 8.3 RBC 2.87 L Hgb 8.7 L Hct 26.7 L MCV 93.0 MCH 30.3 MCHC 32.6 RDW 15.5 H Plt Count 311 MPV 8.8 L Immature Gran % 1.4 Seg Neutrophils % 71.2 Lymphocytes % 14.7 Monocytes % 9.7 Eosinophils % 2.8 Basophils % 0.2 Neutrophils # 5.9 Lymphocytes # 1.2 Monocytes # 0.8 Eosinophils # 0.2 Basophils # 0.0 Nucleated RBCs/100 WBC 0.2 H Sodium 136 Potassium 4.0 Chloride 97 L Carbon Dioxide 32 H BUN 33 H Creatinine 0.91 Est GFR ( Amer) > 60 Est GFR (Non-Af Amer) > 60 BUN/Creatinine Ratio 36 H Glucose 104 Calculated Osmolality 290 Calcium 9.1 Magnesium 2.0 - ABG Interpretation ABG results: PT/INR, D-dimer PT 12.9 Seconds (9.4-12.1) H 04/12/18 05:26 Inpatient Charges Provider: Dr. Rohan Denton Follow Up: 13552 - Attending Attestation I examined this patient and my medical decision-making was reviewed with the resident. I agree with the documented findings, disposition and treatment plan as described except to the extent set forth below. Hemoglobin hpatas stabilized. Will continue to hold anticoagulation. Will reevaluate in 3-4 weeks and attempt to restart at that time. She is being d/c today. Outpatient f/u will be scheduled.
[2018-04-13] MEDS: *HR* Methotrexate 2.5 MG TABLET PO SCH (12:36)
--- NOTE | 2018-04-13 13:46 | Discharge Summary ---
- NOTES TO OUTPATIENT PROVIDER Notes to Outpatient Provider: CBC within a week. Follow-up with orthopedic within 10 days. wound care and daily dressing. Orders not resulted at time of discharge: Pending orders 04/14/18 04:00 Basic Metabolic Panel AM 0400 Date of Encounter: 04/13/18 Time of Encounter: 13:44 - Discharge Diagnosis (1) Acute blood loss anemia Priority: Primary Status: Resolved (2) Closed right femoral fracture Priority: Secondary Status: Acute Qualifiers: Encounter type: initial encounter Femur location: neck Qualified Code(s) : S72.001A - Fracture of unspecified part of neck of right femur, initial encounter for closed fracture (3) Essential hypertension Priority: Secondary Status: Chronic (4) Coronary artery disease Priority: Secondary Status: Chronic Qualifiers: Coronary Disease-Associated Artery/Lesion type: unspecified vessel or lesion type [place] vs. transplanted heart: [place] heart Associated angina: without angina Qualified Code(s): I25.10 - Atherosclerotic heart disease of [place] coronary artery without angina pectoris (5) DVT (deep venous thrombosis) Priority: Secondary Status: Acute Qualifiers: DVT location: lower extremity Affected thrombotic vein of extremity: unspecified vein of extremity Chronicity: acute Laterality: bilateral Qualified Code(s): I82.403 - Acute embolism and thrombosis of unspecified deep veins of lower extremity, bilateral (6) Hematoma following procedure Priority: Secondary Status: Resolved (7) Rheumatoid arthritis involving knee Priority: Secondary Status: Acute Qualifiers: Rheumatoid factor presence: unspecified presence Laterality: right Qualified Code(s): M06.9 - Rheumatoid arthritis, unspecified Hospital course: Ms. Bermudez is a 72 year old female history of coronary artery disease status post coronary artery bypass grafting, stents, hypertension, anxiety, depression, recent DVT. Patient presented to the emergency room complaining of right hip pain following. Patient found to have a closed right femur fracture, patient underwent Open reduction internal fixation right joaquina-prosthetic femur fracture. Hospital course complicated with development of hypotension due to the development of a hematoma at the surgical site. Due to the development of the hematoma, and the recent history of a DVT diagnosed in the lower extremity, an IVC filter was placed. Attempts were made to restart anticoagulation with Coumadin, but unsuccessful due to drop in the hemoglobin. Oncology involved in the case recommended to restart anticoagulation 3-4 weeks following discharge from the hospital. H&H has been a stable low with the vital signs for more this 78 hours. Discussed with Orthopedic team about Oozing of dark/mixed with red blood on the dressing, and the Ortho team believe this is old blood and that the patient can be safetly discharged to Rehabilitation and follow up with them in 10 days. - Time Spent with Patient Total time spent providing and/or coordinating discharge services: Greater than 30 minutes - Discharge Medications Prescriptions: Acetaminophen [Tylenol] 650 mg PO Q6HR 30 Days #90 tablet HYDROcodone/Acet 5/325 mg [[place] 5-325 mg] 1 tab PO Q6HR PRN 14 Days #20 tablet PRN Reason: Moderate Pain Ferrous Sulfate 325 mg PO DAILY@0800 30 Days #30 tablet Sennosides/Docusate Sodium [Senna Plus] 2 each PO BID 30 Days #60 tablet Home Medications: Alendronate Sodium [Fosamax] 70 mg PO VERDE 03/30/18 [History] Allopurinol [Zyloprim 100 MG] 100 mg PO BID 03/30/18 [History] Aspirin [Lo-Dose Aspirin EC] 81 mg PO DAILY 03/30/18 [History] Atorvastatin [Lipitor] 40 mg PO HS 03/30/18 [History] Calcium Carbonate/Vitamin D3 [[place] Shell Calcium-Vit D Tab] 1 tab PO TID 03/30 [History] Citalopram Hydrobromide [Citalopram HBr] 20 mg PO DAILY 03/30/18 [History] Clopidogrel [Plavix] 75 mg PO DAILY 03/30/18 [History] Ergocalciferol (VITAMIN D2) [Vitamin D] 400 unit PO DAILY 03/30/18 [History] FentaNYL PATCH [Duragesic] 25 mcg TD Q72H 03/30/18 [History] Folic Acid 1 mg PO DAILY 03/30/18 [History] Furosemide [Lasix] 40 mg PO BID 03/30/18 [History] Lidocaine Patch [Lidoderm 5% patch] 1 appl TP DAILY 03/30/18 [History] Mag Hydrox/Aluminum Hyd/Simeth [Cvs Antacid Plus Anti-Gas Liq] 30 ml PO AD PRN 03/30/18 [History] Magnesium Oxide [Magnesium] 400 mg PO BID 03/30/18 [History] Methotrexate [Otrexup] 15 mg PO TH 03/30/18 [History] Metoprolol [Lopressor] 25 mg PO BID 03/30/18 [History] Multivitamin [One Daily Multivitamin] 1 tab PO DAILY 03/30/18 [History] Nitroglycerin [Nitrostat] 0.4 mg SL Q5M PRN MDD [id number] 03/30/18 [History] OxyCODONE/APAP 5/325 [Percocet 5/325 MG] 1 tab PO Q4HR PRN 03/30/18 [History] Oxybutynin [Ditropan] 5 mg PO HS 03/30/18 [History] Potassium Chloride [Klor-Con 10] 10 meq PO BID 03/30/18 [History] Ropinirole HCl [Requip] 2 mg PO HS 03/30/18 [History] Zolpidem [Ambien] 5 mg PO HS 03/30/18 [History] raNITIdine HCl [Zantac] 150 mg PO BID 03/30/18 [History] Acetaminophen [Tylenol] 650 mg PO Q6HR 30 Days #90 tablet 04/13/18 [Rx] Benzocaine/Menthol Naomi [Cepacol Sore Throat Lozenge] 1 each MM Q2H PRN lozenge 04/13/18 [Rx] Ferrous Sulfate 325 mg PO DAILY@0800 30 Days #30 tablet 04/13/18 [Rx] HYDROcodone/Acet 5/325 mg [[place] 5-325 mg] 1 tab PO Q6HR PRN 14 Days #20 tablet 04/13/18 [Rx] Sennosides/Docusate Sodium [Senna Plus] 2 each PO BID 30 Days #60 tablet [Rx] Allergies/Adverse Reactions: 3 Allergy/AdvReac Type Severity Reaction Status Date / Time lorazepam [From Ativan] AdvReac See Verified 05/14/15 07:06 Comments NSAIDS (Non-Steroidal AdvReac Gastrointestinal Verified 05/14/15 07:06 Anti-Inflamma Upset Date of admission: 03/30/18 07:40 Primary care physician: Santos Robbins, PAC Consults: 03/30/18 07:42 Consult to Orthopedic Surgery [CONS] Routine Consulting Provider: Orthopedic and Sports Medicine Reason for Consult: Femur fracture Time Notified: 07:42 Call Completed: Yes 03/30/18 08:18 Consult to Cardiology [CONS] Routine Comment: Consulting Provider: Cardiology Ce[facility] Reason for Consult: Preop Clearance; Right femur fracture. CABG In November at [facility]. Also has exertional dyspnea. Requested reocrds from [facility] Time Notified: 08:19 Call Completed: Yes 04/01/18 00:40 Consult to Occupational Therapy [CONS] Routine Comment: Evaluate, develop and implement POC Reason for Consult: adl Does patient have active BEDREST order?: No Is patient medically & hemodynamically stable?: Yes Consult to Physical Therapy [CONS] Routine Comment: Evaluate, develop and implement POC Reason for Consult: fx Does patient have active BEDREST order?: No Is patient medically & hemodynamically stable?: Yes Consult to Engineering Agent [CONS] Routine Reason for SW Consult: dc 04/03/18 10:48 Consult to Critical Care [CONS] Routine Consulting Provider: [facility] [place] Reason for Consult: Hypotensive, Acute blood loss anemia Call Completed: Yes Consult to Vascular Surgery [CONS] Routine Consulting Provider: Vascular Surgery [place] Reason for Consult: Acute b/l DVT, Anticoagulation contraindicated Call Completed: Yes 04/03/18 10:56 Consult to Oncology Hematology [CONS] Routine Consulting Provider: Diana Mota Reason for Consult: Reversing AC in pt with multiple DVT, recent surgery, active bleeding Call Completed: Yes 04/04/18 13:06 Consult to Interventional Radiology [CONS] Stat Consulting Provider: Radiology Interventional [place] Reason for Consult: right femoral fracture with possible bleeding Time Notified: 13:07 Call Completed: Yes 04/12/18 16:44 Consult to Engineering Agent [CONS] Routine Reason for SW Consult: placement - Constitutional Vitals: Temp Pulse Resp BP Pulse Ox 98.3 F 81 17 111/79 94 04/13/18 11:15 04/13/18 11:15 04/13/18 11:15 04/13/18 11:15 04/13/18 11:15 General appearance: Present: cooperative, A&O X 3, obese, answers questions appropriately Exam: General: Alert and oriented 3. No acute distress Cardiovascular: Normal S1 & S2, no rubs, murmurs or gallops. No JVD. Lungs: Clear to auscultation laterally, no wheezes or crackles. Abdomen: Obese, Soft, non-tender, no rigidity. NABS Extremities: improved Edema up to the hip area in the right lower extremity, no erythema, mild tenderness to palpation in the right lower extremity. Neurological: Normal cognition, CN II-XII intact Rest of the physical exam is non contributory - Patient Status Disposition: Transfer SNF Condition: Fair Functional capacity at discharge: uses cane/walker Overall status at discharge: patient is progressing back to baseline - Discharge Instructions Follow Up With: Santos Robbins Jr, PAC [Primary Care Provider] - (Patient is from [facility]. no PCP appointment needed) - Diet and Activity Activity: as per physical therapy Diet: advance to your usual diet - VTE Documentation of Mechanical Device: Venous foot pump, device
--- NOTE | 2018-04-13 14:06 | Physician Discharge Referral ---
ExtendedCare Referral Info Transfer To: SNF - Diagnosis (1) Closed right femoral fracture Priority: Primary Status: Acute (2) Acute blood loss anemia Priority: Secondary Status: Resolved (3) Essential hypertension Priority: Secondary Status: Chronic (4) Coronary artery disease Priority: Secondary Status: Chronic (5) DVT (deep venous thrombosis) Priority: Secondary Status: Acute (6) Hematoma following procedure Priority: Secondary Status: Resolved (7) Rheumatoid arthritis involving knee Priority: Secondary Status: Acute Prognosis: Good Aware of Diagnosis: Patient Aware of Prognosis: Patient - Transfer Medications Prescriptions: Acetaminophen [Tylenol] 650 mg PO Q6HR 30 Days #90 tablet HYDROcodone/Acet 5/325 mg [[place] 5-325 mg] 1 tab PO Q6HR PRN 14 Days #20 tablet PRN Reason: Moderate Pain Ferrous Sulfate 325 mg PO DAILY@0800 30 Days #30 tablet Sennosides/Docusate Sodium [Senna Plus] 2 each PO BID 30 Days #60 tablet Home Medications: Alendronate Sodium [Fosamax] 70 mg PO VERDE 03/30/18 [History] Allopurinol [Zyloprim 100 MG] 100 mg PO BID 03/30/18 [History] Aspirin [Lo-Dose Aspirin EC] 81 mg PO DAILY 03/30/18 [History] Atorvastatin [Lipitor] 40 mg PO HS 03/30/18 [History] Calcium Carbonate/Vitamin D3 [[place] Calcium-Vit D Tab] 1 tab PO TID 03/30 [History] Citalopram Hydrobromide [Citalopram HBr] 20 mg PO DAILY 03/30/18 [History] Clopidogrel [Plavix] 75 mg PO DAILY 03/30/18 [History] Ergocalciferol (VITAMIN D2) [Vitamin D] 400 unit PO DAILY 03/30/18 [History] FentaNYL PATCH [Duragesic] 25 mcg TD Q72H 03/30/18 [History] Folic Acid 1 mg PO DAILY 03/30/18 [History] Furosemide [Lasix] 40 mg PO BID 03/30/18 [History] Lidocaine Patch [Lidoderm 5% patch] 1 appl TP DAILY 03/30/18 [History] Mag Hydrox/Aluminum Hyd/Simeth [Cvs Antacid Plus Anti-Gas Liq] 30 ml PO AD PRN 03/30/18 [History] Magnesium Oxide [Magnesium] 400 mg PO BID 03/30/18 [History] Methotrexate [Otrexup] 15 mg PO TH 03/30/18 [History] Metoprolol [Lopressor] 25 mg PO BID 03/30/18 [History] Multivitamin [One Daily Multivitamin] 1 tab PO DAILY 03/30/18 [History] Nitroglycerin [Nitrostat] 0.4 mg SL Q5M PRN MDD [id number] 03/30/18 [History] OxyCODONE/APAP 5/325 [Percocet 5/325 MG] 1 tab PO Q4HR PRN 03/30/18 [History] Oxybutynin [Ditropan] 5 mg PO HS 03/30/18 [History] Potassium Chloride [Klor-Con 10] 10 meq PO BID 03/30/18 [History] Ropinirole HCl [Requip] 2 mg PO HS 03/30/18 [History] Zolpidem [Ambien] 5 mg PO HS 03/30/18 [History] raNITIdine HCl [Zantac] 150 mg PO BID 03/30/18 [History] Acetaminophen [Tylenol] 650 mg PO Q6HR 30 Days #90 tablet 04/13/18 [Rx] Benzocaine/Menthol Naomi [Cepacol Sore Throat Lozenge] 1 each MM Q2H PRN lozenge 04/13/18 [Rx] Ferrous Sulfate 325 mg PO DAILY@0800 30 Days #30 tablet 04/13/18 [Rx] HYDROcodone/Acet 5/325 mg [[place] 5-325 mg] 1 tab PO Q6HR PRN 14 Days #20 tablet 04/13/18 [Rx] Sennosides/Docusate Sodium [Senna Plus] 2 each PO BID 30 Days #60 tablet [Rx] Allergies/Adverse Reactions: 3 Allergy/AdvReac Type Severity Reaction Status Date / Time lorazepam [From Ativan] AdvReac See Verified 05/14/15 07:06 Comments NSAIDS (Non-Steroidal AdvReac Gastrointestinal Verified 05/14/15 07:06 Anti-Inflamma Upset - Respiratory Orders Smoking Cessation: Smoking cessation has been advised. For more information, call the [place] Tobacco Quit Line at 0-431-KING-NOW. CERTIFICATION: I certify that the transfer of the above named patient to an Extended Care Facility is necessary for the continuing treatment of the diagnosis listed. The above information is true and accurate reflection of patient's current condition. Confidential - Redisclosure prohibited without a patient's written consent.
[2018-04-13 16:09] VITALS: BP 113/61
[2018-04-13] MEDS: *HR* FentaNYL PATCH 25 MCG PATCH TD SCH (17:30)
== END 2018-04-13 18:52 | DRG 480 ==
LOC: 3NENU → SUATTDRO 07:40 → ICNU 04-04 09:26 → 2NNU 04-05 14:32
PROVIDERS: ADMIT Internal Medicine; ATTEND Internal Medicine
PROC: IRANGIO (2018-04-04 13:30)

== ENCOUNTER 2019-12-26 08:37 | Inpatient (IN) ==
[2019-12-26] MEDS ORDERED: Naloxone 0.4 MG/ML INJ IVP PRN (11:08)
[2019-12-26] MEDS ORDERED: Ondansetron ODT 4 MG TAB.RAPDIS SL PRN (11:08)
[2019-12-26] MEDS ORDERED: MOM Conc 10 ML UD.LIQ PO PRN (11:08)
[2019-12-26] MEDS ORDERED: Mag Hydrox/Al Hydrox/Simeth 30 ML UDC PO PRN (11:08)
[2019-12-26] MEDS ORDERED: Acetaminophen 325 MG TABLET PO PRN (11:08)
[2019-12-26 12:25] LABS: Basophils % 0.3 %; Eosinophils # 0.2 K/mcL (0.0-0.6); Eosinophils % 2.2 %; Immature Granulocytes % 0.3 % (0-4); Lymphocytes # 3.6 K/mcL (0.6-4.6); Lymphocytes % 38.1 %; Mean Corpuscular Hemoglobin 27.9 pg (28.0-33.3); Mean Corpuscular Volume 89.8 fL (83.0-100.0); Mean Platelet Volume 8.6 fL (9.4-12.4); Monocytes # 0.5 K/mcL (0.0-1.3); Monocytes % 5.4 %; Neutrophils # 5.1 K/mcL (1.6-8.9); Platelet Count 325 K/mcL (140-400); Red Blood Count 3.23 M/mcL (3.82-4.97); Red Cell Distribution Width 18.5 % (11.5-14.5); Segmented Neutrophils % 53.7 %; White Blood Count 9.4 K/mcL (4.3-11.1)
[2019-12-26] MEDS: Piperacillin/Tazobactam 3.375 GM in 0.9 % Sodium Chloride Mini Bag 100 ML IVPB SCH ×2 (12:31→22:00)
[2019-12-26] MEDS: *HR* OxyCODONE Immed Rel 5 MG TABLET PO PRN ×2 (12:35→22:00)
[2019-12-26 12:45] LABS: Alanine Aminotransferase 5 Units/L (7-52); Albumin 3.1 g/dL (3.5-5.7); Albumin/Globulin Ratio 0.7 (1.1-2.2); Alkaline Phosphatase 115 Units/L (34-104); Aspartate Amino Transferase 12 Units/L (13-39); BUN/Creatinine Ratio 22 (6-26); Bilirubin,Total 0.4 mg/dL (0.3-1.0); Blood Urea Nitrogen 16 mg/dL (8-23); Calcium 9.1 mg/dL (8.6-10.3); Carbon Dioxide 22 mEq/L (23-29); Chloride 107 mEq/L (98-107); Globulin 4.5 g/dL (2.4-3.5); Glucose 115 mg/dL (70-105); Magnesium 1.3 mg/dL (1.6-2.6); Osmolality,Calculated 286 (280-300); Sodium 137 mEq/L (136-145); Total Protein 7.6 g/dL (6.4-8.9); eGFR For African Americans > 60 (> 60); eGFR For Non-African Americans > 60 (> 60)
[2019-12-27] MEDS: *HR* HYDROcodone/Acet 5/325 mg TABLET PO PRN (02:30)
[2019-12-27] MEDS: Piperacillin/Tazobactam 3.375 GM in 0.9 % Sodium Chloride Mini Bag 100 ML IVPB SCH ×3 (04:43→22:59)
[2019-12-27 06:05] LABS: Hematocrit 28.2 % (35.3-44.9); Hemoglobin 8.7 g/dL (11.5-15.4); Mean Corpuscular HGB Conc 30.9 g/dL (31.6-35.5); Mean Corpuscular Hemoglobin 27.8 pg (28.0-33.3); Mean Corpuscular Volume 90.1 fL (83.0-100.0); Mean Platelet Volume 8.8 fL (9.4-12.4); Platelet Count 328 K/mcL (140-400); Red Blood Count 3.13 M/mcL (3.82-4.97); Red Cell Distribution Width 17.9 % (11.5-14.5); White Blood Count 8.8 K/mcL (4.3-11.1)
[2019-12-27] MEDS: *HR* Enoxaparin 40 MG/0.4 ML SYRINGE SQ SCH (06:15)
[2019-12-27] MEDS: *HR* OxyCODONE Immed Rel 5 MG TABLET PO PRN ×2 (06:15→22:58)
[2019-12-27 06:37] LABS: BUN/Creatinine Ratio 20 (6-26); Blood Urea Nitrogen 15 mg/dL (8-23); Calcium 8.8 mg/dL (8.6-10.3); Carbon Dioxide 20 mEq/L (23-29); Chloride 110 mEq/L (98-107); Glucose 96 mg/dL (70-105); Magnesium 1.4 mg/dL (1.6-2.6); Osmolality,Calculated 287 (280-300); Sodium 138 mEq/L (136-145); eGFR For African Americans > 60 (> 60); eGFR For Non-African Americans > 60 (> 60)
[2019-12-27] MEDS ORDERED: 0.9 % Sodium Chloride 500 ML IVC ONE (12:29)
[2019-12-27] MEDS ORDERED: Nitroglycerin 0.4 MG TAB.SUBL SL PRN (12:33)
[2019-12-27] MEDS: Silvasorb 44.4 ML TUBE TP SCH (17:31)
[2019-12-27] MEDS: Melatonin 3 MG TABLET PO SCH (22:59)
[2019-12-27] MEDS: rOPINIRole 1 MG TABLET PO SCH (23:00)
[2019-12-28 02:47] LABS: Basophils % 0.3 %; Eosinophils # 0.4 K/mcL (0.0-0.6); Eosinophils % 3.9 %; Hematocrit 27.8 % (35.3-44.9); Hemoglobin 8.6 g/dL (11.5-15.4); Immature Granulocytes % 0.4 % (0-4); Lymphocytes # 3.4 K/mcL (0.6-4.6); Lymphocytes % 34.4 %; Mean Corpuscular HGB Conc 30.9 g/dL (31.6-35.5); Mean Corpuscular Volume 90.6 fL (83.0-100.0); Mean Platelet Volume 9.1 fL (9.4-12.4); Monocytes # 0.6 K/mcL (0.0-1.3); Monocytes % 5.9 %; Neutrophils # 5.4 K/mcL (1.6-8.9); Platelet Count 336 K/mcL (140-400); Red Blood Count 3.07 M/mcL (3.82-4.97); Red Cell Distribution Width 17.7 % (11.5-14.5); Segmented Neutrophils % 55.1 %; White Blood Count 9.8 K/mcL (4.3-11.1)
[2019-12-28 02:58] LABS: BUN/Creatinine Ratio 23 (6-26); Blood Urea Nitrogen 17 mg/dL (8-23); Calcium 9.2 mg/dL (8.6-10.3); Carbon Dioxide 20 mEq/L (23-29); Chloride 110 mEq/L (98-107); Glucose 94 mg/dL (70-105); Osmolality,Calculated 287 (280-300); Potassium 3.9 mEq/L (3.5-5.1); Sodium 138 mEq/L (136-145); eGFR For African Americans > 60 (> 60); eGFR For Non-African Americans > 60 (> 60)
[2019-12-28] MEDS: *HR* Enoxaparin 40 MG/0.4 ML SYRINGE SQ SCH (04:20)
[2019-12-28] MEDS: Piperacillin/Tazobactam 3.375 GM in 0.9 % Sodium Chloride Mini Bag 100 ML IVPB SCH (04:57)
[2019-12-28] MEDS ORDERED: Piperacillin/Tazobactam 3.375 GM in 0.9 % Sodium Chloride Mini Bag 100 ML IVPB SCH (07:00)
[2019-12-28] MEDS: Silvasorb 44.4 ML TUBE TP SCH (08:12)
[2019-12-28 08:44] LABS: Enterococcus by PCR Not Detected (Not Detect); Staphylococcus aureus by PCR Not Detected (Not Detect); Staphylococcus by PCR DETECTED (Not Detect); Streptococcus agalactiae(B)PCR Not Detected (Not Detect); Streptococcus by PCR Not Detected (Not Detect); Streptococcus pneumoniae PCR Not Detected (Not Detect); Streptococcus pyogenes (A) PCR Not Detected (Not Detect); mecA Methicillin-Resist Gene DETECTED (Not Detect)
[2019-12-28 08:45] LABS: Acinetobacter baumannii by PCR Not Detected (Not Detect); Candida albicans by PCR Not Detected (Not Detect); Candida glabrata by PCR Not Detected (Not Detect); Candida krusei by PCR Not Detected (Not Detect); Candida parapsilosis by PCR Not Detected (Not Detect); Candida tropicalis by PCR Not Detected (Not Detect); Enterobacter cloacae Cmplx PCR Not Detected (Not Detect); Enterobacteriaceae by PCR Not Detected (Not Detect); Escherichia coli by PCR Not Detected (Not Detect); Klebsiella oxytoca by PCR Not Detected (Not Detect); Klebsiella pneumoniae by PCR Not Detected (Not Detect); Proteus by PCR Not Detected (Not Detect); Pseudomonas aeruginosa by PCR Not Detected (Not Detect); Serratia marcescens by PCR Not Detected (Not Detect)
[2019-12-28] MEDS: *HR* OxyCODONE Immed Rel 5 MG TABLET PO PRN (09:37)
[2019-12-28 13:49] LABS: C-Reactive Protein 119 mg/L (Less than 10); Vancomycin,Trough 9 mcg/mL (5-10)
[2019-12-28] MEDS: *HR* HYDROcodone/Acet 5/325 mg TABLET PO PRN (14:38)
[2019-12-28] MEDS ORDERED: Total Joint Mixture (50 ml) INTRAART ONE (15:30)
[2019-12-28] MEDS: Cefepime HCl 2,000 MG in Water for inj. (sterile) 20 ML IVP SCH (17:43)
[2019-12-28] MEDS: rOPINIRole 1 MG TABLET PO SCH (20:18)
[2019-12-28] MEDS: Melatonin 3 MG TABLET PO SCH (20:18)
[2019-12-29 03:15] LABS: Basophils % 0.3 %; Eosinophils # 0.4 K/mcL (0.0-0.6); Hemoglobin 8.1 g/dL (11.5-15.4); Immature Granulocytes % 0.3 % (0-4); Lymphocytes # 2.8 K/mcL (0.6-4.6); Lymphocytes % 39.3 %; Mean Corpuscular Hemoglobin 27.4 pg (28.0-33.3); Mean Corpuscular Volume 91.2 fL (83.0-100.0); Mean Platelet Volume 9.2 fL (9.4-12.4); Monocytes # 0.6 K/mcL (0.0-1.3); Monocytes % 8.1 %; Neutrophils # 3.2 K/mcL (1.6-8.9); Platelet Count 325 K/mcL (140-400); Red Blood Count 2.96 M/mcL (3.82-4.97); Red Cell Distribution Width 17.9 % (11.5-14.5)
[2019-12-29 03:31] LABS: BUN/Creatinine Ratio 28 (6-26); Blood Urea Nitrogen 17 mg/dL (8-23); Calcium 9.2 mg/dL (8.6-10.3); Carbon Dioxide 21 mEq/L (23-29); Chloride 108 mEq/L (98-107); Glucose 113 mg/dL (70-105); Osmolality,Calculated 284 (280-300); Sodium 136 mEq/L (136-145); eGFR For African Americans > 60 (> 60); eGFR For Non-African Americans > 60 (> 60)
[2019-12-29] MEDS: *HR* Enoxaparin 40 MG/0.4 ML SYRINGE SQ SCH (05:17)
[2019-12-29] MEDS: Cefepime HCl 2,000 MG in Water for inj. (sterile) 20 ML IVP SCH ×3 (05:18→18:08)
[2019-12-29] MEDS: Silvasorb 44.4 ML TUBE TP SCH (08:33)
[2019-12-29] MEDS: *HR* HYDROcodone/Acet 5/325 mg TABLET PO PRN (15:16)
[2019-12-29] MEDS: *HR* OxyCODONE Immed Rel 5 MG TABLET PO PRN (20:39)
[2019-12-29] MEDS: Melatonin 3 MG TABLET PO SCH (20:39)
[2019-12-29] MEDS: rOPINIRole 1 MG TABLET PO SCH (20:39)
[2019-12-30] MEDS: *HR* OxyCODONE Immed Rel 5 MG TABLET PO PRN ×2 (03:51→22:41)
[2019-12-30] MEDS: Cefepime HCl 2,000 MG in Water for inj. (sterile) 20 ML IVP SCH ×2 (05:46→17:52)
[2019-12-30] MEDS: *HR* Enoxaparin 40 MG/0.4 ML SYRINGE SQ SCH (05:47)
[2019-12-30 06:03] LABS: Basophils % 0.4 %; Eosinophils # 0.4 K/mcL (0.0-0.6); Eosinophils % 4.6 %; Hematocrit 28.2 % (35.3-44.9); Hemoglobin 8.8 g/dL (11.5-15.4); Immature Granulocytes % 0.2 % (0-4); Lymphocytes # 2.6 K/mcL (0.6-4.6); Lymphocytes % 30.7 %; Mean Corpuscular HGB Conc 31.2 g/dL (31.6-35.5); Mean Corpuscular Hemoglobin 28.2 pg (28.0-33.3); Mean Corpuscular Volume 90.4 fL (83.0-100.0); Mean Platelet Volume 8.7 fL (9.4-12.4); Monocytes # 0.7 K/mcL (0.0-1.3); Monocytes % 8.4 %; Neutrophils # 4.7 K/mcL (1.6-8.9); Platelet Count 284 K/mcL (140-400); Red Blood Count 3.12 M/mcL (3.82-4.97); Red Cell Distribution Width 17.1 % (11.5-14.5); Segmented Neutrophils % 55.7 %; White Blood Count 8.5 K/mcL (4.3-11.1)
[2019-12-30 06:22] LABS: BUN/Creatinine Ratio 23 (6-26); Blood Urea Nitrogen 14 mg/dL (8-23); Calcium 9.1 mg/dL (8.6-10.3); Carbon Dioxide 23 mEq/L (23-29); Chloride 107 mEq/L (98-107); Glucose 84 mg/dL (70-105); Osmolality,Calculated 282 (280-300); Potassium 3.9 mEq/L (3.5-5.1); Sodium 136 mEq/L (136-145); eGFR For African Americans > 60 (> 60); eGFR For Non-African Americans > 60 (> 60)
[2019-12-30] MEDS: *HR* HYDROcodone/Acet 5/325 mg TABLET PO PRN ×2 (09:00→15:48)
[2019-12-30] MEDS: Silvasorb 44.4 ML TUBE TP SCH (09:01)
[2019-12-30] MEDS: rOPINIRole 1 MG TABLET PO SCH (20:47)
[2019-12-30] MEDS: Melatonin 3 MG TABLET PO SCH (20:47)
[2019-12-31 04:00] LABS: Hematocrit 26.8 % (35.3-44.9); Hemoglobin 8.3 g/dL (11.5-15.4); Mean Corpuscular Hemoglobin 27.8 pg (28.0-33.3); Mean Corpuscular Volume 89.6 fL (83.0-100.0); Red Blood Count 2.99 M/mcL (3.82-4.97); Red Cell Distribution Width 16.9 % (11.5-14.5); White Blood Count 7.6 K/mcL (4.3-11.1)
[2019-12-31 04:01] LABS: Basophils % 0.3 %; Eosinophils # 0.4 K/mcL (0.0-0.6); Eosinophils % 5.1 %; Immature Granulocytes % 0.3 % (0-4); Lymphocytes # 2.9 K/mcL (0.6-4.6); Lymphocytes % 38.4 %; Mean Platelet Volume 9.3 fL (9.4-12.4); Monocytes # 0.8 K/mcL (0.0-1.3); Monocytes % 10.3 %; Neutrophils # 3.5 K/mcL (1.6-8.9); Platelet Count 317 K/mcL (140-400); Segmented Neutrophils % 45.6 %
[2019-12-31 04:23] LABS: BUN/Creatinine Ratio 28 (6-26); Blood Urea Nitrogen 17 mg/dL (8-23); Calcium 9.1 mg/dL (8.6-10.3); Carbon Dioxide 22 mEq/L (23-29); Chloride 107 mEq/L (98-107); Glucose 98 mg/dL (70-105); Osmolality,Calculated 284 (280-300); Potassium 4.4 mEq/L (3.5-5.1); Sodium 136 mEq/L (136-145); eGFR For African Americans > 60 (> 60); eGFR For Non-African Americans > 60 (> 60)
[2019-12-31] MEDS: *HR* Enoxaparin 40 MG/0.4 ML SYRINGE SQ SCH (05:54)
[2019-12-31] MEDS: Cefepime HCl 2,000 MG in Water for inj. (sterile) 20 ML IVP SCH ×2 (05:54→17:42)
[2019-12-31] MEDS: *HR* OxyCODONE Immed Rel 5 MG TABLET PO PRN ×2 (07:47→16:04)
[2019-12-31] MEDS: Silvasorb 44.4 ML TUBE TP SCH (07:47)
[2019-12-31] MEDS: MetroNIDAZOLE 500 MG/100 ML 500 MG/100 ML BAG IVPB SCH ×2 (09:54→16:04)
[2019-12-31] MEDS: rOPINIRole 1 MG TABLET PO SCH (22:02)
[2019-12-31] MEDS: Melatonin 3 MG TABLET PO SCH (22:03)
[2019-12-31] MEDS: *HR* HYDROcodone/Acet 5/325 mg TABLET PO PRN (22:03)
[2020-01-01] MEDS: MetroNIDAZOLE 500 MG/100 ML 500 MG/100 ML BAG IVPB SCH ×2 (00:46→07:23)
[2020-01-01 03:22] LABS: BUN/Creatinine Ratio 32 (6-26); Blood Urea Nitrogen 20 mg/dL (8-23); Calcium 8.9 mg/dL (8.6-10.3); Carbon Dioxide 21 mEq/L (23-29); Chloride 108 mEq/L (98-107); Glucose 102 mg/dL (70-105); Osmolality,Calculated 281 (280-300); Potassium 4.1 mEq/L (3.5-5.1); Sodium 134 mEq/L (136-145); eGFR For African Americans > 60 (> 60); eGFR For Non-African Americans > 60 (> 60)
[2020-01-01 03:36] LABS: Basophils % 0.4 %; Eosinophils # 0.3 K/mcL (0.0-0.6); Eosinophils % 4.1 %; Hematocrit 26.9 % (35.3-44.9); Hemoglobin 8.2 g/dL (11.5-15.4); Immature Granulocytes % 0.2 % (0-4); Lymphocytes # 3.2 K/mcL (0.6-4.6); Lymphocytes % 39.5 %; Mean Corpuscular HGB Conc 30.5 g/dL (31.6-35.5); Mean Corpuscular Hemoglobin 27.6 pg (28.0-33.3); Mean Corpuscular Volume 90.6 fL (83.0-100.0); Mean Platelet Volume 9.2 fL (9.4-12.4); Monocytes # 0.8 K/mcL (0.0-1.3); Monocytes % 9.9 %; Neutrophils # 3.7 K/mcL (1.6-8.9); Platelet Count 304 K/mcL (140-400); Red Blood Count 2.97 M/mcL (3.82-4.97); Red Cell Distribution Width 16.9 % (11.5-14.5); Segmented Neutrophils % 45.9 %; White Blood Count 8.1 K/mcL (4.3-11.1)
[2020-01-01] MEDS: *HR* OxyCODONE Immed Rel 5 MG TABLET PO PRN (03:50)
[2020-01-01] MEDS: *HR* Enoxaparin 40 MG/0.4 ML SYRINGE SQ SCH (06:30)
[2020-01-01] MEDS: Cefepime HCl 2,000 MG in Water for inj. (sterile) 20 ML IVP SCH (06:30)
[2020-01-01] MEDS: Silvasorb 44.4 ML TUBE TP SCH (07:24)
[2020-01-01] MEDS ORDERED: Aminoglycoside Consult 1 EACH MC ONE (09:17)
[2020-01-01] MEDS: *HR* HYDROcodone/Acet 5/325 mg TABLET PO PRN (12:59)
[2020-01-01] MEDS ORDERED: cefTRIAXone 2,000 MG in Water for inj. (sterile) 20 ML IVP SCH (14:00)
[2020-01-01 14:51] VITALS: BP 100/55
== END 2020-01-01 19:39 | DRG 549 ==
LOC: 3ANU → SUATTDRO 10:04
PROVIDERS: ADMIT Orthopaedic Surgery; ATTEND Family Medicine